=== PATIENT | female | born 1960 | race Caucasian/White ===

== ENCOUNTER 2017-08-10 15:50 | Emergency (ER) | payer BC, SELFPAY ==
[2017-08-10 15:51] VITALS: BP 147/44; PULSE 79; RESP 22; TEMP 35.9; O2SAT 97; BMI 32.2
--- NOTE | 2017-08-10 16:02 | EKG12_ITS ---
Test Reason : SOB Blood Pressure : / mmHG Vent. Rate : 072 BPM Atrial Rate : 072 BPM P-R Int : 194 ms QRS Dur : 090 ms QT Int : 426 ms P-R-T Axes : 046 013 024 degrees QTc Int : 466 ms Normal sinus rhythm Normal ECG Confirmed by DONAAVN TEMPLE MD ([id number]), photo editor SHEFALI VAZQUEZ ([id number]) on 08/14/2017 4:19:48 PM Referred By: SHIRIN Confirmed By:DONAVAN TEMPLE MD
--- NOTE | 2017-08-10 16:04 | ED.DCSUM_ITS ---
- ER Visit Summary Date of Service: 08/10/17 Chief Complaint: Cough, shortness of breath History of Present Illness: The patient is a 57 F ends to the emergency department cough and shortness of breath. The patient states she has been sick for almost a week. She recently traveled back from a cruise. She states that she was just on a short flight. She said was seen in the clinic on Sunday and diagnosed with a likely bronchitis. She was placed on azithromycin and feels like it is not improving. She is continued to have cough with productive sputum and dyspnea. She denies orthopnea. She denies any fevers or chills. She has no history of underlying lung disease. She does not smoke. She has had no chest pain or increase in leg swelling. She has no history of pulmonary embolus. She states she just feels like she cannot catch her breath when she starts coughing. Physical Examination: Vital signs reviewed General: Well-nourished, well-developed Head: Normocephalic, atraumatic Eyes: Pupils equal and reactive, extraocular muscles intact Neck, supple, no lymphadenopathy Heart: Regular rate and rhythm Respiratory: No distress, diminished in the bases with a mild end expiratory wheeze Abdomen: Soft, nontender, nondistended, no peritoneal signs Back: Nontender Extremities: Nontender, no edema, no cords Skin: Normal color no rash Neuro: Alert and oriented, no focal or lateralizing deficits Test Results: [] Emergency Department Course and Treatment: The patient presents with cough and shortness of breath. She has had no chest pain. Her EKG is sinus rhythm without evidence of acute ischemic change. Patient underwent 2 views of the chest. There is no pleural effusion, pneumonia, or other significant process. Cardiac enzymes and d-dimer negative. Screening labs do show hyperglycemia but are otherwise unremarkable. At this time, I do feel likely has a mild bronchitis. I do feel steroids would be of benefit, but the patient is a poorly controlled diabetic. I am going to treat her with Tessalon Perles and an inhaler. I do for the patient safe for discharge and she has no hypoxia and no tachypnea. The patient will be discharged home. Treatment Plan: [] Disposition: Discharge Impression:. Viral bronchitis with bronchospasm This note was generated with [employer] software. It may contain incorrect words, spelling, and punctuation that were not noted in review of the chart prior to signing ED Disposition - Plan for ED Patient: Chief Complaint: Shortness of Breath Instructions: ED Upper Resp Infec No Abx Tx Prescriptions: Albuterol Inhaler [Ventolin Hfa] 1 - 2 puff INHALATION Q4H PRN PRN #1 inhaler PRN Reason: Wheezing Benzonatate [Tessalon Perle] 200 mg PO TID PRN PRN #20 cap PRN Reason: Cough Referrals: Sherry Cho, GLAZIER ARTIST-C [Primary Care Provider] -
--- NOTE | 2017-08-10 16:28 | RAD_ITS ---
STUDY: X-RAY CHEST REASON FOR EXAM: Female, 57 years old. Cough with fever TECHNIQUE: PA and lateral views of the chest. COMPARISON: None. FINDINGS: monitor technician leads are present. The lungs are clear and expanded. There is no demonstrated pleural abnormality. Normal size heart. Normal mediastinum and sohail. Normal visualized pulmonary arteries. Normal visualized aortic arch and descending thoracic aorta. There are diffuse degenerative changes of the visualized thoracic spine. Normal visualized ribs, clavicles, and shoulders. There is no demonstrated abnormality of the visualized soft tissue structures of the upper abdomen. RAD/Chest PA and Lateral IMPRESSION: Degenerative changes, as described above. No demonstrated acute cardiopulmonary process. Electronically Signed: Kyle Martin MD at 16:52 EST , Service support ,
[2017-08-10 16:40] LABS: Absolute Lymphocyte Count 3.51 X10^3/ul (0.83-4.51); Basophil# 0.04 X10^3/uL; Basophil% 0.6 % (0-1); Eosinophil# 0.12 X10^3/uL; Eosinophils% 1.7 % (0-5); Hematocrit 43.8 % (37-47); Hemoglobin 14.6 g/dl (12.0-15.0); Lymphocyte # 3.51 X10^3/ul (4.0); Mean Corp Hgb Conc 33.3 g/gl (32-36); Mean Corpuscular Hgb 29.3 pg (27.0-32.0); Mean Platelet Vol. 10.7 fl (6.2-12.0); Monocyte# 0.51 X10^3/uL; Monocyte% 7.1 % (0-10); Neutrophil # 2.96 X10^3/uL (2.7-7.7); Neutrophil % 41.3 % (47-70); Platelet Count 191 K/mm3 (150-450); RBC Distribution Width SD 41.6 fl (35.1-43.9); Red Blood Count 4.98 M/mm3 (4.2-5.4); White Blood Count 7.2 K/mm3 (4.4-11.0)
[2017-08-10 16:41] LABS: POSITIVE COUNT NO; POSITIVE DIFFERENTIAL NO; POSITIVE MORPHOLOGY NO
[2017-08-10] MEDS: Ipratropium/Albuterol Sulfate 3 ML AMPUL.NEB INHALATION (16:41)
[2017-08-10] MEDS: Albuterol 2.5 MG/3 ML VIAL.NEB. INHALATION ×3 (16:41→17:04)
[2017-08-10 16:42] VITALS: PULSE 68; RESP 14
[2017-08-10 16:56] LABS: Anion Gap 8 (5-15); BUN 14 mg/dL (7-18); BUN/Creat Ratio 17.2 RATIO (10-20); Calcium,Total 8.9 mg/dL (8.5-10.1); Chloride 103 mmol/L (98-107); Creatinine, Serum 0.82 mg/dL (0.55-1.02); EST Glomerular Filtration Rate 77 mL/min (>60); Est Glom Filt Rate - Afr Amer 93 mL/min (>60); Estimated Creatinine Clearance 72.72 ml/min; Glucose 368 mg/dL (74-106); Potassium 4.2 mmol/L (3.5-5.1); Sodium Level 138 mmol/L (136-145)
[2017-08-10 16:57] LABS: D-Dimer Quantitative (DVT/PE) < 0.27 FEU/ug/m (0.27-0.49)
[2017-08-10 18:02] VITALS: BP 145/76; PULSE 94; RESP 20; O2SAT 100
[2017-08-10 18:49] LABS: BNP,B-Type NATRIURETIC PEPTIDE 39.8 pg/mL (0-100)
== END 2017-08-10 18:03 | disposition home or self-care (01) ==
PROVIDERS: Emergency Provider Emergency Medicine; Family Provider Nurse Practitioner Family; PCP Nurse Practitioner Family
DX: J20.8 Acute bronchitis due to other specified organisms (principal); E11.65 Type 2 diabetes mellitus with hyperglycemia; Z79.4 Long term (current) use of insulin; I10 Essential (primary) hypertension; E78.00 Pure hypercholesterolemia, unspecified; Z79.899 Other long term (current) drug therapy
CPT/HCPCS: 71046; 80048; 83880; 84484; 85025; 85379; 87804; 93005; 94640; 99284; A4216

== ENCOUNTER → 2018-01-18 12:15 | Outpatient (CLI) | payer BC, SELFPAY ==
--- NOTE | 2018-01-18 12:19 | US_ITS ---
STUDY: THYROID ULTRASOUND REASON FOR EXAM: Female, 57 years old. Nodules TECHNIQUE: Ultrasound evaluation of the thyroid was performed with real-time and static tubbs-scale imaging. COMPARISON: March 19, 2014. FINDINGS: RIGHT LOBE: Status post right thyroidectomy LEFT LOBE: The left lobe of the thyroid gland measures 4.1 x 1.5 x 1.3 cm. There is a heterogeneous echotexture. There is a stable 4 mm lower pole cyst. There is a posterior 9 mm isoechoic nodule. ISTHMUS: The isthmus measures 3 mm . The regional lymph nodes are normal. US/Thyroid IMPRESSION: Status post right thyroidectomy. Stable cysts lower pole cyst of the left thyroid lobe. Questionable posterior thyroid nodule versus prominent parathyroid gland. Electronically Signed: Maurice Up DO at 14:13 EDT Tel [phone], Service support ,
== END ==
DX: E04.9 Nontoxic goiter, unspecified (principal); Z12.31 Encounter for screening mammogram for malignant neoplasm of breast
CPT/HCPCS: 76536; 77063; 77067

== ENCOUNTER → 2018-06-13 07:34 | Outpatient (CLI) | payer BC, SELFPAY | PROVIDERS: Referring Provider Nurse Practitioner Family; Visit Provider Nurse Practitioner Family | DX: R06.83 Snoring (principal) | CPT/HCPCS: 95806 ==

== ENCOUNTER → 2018-08-19 14:17 | Outpatient (CLI) | payer BC, SELFPAY ==
[2018-02-04 07:53] VITALS: BMI 32.2
--- NOTE | 2018-08-19 14:22 | RAD_ITS ---
STUDY: X-RAY - RIGHT SHOULDER REASON FOR EXAM: Female, 58 years old. Pain for 2 weeks TECHNIQUE: 3 view(s) of the shoulder. COMPARISON: None. FINDINGS: Normal glenohumeral articulation. Normal acromioclavicular joint. Normal acromion. Normal humeral head and visualized proximal humerus. The soft tissue structures are unremarkable. Normal visualized pulmonary apex. RAD/Shoulder min 2 Views IMPRESSION: Normal x-ray examination of the shoulder. Electronically Signed: Jeffery Linda MD at 14:18 EDT Tel , Service support ,
== END ==
DX: M25.511 Pain in right shoulder (principal)
CPT/HCPCS: 73030

== ENCOUNTER → 2019-02-11 11:51 | Outpatient (CLI) | payer BC, SELFPAY ==
[2018-02-04 07:53] VITALS: BMI 32.2
--- NOTE | 2019-02-11 11:55 | US_ITS ---
HISTORY: History of right thyroidectomy, left thyroid lobe nodule follow-up COMPARISON: 01/18/2018 TECHNIQUE: Real-time transabdominal imaging of the thyrod gland was performed. # of images incl. paperwork: 58 FINDINGS: Right lobe: Status post lobectomy. Left lobe: The left lobe of the thyroid gland measures 3.5 x 1.4 x 1.5 cm. Normal parenchymal echogenicity. Within the upper pole there is a well-circumscribed oval hypoechoic nodule measuring 4 x 5 x 3 mm without abnormal microcalcifications or abnormal vascularity. In the midpole is redemonstration of what may represent a isoechoic well-circumscribed 7 x 8 x 7 mm nodule without microcalcifications or abnormal vascularity. Within the lower pole there is a anechoic/cystlike oval nodule measuring 3 x 2 mm, stable. Isthmus: The isthmus measures 0.3 cm. Other: No adenopathy is seen in either jugular chain. US/Thyroid IMPRESSION: 1. Status post right thyroidectomy. 2. Stable appearance of several subcentimeter left thyroid nodules with overall benign morphologic features. at 0305 Reported and signed by: Amaury Saucedo MD Electronically Signed: Amaury Saucedo MD at 3:04 EDT Tel , Service support ,
== END ==
DX: E04.9 Nontoxic goiter, unspecified (principal)
CPT/HCPCS: 76536

== ENCOUNTER 2019-02-17 08:06 | Day surgery (SDC) | payer BC, SELFPAY ==
[2018-02-04 07:53] VITALS: BMI 32.2
[2019-02-17] VITALS (9 sets, daily range): BP systolic 83–139; BP diastolic 62–86; PULSE 58–77; RESP 16–22; TEMP 36.1–37.2; O2SAT 93–98; BMI 34.9
[2019-02-17] MEDS: Lactated Ringers 1,000 ML 100 ML IV (08:45)
[2019-02-17 08:51] LABS: Bedside Glucose 172 mg/dL (70-110)
--- NOTE | 2019-02-17 09:15 | IMM_PTH ---
PATIENT: ANNA GAITAN LOC: EN U#:[id number] AGE/SX: 59/F ROOM: RE02/17/[address]: Dr. Joaquin Caban MD : 1960 BED: DIS: 02/17/2019 SPEC #: [id number] RECD: 02/17/19 14:04 STATUS: CHRISTA RERoman #: [id number] CORY: 02/17/19 09:[address]: Joaquin Caban DEPT: IMMUNOHISTOCHEMISTRY RECD BY: Juana Shah ENTERED: 02/17/19 14:04 SP TYPE: IMMUNO OTHR DR: Sherry Cho, PACKING AND STAMPING MACHINE OPERATOR-C [facility] Tissues: Stomach, NOS Procedures: H Pylori (initial) PHYSICIAN & [place] [id number] SPECIMEN INFORMATION: Tissue Source: Antrum biopsy Clinical Info: Dysphagia and colon screening Specimen Number: [id number] CPT code: 10884 METHODOLOGY: Deparaffinized sections of prefer/formalin-fixed tissue or PAP/DQ stained slides are incubated with monoclonal/polyclonal antibodies/oligonucleotide probes. Localization is made via biotin free immunoperoxidase method. Appropriate controls are performed and reacted as expected. Results on target cell population are indicated in the following table: RESULTS: ANTIBODY / CLONE RESULT H Pylori (polyclonal) positive These tests were developed and their performance characteristics determined by [facility]. They may not have been cleared or approved by the U.S. Food and Drug Administration. The FDA has determined that such clearance or approval is not necessary. INTERPRETATION: Antrum biopsy: Positive for numerous Helicobacter pylori organisms. SJ:neris 02/18/19
--- NOTE | 2019-02-17 09:15 | COLBX_PTH ---
PATIENT: ANNA GAITAN LOC: EN U#:[id number] AGE/SX: 59/F ROOM: RE02/17/[address]: Dr. Joaquin Caban MD : 1960 BED: DIS: 02/17/2019 SPEC #: [id number] RECD: 02/17/19 12:01 STATUS: CHRISTA JOVANNA #: [id number] CORY: 02/17/19 09:[address]: Joaquin Caban DEPT: SURGICAL PATHOLOGY RECD BY: Sachin Acosta ENTERED: 02/17/19 13:15 SP TYPE: COLON BX OTHR DR: Sherry Cho, BUSINESS ADMINISTRATION PROFESSOR-C [facility] Tissues: Gastric mucous membrane Procedures: Surgery Specimen Level IV HEADER OPERATION: Colonoscopy, EGD - open access (MAC) PRE-OP DIAGNOSIS: Dysphagia and colon screening TISSUE SUBMITTED: Antrum biopsy for H. pylori and path MICROSCOPIC DIAGNOSIS Antrum biopsy: Moderate chronic active gastritis. A few minute lymphoid aggregates, favor benign. NEYMAR:neris 02/18/19 COMMENT The results of immunohistochemistry for Helicobacter pylori will be reported separately ([id number]). MICROSCOPIC DESCRIPTION Slides are reviewed. GROSS DESCRIPTION Received in fixative is one container labeled with the patient's name and designated antrum biopsy. The specimen consists of one irregular fragment of light perez soft tissue that measures 0.8 x 0.2 x 0.1 cm. The specimen is totally submitted in one cassette. / NEYMAR:neris 02/17/19 TC:2 CPT: 77236
--- NOTE | 2019-02-17 09:26 | PCM.HP.BLA ---
History and Physical Date of Admission: 02/17/19 [facility] [address] [place], [place] [id number] OFFICE VISIT Date of Service: 02/04/18 MR#: [id number] Acct: [id number] Name: ANNA GAITAN Rep #: [id number] : 1960 Provider: Joaquin Caban MD Age/Sex: 58/F Location: [facility] Status: Signed Intake Vital Signs 02/04/18 Height 5 ft 7 in 02/04/18 Weight: 206 lb 02/04/18 Body Mass Index (BMI) 32.2 02/04/18 Blood Pressure 127/86 02/04/18 Blood Pressure Location Rt brachial 02/04/18 Blood Pressure Position Sitting 02/04/18 Respiratory Rate 14 02/04/18 Pulse Rate 69 02/04/18 Pulse Source Monitor 02/04/18 Temperature 98.0 F 02/04/18 Temperature Source Oral 02/04/18 Pulse Ox 96 02/04/18 Oxygen Delivery Method room air Intake Visit Reasons: Thyyroid Consult [facility] 01/18 Chief Complaint: thyroidectomy Manager Web Required: No Is patient in pain?: Yes (Left side of neck) Pain scale (1-10): 4 Allergies aspirin Adverse Reaction (Verified 08/10/17 16:13) Other Penicillins Adverse Reaction (Verified 08/10/17 16:13) Other Medications Insulin Aspart [Novolog Flexpen] 15 units SC TIDCM 04/21/14 [History Confirmed 02/04/18] Insulin Glargine [Lantus SoloStar Pen] 60 units SC QHS 04/21/14 [History Confirmed 02/04/18] Lisinopril [Zestril] 20 mg PO QHS 04/21/14 [History Confirmed 02/04/18] cholecalciferol (vitamin D3) 1,000 unit tablet 1,000 unit PO ONCE 05/17/17 [History Confirmed 02/04/18] insulin aspart U-100 100 unit/mL subcutaneous pen 10 unit SC TID #15 ml 05/17/17 [Rx Confirmed 02/04/18] insulin glargine (U-100) 100 unit/mL subcutaneous solution 60 unit SC QHS #20 ml 05/17/17 [Rx Confirmed 02/04/18] Albuterol Inhaler [Ventolin Hfa] 1 - 2 puff INHALATION Q4H PRN PRN #1 inhaler 08/10/17 [Rx] Benzonatate [Tessalon Perle] 200 mg PO TID PRN PRN #20 cap 08/10/17 [Rx] Levothyroxine [Synthroid] 75 mcg PO DAILY 08/10/17 [History Confirmed 02/04/18] naproxen 375 mg tablet 375 mg PO BID 02/04/18 [History Confirmed 02/04/18] pravastatin 20 mg tablet 40 mg PO QHS tab 02/04/18 [History Confirmed 02/04/18] sitagliptin 50 mg-metformin 500 mg tablet 1 tab PO BID 02/04/18 [History Confirmed 02/04/18] [facility] Medical History Back problem (Acute) Diabetes type 2, controlled (Acute) Endometriosis (Acute) H/O nephrolithotomy with removal of calculi (Acute) Headache (Acute) Hematoma (Acute) Hepatitis (Acute) High triglycerides (Acute) Hyperlipidemia (Acute) Hypothyroid (Acute) Kidney stones (Acute) Neuropathy (Acute) Open fracture of left tibia (Acute) Recurrent UTI (Acute) Rheumatoid arthritis (Acute) Seasonal allergies (Acute) Thyroid cancer (Acute) Vitamin D deficiency (Acute) HTN (hypertension) (Chronic) Surgical History H/O abdominal surgery (Acute) H/O section (Acute) H/O splenectomy (Acute) History of tonsillectomy (Acute) Hx of appendectomy (Acute) Hx of partial thyroidectomy (Acute) Previous back surgery (Acute) Family History Mother Diabetes Heart disease Hypertension Thyroid disorder Social History Smoking Status: Never smoker second hand exposure: No alcohol intake: current substance use type: does not use caffeine: Yes what type of physical activity do you participate in: walking HPI HPI HPI: ANNA GAITAN, is a 58 F who presents to the office today for evaluation of a thyroid ultrasound which was completed was [facility] on 01/18/2018. 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 The left lobe measured 4.1 x 1.5 x 1.3 cm there is a stable 4 mm lower lobe cyst in the 9 mm isoechoic nodule in the posterior aspect said the isthmus was a 3 mm the regional lymph nodes were noted to be normal. Patient states that she has been having some discomfort in her submandibular glands but has not noticed any pain or discomfort in her thyroid. She has been swallowing without problems and has she has been on her thyroid hormone replacement and it is been regularly being checked [facility]. ROS General General: Yes weight change and fatigue; no appetite, colon cancer, breast cancer or weakness HEENT HEENT: Yes difficulty swallowing and swollen glands; no eye injury, eye surgery or hoarseness Endo Endocrine: Yes thyroid disease and diabetes mellitus; no thyroid cancer, Hair loss, heat intolerance or cold intolerance Skin Skin: No rash or changing moles Musc Musculoskeletal: Yes back problems and arthritis; no rheumatoid arthritis, gout or joint pain Cardio Cardiovascular: Yes high blood pressure; no murmur, pacemaker, heart disease, atrial fibrillation, heart attack, heart stent, palpitations, shortness of breat with exertion or chest pain Psych Psychiatric: No depression, anxiety or hearing voices Resp Respiratory: No shortness of breath, No sleep apnea, No cough, No COPD, No asthma, No emphysema, No wheezing Gastro Gastrointestinal: Yes diarrhea, Yes constipation, No abdominal pain, No nausea or vomiting, No blood in stool, No acid reflux, No hemorrhoids, No ulcers, No gallbladder problem, No black,tarry stools Naldo Hematologic: No blood thinners, No blood disorders, No bleeding, No anemia, No blood clots Neuro Neurologic: No weakness Exam [facility] Head: normocephalic, atraumatic Ears: external ears normal Mouth: moist mucous membranes Other: Thyroid Exam: Within normal limits. No hard palpable nodules are identified. There is a well-healed cervical incision. Thyroid gland is not tender to palpate. The left submandibular gland I cannot palpate either. Cardio Heart Sounds: no murmurs Assessment & Plan Problems 1. Uninodular goiter E04.1 Plan At this point I am not going to recommend that the patient undergo a fine-needle aspiration. She will need to have another ultrasound done to her thyroid gland on a yearly basis. If the nodules grow by more than 20% or new nodules develop that are larger than a centimeter then we will perform fine-needle aspirations on her. But until they become a 10 mm in size no fine-needle aspiration is needed at this time. Medications Discontinued: hydrocodone-acetaminophen 5-325 mg Discontinued Reason: Pt no longer taking 1 - 2 tabs PO Q6H PRN PRN Mild-Moderate (pain scale 1-5) Coding Level of Care Code Off vis,new,level 2 Diagnoses Uninodular goiter E04.1 02/04/18 0802 <Electronically signed by Joaquin Caban MD> Date Joaquin Caban MD [facility] Signature: Date (if applicable) CC: EMILY LOPEZ [facility] ~ I have examined the patient the following changes are noted: Assessment screening colonoscopy Plan: We will be colonoscopy. Risk benefits have been reviewed with the patient to include bleeding infection possible injury to the colon which could require further surgeries and bowel resection. Patient is willing to and understands all potential risks. She is willing to proceed.
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
--- NOTE | 2019-02-17 10:34 | OP.ENDO_ITS ---
02/17/2019 Miroslava Marshall [facility] Re : Colonoscopy procedure for Anita Acosta [facility] This procedure was performed on Sunday, February 17, 2019. My impressions and recommendations are as follows: Impressions : - The examination was otherwise normal on direct and retroflexion views. - No specimens collected. Recommendations : - Discharge patient to home. - Resume previous diet. - Perform an air contrast barium enema today. - Repeat colonoscopy in 10 years for screening purposes. - Continue present medications. My findings are described in the full procedure note, which is enclosed. If I can be of further assistance, please feel free to contact me at Doctor phone number(s): , Fax: [phone], Work: . Sincerely, MD Joaquin Lopez MD 02/17/2019 10:33:47 AM This report has been signed electronically.
--- NOTE | 2019-02-17 14:05 | RAD_ITS ---
STUDY: BARIUM ENEMA. REASON FOR EXAM: Female, 59 years old. Incomplete colonoscopy. History of polyps. FLUOROSCOPY TIME (if supplied): (0:43) minutes/seconds. 16 images were obtained. TECHNIQUE: A supervisor speech film was performed. Following this, barium was introduced retrograde through the colon. The entire colon was opacified. COMPARISON: None. FINDINGS: On the supervisor speech film, gas is seen throughout the colon and several nondilated small bowel loops. The entire colon was opacified. There is evidence of redundancy of the sigmoid colon. There is no evidence of obstruction antegrade or retrograde to the flow of contrast. The appendix is opacified. RAD/Barium Enema No Air Cont IMPRESSION: Redundancy of the sigmoid colon. Electronically Signed: Sonny Bernard, at 15:22 EDT , Service support ,
== END 2019-02-17 13:46 | disposition home or self-care (01) ==
LOC: EN 08:07 → AC 08:09
PROVIDERS: Visit Provider Surgery
PROC: 0DJD8ZZ Inspection of Lower Intestinal Tract, Via Natural or Artificial Opening Endoscopic (ICD-10-PCS; CPT 45378; principal; 2019-02-17 09:10)
DX: K29.50 Unspecified chronic gastritis without bleeding (principal); B96.81 Helicobacter pylori [H. pylori] as the cause of diseases classified elsewhere; R13.14 Dysphagia, pharyngoesophageal phase; Z12.11 Encounter for screening for malignant neoplasm of colon; E78.00 Pure hypercholesterolemia, unspecified; I10 Essential (primary) hypertension; G47.30 Sleep apnea, unspecified; E04.1 Nontoxic single thyroid nodule; E11.65 Type 2 diabetes mellitus with hyperglycemia; Z79.4 Long term (current) use of insulin; Z79.899 Other long term (current) drug therapy; Z85.850 Personal history of malignant neoplasm of thyroid
CPT/HCPCS: 43239; 45378; 74270; 82962; 88305; 88342; J7120; J2405

== ENCOUNTER → 2021-02-15 18:20 | Outpatient (CLI) | payer BC, SELFPAY ==
--- NOTE | 2021-02-15 18:31 | US_ITS ---
STUDY: THYROID ULTRASOUND REASON FOR EXAM: Female, 61 years old. HYPO THYROID- s/p RT THYROIDECTOMY F/U LT NODULES TECHNIQUE: Ultrasound evaluation of the thyroid was performed with real-time and static tubbs-scale imaging. COMPARISON: None. FINDINGS: LEFT LOBE: The left lobe of the thyroid gland measures 4.3 x 1.4 x 1.4 cm. There is a homogeneous echotexture. 5 x 6 x 3 mm inferior lobe cystic nodule. 8 x 7 x 5 mm solid nodule on the posterior aspect of the gland with irregular margins and perivalvular vascularization. 4 x 4 x 2 mm superior thyroid cystic nodule. ISTHMUS: The isthmus measures 3 mm. US/Thyroid IMPRESSION: 8 mm solid nodule along the posterior aspect of the mid gland may represent a parathyroid. Cystic left thyroid structures measure up to 6 mm. Electronically Signed: Sonido Bal MD at 22:18 EDT Tel , Service support ,
== END ==
PROVIDERS: Visit Provider Nurse Practitioner Adult Health
DX: E03.9 Hypothyroidism, unspecified (principal)
CPT/HCPCS: 76536

== ENCOUNTER → 2022-01-23 | Outpatient (CLI) | payer BC, SELFPAY ==
[2022-01-28 14:29] LABS: HPV APTIMA, High Risk Negative (Negative)
== END | disposition home or self-care (01) ==
LOC: LABSPEC 13:11
PROVIDERS: Visit Provider Student in an Organized Health Care Education/Training Program
DX: Z12.4 Encounter for screening for malignant neoplasm of cervix (principal)
CPT/HCPCS: 87624; 88175; G0145

== ENCOUNTER 2022-02-09 05:51 | Day surgery (SDC) | payer BC, SELFPAY ==
[2022-02-02 11:01] LABS: Hematocrit 46.1 % (37-47); Hemoglobin 15.5 g/dL (12.0-15.0); Mean Corp Hgb Conc 33.6 g/dL (32-36); Mean Corpuscular Hgb 30.2 pg (27.0-32.0); Mean Corpuscular Volume 89.9 fL (81-99); Mean Platelet Vol. 10.9 fl (6.2-12.0); Platelet Count 246 K/mm3 (150-450); RBC Distribution Width CV 13.1 % (11.6-14.6); RBC Distribution Width SD 43.2 fl (35.1-43.9); Red Blood Count 5.13 M/mm3 (4.2-5.4); White Blood Count 7.9 K/mm3 (4.4-11.0)
[2022-02-09] VITALS (9 sets, daily range): BP systolic 153–165; BP diastolic 70–88; PULSE 78–86; RESP 16; TEMP 36.1–36.8; O2SAT 93–98; BMI 36.3
--- NOTE | 2022-02-09 | EMB_PTH ---
PATIENT: ANNA GAITAN LOC: [facility] [place] U#:[id number] AGE/SX: 62/F ROOM: RE02/09/[address]: Dr. Shabnam Melgar DO : 1960 BED: DIS: 02/09/2022 SPEC #: [id number] RECD: 02/09/22 11:14 STATUS: CHRISTA JOVANNA #: [id number] CORY: 02/09/22 00:[address]: Shabnam Melgar DEPT: SURGICAL PATHOLOGY RECD BY: Mario Lawrence ENTERED: 02/09/22 11:14 SP TYPE: MAXI BX/C SIOMARA DR: Leslie Paulino, RN ANGIOGRAPHY-C [facility] Tissues: Endometrium, NOS Procedures: Surgery Specimen Level IV HEADER OPERATION: Hysteroscopy, dilation and curettage PRE-OP DIAGNOSIS: Postmenopausal bleeding TISSUE SUBMITTED: Endometrial curettings MICROSCOPIC DIAGNOSIS Endometrial curettings: Complex endometrial hyperplasia with atypia and with focal areas highly suspicious for well differentiated endometrial adenocarcinoma. See comment. NEYMAR:neris 02/10/2022 COMMENT This case has been reviewed in consultation with Dr. De Leon who concurs with the above diagnosis. MICROSCOPIC DESCRIPTION Slides are reviewed. GROSS DESCRIPTION Received in fixative is one container labeled with the patient's name and designated endometrial curettings. The specimen consists of multiple irregular fragments of pink soft tissue mixed with mucoid tissue that in aggregate measure 3 x 2.5 x 0.3 cm. The specimen is totally submitted in one cassette. / NEYMAR:neris 02/09/2022 TC:0 CPT: 86235
--- NOTE | 2022-02-09 06:39 | PCM.HP.BLA ---
History and Physical Date of Admission: 02/09/22 HPI: 62 yo female with post menopausal bleeding. Planned for hysteroscopy, dilation and curettage. Meds Prior to Visit: Clobetasol Propionate E 0.05 % apply thin layer to affected area twice daily for two weeks Fluconazole 150 mg 1 tab by mouth once Lantus 100 Unit/ML 72 units pm Levothyroxine Sodium 50 mcg 1 tabs by mouth every day don't know Novolog 100 Unit/ML 50 units per meal Vitamin D (Ergocalciferol) 1.25 MG (42463 Ut) qd Allergies: Penicillin G - bruises, Environmental PMH: Essential hypertension : (2).Parity: Full term (2). Medical Problems: Type 2 Diabetes, Hypertension, Hypothyroidism Surgical Hx: Appendectomy, Tonsillectomy, Exploratory Laparotomy, Section, Dilation & Curettage Anesthesia Complications: None. Reviewed and updated. FH: Hypertension, Diabetes Mellitus Type 2, Hypoglycemia, Hypothyroidism, Edema. Father: Heart Disease, Emphysema. Mother: Diabetes Mellitus Type 2, Heart Disease. Paternal Grandmother: Unknown. Paternal Grandfather: Unknown. Maternal Grandmother: Tuberculosis (TB). Reviewed, no changes. SH: Personal Habits:Tobacco Use: Patient has never smoked.Alcohol: Occasionally consumes alcohol.Drug Use: Denies Drug Use. ROS: Const: Denies fatigue, fever, hot flashes, insomnia, weight gain and weight loss. CV: Denies irregular heartbeat, pain and shortness of breath. Resp: Denies difficulty breathing, cough and shortness of breath. : Denies abnormal bleeding, bloating, decreased interest in sex and pruritus. Lochia: Patient denies any discharge or clotting. Denies dysuria, frequency, hematuria, nocturia, urgency and urinary leakage. Neuro: Denies dizziness, fainting and seizures. Naldo/Lymph: Denies easy bleeding and excessive bleeding. Allergy/Immuno: Denies new allergies. BP: 140/86 Ht: 66 5'6 Wt: 233lb Wt Prior: 231lb as of 01/27/22 Wt Dif: +2lb BMI: 37.6 Exam: Resp: Respiration rate is normal. Inspection of chest reveals AP is unremarkable and no chest wall deformity. CV: Rate is regular. Rhythm is regular. Respiratory: CTAB Abdomen: soft, NT, ND Ext: No edema Neurologic: CN 2-12 grossly intact, no focal deficits MSK: strength 5/5 throughout all extremities Assessment/Plan 62 yo female with post menopausal bleeding. Planned for hysteroscopy, dilation and curettage. All risks/benefits/alternatives discussed. Risks include, but are not limited to: risk of bleeding to the point of transfusion, infection, injury to surrounding tissue (bowel/bladder/major abdominal vessels/uterine perforation), VTE, ICU admission. Pt aware and consented. All questions answered.
[2022-02-09] MEDS: Lactated Ringers 1,000 ML 15 ML IV (06:47)
[2022-02-09 07:30] LABS: Bedside Glucose 155 mg/dL (74-106)
--- NOTE | 2022-02-09 07:37 | OP.PCM_ITS ---
Report of Operation Date of Procedure: 02/09/22 Pre-Operative Diagnosis: Postmenopausal bleeding Post-Operative Diagnosis: Postmenopausal bleeding Surgery/Procedure Performed:: Hysteroscopy, dilation and curettage Description of Surgical Findings:: Thin slightly erythematous labia majora are all skin. Normal-appearing cervix. Thickened endometrial lining. No fibroids or polyps. Type of Anesthesia: MAC Specimen's removed: Endometrial curettings Estimated Blood Loss (mL): 10cc Fluids Replaced: 500cc Description of Procedure: Indication/risk/benefits: This is a 62-year-old female with postmenopausal bleeding plan for hysteroscopy, dilation and curettage. All risk, benefits, alternatives were discussed with patient. Risks include but are not limited to: Risk of bleeding to the point transfusion, infection, injury to surrounding tissue including bowel/bladder/uterine perforation, VTE, ICU admission. Patient aware and consented. Procedure: Patient taken to the operating room and MAC anesthesia induced. Patient prepped and draped in the usual sterile fashion. Weighted speculum p laced in posterior vagina and Last retractor used to visualize the cervix. Anterior lip of the cervix grasped with single-tooth tenaculum. Cervix sequentially dilated. Hysteroscope placed through cervical canal and inspection of entire endometrial cavity completed with findings stated above. Hysteroscope removed. Curettage completed a 360 degree manner. Single-tooth tenaculum removed. Cervix hemostatic. Weighted speculum removed. At the end of the procedure all needle, lap, sponge counts were correct. UOP: 150cc Complications None
--- NOTE | 2022-02-09 07:37 | PCM.DC ---
Discharge Instructions Diet Discharge Diet: No restrictions Activity Discharge Activity: Return to Normal Activity and May Shower May resume sexual activity in: 2 weeks Weight Bearing Status: Weight bearing as tolerated Lifting Restrictions: None Dressing / Incision Call your doctor if you observe: Fever of 101 or Higher, Change in Color, Inability to urinate, Using more than 1 pad per hour, Shortness of breath, Dizziness, Swelling in the ankles, Chest pain and Calf discomfort Follow Up Care Please Follow Up With: Shabnam Melgar DO When: 1-2 week postoperative visit Test Results: Test results from this visit will be discussed in further detail at your follow-up appointment, if applicable. Discharge Plan Admission Primary Reason for Your Visit: Dilation and curettage Attending Provider: Shabnam Melgar [facility] Providers: Leslie Paulino Discharge Orders/Prescriptions Prescriptions: No Action cholecalciferol (vitamin D3) 1,000 unit tablet 1,000 unit PO DAILY losartan 50 mg tablet 50 mg PO DAILY Qty: 1 0RF naproxen 375 mg tablet 375 mg PO PRN PRN (Reason: Pain) gabapentin 300 mg capsule 300 mg PO TID Qty: 1 0RF pravastatin 80 mg tablet 80 mg PO QHS levothyroxine 88 mcg tablet 88 mcg PO DAILY Label Comments: take 1 tablet by mouth once daily furosemide 20 mg Tablet 20 mg PO PRN PRN (Reason: Edema) potassium chloride 10 mEq Tablet,Er Particles/Crystals 10 meq PO PRN PRN (Reason: EDEMA WITH WATER PILL) Fat Burner Tablet 1 tab PO DAILY alpha lipoic acid 100 mg Capsule 100 mg PO BID Trulicity 1.5 mg/0.5 mL Pen Injector 1.5 mg SUBCUT TU insulin aspart U-100 [Novolog Flexpen U-100 Insulin] 100 unit/mL (3 mL) insulin pen 50 unit SC TID insulin glargine 100 unit/mL (3 mL) insulin pen 72 unit SC QHS (DME) FreeStyle Shanda 14 Day Sensor Kit See Rx Instructions .Route Qty: 2 5RF Rx Instructions: As directed [facility] - Disposition Disposition (needs filled in before D/C Order can be placed): Home, Self Care
[2022-02-09] MEDS: Lubricating Jelly 60 GM Tube 30 GM (07:46)
[2022-02-09] MEDS: HYDROcodone Bitartrate/Apap 5/325 Tablet PO (09:02)
== END 2022-02-09 09:13 | disposition home or self-care (01) ==
LOC: SDC 05:54 → AC 05:54
PROVIDERS: Referring Provider Student in an Organized Health Care Education/Training Program; Visit Provider Student in an Organized Health Care Education/Training Program
PROC: 0UDB8ZZ Extraction of Endometrium, Via Natural or Artificial Opening Endoscopic (ICD-10-PCS; CPT 58558; principal; 2022-02-09 07:20)
DX: N85.01 Benign endometrial hyperplasia (principal); E11.9 Type 2 diabetes mellitus without complications; Z79.4 Long term (current) use of insulin; N95.0 Postmenopausal bleeding; I10 Essential (primary) hypertension; E03.9 Hypothyroidism, unspecified; G47.33 Obstructive sleep apnea (adult) (pediatric); E55.9 Vitamin D deficiency, unspecified; E78.2 Mixed hyperlipidemia; Z79.899 Other long term (current) drug therapy
CPT/HCPCS: 58558; 00952; 36415; 82962; 85027; 86850; 86900; 86901; 88305; J7120; J2405

== ENCOUNTER → 2022-03-02 | Outpatient (CLI) | payer BC, SELFPAY ==
--- NOTE | 2022-03-02 12:22 | US_ITS ---
INDICATION: NONTOXIC SINGLE THYROID NODULE EXAMINATION: Ultrasound US Thyroid (eg thyroid, parathyroid, parotid) TECHNIQUE: Ann scale and color doppler imaging was performed of the thyroid gland. COMPARISON: 02/15/2021 FINDINGS: RIGHT THYROID LOBE: The right lobe of the thyroid gland is surgically absent. LEFT THYROID LOBE: The left lobe of the thyroid gland demonstrates heterogeneous echogenicity with 3 nodules are visualized largest of which is seen in the mid pole measuring 0.7 x 0.7 x 0.5 cm, this demonstrates hyperechoic internal echogenicity, unremarkable margins is wider than smaller and demonstrates no hyperechoic foci, TR 3 nodule. Two smaller anechoic cysts are visualized measuring 0.3 x 0.3 x 0.2 cm and 0.4 x 0.3 x 0.2 cm. ISTHMUS: The isthmus measures 0.2 cm in AP diameter.. No thyroid nodules are present. US/Thyroid IMPRESSION: The right lobe of the thyroid gland is surgically absent. A 0.7 cm TR 3 nodule is visualized in the midpole of the left lobe. Electronically Signed: Srikanth Gustafson MD at 14:48 EDT ,
== END | disposition home or self-care (01) ==
PROVIDERS: Referring Provider Family Medicine; Visit Provider Family Medicine
DX: E04.1 Nontoxic single thyroid nodule (principal)
CPT/HCPCS: 76536

== ENCOUNTER → 2022-03-24 | Outpatient (CLI) | payer BC, SELFPAY ==
[2022-03-24 09:35] LABS: ALB/GLOB Ratio 0.8 RATIO (0.9-2.4); AST(SGOT) 24 U/L (15-37); Alanine Aminotransfer ALT/SGPT 41 U/L (13-56); Albumin, Serum 3.5 g/dL (3.2-5.0); Alkaline Phosphatase 76 U/L (45-117); Anion Gap 5 (5-15); BUN 20 mg/dL (7-18); BUN/Creat Ratio 24.8 RATIO (10-20); Calcium,Total 9.5 mg/dL (8.5-10.1); Chloride 106 mmol/L (98-107); Creatinine, Serum 0.81 mg/dL (0.55-1.02); EST Glomerular Filtration Rate 76 mL/min (>60); Est Glom Filt Rate - Afr Amer 92 mL/min (>60); Globulin 4.2 g/dL (2.2-4.2); Glucose 152 mg/dL (74-106); Potassium 4.5 mmol/L (3.5-5.1); Protein, Total 7.7 g/dL (6.4-8.2); Sodium Level 140 mmol/L (136-145)
[2022-03-24 09:36] LABS: Hemoglobin A1c 8.9 % (3.8-5.6)
== END | disposition home or self-care (01) ==
LOC: LAB 08:07
PROVIDERS: Referring Provider Family Medicine; Visit Provider Family Medicine
DX: E11.42 Type 2 diabetes mellitus with diabetic polyneuropathy (principal)
CPT/HCPCS: 36415; 80053; 83036

== ENCOUNTER → 2022-05-31 | Outpatient (CLI) | payer BC, SELFPAY ==
[2022-05-31 12:43] LABS: Absolute Lymphocyte Count 3.16 X10^3/uL (0.83-4.51); Absolute Neutrophil Count 4.2 X10^3/uL (2.0-7.7); Basophil# 0.08 X10^3/uL; Eosinophil# 0.23 X10^3/uL; Eosinophils% 2.8 % (0-5); Hematocrit 44.4 % (37-47); Hemoglobin 14.4 g/dL (12.0-15.0); Lymphocyte # 3.16 X10^3/ul (0.83-4.51); Mean Corp Hgb Conc 32.4 g/dL (32-36); Mean Corpuscular Hgb 28.9 pg (27.0-32.0); Mean Corpuscular Volume 89.2 fL (81-99); Mean Platelet Vol. 10.7 fl (6.2-12.0); Monocyte% 7.2 % (0-10); NRBC Flagged by Analyzer 0 % (0-5); Neutrophil # 4.21 X10^3/uL (2.7-7.7); Neutrophil % 50.6 % (47-70); Platelet Count 276 K/mm3 (150-450); RBC Distribution Width CV 12.5 % (11.6-14.6); RBC Distribution Width SD 40.9 fl (35.1-43.9); Red Blood Count 4.98 M/mm3 (4.2-5.4); White Blood Count 8.3 K/mm3 (4.4-11.0)
[2022-05-31 13:12] LABS: ALB/GLOB Ratio 0.9 RATIO (0.9-2.4); AST(SGOT) 8 U/L (15-37); Alanine Aminotransfer ALT/SGPT 28 U/L (13-56); Albumin, Serum 3.4 g/dL (3.2-5.0); Alkaline Phosphatase 81 U/L (45-117); Anion Gap 9 (5-15); BUN 25 mg/dL (7-18); BUN/Creat Ratio 25.4 RATIO (10-20); Calcium,Total 9.9 mg/dL (8.5-10.1); Chloride 99 mmol/L (98-107); Creatinine, Serum 0.98 mg/dL (0.55-1.02); EST Glomerular Filtration Rate 61 mL/min (>60); Est Glom Filt Rate - Afr Amer 73 mL/min (>60); Globulin 3.9 g/dL (2.2-4.2); Glucose 430 mg/dL (74-106); Potassium 4.4 mmol/L (3.5-5.1); Protein, Total 7.3 g/dL (6.4-8.2); Sodium Level 132 mmol/L (136-145)
== END | disposition home or self-care (01) ==
LOC: LABSPEC 10:42
PROVIDERS: Visit Provider Student in an Organized Health Care Education/Training Program
DX: Z48.816 Encounter for surgical aftercare following surgery on the genitourinary system (principal); R30.0 Dysuria
CPT/HCPCS: 36415; 80053; 85025; 87086; 87088

== ENCOUNTER 2023-01-09 07:56 | Outpatient (RCR) | payer OTHER, SELFPAY ==
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
== END 2023-01-09 19:00 | disposition home or self-care (01) ==
LOC: OT 07:56
PROVIDERS: PCP Nurse Practitioner Family; Referring Provider Nurse Practitioner Family; Visit Provider Nurse Practitioner Family
DX: M25.561 Pain in right knee (principal); M25.562 Pain in left knee; G89.29 Other chronic pain; E11.40 Type 2 diabetes mellitus with diabetic neuropathy, unspecified
CPT/HCPCS: 97750

== ENCOUNTER → 2023-08-18 | Outpatient (CLI) | payer OTHER, SELFPAY ==
--- OUTSIDE RECORDS SUMMARY | 2023-08-18 07:48 | XMS RPT_ITS | CCD ---
Author Name Unknown Address [address] [place] [address] Organization [facility] Care Team Providers Care Gear Hobber Name Role Phone BRANDIE GUNDERSON-SLUNK SKINNERJUAN Primary Care Physician PAULINO ELECTRIC TRAIN DRIVER-SLUNK SKINNER, LESLIE Primary Care Physician Paulino SLUNK SKINNER, Leslie K Primary Care Provider Oscar WIN, Carlos A Ramírez Unavailable Paulino SLUNK SKINNER, Leslie K Primary Care Provider Oscar WIN, Carlos A Ramírez Unavailable [phone] Ba BAEZ, Griselda Unavailable PAULINO, LESLIE K Primary Care Unavailable MURIEL HOU Attending Unavailable PAULINO, LESLIE K Primary Care Unavailable JOAQUIN SMITH Attending Unavailable ABDI MOORE Referring Unavailable PAULINO, LESLIE K Primary Care Unavailable BA ELECTRIC TRAIN DRIVER-SLUNK SKINNER, GRISELDA Attending Unava ilable PAULINO ELECTRIC TRAIN DRIVER-SLUNK SKINNER, LESLIE Primary Care Unavailab le BA ELECTRIC TRAIN DRIVER-SLUNK SKINNER, GRISELDA Attending Unava ilable PAULINO ELECTRIC TRAIN DRIVER-SLUNK SKINNER, LESLIE Primary Care Unavailab le BA ELECTRIC TRAIN DRIVER-SLUNK SKINNER, GRISELDA Attending Unava ilable PAULINO ELECTRIC TRAIN DRIVER-SLUNK SKINNER, LESLIE Primary Care Unavailab JESUS MANUEL Butler MD Attending Unavail able PAULINO ELECTRIC TRAIN DRIVER-SLUNK SKINNER, LESLIE Primary Care Unavailab neelam STACK MD, JESUS MANUEL Buck Attending Unavail able PAULINO ELECTRIC TRAIN DRIVER-SLUNK SKINNER, LESLIE Primary Care Unavailab le LYREN-SONDLES MD, JESUS MANUEL Buck Attending Unavail denis FREITAS, LESLIE Primary Care Unavailab richter Allergies Allergy Classification Reported Allergen(s) Allergy Type Date of Onset Reaction(s) Facility (20 sources) Aspirin; Translations: [aspirin] Drug Allergy 4 Other: See Comments [facility] (16 sources) Penicillin; Translations: [penicillins] Drug Allergy Bruising [facility] (12 sources) seasonal enviromental Allergy to substance Congestion (morphologic abnormality), Sneezing (finding) [facility] (4 sources) Penicillin G; Translations: [PENICILLIN G] Drug Allergy 4 Other: See Comments [facility] Medications Current Medications Medication Drug Class(es) Dates Sig (Normalized) Sig (Original) 0.5 ML tirzepatide 20 MG/ML Auto-Injector [Mounjaro] (1 source) Start: 08-07-2023 inject 1 dose by subcutaneous injection every week Mounjaro 10 mg/0.5 mL subcutaneous solution Dose : 10 mg =, Subcutaneous, qWeek, rotate injection sites, # 2 mL, 1 Refill(s), Pharmacy: [id number], 167.6, cm, 08/07/23 12:00:00 EST, Height, kg, 08/07/23 12:00:00 EST, Dosing Weight Start Date: 08/07/23 Status: Ordered acetaminophen 325 mg / HYDROcodone bitartrate 5 mg oral tablet (3 sources) Opioid Agonist Start: 08-07-2023 End: 08-10-2023 take 1 tablet by mouth every six hours as needed for pain Hinkle 325- 5 mg oral tablet Dose = 1 tab(s), Oral, q6h, PRN for pain, X 3 day(s), # 12 tab(s), 0 Refill(s), Sunburn, 102.3 Start Date: 08/07/23 Stop Date: 08/10/23 Status: Ordered Completed/Discontinued Medications Medication Drug Class(es) Dates Sig (Normalized) Sig (Original) cholecalciferol 0.01 mg oral tablet (3 sources) Vitamin D Start: 02-16-2022 cholecalciferol (VITAMIN D3) 400 unit tab Take by mouth. 0 02/16/2022 Active Problems Active Problems Problem Classification Problem Date Documented Da te Episodic/Chronic Allergic reactions (12 sources) Eczema 02-21-2022 Episodic Calculus of urinary tract (16 sources) Kidney stone 02-01-2015 Episodic Cataract (12 sources) Cataract 02-21-2022 Chronic Past or Other Problems Problem Classification Problem Date Documented Da te Episodic/Chronic Bacterial infection; unspecified site (2 sources) Helicobacter pylori [H. pylori] as the cause of diseases classified elsewhere; Translations: [Helicobacter pylori [H. pylori] as the cause of diseases classified elsewhere] Onset: 10-10-2022 Episodic Results Test Name Value Interpretation Reference Range Facil ity Vital Signs Date Time Vital Sign Value Performing Clinician Facility 08-07-2023 12:00-0500 Body height 167.6 cm JESUS MANUEL STACK MD [facility] 08-07-2023 12:00-0500 Body temperature 97.88 [degF] JESUS MANUEL STACK MD [facility] 08-07-2023 12:00-0500 Body weight 102.3 kg JESUS MANUEL STACK MD [facility] 08-07-2023 12:00-0500 Diastolic Blood Pressure Non-Invasive 96 mm[Hg] JESUS MANUEL STACK MD [facility] 08-07-2023 12:00-0500 Heart rate 91 /min JESUS MANUEL STACK MD [facility] 08-07-2023 12:00-0500 Respiratory rate 18 /min JESUS MANUEL STACK MD [facility] 08-07-2023 12:00-0500 Systolic Blood Pressure Non-Invasive 161 mm[Hg] JESUS MANUEL STACK MD [facility] 02-21-2023 14:49-0400 Body height 167.6 cm JESUS MANUEL STACK MD [facility] 02-21-2023 14:49-0400 Body temperature 98.42 [degF] JESUS MANUEL STACK MD [facility] 02-21-2023 14:49-0400 Body weight 104.5 kg JESUS MANUEL STACK MD [facility] 02-21-2023 14:49-0400 Diastolic Blood Pressure Non-Invasive 81 1 JESUS MANUEL STACK MD [facility] 02-21-2023 14:49-0400 Heart rate 85 /min JESUS MANUEL STACK MD [facility] 02-21-2023 14:49-0400 Respiratory rate 18 /min JESUS MANUEL STACK MD [facility] 02-21-2023 14:49-0400 Systolic Blood Pressure Non-Invasive 152 1 JESUS MANUEL STACK MD [facility] 10-04-2022 20:00-0400 Diastolic Blood Pressure Non-Invasive 78 1 JESUS MANUEL STACK MD [facility] 10-04-2022 20:00-0400 Heart rate 85 /min JESUS MANUEL STACK MD [facility] 10-04-2022 20:00-0400 Systolic Blood Pressure Non-Invasive 144 1 JESUS MANUEL STACK MD [facility] 10-04-2022 17:36-0400 Diastolic Blood Pressure Non-Invasive 83 1 JESUS MANUEL STACK MD [facility] 10-04-2022 17:36-0400 Heart rate 94 /min JESUS MANUEL STCAK MD [facility] 10-04-2022 17:36-0400 Respiratory rate 16 /min JESUS MANUEL STACK MD [facility] 10-04-2022 17:36-0400 Systolic Blood Pressure Non-Invasive 153 1 JESUS MANUEL STACK MD [facility] 10-04-2022 15:32-0400 Body temperature 97.16 [degF] JESUS MANUEL STACK MD [facility] 10-04-2022 15:32-0400 Body weight 106.3 kg JESUS MANUEL STACK MD [facility] 10-04-2022 15:32-0400 Diastolic Blood Pressure Non-Invasive 96 1 JESUS MANUEL STACK MD [facility] 10-04-2022 15:32-0400 Heart rate 101 /min JESUS MANUEL STACK MD [facility] 10-04-2022 15:32-0400 Respiratory rate 18 /min JESUS MANUEL STACK MD [facility] 10-04-2022 15:32-0400 Systolic Blood Pressure Non-Invasive 183 1 JESUS MANUEL STACK MD [facility] 09-05-2022 11:23-0400 Body height 167.6 cm Muriel Hou MD Work Phone: [facility] 09-05-2022 11:23-0400 Body weight 106.23 kg Muriel Hou MD Work Phone: [facility] 09-05-2022 11:23-0400 Diastolic blood pressure 99 mm[Hg] Muriel Hou MD Work Phone: [facility] 09-05-2022 11:23-0400 Heart rate 78 /min Muriel Hou MD Work Phone: [facility] 09-05-2022 11:23-0400 SaO2% (BldA) [Mass fraction] 98 % Muriel Hou MD Work Phone: [facility] 09-05-2022 11:23-0400 Systolic blood pressure 168 mm[Hg] Muriel Hou MD Work Phone: [facility] 05-17-2022 13:40-0500 Diastolic Blood Pressure Non-Invasive 63 1 MANJIT HUANG MD [facility] 05-17-2022 13:40-0500 Heart rate 74 /min MANJIT HUANG MD [facility] 05-17-2022 13:40-0500 Respiratory rate 18 /min MANJIT HUANG MD [facility] 05-17-2022 13:40-0500 Systolic Blood Pressure Non-Invasive 126 1 MANJIT HUANG MD [facility] 05-17-2022 12:11-0500 Body height 167.6 cm MANJIT HUANG MD [facility] 05-17-2022 12:11-0500 Respiratory rate 18 /min MANJIT HUANG MD [facility] 05-17-2022 12:04-0500 Body temperature 98.24 [degF] MANJIT HUANG MD [facility] 05-17-2022 12:04-0500 Diastolic Blood Pressure Non-Invasive 78 1 MANJIT HUANG MD [facility] 05-17-2022 12:04-0500 Heart rate 77 /min MANJIT HUANG MD [facility] 05-17-2022 12:04-0500 Systolic Blood Pressure Non-Invasive 125 1 MANJIT HUANG MD [facility] 05-14-2022 06:45-0500 Body temperature 98.42 [degF] MANJIT HUANG MD [facility] 05-14-2022 06:45-0500 Diastolic Blood Pressure Non-Invasive 87 1 MANJIT HUANG MD [facility] 05-14-2022 06:45-0500 Heart rate 79 /min MANJIT HUANG MD [facility] 05-14-2022 06:45-0500 Respiratory rate 18 /min MANJIT HUANG MD [facility] 05-14-2022 06:45-0500 Systolic Blood Pressure Non-Invasive 158 1 MANJIT HUANG MD [facility] 05-14-2022 05:41-0500 Diastolic Blood Pressure Non-Invasive 80 1 MANJIT HUANG MD [facility] 05-14-2022 05:41-0500 Systolic Blood Pressure Non-Invasive 147 1 MANJIT HUANG MD [facility] 05-14-2022 04:34-0500 Blood Pressure Method MANJIT HUANG MD [facility] 05-14-2022 04:34-0500 Diastolic Blood Pressure Non-Invasive 80 1 MANJIT HUANG MD [facility] 05-14-2022 04:34-0500 Systolic Blood Pressure Non-Invasive 150 1 MANJIT HUANG MD [facility] 05-14-2022 01:07-0500 Heart rate 83 /min MANJIT HUANG MD [facility] 05-13-2022 21:46-0500 Body temperature 97.52 [degF] MANJIT HUANG MD [address] [place] [address] 05-13-2022 21:46-0500 Heart rate 81 /min MANJIT HUANG MD [address] 05-13-2022 21:46-0500 Respiratory rate 18 /min MANJIT HUANG MD [address] [place] [address] 05-13-2022 17:13-0500 Body temperature 98.06 [degF] MANJIT HUANG MD [address] [place] [address] 05-13-2022 17:13-0500 Respiratory rate 18 /min MANJIT HUANG MD [address] [place] [address] 05-12-2022 07:55-0500 Blood Pressure Cuff Size MANJIT HUANG MD [address] [place] [address] 05-12-2022 07:55-0500 Blood Pressure Location MANJIT HUANG MD [address] [place] [address] 05-12-2022 07:55-0500 Blood Pressure Method MANJIT HUANG MD [address] [place] [address] 05-10-2022 04:08-0500 Body temperature 98.96 [degF] MANJIT HUANG MD [facility] 05-10-2022 00:10-0500 Body temperature 98.24 [degF] MANJIT HUANG MD [facility] 05-09-2022 22:09-0500 Body height 167.1 cm MANJIT HUANG MD [facility] 05-09-2022 22:09-0500 Body weight 103.2 kg MANJIT HUANG MD [facility] 05-09-2022 22:09-0500 Body weight 36.96 kg/m2 MANJIT HUANG MD [facility] 05-09-2022 20:00-0500 Body temperature 97.7 [degF] MANJIT HUANG MD [facility] 05-09-2022 19:30-0500 Reason For Taking VItal Signs MANJIT HUANG MD [facility] 05-09-2022 17:43-0500 Reason For Taking VItal Signs MANJIT HUANG MD [facility] 05-09-2022 14:42-0500 Heart rate 76 /min MANJIT HUANG MD [facility] 05-09-2022 12:26-0500 Heart rate 78 /min MANJIT HUANG MD [facility] 05-09-2022 10:16-0500 Heart rate 77 /min MANJIT HUANG MD [facility] 05-09-2022 10:16-0500 Reason For Taking VItal Signs MANJIT HUANG MD [facility] 05-09-2022 10:02-0500 Mean blood pressure 104 mm[Hg] MANJIT HUANG MD [facility] 05-09-2022 09:45-0500 Mean blood pressure 89 mm[Hg] MANJIT HUANG MD [facility] 05-09-2022 09:30-0500 Mean blood pressure 93 mm[Hg] MANJIT HUANG MD [facility] 05-09-2022 08:35-0500 Respiratory Rate - Anes 15 br/min MANJIT HUANG MD [facility] 05-09-2022 08:30-0500 Respiratory Rate - Anes 21 br/min MANJIT HUANG MD [facility] 05-09-2022 08:25-0500 Respiratory Rate - Anes 12 br/min MANJIT HUANG MD [facility] 05-09-2022 08:20-0500 Body temperature 96.03 [degF] MANJIT HUANG MD [facility] 05-09-2022 08:15-0500 Body temperature 96.06 [degF] MANJIT HUANG MD [facility] 05-09-2022 08:10-0500 Body temperature 96.15 [degF] MANJIT HUANG MD [facility] 05-09-2022 05:55-0500 Body height 167.1 cm MANJIT HUANG MD [facility] 05-09-2022 05:55-0500 Body weight 103.2 kg MANJIT HUANG MD [facility] 05-09-2022 05:55-0500 Heart rate 84 /min MANJIT HUANG MD [facility] 03-20-2022 13:29-0400 Body height 167.6 cm Joaquin Smith MD Work Phone: [facility] 03-20-2022 13:29-0400 Body temperature 97.39 [degF] Joaquin Smith MD Work Phone: [facility] 03-20-2022 13:29-0400 Body weight 105.78 kg Joaquin Smith MD Work Phone: [facility] 03-20-2022 13:29-0400 Diastolic blood pressure 85 mm[Hg] Joaquin Smith MD Work Phone: [facility] 03-20-2022 13:29-0400 Heart rate 102 /min Joaquin Smith MD Work Phone: [facility] 03-20-2022 13:29-0400 SaO2% (BldA) [Mass fraction] 96 % Joaquin Smith MD Work Phone: [facility] 03-20-2022 13:29-0400 Systolic blood pressure 128 mm[Hg] Joaquin Smith MD Work Phone: [facility] 02-21-2022 07:14-0400 Body height 168 cm MANJIT HUANG MD [facility] 02-21-2022 07:14-0400 Body temperature 98.06 [degF] MANJIT HUANG MD [facility] 02-21-2022 07:14-0400 Body weight 105.1 kg MANJIT HUANG MD [facility] 02-21-2022 07:14-0400 Body weight 37.24 kg/m2 MANJIT HUANG MD [facility] 02-21-2022 07:14-0400 diastolic 78 mm[Hg] MANJIT HUANG MD [facility] 02-21-2022 07:14-0400 Heart rate 80 /min MANJIT HUANG MD [facility] 02-21-2022 07:14-0400 systolic 139 mm[Hg] MANJIT HUANG MD [facility] Encounters Encounter Date Encounter Type Care Provider Facility Start: 08-07-2023 End: 08-07-2023 Emergency department patient visit JESUS MANUEL STACK MD Facility:[facility] Start: 08-07-2023 End: 08-07-2023 Emergency department patient visit JESUS MANUEL STACK MD [facility] Start: 06-28-2023 End: 06-29-2023 ambulatory GRISELDA COSME APRN-SLUNK SKINNER Facility:[facility] Start: 06-28-2023 End: 06-28-2023 Patient encounter procedure GRISELDA COSME APRN-SLUNK SKINNER [facility] Start: 03-26-2023 End: 03-27-2023 ambulatory GRISELDA COSME APRN-SLUNK SKINNER Facility:[facility] Start: 03-26-2023 End: 03-26-2023 Patient encounter procedure GRISELDA COSME APRN-SLUNK SKINNER [facility] Start: 02-21-2023 End: 02-21-2023 Emergency department patient visit JESUS MANUEL STACK MD Facility:[facility] Start: 02-21-2023 End: 02-21-2023 Emergency department patient visit JESUS MANUEL STACK MD [facility] Start: 10-10-2022 End: 10-15-2022 ambulatory GRISELDA COSME ELECTRIC TRAIN DRIVER-SLUNK SKINNER Facility:[facility] Start: 10-10-2022 End: 10-14-2022 Outreach Lab GRISELDA COSME APRN-SLUNK SKINNER [facility] Start: 10-04-2022 End: 10-04-2022 Emergency department patient visit JESUS MANUEL STACK MD Facility:[facility] Start: 10-04-2022 End: 10-04-2022 Emergency department patient visit JESUS MANUEL STACK MD [facility] Start: 09-05-2022 End: 09-05-2022 ambulatory MURIEL HOU Facility:[facility] Start: 09-05-2022 End: 09-05-2022 Nursing evaluation of patient and report Michael Mclaughlin RN Work Phone: Diabetic Education [facility] Procedures Date Procedure Procedure Detail Performing Clinician Start: 09-05-2022 Hemoglobin A1c/Hemoglobin.total in Blood Muriel Hou MD Work Phone: Start: 05-09-2022 Laparoscopic hysterectomy MANJIT HUANG MD Start: 02-09-2022 Hysteroscopy MANJIT MEJIA MD Plan of Treatment Date Care Activity Detail Author Start: 12-06-2022 Hemoglobin A1c/Hemoglobin.total in Blood HBA1C [facility] Start: 06-11-2022 DEPRESSION ASSESSMENT DEPRESSION ASS ESSMENT [facility] Start: 02-09-2022 Influenza vaccination INFLUENZA (#1) [facility] Start: 06-11-2021 DEPRESSION ASSESSMENT DEPRESSION ASS ESSMENT [facility] Start: 02-18-2020 Colonoscopy COLONOSCOPY [facility] Start: 02-18-2020 COLORECTAL CANCER SCREENING COLORECTAL CANCER SCREENING [facility] Start: 09-18-2015 Mammography MAMMOGRAM [facility] Start: 11-26-2014 Hemoglobin A1c/Hemoglobin.total in Blood HBA1C [facility] Start: 2009 SHINGRIX VACCINE (1 of 2) SHINGRIX V ACCINE (1 of 2) [facility] Start: 02-01-2004 COLOGUARD (FIT-DNA) COLOGUARD (FIT-D NA) [facility] Start: 02-01-[address] COLONOGRAPHY [facility] Start: 02-01-2004 FECAL OCCULT BLOOD FECAL OCCULT BLOO D [facility] Start: 02-01-2004 SIGMOIDOSCOPY SIGMOIDOSCOPY [facility] Start: 1989 HPV TESTING HPV TESTING [facility] Start: 02-01-1980 PAP TESTING PAP TESTING [facility] Start: 1978 Urine microalbumin profile DTAP,TDAP ,TD (1 - Tdap) [facility] Start: 1977 ANNUAL PCP TEAM AUDIT PRACTICE INTERN MARTIR DISEASE VISIT ANNUAL PCP TEAM CHRONIC DISEASE VISIT [facility] Start: 1977 Hepatitis B surface antibody level LDL CHOLESTEROL [facility] Start: 1977 HEPATITIS C SCREENING HEPATITIS C SC REENING [facility] Start: 1977 HIV SCREENING HIV SCREENING [facility] Start: 1969 3 comp foot exam completed DIABETIC FOOT EXAM [facility] Start: 1969 Hepatitis B screening URINE AL BUMIN:CREATININE RATIO [facility] Start: 1969 Hepatitis C antibody , confirmatory test DILATED RETINAL EXAM [facility] Start: 1965 PNEUMOCOCCAL (1 - PCV) PNEUMOCOCCAL (1 - PCV) [facility] Immunizations Immunization Date Immunization Notes Care Provider Jimmie watt 04-08-2021 SARS-CoV-2 mRNA (tozinameran) vaccine AMNJIT HUANG MD [facility] Payers Date Payer Category Payer Unknown [id number] 2022 Private Health Insurance [employer] PPO xxxDING 2022-Present [phone] [address] [place] [address] PPO [id number] 2022 Private Health Insurance PEN DING 2022 Unknown [id number] 2014 Unknown LANA ZUÑIGA PPO [id number] 2014-Present [phone] [address] [place] [address] PPO [id number] 2014 Unknown [id number] 1959 Unknown [id number] 1959 Unknown [id number] 1959 Unknown [id number] 1959 Unknown [id number] 1959 Unknown [id number] 1959 Unknown [id number] Social History Date Type Detail Facility Start: 02-16-2022 End: 03-20-2022 Never smoked tobacco (finding) [facility] Sex Assigned At [facility] Start: 03-20-2022 Tobacco use and exposure Smokeless tobacco non-user [facility] Start: 03-20-2022 End: 09-05-2022 Alcohol intake Current drinker of alcohol (finding) [facility] Start: 03-20-2018 Alcohol Comment Occasional - wine Cl [facility] Start: 1960 Sex Assigned At Not on file C [facility] Start: 03-10-2022 End: 03-20-2022 Exposure to SARS-CoV-2 (event) Not sure [facility] Functional Status Date Assessment Result Facility 08-07-2023 Functional Status ID band on, Call device within reach, Bed in low position, Wheels locked, personal items within reach, Visitor at bedside [facility] 10-04-2022 Functional Status Assistive Device None A [facility] 10-04-2022 Functional Status Standard Safet y ID band on, Call device within reach, Bed in low position, Wheels locked [facility] 05-17-2022 Functional Status Awake, Remains up in chair, Repositions self, Resting [facility] 05-17-2022 Functional Status [facility] 05-14-2022 Functional Status Yes [facility] 05-14-2022 Functional Status Patient refused [facility] 05-14-2022 Functional Status Room check performed [facility] 05-13-2022 Functional Status [facility] 05-13-2022 Functional Status [facility] 05-13-2022 Functional Status [facility] 05-12-2022 Functional Status Maintained [facility] 05-12-2022 Functional Status [facility] 05-12-2022 Functional Status [facility] 05-12-2022 Functional Status [facility] 05-12-2022 Functional Status [facility] 05-11-2022 Functional Status [facility] 05-10-2022 Functional Status Assistive Device None A [facility] 05-10-2022 Functional Status [facility] 05-10-2022 Functional Status Independent, Setup [facility] 05-10-2022 Functional Status Living Situati on Lives with spouse [facility] 05-09-2022 Functional Status Sensory Deficits None A [facility] 05-09-2022 Functional Status [facility] 05-09-2022 Functional Status [facility] 05-09-2022 Functional Status [facility] Mental Status Date Assessment Result Facility 08-07-2023 Mental Status Oriented x 4 [facility] 10-04-2022 Mental Status Orientation Oriented x 4 [facility] 10-04-2022 Mental Status [facility] 05-17-2022 Mental Status Orientation Foll ows simple commands [facility] 05-14-2022 Mental Status Orientation Oriented x 4 [facility] 05-13-2022 Mental Status [facility] 05-12-2022 Mental Status [facility] 05-11-2022 Mental Status [facility] Clinical Notes 02-21-2022 to 08-07-2023 Michael Mclaughlin RN - 09/05/2022 12:01 PM EDTPatient InstructionsMuriel Hou MD - 09/05/2022 11:21 AM EDTRadiUma Gottlieb RN - 03/20/2022 2:21 PM EDTRadiologyRadiologyLaboratoryRadiology Note Date & Type Note Facility 08-07-2023 Hospital Discharge instructions Patient Education 08/07/2023 12:02:55 Burn, Thermal, 1st- and 2nd-Degree w/ Dressing First- and Second-Degree Seymour A burn occurs when skin is exposed to too much heat, sun, or harsh chemicals. A first-degree burn (superficial burn) causes only redness, like a sunburn. It heals in a few days. A second-degree burn (partial-thickness burn) is deeper and causes a blister to form. This may take up to 2 weeks to heal. Home care Follow these guidelines when caring for yourself at home: On the first day, you may put a cool compress on the burn to relieve severe pain. You can use a small towel soaked in cool water as a cool compress. If a bandage was put on, change it once a day, unless you were told otherwise. If the bandage sticks, soak it off under warm running water. Before changing a bandage, wash your hands. Then wash the area with soap and water to remove any cream, ointment, ooze, or scab. You may do this in a sink, under a tub faucet, or in the shower. Rinse off the soap and pat the area dry with a clean towel. Look for signs of infection listed below. Put on any prescribed cream or ointment to prevent infection. This also keeps the bandage from sticking. Cover the burn with a nonstick gauze. Then wrap it with the bandage material. Change the bandage as soon as you can if it gets wet or dirty. Unless a pain medicine was prescribed, use [id number] medicine to control pain. If you have chronic liver or kidney disease, talk with your health care provider before using acetaminophen or ibuprofen. Also talk with your provider if you ve had a stomach ulcer or GI bleeding. Eat more calories and protein until the wound is healed. Drink plenty of water. Wear a hat, sunscreen, and long sleeves while in the sun to protect your skin. Don t pick or scratch at the affected areas. Wear loose-fitting clothing. Follow-up care Follow up with your healthcare provider, or as advised. Most seymour heal without becoming infected. Sometimes an infection may occur even with proper treatment. Be sure to check the burn daily for the signs of infection listed below. When to seek medical advice Call your healthcare provider right away if any of these signs of infection occur: Pain in the wound gets worse Redness or swelling gets worse Pus comes from the wound Red streaks in your skin come from the burn Fever of 100.4 F (38 C) or higher, or as directed by your healthcare provider Wounds don t appear to be healing Nausea or vomiting [id number] The [employer].. [address] [place] [address]. All rights reserved. This information is not intended as a substitute for professional medical care. Always follow your healthcare professional's instructions. Follow Up Care 08/07/2023 11:51:01 With:LESLIE PAULINO APRN-SLUNK SKINNER Address: [address] [place] [phone] When:2-4 days [facility] 08-07-2023 Note Discharge Instructions Thank you for allowing [facility] to assist you with your healthcare needs. The following is important discharge information regarding your hospital visit. Diagnosis from Today's Visit Leg - burn Sunburn What to Do Next Instructions from Your Care Team No qualifying data available. Post Acute Orders No qualifying data available. You Need to Schedule the Following Appointments Follow Up with LESLIE PAULINO When Within 2-4 days Where: [address] [place] [address]- [phone] Allergies aspirin (Bruising) penicillin (Bruising) seasonal enviromental (Congestion, Sneezing) Medications Please ask your primary doctor or pharmacist before taking any other medication not listed, including over the counter drugs, herbal medications, vitamins and or supplements as they may interact with your home medications. What How Much When Why Instructions Last Dose New acetaminophen-hydrocodone (Hinkle 325- 5 mg oral tablet) 1 tab(s) by mouth Every 6 hours as needed for for pain Sunburn Duration: 3 Days Printed Prescription Unchanged alpha-lipoic acid (Alpha Lipoic 100 mg oral tablet) 1 tab(s) by mouth Two (2) times a day Unchanged ascorbic acid (Vitamin C) Once a day Unchanged cholecalciferol (Vitamin D3 25 mcg (1000 intl units) oral tablet) 1 tab(s) by mouth Every day Unchanged DME (DME MISCellaneous) See instructions freestyle brandon 2 sensor 1 sensor for 14days, #2 sensors for 28 days and 3 refills E11.65. Unchanged docusate (Colace 100 mg oral capsule) 1 cap by mouth Two (2) times a day Duration: 30 Days Unchanged furosemide (furosemide 20 mg oral tablet) 1 tab(s) by mouth Once a day as needed for edema Unchanged gabapentin (gabapentin 300 mg oral capsule) 1 cap by mouth Three (3) times a day Unchanged hydrochlorothiazide-losartan (hydrochlorothiazide-losartan 12.5-50 mg oral tablet) 1 tab(s) by mouth Once a day (in the morning) take 1 tablet by mouth once daily Unchanged insulin regular (HumuLIN R KwikPEN (CONCENTRATED) insulin 500 units/ mL 3 mL) 80-65-65 Subcutaneous (INT) Three (3) times a day before meals Unchanged levothyroxine (levothyroxine 88 mcg (0.088 mg) oral tablet) 1 tab(s) by mouth Once a day (in the morning) take 1 tablet by mouth once daily Unchanged oxyCODONE (oxyCODONE 5 mg oral tablet ( IMMEDIATE release )) take 1 tablet by mouth every 6 hours for 7 days if needed for pain Unchanged potassium chloride (potassium chloride 10 mEq oral capsule, extended release) 1 cap by mouth Once a day as needed for only when taking Lasix Unchanged pyridoxine (Vitamin B6) by mouth Once a day Unchanged rosuvastatin (rosuvastatin 40 mg oral tablet) 1 tab(s) by mouth Once a day Unchanged tirzepatide (Mounjaro 7.5 mg/ 0.5 mL subcutaneous solution) 7.5 Milligram Every week inject 7.5 milligram subcutaneously every weekly Unchanged triamcinolone topical (triamcinolone 0.1% topical paste) 1 application by mouth Two (2) times a day Bilateral hands Please take this list to your next doctor s visit. Bring all medications you take, including over the counter medications, herbals and other supplements with you to your doctor s visit. Patients and families are reminded to discard old lists and to update any records with all medication providers or retail pharmacies. Education Materials First- and Second-Degree Seymour A burn occurs when skin is exposed to too much heat, sun, or harsh chemicals. A first-degree burn (superficial burn) causes only redness, like a sunburn. It heals in a few days. A second-degree burn (partial-thickness burn) is deeper and causes a blister to form. This may take up to 2 weeks to heal. Home care Follow these guidelines when caring for yourself at home: On the first day, you may put a cool compress on the burn to relieve severe pain. You can use a small towel soaked in cool water as a cool compress. If a bandage was put on, change it once a day, unless you were told otherwise. If the bandage sticks, soak it off under warm running water. Before changing a bandage, wash your hands. Then wash the area with soap and water to remove any cream, ointment, ooze, or scab. You may do this in a sink, under a tub faucet, or in the shower. Rinse off the soap and pat the area dry with a clean towel. Look for signs of infection listed below. Put on any prescribed cream or ointment to prevent infection. This also keeps the bandage from sticking. Cover the burn with a nonstick gauze. Then wrap it with the bandage material. Change the bandage as soon as you can if it gets wet or dirty. Unless a pain medicine was prescribed, use cyxr-wwk-ewwvewi medicine to control pain. If you have chronic liver or kidney disease, talk with your health care provider before using acetaminophen or ibuprofen. Also talk with your provider if you ve had a stomach ulcer or GI bleeding. Eat more calories and protein until the wound is healed. Drink plenty of water. Wear a hat, sunscreen, and long sleeves while in the sun to protect your skin. Don t pick or scratch at the affected areas. Wear loose-fitting clothing. Follow-up care Follow up with your healthcare provider, or as advised. Most seymour heal without becoming infected. Sometimes an infection may occur even with proper treatment. Be sure to check the burn daily for the signs of infection listed below. When to seek medical advice Call your healthcare provider right away if any of these signs of infection occur: Pain in the wound gets worse Redness or swelling gets worse Pus comes from the wound Red streaks in your skin come from the burn Fever of 100.4 F (38 C) or higher, or as directed by your healthcare provider Wounds don t appear to be healing Nausea or vomiting [id number] [employer].. [address] [place] [address]. All rights reserved. This information is not intended as a substitute for professional medical care. Always follow your healthcare professional's instructions. Additional Information VACCINATE! IT SAVES LIVES! Members of the community who have not yet received the COVID-19 vaccine and would like to receive it can visit one of [facility] vaccine clinics. There are many vaccine clinic locations within the [facility]. For locations and available times, please visit [email or web address] It is important to note that some COVID mobile vaccine clinics are held outdoors and may be canceled in rainy or stormy conditions. To learn more about pediatric vaccinations (ages 5-11), we invite you to visit the [facility] webpage. [email or web address]/pag [email or web address]-Nfqts-Clazlsobuuw-Frequent wy-Swykg-[email or web address].html To learn more about the COVID-19 vaccine, we invite you to visit the CDC website for a list of frequently asked questions. https://www.cdc.gov/coronavirus/-ncov/vaccines/faq.html [facility] Patient Portal Access Instructions: Stay connected with your healthcare team and access your personal medical information anytime with the [facility] Patient Portal. If you would like a full copy of your medical records please contact the [facility] Medical Records Department Sunday through Sunday between 8a.m. and 4:30p.m. Please follow the directions below to access the portal: 1.Access the email account you provided upon registration to the [facility].2.Look for an invitation email from [facility].3.Open the email and access the invitation link: [facility].Fill in the required agustin to create your account. Sign into www.[employer] [place] with your username and password that you created in the above steps to stay up to date. You can then view a summary of results, a summary of your visits, and the ability to download your summaries to your computer or send the information securely to a physician. Remember that your healthcare information is confidential, so carefully consider who you will allow to register on the [facility] Patient Portal for access to your information. You can also access the [facility] Patient Portal on the [employer] real. Simply click on Health Records under Health Data and then click on the [employer] logo. HOW TO SAFELY DISPOSE OF PRESCRIPTION MEDICATIONS Please use one of the following methods to safely dispose of your unused medications. 1.Use a drug disposal kit: the drug disposal pouch allows you to safely discard your old and unused drugs. Ask your nurse to give you one when you are discharged.2.Visit a local take-back location: Many local pharmacies and police departments have programs that collect old and unwanted prescription drugs. Call your local pharmacy or go to http://bit.ProductBio/6J9Wc9g to find one close to you.3.Make use of household items: Use cat litter or old coffee grounds to dispose medications if other options are not available. Mix your drugs with these household products, seal them in an airtight container and throw it into the garbage. Call [facility]: [phone] to be sure your drugs can be disposed of in this way. Some medicines may require a different approach.4.Never flush your medications down the toilet. IF YOU HAVE BEEN PRESCRIBED AN OPIOIDS FOR PAIN If you have been prescribed an opioid (such as hydrocodone, oxycodone or morphine), it is critical to understand the possible side effects and risks of opioid pain medications. Even when taken as directed, opioids can have several side effects including: Tolerance, meaning you might need to take more of a medication for the same pain relief. Nausea, vomiting and/or constipation. Sleepiness, dizziness, dry mouth, confusion, depression or itching. Physical dependence, meaning you have withdrawal symptoms when a medication is stopped ? this can develop within a few days. KNOW YOUR RESPONSIBILITIES It is important to know exactly how much and how often to take the opioid pain medications you are prescribed. Never take opioids in higher amounts or more often than prescribed. Do not combine opioids with alcohol or other drugs that cause drowsiness, such as benzodiazepines, also known as benzos, including diazepam and alprazolam, muscle relaxants or sleep aids. Never sell or share prescription opioids. This is illegal. Store opioids in a secure place and out of reach of others (including children, family, friends and visitors). The last page(s) of this document has been signed and retained as a CHART COPY Signatures Patient Education Materials Burn, Thermal, 1st- and 2nd-Degree w/ Dressing Medication Leaflets My discharge plan and instructions have been reviewed and explained to me and I,ARNIE, ANNA M understand my current condition and have read and understand these discharge instructions. I have received a written copy of the plan/instructions. If I have questions, I am aware that I should contact my doctor. 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 When a bone breaks, cells in the blood dudley to the fractured area. These cells help grow new bone. Bones heal through a gradual process called remodeling. The length of this process depends on general health, age, the type of fracture and how well the injury is cared for. The new bone grows stronger, even after a cast is removed. The fracture callus shrinks and remodels as the bone is used. The fibers are replaced by new bone. At first, the new bone is weak and spongy. This is called a fracture callus. Cells form a network of strong fibers inside the blood clot. These fibers hold bone fragments together. Tissues bleed around the fracture. This forms a blood clot in the space between bone fragments. [id number] [employer].. [address] [place] [address]. All rights reserved. This information is not intended as a substitute for professional medical care. Always follow your healthcare professional's instructions. 02/21/2023 15:33:24 Fracture, Shoulder Shoulder Fracture You have a break (fracture) of the shoulder. This may be a small crack in the bone. Or it may be a major break with the broken parts pushed out of position. If you have only a crack in the bone and no bone fragments are out of place, you will probably be treated with a shoulder immobilizer. This is a special type of sling. Casts are usually not used for this type of fracture. Your bone should heal in 4 to 8 weeks. More serious injuries may need surgery to put the bones back into the correct position for healing. Home care Follow these tips to care for yourself at home: Leave the shoulder immobilizer in place. This will support the injured arm at your side. This is the best position for the bone to heal. The shoulder immobilizer is adjustable. If it becomes loose, adjust it so that your forearm is level with the ground (horizontal). Your hand should be level with your elbow. Apply an ice pack to the injured area for 20 minutes every 1 to 2 hours the first day. You can make an ice pack by putting ice cubes in a plastic bag. A bag of frozen peas or something similar works well too. Wrap the bag in a towel before putting it on your shoulder. Continue with ice packs 3 to 4 times a day for the next 2 to 3 days. Then use the ice as needed to relieve pain and swelling. You may take acetaminophen or ibuprofen to relieve pain, unless another pain medicine was prescribed. If you have chronic liver or kidney disease or ever had a stomach ulcer or gastrointestinal bleeding, talk with your doctor before using these medicines. Don t take the sling off before your next exam unless you were told to do so. Ask if you should move your elbow, wrist, and hand. Follow-up care Follow up with your healthcare provider, or as advised. A shoulder joint will become stiff if left in a sling for too long. Ask your doctor when it is safe to begin gwmdi-fi-clfmdh exercises. When to seek medical advice Call your healthcare provider right away if any of these occur: Your fingers become swollen, cold, blue, numb, or tingly Your shoulder or upper arm swells a lot or looks very bruised The pain in your shoulder gets worse The splint or immobilizer breaks You have a fever or chills [id number] [employer].. [address] [place] [address]. All rights reserved. This information is not intended as a substitute for professional medical care. Always follow your healthcare professional's instructions. Follow Up Care 02/21/2023 14:31:34 With:CARLOS BLACKWELL Address: [address], [address] [place] [address]- [phone] Business (1) When:2-4 days With:LESLIE PAULINO Address: [address] [place] [address]- [phone] Business (1) When:2-4 days With:TWAN TRENT Address: [address] [place] [address] [place] [address]- When:2-4 days [facility] 02-21-2023 Note Discharge Instructions Thank you for allowing [facility] to assist you with your healthcare needs. The following is important discharge information regarding your hospital visit. Diagnosis from Today's Visit Proximal humerus fracture Shoulder pain-swelling What to Do Next Instructions from Your Care Team Discharge Home Equipment - Ordered -- Sling and Swathe Left, 99 month(s), 02/21/23 15:40:00 EDT Post Acute Orders No qualifying data available. You Need to Schedule the Following Appointments Follow Up with CARLOS BLACKWELL When Within 2-4 days Where: [address] [facility] [address] [place] [address]- [phone] Business (1) Follow Up with LESLIE PAULINO When Within 2-4 days Where: [address] [place] [address]- [phone] Business (1) Follow Up with TWAN TRENT When Within 2-4 days Where: [address] [place] [address]- Allergies aspirin (Bruising) penicillin (Bruising) seasonal enviromental (Congestion, Sneezing) Medications Please ask your primary doctor or pharmacist before taking any other medication not listed, including over the counter drugs, herbal medications, vitamins and or supplements as they may interact with your home medications. What How Much When Why Instructions Last Dose New acetaminophen-oxyCODONE (acetaminophen-oxyCODONE 325 mg-5 mg oral tablet) 1 tab(s) by mouth Every 6 hours as needed for for pain Proximal humerus fracture Duration: 3 Days Printed Prescription Unchanged alpha-lipoic acid (Alpha Lipoic 100 mg oral tablet) 1 tab(s) by mouth Two (2) times a day Unchanged cholecalciferol (Vitamin D3 25 mcg (1000 intl units) oral tablet) 1 tab(s) by mouth Every day Unchanged docusate (Colace 100 mg oral capsule) 1 cap by mouth Two (2) times a day Duration: 30 Days Unchanged dulaglutide (Trulicity Pen 1.5 mg/ 0.5 mL subcutaneous solution) 0.5 Milliliter Subcutaneous Every week Unchanged furosemide (furosemide 20 mg oral tablet) 1 tab(s) by mouth Once a day as needed for edema Unchanged gabapentin (gabapentin 300 mg oral capsule) 1 cap by mouth Three (3) times a day Unchanged hydrochlorothiazide-losartan (hydrochlorothiazide-losartan 12.5-50 mg oral tablet) 1 tab(s) by mouth Once a day (in the morning) take 1 tablet by mouth once daily Unchanged insulin aspart (Novolog) (NovoLOG) 50 unit(s) Subcutaneous Three (3) times a day before meals Unchanged insulin glargine (Lantus 100 units/ mL10 ml vial solution) 72 unit(s) Subcutaneous Daily at bedtime Unchanged levothyroxine (levothyroxine 88 mcg (0.088 mg) oral tablet) 1 tab(s) by mouth Once a day (in the morning) take 1 tablet by mouth once daily Unchanged oxyCODONE (oxyCODONE 5 mg oral tablet ( IMMEDIATE release )) take 1 tablet by mouth every 6 hours for 7 days if needed for pain Unchanged potassium chloride (potassium chloride 10 mEq oral capsule, extended release) 1 cap by mouth Once a day as needed for only when taking Lasix Unchanged pravastatin (pravastatin 80 mg oral tablet) 1 tab(s) by mouth Once a day (in the morning) Unchanged sulfamethoxazole-trimethoprim (sulfamethoxazole-trimethoprim 800 mg-160 mg oral tablet) take 1 tablet by mouth twice a day for 7 days Unchanged triamcinolone topical (triamcinolone 0.1% topical paste) 1 application by mouth Two (2) times a day Bilateral hands Please take this list to your next doctor s visit. Bring all medications you take, including over the counter medications, herbals and other supplements with you to your doctor s visit. Patients and families are reminded to discard old lists and to update any records with all medication providers or retail pharmacies. Medication Leaflets acetaminophen and oxycodone (a SEET a MIN oh fen and OX i KOE done) Endocet 10/325, Endocet 2.5/325, Endocet 5/325, Endocet 7.5/325, Nalocet, Percocet, Prolate What is the most important information I should know about acetaminophen and oxycodone? MISUSE OF OPIOID MEDICINE CAN CAUSE ADDICTION, OVERDOSE, OR . Keep the medication in a place where others cannot get to it. Taking opioid medicine during may cause life-threatening withdrawal symptoms in the . Fatal side effects can occur if you use opioid medicine with alcohol, or with other drugs that cause drowsiness or slow your breathing. Stop taking this medicine and call your doctor right away if you have skin redness or a rash that spreads and causes blistering and peeling. What is acetaminophen and oxycodone? Acetaminophen and oxycodone is a combination medicine used to relieve moderate to severe pain. Acetaminophen and oxycodone contains an opioide medicine and may be habit-forming. Acetaminophen and oxycodone may also be used for purposes not listed in this medication guide. What should I discuss with my healthcare provider before taking acetaminophen and oxycodone? You should not use this medicine if you are allergic to acetaminophen or oxycodone, or if you have: severe asthma or breathing problems; or a blockage in your stomach or intestines. Tell your doctor if you have ever had: breathing problems, sleep apnea; liver disease; a drug or alcohol addiction; kidney disease; a head injury or seizures; urination problems; or problems with your thyroid, pancreas, or gallbladder. If you use opioid medicine while you are , your baby could become dependent on the drug. This can cause life-threatening withdrawal symptoms in the baby after it is born. Babies born dependent on opioids may need medical treatment for several weeks. Ask a doctor before using opioid medicine if you are . Tell your doctor if you notice severe drowsiness or slow breathing in the nursing baby. How should I take acetaminophen and oxycodone? Follow all directions on your prescription label. Never take this medicine in larger amounts, or for longer than prescribed. An overdose can damage your liver or cause . Tell your doctor if you feel an increased urge to use more of this medicine. Never share opioid medicine with another person, especially someone with a history of drug abuse or addiction. MISUSE CAN CAUSE ADDICTION, OVERDOSE, OR . Keep the medicine in a place where others cannot get to it. Selling or giving away opioid medicine is against the law. Measure liquid medicine carefully. Use the dosing syringe provided, or use a medicine dose-measuring device (not a kitchen spoon). If you need surgery or medical tests, tell the doctor ahead of time that you are using this medicine. You should not stop using this medicine suddenly. Follow your doctor's instructions about tapering your dose. Store at room temperature away from moisture and heat. Keep track of your medicine. You should be aware if anyone is using it improperly or without a prescription. Do not keep leftover opioid medication. Just one dose can cause in someone using this medicine accidentally or improperly. Ask your pharmacist where to locate a drug take-back disposal program. If there is no take-back program, flush the unused medicine down the toilet. What happens if I miss a dose? Since this medicine is used for pain, you are not likely to miss a dose. Skip any missed dose if it is almost time for your next dose. Do not use two doses at one time. What happens if I overdose? Seek emergency medical attention or call the Poison Help line at . An overdose of this medicine can be fatal, especially in a child or other person using the medicine without a prescription. Overdose symptoms may include nausea, vomiting, sweating, severe drowsiness, pinpoint pupils, slow breathing, or no breathing. Your doctor may recommend you get naloxone (a medicine to reverse an opioid overdose) and keep it with you at all times. A person caring for you can give the naloxone if you stop breathing or don't wake up. Your caregiver must still get emergency medical help and may need to perform CPR (cardiopulmonary resuscitation) on you while waiting for help to arrive. Anyone can buy naloxone from a pharmacy or local health department. Make sure any person caring for you knows where you keep naloxone and how to use it. What should I avoid while taking acetaminophen and oxycodone? Avoid driving or operating machinery until you know how this medicine will affect you. Dizziness or drowsiness can cause falls, accidents, or severe injuries. Do not drink alcohol. Dangerous side effects or could occur. Ask a doctor or pharmacist before using any other medicine that may contain acetaminophen (sometimes abbreviated as APAP). Taking certain medications together can lead to a fatal overdose. What are the possible side effects of acetaminophen and oxycodone? Get emergency medical help if you have signs of an allergic reaction: hives; difficulty breathing; swelling of your face, lips, tongue, or throat. Opioid medicine can slow or stop your breathing, and may occur. A person caring for you should give naloxone and/or seek emergency medical attention if you have slow breathing with long pauses, blue colored lips, or if you are hard to wake up. In rare cases, acetaminophen may cause a severe skin reaction that can be fatal. This could occur even if you have taken acetaminophen in the past and had no reaction. Stop taking this medicine and call your doctor right away if you have skin redness or a rash that spreads and causes blistering and peeling. Call your doctor at once if you have: noisy breathing, sighing, shallow breathing, breathing that stops; a light-headed feeling, like you might pass out; weakness, tiredness, fever, unusual bruising or bleeding; confusion, unusual thoughts or behavior; problems with urination; liver problems--nausea, upper stomach pain, tiredness, loss of appetite, dark urine, cal-colored stools, jaundice (yellowing of the skin or eyes); low cortisol levels-- nausea, vomiting, loss of appetite, dizziness, worsening tiredness or weakness; or high levels of serotonin in the body--agitation, hallucinations, fever, sweating, shivering, fast heart rate, muscle stiffness, twitching, loss of coordination, nausea, vomiting, diarrhea. Serious breathing problems may be more likely in older adults and in those who are debilitated or have wasting syndrome or chronic breathing disorders. Common side effects include: dizziness, drowsiness, feeling tired; feelings of extreme happiness or sadness; nausea, vomiting, stomach pain; constipation; or headache. This is not a complete list of side effects and others may occur. Call your doctor for medical advice about side effects. You may report side effects to FDA at 5-703-FDY-4680. What other drugs will affect acetaminophen and oxycodone? You may have breathing problems or withdrawal symptoms if you start or stop taking certain other medicines. Tell your doctor if you also use an antibiotic, antifungal medication, heart or blood pressure medication, seizure medication, or medicine to treat HIV or hepatitis C. Opioid medication can interact with many other drugs and cause dangerous side effects or . Be sure your doctor knows if you also use: cold or allergy medicines, bronchodilator asthma/COPD medication, or a diuretic ('water pill'); medicines for motion sickness, irritable bowel syndrome, or overactive bladder; other opioids--opioid pain medicine or prescription cough medicine; a sedative like Valium--diazepam, alprazolam, lorazepam, Xanax, Klonopin, Versed, and others; drugs that make you sleepy or slow your breathing--a sleeping pill, muscle relaxer, medicine to treat mood disorders or mental illness; drugs that affect serotonin levels in your body--a stimulant, or medicine for depression, Parkinson's disease, migraine headaches, serious infections, or nausea and vomiting. This list is not complete. Other drugs may affect acetaminophen and oxycodone, including prescription and fhcv-lga-jyggqdi medicines, vitamins, and herbal products. Not all possible interactions are listed here. Where can I get more information? Your doctor or pharmacist can provide more information about acetaminophen and oxycodone. Remember, keep this and all other medicines out of the reach of children, never share your medicines with others, and use this medication only for the indication prescribed. Every effort has been made to ensure that the information provided by [employer]. ('[employer]') is accurate, up-to-date, and complete, but no guarantee is made to that effect. Drug information contained herein may be time sensitive. [employer] information has been compiled for use by healthcare practitioners and consumers in the [place] and therefore [employer] does not warrant that uses outside of the [place] are appropriate, unless specifically indicated otherwise. [employer]'s drug information does not endorse drugs, diagnose patients or recommend therapy. [employer] drug information is an informational resource designed to assist licensed healthcare practitioners in caring for their patients and/or to serve consumers viewing this service as a supplement to, and not a substitute for, the expertise, skill, knowledge and judgment of healthcare practitioners. The absence of a warning for a given drug or drug combination in no way should be construed to indicate that the drug or drug combination is safe, effective or appropriate for any given patient. [employer] does not assume any responsibility for any aspect of healthcare administered with the aid of information [employer] provides. The information contained herein is not intended to cover all possible uses, directions, precautions, warnings, drug interactions, allergic reactions, or adverse effects. If you have questions about the drugs you are taking, check with your doctor, nurse or pharmacist. Copyright 0984-1538 [employer]. Version: 22.. Revision Date: 01/11/2023. Education Materials How Bones Heal Bone is living tissue made up of cells. When a bone breaks, cells in the blood dudley to the fractured area. These cells help grow new bone. Bones heal through a gradual process called remodeling. The length of this process depends on general health, age, the type of fracture and how well the injury is cared for. The new bone grows stronger, even after a cast is removed. The fracture callus shrinks and remodels as the bone is used. The fibers are replaced by new bone. At first, the new bone is weak and spongy. This is called a fracture callus. Cells form a network of strong fibers inside the blood clot. These fibers hold bone fragments together. Tissues bleed around the fracture. This forms a blood clot in the space between bone fragments. 9952-0506 [employer].. [address] [place] [address], [place] [address]. All rights reserved. This information is not intended as a substitute for professional medical care. Always follow your healthcare professional's instructions. Shoulder Fracture You have a break (fracture) of the shoulder. This may be a small crack in the bone. Or it may be a major break with the broken parts pushed out of position. If you have only a crack in the bone and no bone fragments are out of place, you will probably be treated with a shoulder immobilizer. This is a special type of sling. Casts are usually not used for this type of fracture. Your bone should heal in 4 to 8 weeks. More serious injuries may need surgery to put the bones back into the correct position for healing. Home care Follow these tips to care for yourself at home: Leave the shoulder immobilizer in place. This will support the injured arm at your side. This is the best position for the bone to heal. The shoulder immobilizer is adjustable. If it becomes loose, adjust it so that your forearm is level with the ground (horizontal). Your hand should be level with your elbow. Apply an ice pack to the injured area for 20 minutes every 1 to 2 hours the first day. You can make an ice pack by putting ice cubes in a plastic bag. A bag of frozen peas or something similar works well too. Wrap the bag in a towel before putting it on your shoulder. Continue with ice packs 3 to 4 times a day for the next 2 to 3 days. Then use the ice as needed to relieve pain and swelling. You may take acetaminophen or ibuprofen to relieve pain, unless another pain medicine was prescribed. If you have chronic liver or kidney disease or ever had a stomach ulcer or gastrointestinal bleeding, talk with your doctor before using these medicines. Don t take the sling off before your next exam unless you were told to do so. Ask if you should move your elbow, wrist, and hand. Follow-up care Follow up with your healthcare provider, or as advised. A shoulder joint will become stiff if left in a sling for too long. Ask your doctor when it is safe to begin sojqu-vl-fzuknt exercises. When to seek medical advice Call your healthcare provider right away if any of these occur: Your fingers become swollen, cold, blue, numb, or tingly Your shoulder or upper arm swells a lot or looks very bruised The pain in your shoulder gets worse The splint or immobilizer breaks You have a fever or chills 4012-4315 [employer].. [address] [place] [address]. All rights reserved. This information is not intended as a substitute for professional medical care. Always follow your healthcare professional's instructions. Additional Information VACCINATE! IT SAVES LIVES! Members of the community who have not yet received the COVID-19 vaccine and would like to receive it can visit one of [facility] vaccine clinics. There are many vaccine clinic locations within the [facility]. For locations and available times, please visit [email or web address] [email or web address] It is important to note that some COVID mobile vaccine clinics are held outdoors and may be canceled in rainy or stormy conditions. To learn more about pediatric vaccinations (ages 5-11), we invite you to visit the [facility] webpage. https://[email or web address]/pag [email or web address]-Wlkfk-Ptflxlmjamo-Frequent [email or web address]-Gmrfi-Ioicltunz.html To learn more about the COVID-19 vaccine, we invite you to visit the CDC website for a list of frequently asked questions. https://www.cdc.gov/coronavirus/20 19-ncov/vaccines/faq.html [facility] Patient Portal Access Instructions: Stay connected with your healthcare team and access your personal medical information anytime with the [facility] Patient Portal. If you would like a full copy of your medical records please contact the [facility] Medical Records Department Sunday through Sunday between 8a.m. and 4:30p.m. Please follow the directions below to access the portal: 1.Access the email account you provided upon registration to the [facility].2.Look for an invitation email from [facility].3.Open the email and access the invitation link: Accept Invitation to [facility]4.Fill in the required agustin to create your account. Sign into www.[employer] with your username and password that you created in the above steps to stay up to date. You can then view a summary of results, a summary of your visits, and the ability to download your summaries to your computer or send the information securely to a physician. Remember that your healthcare information is confidential, so carefully consider who you will allow to register on the [facility] Patient Portal for access to your information. You can also access the [facility] Patient Portal on the [employer]. Simply click on Health Records under Health Data and then click on the [employer] logo. HOW TO SAFELY DISPOSE OF PRESCRIPTION MEDICATIONS Please use one of the following methods to safely dispose of your unused medications. 1.Use a drug disposal kit: the drug disposal pouch allows you to safely discard your old and unused drugs. Ask your nurse to give you one when you are discharged.2.Visit a local take-back location: Many local pharmacies and police departments have programs that collect old and unwanted prescription drugs. Call your local pharmacy or go to http://Gradalis.ProductBio/1Q3Uf7q to find one close to you.3.Make use of household items: Use cat litter or old coffee grounds to dispose medications if other options are not available. Mix your drugs with these household products, seal them in an airtight container and throw it into the garbage. Call [facility]: [phone] to be sure your drugs can be disposed of in this way. Some medicines may require a different approach.4.Never flush your medications down the toilet. IF YOU HAVE BEEN PRESCRIBED AN OPIOIDS FOR PAIN If you have been prescribed an opioid (such as hydrocodone, oxycodone or morphine), it is critical to understand the possible side effects and risks of opioid pain medications. Even when taken as directed, opioids can have several side effects including: Tolerance, meaning you might need to take more of a medication for the same pain relief. Nausea, vomiting and/or constipation. Sleepiness, dizziness, dry mouth, confusion, depression or itching. Physical dependence, meaning you have withdrawal symptoms when a medication is stopped ? this can develop within a few days. KNOW YOUR RESPONSIBILITIES It is important to know exactly how much and how often to take the opioid pain medications you are prescribed. Never take opioids in higher amounts or more often than prescribed. Do not combine opioids with alcohol or other drugs that cause drowsiness, such as benzodiazepines, also known as benzos, including diazepam and alprazolam, muscle relaxants or sleep aids. Never sell or share prescription opioids. This is illegal. Store opioids in a secure place and out of reach of others (including children, family, friends and visitors). The last page(s) of this document has been signed and retained as a CHART COPY Signatures Patient Education Materials How Bones Heal Fracture, Shoulder Medication Leaflets acetaminophen and oxycodone My discharge plan and instructions have been reviewed and explained to me and I,ARNIE, ANNA M understand my current condition and have read and understand these discharge instructions. I have received a written copy of the plan/instructions. If I have questions, I am aware that I should contact my doctor. 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 HISTORY: ORDERING SYSTEM PROVIDED HISTORY: Reason for Exam: pain after fall Fall, pain FINDINGS: There is a comminuted fracture of the humeral surgical neck and fracture lines may extend to the articular surface. No evidence of dislocation. No other acute fracture identified. The acromioclavicular joint is not abnormally widened. No unexpected radiopaque foreign body. Included intrathoracic structures are grossly unremarkable. IMPRESSION: Acute comminuted fracture of the proximal humerus. Interpreted by: Magalie Freitas Preliminary Report By: Magalie Freitas Electronically signed By Magalie Freitas Dictated Date: 02/21/2023 3:08:46 PM Prelim Date: 02/21/2023 3:11:48 PM Sign Date: 02/21/2023 3:11:48 PM Ordering Provider: KENYETTA ROSALES [facility] 09-13-2023 Note ORIGINAL EXAMINATION: THREE XRAY VIEWS OF THE LEFT ELBOW 02/21/2023 3:05 pm COMPARISON: None. HISTORY: ORDERING SYSTEM PROVIDED HISTORY: Reason for Exam: pain after fall Fall and pain, best double images possible FINDINGS: Patient positioning is suboptimal. No acute fracture or dislocation is identified given limitations. Evaluation for joint effusion is limited due to suboptimal lateral positioning. IMPRESSION: No acute fracture or dislocation identified given suboptimal positioning. Interpreted by: Magalie Freitas Preliminary Report By: Magalie Freitas Electronically signed By Magalie Freitas Dictated Date: 02/21/2023 3:11:59 PM Prelim Date: 02/21/2023 3:14:04 PM Sign Date: 02/21/2023 3:14:04 PM Ordering Provider: KENYETTA ROSALES [facility] 10-04-2022 Hospital Discharge instructions Patient Education 10/04/2022 18:21:58 Hyperglycemia (High Blood Sugar) Hyperglycemia (High Blood Sugar) Too much glucose (sugar) in your blood is called hyperglycemia or high blood sugar. High blood sugar can lead to a dangerous condition called ketoacidosis. In severe cases, it can lead to coma. Possible Causes of Hyperglycemia Inadequate treatment plan for diabetes Being sick Being under stress Taking certain medications, such as steroids Eating too much food, especially carbohydrates Being less active than usual Not taking enough diabetes medication Symptoms of Hyperglycemia Hyperglycemia may not cause symptoms. If you do have symptoms, they may include: Thirst Frequent need to urinate Feeling tired Nausea Itchy, dry skin Blurry vision Fast breathing Weakness Dizziness Wounds or skin infections that don t heal Unexplained weight loss if hyperglycemia lasts for more than a few days What You Should Do Check your blood sugar. Drink plenty of sugar-free, caffeine-free liquids such as water. Don t drink fruit juice. Check your blood sugar again every 4 hours. If you take insulin or diabetes medications, follow your sick-day plan for taking medication. Call your healthcare provider if you are not able to eat. Check your blood or urine for ketones as directed. Call your health care provider if your blood sugar and ketones do not return to your target range. Preventing High Blood Sugar To help keep your blood sugar from getting too high: Control stress. When you're ill, follow your sick-day plan. Follow your meal plan. Eat only the amount of food on your meal plan Follow your exercise plan. Take your insulin or diabetes medications as directed by you health care team. Also test your blood sugar as directed. If the plan is not working for you, discuss it with your doctor. Other Things to Do Carry a medical ID card or wear a medical alert bracelet. It should say that you have diabetes. It should also say what to do in case you pass out or go into a coma. Make sure family, friends, and coworkers know the signs of high blood sugar. Tell them what to do if your blood sugar gets very high and you can t help yourself. Talk to your health care team about other things you can do to prevent high blood sugar. Special note: Drink plenty of sugar-free and caffeine-free liquids when you feel symptoms of hyperglycemia. Call your doctor if you keep having episodes of hyperglycemia. 3838-0636 [employer].. [address] [place] [address]. All rights reserved. This information is not intended as a substitute for professional medical care. Always follow your healthcare professional's instructions. Follow Up Care 10/04/2022 15:31:53 With:LESLIE PAULINO Address: [address] [place] [phone] When:2-4 days [facility] 10-04-2022 Note Discharge Instructions Thank you for allowing [facility] to assist you with your healthcare needs. The following is important discharge information regarding your hospital visit. Diagnosis from Today's Visit Hyperglycemia Hyperglycemia What to Do Next Instructions from Your Care Team Take your insulin as prescribed. If you are running high please contact your aix administrator. No qualifying data available. Post Acute Orders No qualifying data available. You Need to Schedule the Following Appointments Follow Up with LESLIE PAULINO When Within 2-4 days Where: [facility] [place] [address]- [phone] Allergies aspirin (Bruising) penicillin (Bruising) seasonal enviromental (Congestion, Sneezing) Medications Please ask your primary doctor or pharmacist before taking any other medication not listed, including over the counter drugs, herbal medications, vitamins and or supplements as they may interact with your home medications. What How Much When Instructions Last Dose Unchanged alpha-lipoic acid (Alpha Lipoic 100 mg oral tablet) 1 tab(s) by mouth Two (2) times a day Unchanged cholecalciferol (Vitamin D3 25 mcg (1000 intl units) oral tablet) 1 tab(s) by mouth Every day Unchanged docusate (Colace 100 mg oral capsule) 1 cap by mouth Two (2) times a day Duration: 30 Days Unchanged dulaglutide (Trulicity Pen 1.5 mg/ 0.5 mL subcutaneous solution) 0.5 Milliliter Subcutaneous Every week Unchanged furosemide (furosemide 20 mg oral tablet) 1 tab(s) by mouth Once a day as needed for edema Unchanged gabapentin (gabapentin 300 mg oral capsule) 1 cap by mouth Three (3) times a day Unchanged hydrochlorothiazide-losartan (hydrochlorothiazide-losartan 12.5-50 mg oral tablet) 1 tab(s) by mouth Once a day (in the morning) take 1 tablet by mouth once daily Unchanged insulin aspart (Novolog) (NovoLOG) 50 unit(s) Subcutaneous Three (3) times a day before meals Unchanged insulin glargine (Lantus 100 units/ mL10 ml vial solution) 72 unit(s) Subcutaneous Daily at bedtime Unchanged levothyroxine (levothyroxine 88 mcg (0.088 mg) oral tablet) 1 tab(s) by mouth Once a day (in the morning) take 1 tablet by mouth once daily Unchanged oxyCODONE (oxyCODONE 5 mg oral tablet ( IMMEDIATE release )) take 1 tablet by mouth every 6 hours for 7 days if needed for pain Unchanged potassium chloride (potassium chloride 10 mEq oral capsule, extended release) 1 cap by mouth Once a day as needed for only when taking Lasix Unchanged pravastatin (pravastatin 80 mg oral tablet) 1 tab(s) by mouth Once a day (in the morning) Unchanged sulfamethoxazole-trimethoprim (sulfamethoxazole-trimethoprim 800 mg-160 mg oral tablet) take 1 tablet by mouth twice a day for 7 days Unchanged triamcinolone topical (triamcinolone 0.1% topical paste) 1 application by mouth Two (2) times a day Bilateral hands Please take this list to your next doctor s visit. Bring all medications you take, including over the counter medications, herbals and other supplements with you to your doctor s visit. Patients and families are reminded to discard old lists and to update any records with all medication providers or retail pharmacies. Education Materials Hyperglycemia (High Blood Sugar) Too much glucose (sugar) in your blood is called hyperglycemia or high blood sugar. High blood sugar can lead to a dangerous condition called ketoacidosis. In severe cases, it can lead to coma. Possible Causes of Hyperglycemia Inadequate treatment plan for diabetes Being sick Being under stress Taking certain medications, such as steroids Eating too much food, especially carbohydrates Being less active than usual Not taking enough diabetes medication Symptoms of Hyperglycemia Hyperglycemia may not cause symptoms. If you do have symptoms, they may include: Thirst Frequent need to urinate Feeling tired Nausea Itchy, dry skin Blurry vision Fast breathing Weakness Dizziness Wounds or skin infections that don t heal Unexplained weight loss if hyperglycemia lasts for more than a few days What You Should Do Check your blood sugar. Drink plenty of sugar-free, caffeine-free liquids such as water. Don t drink fruit juice. Check your blood sugar again every 4 hours. If you take insulin or diabetes medications, follow your sick-day plan for taking medication. Call your healthcare provider if you are not able to eat. Check your blood or urine for ketones as directed. Call your health care provider if your blood sugar and ketones do not return to your target range. Preventing High Blood Sugar To help keep your blood sugar from getting too high: Control stress. When you're ill, follow your sick-day plan. Follow your meal plan. Eat only the amount of food on your meal plan Follow your exercise plan. Take your insulin or diabetes medications as directed by you health care team. Also test your blood sugar as directed. If the plan is not working for you, discuss it with your doctor. Other Things to Do Carry a medical ID card or wear a medical alert bracelet. It should say that you have diabetes. It should also say what to do in case you pass out or go into a coma. Make sure family, friends, and coworkers know the signs of high blood sugar. Tell them what to do if your blood sugar gets very high and you can t help yourself. Talk to your health care team about other things you can do to prevent high blood sugar. Special note: Drink plenty of sugar-free and caffeine-free liquids when you feel symptoms of hyperglycemia. Call your doctor if you keep having episodes of hyperglycemia. [id number] [employer].. [address] [place] [address], [place] [address]. All rights reserved. This information is not intended as a substitute for professional medical care. Always follow your healthcare professional's instructions. Additional Information VACCINATE! IT SAVES LIVES! Members of the community who have not yet received the COVID-19 vaccine and would like to receive it can visit one of [facility] vaccine clinics. There are many vaccine clinic locations within the [facility]. For locations and available times, please visit [email or web address] It is important to note that some COVID mobile vaccine clinics are held outdoors and may be canceled in rainy or stormy conditions. To learn more about pediatric vaccinations (ages 5-11), we invite you to visit the [employer]Con webpage. [email or web address] To learn more about the COVID-19 vaccine, we invite you to visit the CDC website for a list of frequently asked questions. https://www.cdc.gov/coronavirus/ 19-ncov/vaccines/faq.html [facility] Patient Portal Access Instructions: Stay connected with your healthcare team and access your personal medical information anytime with the [employer] Patient Portal. If you would like a full copy of your medical records please contact the [facility] Medical Records Department Sunday through Sunday between 8a.m. and 4:30p.m. Please follow the directions below to access the portal: 1.Access the email account you provided upon registration to the hospital.2.Look for an invitation email from [facility].3.Open the email and access the invitation link: Accept Invitation to [facility]4.Fill in the required agustin to create your account. Sign into [email or web address] with your username and password that you created in the above steps to stay up to date. You can then view a summary of results, a summary of your visits, and the ability to download your summaries to your computer or send the information securely to a physician. Remember that your healthcare information is confidential, so carefully consider who you will allow to register on the [facility] [employer] Patient Portal for access to your information. You can also access the [facility] [employer] Patient Portal on the [employer] real. Simply click on Health Records under [employer] and then click on the [employer] logo. HOW TO SAFELY DISPOSE OF PRESCRIPTION MEDICATIONS Please use one of the following methods to safely dispose of your unused medications. 1.Use a drug disposal kit: the drug disposal pouch allows you to safely discard your old and unused drugs. Ask your nurse to give you one when you are discharged.2.Visit a local take-back location: Many local pharmacies and police departments have programs that collect old and unwanted prescription drugs. Call your local pharmacy or go to http://Gradalis.ProductBio/0J9Ll9o to find one close to you.3.Make use of household items: Use cat litter or old coffee grounds to dispose medications if other options are not available. Mix your drugs with these household products, seal them in an airtight container and throw it into the garbage. Call [facility]: [phone] to be sure your drugs can be disposed of in this way. Some medicines may require a different approach.4.Never flush your medications down the toilet. IF YOU HAVE BEEN PRESCRIBED AN OPIOIDS FOR PAIN If you have been prescribed an opioid (such as hydrocodone, oxycodone or morphine), it is critical to understand the possible side effects and risks of opioid pain medications. Even when taken as directed, opioids can have several side effects including: Tolerance, meaning you might need to take more of a medication for the same pain relief. Nausea, vomiting and/or constipation. Sleepiness, dizziness, dry mouth, confusion, depression or itching. Physical dependence, meaning you have withdrawal symptoms when a medication is stopped ? this can develop within a few days. KNOW YOUR RESPONSIBILITIES It is important to know exactly how much and how often to take the opioid pain medications you are prescribed. Never take opioids in higher amounts or more often than prescribed. Do not combine opioids with alcohol or other drugs that cause drowsiness, such as benzodiazepines, also known as benzos, including diazepam and alprazolam, muscle relaxants or sleep aids. Never sell or share prescription opioids. This is illegal. Store opioids in a secure place and out of reach of others (including children, family, friends and visitors). The last page(s) of this document has been signed and retained as a CHART COPY Signatures Patient Education Materials Hyperglycemia (High Blood Sugar) Medication Leaflets My discharge plan and instructions have been reviewed and explained to me and I,ARNIE, ANNA M understand my current condition and have read and understand these discharge instructions. I have received a written copy of the plan/instructions. If I have questions, I am aware that I should contact my doctor. 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 No focal consolidation, vascular congestion, pleural effusion, or pneumothorax. Degenerative changes within the shoulders and spine. IMPRESSION: No acute radiographic findings. I have personally reviewed the images of this examination and agree with the resident's findings and interpretation. Interpreted by: Devorah Valladares MD Preliminary Report By: Jazmine Junior Electronically signed By Devorah Valladares MD Dictated Date: 10/04/2022 4:39:47 PM Prelim Date: 10/04/2022 4:40:42 PM Sign Date: 10/04/2022 4:48:26 PM Ordering Provider: JESUS MANUEL STACK [facility] 10-04-2022 Note ORIGINAL EXAMINATION: ONE XRAY VIEW OF THE CHEST 10/04/2022 4:21 pm COMPARISON: Chest x-ray 02/21/2022 HISTORY: ORDERING SYSTEM PROVIDED HISTORY: Reason for Exam: Diabetes FINDINGS: Normal cardiomediastinal contours. No focal consolidation, vascular congestion, pleural effusion, or pneumothorax. Degenerative changes within the shoulders and spine. IMPRESSION: No acute radiographic findings. I have personally reviewed the images of this examination and agree with the resident's findings and interpretation. Interpreted by: Devorah Valladares MD Preliminary Report By: Jazmine Junior Electronically signed By Devorah Valladares MD Dictated Date: 10/04/2022 4:39:47 PM Prelim Date: 10/04/2022 4:40:42 PM Sign Date: 10/04/2022 4:48:26 PM Ordering Provider: [facility] 09-05-2022 Note HNO ID: [id number] Author: Michael Mclaughlin RN Service: ? Author Type: Registered Nurse Type: Progress Notes Filed: 09/05/2022 12:55 PM Note Text: DIABETES SELF-MANAGEMENT EDUCATION AND SUPPORT Location: [place] Type of visit: In person individual Types of DSMES: Initial/Comprehensive (add to or update ADA spreadsheet) PATIENT'S MAIN CONCERN TODAY: I have a sugar addiction Support person present for education today: significant other Cognitive ability: Alert and oriented Motivation to learn: Interested Learning barriers identified by educator: none Method of instruction: written, verbal, and demonstration INTERVENTIONS/TOPICS COVERED: -Diabetes Pathophysiology: role of insulin in the body, role of glucose in the body, difference between Type 1 and Type 2, insulin resistance, relationship of glucose and insulin in the body, hepatic glucose release, Type 2 diabetes risk factors, and progression of Type 2 -Monitoring: rationale for HGM, A1c meaning and target <7%, using a home glucose monitor, CGM type: Libre2, and CGM basics AND daily use -Healthy Eating: impact of carbs on BG, Plate Method, foods with carbs, reading food labels, and carb counting tools (books, Internet, smartphone apps) -Medications: medication safety/timing, medication side effects, insulin storage, site selection/rotation, pen injection instruction, basal insulin, and injectable insulin discussed: Regular U500 insulin -Physical Activity: benefits of exercise and impact of exercise on BG -Acute Complications: hypoglycemia s/sx/tx, hyperglycemia s/sx/tx, sick day rules, and pattern management -Chronic Complications: LT complications -Healthy Coping and Support: impact of stress on BG DIABETES ASSESSMENT: Referring Physician: Previous Diabetes Education? Asked/not answered What are you hoping to gain from this visit? asked/not answered In your words, what is diabetes? asked/not answered What concerns you about having diabetes? asked/not answered Diabetes History: Type of Diabetes: Type 2 What year were you diagnosed? 2006 Does anyone in your family have diabetes? asked/not answered How do you learn best? asked/not answered Demographics: Highest level of education: not addressed Race/Ethnic Origin: White/ Does your culture or adventism require any of the following: No cultural/sikhism practices affecting DM Do you have problems with: No difficulty seeing/hearing/reading/writing/spe aking Do you use tobacco? No Do you use alcohol? Yes, How much? Occasional social In the past 12 months have you had any: Hospital Admissions: Yes, Number of Times? 1 ER Visits: Asked/not answered Primary Care Visits: Asked/not answered What are your general feelings about you overall health? Fair Medical Issues/Complications: PAST MEDICAL HISTORY Diagnosis Date Diabetes (HCC) Hypertension Hypothyroid Multinodular goiter 04/28/14 dominant right thyroid nodule Neuropathy Most recent A1C Lab Results Component Value Date HBA1C 10.8 09/05/2022 HBA1C 11.5 08/26/2014 Physical Activity: Do you do a regular exercise? No Sick Days: How do you manage your diabetes when you are sick? Asked/not answered Sleep: Do you get at least 7 hrs of sleep most nights? asked/not answered Current Outpatient Medications Medication Sig insulin regular human, CONCENTRATED 500 UNIT/ML, (HUMULIN R) 500 unit/mL (3 mL) inpn Take 88 units with breakfast, 66 units with lunch, 66 units with dinner TRULICITY 1.5 mg/0.5 mL pen injector Inject 1.5 mg subcutaneously one time a week. flash glucose scanning reader (FREESTYLE BRANDON 2 READER) Use to check blood sugar at least four (4) times daily. E11.65. patient on multiple insulin injections flash glucose sensor (FREESTYLE BRANDON 2 SENSOR) kit Apply new sensor every fourteen (14) days to upper arm. E11.65. patient on multiple insulin injections gabapentin (NEURONTIN) 300 mg capsule Take 300 mg by mouth three times daily. levothyroxine (SYNTHROID) 88 mcg tablet Take 88 mcg by mouth once daily. losartan-hydroCHLOROthiazide (HYZAAR) 50-12.5 mg per tablet Take 1 tablet by mouth once daily. cholecalciferol (VITAMIN D3) 400 unit tab Take by mouth. furosemide (LASIX) 20 mg tablet take 1 tablet by mouth once daily if needed for edema potassium chloride SR (MICRO-K) 10 mEq CR capsule take 1 capsule by mouth once daily if needed WHEN TAKING LASIX gentamicin (GENTAK) 0.3 % ophthalmic solution pravastatin (PRAVACHOL) 20 mg tablet Take 20 mg by mouth once daily. pregabalin (LYRICA) 50 mg capsule Take 50 mg by mouth twice daily. (Patient not taking: No sig reported) No current facility-administered medications for this visit. Injections Technique: Do you take insulin or a medication you inject for your diabetes? Yes;then if so answer the following questions: How do you inject your medicine Pen Where are your injections done? Stomach/abdomen W (more content not included)... [facility] 09-05-2022 Note HNO ID: [id number] Author: Muriel Hou MD Service: ? Author Type: Physician Type: Progress Notes Filed: 09/05/2022 12:59 PM Note Text: ENDOCRINOLOGY CLINIC NOTE Ms. Gaitan is a pleasant 62 year old female with T2DM, HTN, thyroid nodule and hypothyroidism self-referred for management of diabetes HPI She was diagnosed with diabetes in 2005. She was started on insulin shortly after diagnosis A1c: 10.8% today 11% in 12/2021 8.9% in 03/2022 Current regimen: Lantus 72 units daily at bedtime Novolog 50 units with meals Trulicity 1.5 mg once a week (started 6 months ago) Home glucose monitoring: She has imedoe The patient's continuous glucose monitoring device was downloaded, interpreted by myself and recommendations were discussed with the patient. The following data was obtained: Average glucose: 273 mg/dl glucose variability 26.8% Estimated HbA1c:-% Serious hypoglycemia (<55 mg/dl): 0% Hypoglycemia (<70 mg/dl): 0% Values in target (70-180 mg/dl): 10% Hyperglycemia (>180 mg/dl): 27% Serious hyperglycemia (>250 mg/dl): 63% CGM active 37% of the time Time evaluated: 14 days Hypoglycemia: Rarely as low as 60s, less than once a month Diet: She eats 3 meals consistently Complications: Retinopathy: lat exam was about a year ago. Has cataract but no reported retinopathy Nephropathy: GFR 61 in 05/2022 Neuropathy: tingling in the feet bilaterally CVS: lipid profile 06/2022: LDL 213, TG 268 on on pravastatin 20 mg daily (has been on it since 2005) BP: 168/99 Hypothyroidism: Labs in 08/2022 showed TSH 3.3 and FT4 1.2. She takes levothyroxine 88 mcg daily. Thyroid nodules: She reported having left hemithyroidectomy for thyroid nodules with no history of cancer. She had a thyroid ultrasound in 02/2022. The right thyroid lobe was surgically absent. There were 3 subcentimeter nodules on the left PAST MEDICAL HISTORY Diagnosis Date Diabetes (HCC) Hypertension Hypothyroid Multinodular goiter 04/28/14 dominant right thyroid nodule Neuropathy PAST SURGICAL HISTORY Procedure Laterality Date APPENDECTOMY 1973 CHG DELIVERY x 2 COLONOSCOPY 02/17/2019 DANDC, DIAG AND/OR THERAPEUTIC 02/09/2022 EGD W/O BRSH SPEC VARICIES INJ 02/17/2019 PAST SURGICAL HISTORY OF 1990 ORIF left tibia, percutaneous pinning left small finger PAST SURGICAL HISTORY OF laparoscopy for endometriosis TONSILLECTOMY HX 1966 TOTAL THYROID LOBECTOMY UNI W/WO ISTHMUSECTOMY Right 04/28/2014 TUBAL LIGATION HX 1983 FAMILY HISTORY Problem Relation Age of Onset Cancer Sister ovarian Cancer Brother liver Diabetes Mother Heart Mother Diabetes Brother Heart Father Social History Tobacco Use Smoking status: Never Smokeless tobacco: Never Vaping Use Vaping Use: Never used Substance Use Topics Alcohol use: Yes Comment: Occasional - wine Drug use: No (Not in a hospital admission) Allergies As of Date: 09/05/2022 Allergen Noted Reaction ASPIRIN 04/06/2014 Other: See Comments PENICILLIN G 04/06/2014 Other: See Comments Fully Assessed 03/20/2022 Current Outpatient Medications Medication Sig Dispense Refill gabapentin (NEURONTIN) 300 mg capsule Take 300 mg by mouth three times daily. levothyroxine (SYNTHROID) 88 mcg tablet Take 88 mcg by mouth once daily. losartan-hydroCHLOROthiazide (HYZAAR) 50-12.5 mg per tablet Take 1 tablet by mouth once daily. cholecalciferol (VITAMIN D3) 400 unit tab Take by mouth. TRULICITY 1.5 mg/0.5 mL pen injector inject 0.5 milliliters ( 1 AND 1/2 milligrams ) subcutaneously ev... (REFER TO PRESCRIPTION NOTES). furosemide (LASIX) 20 mg tablet take 1 tablet by mouth once daily if needed for edema potassium chloride SR (MICRO-K) 10 mEq CR capsule take 1 capsule by mouth once daily if needed WHEN TAKING LASIX gentamicin (GENTAK) 0.3 % ophthalmic solution 0 pravastatin (PRAVACHOL) 20 mg tablet Take 20 mg by mouth once daily. insulin glargine (LANTUS) 100 unit/mL (3 mL) inpn Inject 72 Units subcutaneously daily at bedtime. insulin aspart U-100 (NOVOLOG) 100 unit/mL (3 mL) Inject 50 Units subcutaneously three times daily with meals. 15 units after each meal and snack pregabalin (LYRICA) 50 mg capsule Take 50 mg by mouth twice daily. (Patient not taking: No sig reported) No current facility-administered medications for this visit. COMPLETE REVIEW OF SYSTEMS: 10 point review of systems was negative other than what is mentioned in the HANDP PHYSICAL EXAM: 09/05/22 1123 BP: 168/99 Pulse: 78 SpO2: 98% Weight: 106.2 kg (234 lb 3.2 oz) Height: 167.6 cm (5' 6 ) General: NAD, alert and cooperative HEENT: EOMI, no proptosis/stare. Neck: supple with full ROM. No thyromegaly or palpable nodules. No loud carotid bruit Cardiovascular: RRR, +S1 and S2, no MRG appreciated Lungs: Clear to auscultation bilaterally Neuro: Alert and oriented Psych: Normal affect Labs: A (more content not included)... [facility] 09-05-2022 History of Present illness Narrative DIABETES SELF-MANAGEMENT EDUCATION AND SUPPORT Location: [place] Type of visit: In person individual Types of DSMES: Initial/Comprehensive (add to or update ADA spreadsheet) PATIENT'S MAIN CONCERN TODAY: I have a sugar addiction Support person present for education today: significant other Cognitive ability: Alert and oriented Motivation to learn: Interested Learning barriers identified by educator: none Method of instruction: written, verbal, and demonstration INTERVENTIONS/TOPICS COVERED: -Diabetes Pathophysiology: role of insulin in the body, role of glucose in the body, difference between Type 1 and Type 2, insulin resistance, relationship of glucose and insulin in the body, hepatic glucose release, Type 2 diabetes risk factors, and progression of Type 2 -Monitoring: rationale for HGM, A1c meaning and target <7%, using a home glucose monitor, CGM type: Libre2, and CGM basics & daily use -Healthy Eating: impact of carbs on BG, Plate Method, foods with carbs, reading food labels, and carb counting tools (books, Internet, smartphone apps) -Medications: medication safety/timing, medication side effects, insulin storage, site selection/rotation, pen injection instruction, basal insulin, and injectable insulin discussed: Regular U500 insulin -Physical Activity: benefits of exercise and impact of exercise on BG -Acute Complications: hypoglycemia s/sx/tx, hyperglycemia s/sx/tx, sick day rules, and pattern management -Chronic Complications: LT complications -Healthy Coping and Support: impact of stress on BG DIABETES ASSESSMENT: Referring Physician: Previous Diabetes Education? Asked/not answered What are you hoping to gain from this visit? asked/not answered In your words, what is diabetes? asked/not answered What concerns you about having diabetes? asked/not answered Diabetes History: Type of Diabetes: Type 2 What year were you diagnosed? 2006 Does anyone in your family have diabetes? asked/not answered How do you learn best? asked/not answered Demographics: Highest level of education: not addressed Race/Ethnic Origin: White/ Does your culture or adventism require any of the following: No cultural/sikhism practices affecting DM Do you have problems with: No difficulty seeing/hearing/reading/writing/spe aking Do you use tobacco? No Do you use alcohol? Yes, How much? Occasional social In the past 12 months have you had any: Hospital Admissions: Yes, Number of Times? 1 ER Visits: Asked/not answered Primary Care Visits: Asked/not answered What are your general feelings about you overall health? Fair Medical Issues/Complications: PAST MEDICAL HISTORY Diagnosis Date Diabetes (HCC) Hypertension Hypothyroid Multinodular goiter 04/28/14 dominant right thyroid nodule Neuropathy Most recent A1C Lab Results Component Value Date HBA1C 10.8 09/05/2022 HBA1C 11.5 08/26/2014 Physical Activity: Do you do a regular exercise? No Sick Days: How do you manage your diabetes when you are sick? Asked/not answered Sleep: Do you get at least 7 hrs of sleep most nights? asked/not answered Current Outpatient Medications Medication Sig insulin regular human, CONCENTRATED 500 UNIT/ML, (HUMULIN R) 500 unit/mL (3 mL) inpn Take 88 units with breakfast, 66 units with lunch, 66 units with dinner TRULICITY 1.5 mg/0.5 mL pen injector Inject 1.5 mg subcutaneously one time a week. flash glucose scanning reader (FREESTYLE BRANDON 2 READER) Use to check blood sugar at least four (4) times daily. E11.65. patient on multiple insulin injections flash glucose sensor (FREESTYLE RBANDON 2 SENSOR) kit Apply new sensor every fourteen (14) days to upper arm. E11.65. patient on multiple insulin injections gabapentin (NEURONTIN) 300 mg capsule Take 300 mg by mouth three times daily. levothyroxine (SYNTHROID) 88 mcg tablet Take 88 mcg by mouth once daily. losartan-hydroCHLOROthiazide (HYZAAR) 50-12.5 mg per tablet Take 1 tablet by mouth once daily. cholecalciferol (VITAMIN D3) 400 unit tab Take by mouth. furosemide (LASIX) 20 mg tablet take 1 tablet by mouth once daily if needed for edema potassium chloride SR (MICRO-K) 10 mEq CR capsule take 1 capsule by mouth once daily if needed WHEN TAKING LASIX gentamicin (GENTAK) 0.3 % ophthalmic solution pravastatin (PRAVACHOL) 20 mg tablet Take 20 mg by mouth once daily. pregabalin (LYRICA) 50 mg capsule Take 50 mg by mouth twice daily. (Patient not taking: No sig reported) No current facility-administered medications for this visit. Injections Technique: Do you take insulin or a medication you inject for your diabetes? Yes;then if so answer the following questions: How do you inject your medicine Pen Where are your injections done? Stomach/abdomen Who prepares your syringes, pen, or pump infusion set? Self Who gives you injections or changes your pump sites? Me Where do you throw away your needles? Sharps container Blood Sugar Monitoring: Do you have a blood sugar monitor? Yes; What kind of meter is it? Brandon Management of Low Blood Sugar: What has been your lowest blood sugar in the last month? 66 mg/dL What are your symptoms of lows?Shaky, Sweaty, Dizzy/lightheaded, and disoriented How do you treat lows? Soda or other sugar followed with protein Do you drive? yes Management of High Blood Sugar: What has been you highest blood sugar in the last month? 300s What are your symptoms of highs? None How do you treat your highs? insulin Meal Planning: Are you currently following any meal plan? Other Paleo Who does the cooking in your house? Spouse Who does the grocery shopping? Self and Spouse How often do you eat out? 0-1x/week How many meals do you eat per day? Three Which meals do you tend to skip? None Beverages: water, diet drinks, coffee, and homemade veggie mix shake Reproductive Status (Females): Have you reached menopause? Yes EDUCATION HANDOUTS: Healthy You: Survival Skills and Healthy You: Planning Healthy Meals LEARNING RESPONSE: Diabetes pathophysiology: Demonstrated understanding/competency today or at previous visit Healthy eating: Demonstrated understanding/competency today or at previous visit Being active: Demonstrated understanding/competency today or at previous visit Taking medications: Demonstrated understanding/competency today or at previous visit Monitoring glucose: Demonstrated understanding/competency today or at previous visit Acute complications: Demonstrated understanding/competency today or at previous visit Chronic complications: Demonstrated understanding/competency today or at previous visit Healthy coping: Demonstrated understanding/competency today or at previous visit Diabetes distress and support: Demonstrated understanding/competency today or at previous visit PATIENT SELECTED THE FOLLOWING GOALS: -Healthy eating goal: making better food choices 2: I might be ready to make a plan POSSIBLE FUTURE TOPICS: 1. The following topics were not assessed due to time limitations, but should be assessed at the next visit: support system and health history. 2. The following topics should be taught or reinforced at the next visit: . DIABETES EDUCATION PLAN: Individual follow-up Time Spent (Minutes): 45 This visit note will be communicated to the healthcare provider via access to shared medical record. SIGNATURE: Michael Mclaughlin RN PATIENT NAME: Anna Gaitan DATE: September 05, 2022 TIME: 12:01 PM PAGER: documented in this encounter [facility] 09-05-2022 Instructions Muriel Hou MD - 09/05/2022 11:56 AM EDT - Continue Trulicity 1.5 mg once a week - We will switch the lantus and novolog to a concentrated insulin called U500. Take U500 insulin: 88 units with breakfast, 66 units with lunch, 66 units with dinner. (When you start the U500 insulin, STOP lantus and novlog) - I prescribed Freestyle brandon 2 - If you signed up for Benjaandrést, we can do a video visit in a month. If that does not work for you, we will have see my colleague nurse in 2-3 months, and see me in 5-6 months documented in this encounter [facility] 09-05-2022 History of Present illness Narrative Images from the original note were not included. ENDOCRINOLOGY CLINIC NOTE Ms. Gaitan is a pleasant 62 year old female with T2DM, HTN, thyroid nodule and hypothyroidism self-referred for management of diabetes HPI She was diagnosed with diabetes in 2005. She was started on insulin shortly after diagnosis A1c: 10.8% today 11% in 12/2021 8.9% in 03/2022 Current regimen: Lantus 72 units daily at bedtime Novolog 50 units with meals Trulicity 1.5 mg once a week (started 6 months ago) Home glucose monitoring: She has freestyle brandon The patient's continuous glucose monitoring device was downloaded, interpreted by myself and recommendations were discussed with the patient. The following data was obtained: Average glucose: 273 mg/dl glucose variability 26.8% Estimated HbA1c:-% Serious hypoglycemia (<55 mg/dl): 0% Hypoglycemia (<70 mg/dl): 0% Values in target (70-180 mg/dl): 10% Hyperglycemia (>180 mg/dl): 27% Serious hyperglycemia (>250 mg/dl): 63% CGM active 37% of the time Time evaluated: 14 days Hypoglycemia: Rarely as low as 60s, less than once a month Diet: She eats 3 meals consistently Complications: Retinopathy: lat exam was about a year ago. Has cataract but no reported retinopathy Nephropathy: GFR 61 in 05/2022 Neuropathy: tingling in the feet bilaterally CVS: lipid profile 06/2022: LDL 213, TG 268 on on pravastatin 20 mg daily (has been on it since 2005) BP: 168/99 Hypothyroidism: Labs in 08/2022 showed TSH 3.3 and FT4 1.2. She takes levothyroxine 88 mcg daily. Thyroid nodules: She reported having left hemithyroidectomy for thyroid nodules with no history of cancer. She had a thyroid ultrasound in 02/2022. The right thyroid lobe was surgically absent. There were 3 subcentimeter nodules on the left PAST MEDICAL HISTORY Diagnosis Date Diabetes (HCC) Hypertension Hypothyroid Multinodular goiter 04/28/14 dominant right thyroid nodule Neuropathy PAST SURGICAL HISTORY Procedure Laterality Date APPENDECTOMY 1973 CHG DELIVERY x 2 COLONOSCOPY 02/17/2019 D&C, DIAG AND/OR THERAPEUTIC 02/09/2022 EGD W/O BRSH SPEC VARICIES INJ 02/17/2019 PAST SURGICAL HISTORY OF 1990 ORIF left tibia, percutaneous pinning left small finger PAST SURGICAL HISTORY OF laparoscopy for endometriosis TONSILLECTOMY HX 1966 TOTAL THYROID LOBECTOMY UNI W/WO ISTHMUSECTOMY Right 04/28/2014 TUBAL LIGATION HX 1983 FAMILY HISTORY Problem Relation Age of Onset Cancer Sister ovarian Cancer Brother liver Diabetes Mother Heart Mother Diabetes Brother Heart Father Social History Tobacco Use Smoking status: Never Smokeless tobacco: Never Vaping Use Vaping Use: Never used Substance Use Topics Alcohol use: Yes Comment: Occasional - wine Drug use: No (Not in a hospital admission) Allergies As of Date: 09/05/2022 Allergen Noted Reaction ASPIRIN 04/06/2014 Other: See Comments PENICILLIN G 04/06/2014 Other: See Comments Fully Assessed 03/20/2022 Current Outpatient Medications Medication Sig Dispense Refill gabapentin (NEURONTIN) 300 mg capsule Take 300 mg by mouth three times daily. levothyroxine (SYNTHROID) 88 mcg tablet Take 88 mcg by mouth once daily. losartan-hydroCHLOROthiazide (HYZAAR) 50-12.5 mg per tablet Take 1 tablet by mouth once daily. cholecalciferol (VITAMIN D3) 400 unit tab Take by mouth. TRULICITY 1.5 mg/0.5 mL pen injector inject 0.5 milliliters ( 1 AND 1/2 milligrams ) subcutaneously ev... (REFER TO PRESCRIPTION NOTES). furosemide (LASIX) 20 mg tablet take 1 tablet by mouth once daily if needed for edema potassium chloride SR (MICRO-K) 10 mEq CR capsule take 1 capsule by mouth once daily if needed WHEN TAKING LASIX gentamicin (GENTAK) 0.3 % ophthalmic solution 0 pravastatin (PRAVACHOL) 20 mg tablet Take 20 mg by mouth once daily. insulin glargine (LANTUS) 100 unit/mL (3 mL) inpn Inject 72 Units subcutaneously daily at bedtime. insulin aspart U-100 (NOVOLOG) 100 unit/mL (3 mL) Inject 50 Units subcutaneously three times daily with meals. 15 units after each meal and snack pregabalin (LYRICA) 50 mg capsule Take 50 mg by mouth twice daily. (Patient not taking: No sig reported) No current facility-administered medications for this visit. COMPLETE REVIEW OF SYSTEMS: 10 point review of systems was negative other than what is mentioned in the H&P PHYSICAL EXAM: 09/05/22 1123 BP: 168/99 Pulse: 78 SpO2: 98% Weight: 106.2 kg (234 lb 3.2 oz) Height: 167.6 cm (5' 6 ) General: NAD, alert and cooperative HEENT: EOMI, no proptosis/stare. Neck: supple with full ROM. No thyromegaly or palpable nodules. No loud carotid bruit Cardiovascular: RRR, +S1 and S2, no MRG appreciated Lungs: Clear to auscultation bilaterally Neuro: Alert and oriented Psych: Normal affect Labs: As mentioned above Images: Thyroid ultrasound 02/2022 RIGHT THYROID LOBE: The right lobe of the thyroid gland is surgically absent. LEFT THYROID LOBE: The left lobe of the thyroid gland demonstrates heterogeneous echogenicity with 3 nodules are visualized largest of which is seen in the mid pole measuring 0.7 x 0.7 x 0.5 cm, this demonstrates hyperechoic internal echogenicity, unremarkable margins is wider than smaller and demonstrates no hyperechoic foci, TR 3 nodule. Two smaller anechoic cysts are visualized measuring 0.3 x 0.3 x 0.2 cm and 0.4 x 0.3 x 0.2 cm. ISTHMUS: The isthmus measures 0.2 cm in AP diameter.. No thyroid nodules are present. US/Thyroid IMPRESSION: The right lobe of the thyroid gland is surgically absent. A 0.7 cm TR 3 nodule is visualized in the midpole of the left lobe. Assessment and Recommendations: Ms. Gaitan is a pleasant 62-year-old woman presented to establish care for T2DM. She also has hypothyroidism T2DM: Her diabetes is poorly controlled as evidenced by the A1c level and the reviewed glucose data. Our goal is to achieve an A1c around 7% to reduce the risks of diabetes related complications She is taking more than 200 units of insulin per day with significant hyperglycemia. Therefore, we discussed switching the Lantus and NovoLog to concentrated insulin U-500. We will start U-500 insulin 88 units with breakfast, 66 units with lunch and dinner. When she starts the new insulin, she will stop Lantus and NovoLog We will continue with Trulicity at the current dose, but we will likely increase the dose or switch to another agent such as Ozempic or Mounjaro to assist with better glycemic control and weight loss. Of note, she could not tolerate metformin before due to significant diarrhea I asked her to scan the TwoChopyle brandon at least every 8 hours to avoid interruption in the data. They will try to sign up for my chart so that we can do a virtual visit in about a month. Regardless, they will follow-up with my colleague nurse in 2-3 months and with me in about 5 months. They will meet with my colleague SHEN today Hypothyroidism: She is clinically and biochemically euthyroid on levothyroxine 88 mcg daily. We will continue the same dose Thyroid nodules: She has 3 subcentimeter nodules on the left. She underwent right hemithyroidectomy for thyroid nodules before with no history of thyroid cancer I spent a total of 45 minutes on the date of the service which included preparing to see the patient, [id number] patient care, completing clinical documentation, performing a medically appropriate examination, counseling and educating the patient/family/caregiver, and ordering medications, tests, or procedures. This note was created using Strands dictation software. You may find errors that were missed during proofreading. They are purely unintentional and if there are any concerns regarding this dictation, please do not hesitate to contact the dictating provider for clarification. Muriel Hou MD documented in this encounter [facility] 05-22-2022 Evaluation + Plan note Future Scheduled TestsXR Cystography 05/22/22 [facility] 05-17-2022 Summary of episode note ANNA GAITAN :1960 Visit Date:05/17/2022 Your Visit Summary Your Diagnosis Postoperative pain Tests Performed .Auto Differential .Estimated Glomerular Filtration Rate .Neutro Absolute CMP Complete Blood Count Magnesium Level Phosphorus Level UA Urinalysis Microscopic Urine Culture -- Results Pending -- You will be contacted within 72 hours with your results. Your Care Team Attending Physician - MANJIT HUANG MD Primary Care Physician - LESLIE PAULINO Vitals Temperature (Oral) 36.8 C Heart Rate 77 Respiratory Rate 18 Blood Pressure 125/78 Height 167.6 cm What to do next Instructions From Your Doctor HAD IV FLUIDS, LASIX, DECADRON AND MORPHINE Scheduled Follow-Up Appointments Appointment Type When With Where Contact InformationXR Cystography 05/23/2022 10:30 AM EST Radiology SO OV 05/23/2022 11:30 AM EST CONCHA RAZA [facility] [address] [place] [phone] SO OV Post Op 05/25/2022 11:00 AM MANJIT MCDONALD MD [facility] [address] [place] [phone] Medications What How Much When Why Instructions Unchanged alpha-lipoic acid (Alpha Lipoic 100 mg oral tablet) 1 tab(s) by mouth Two (2) times a day Unchanged cholecalciferol (Vitamin D3 25 mcg (1000 intl units) oral tablet) 1 tab(s) by mouth Every day Unchanged ciprofloxacin (ciprofloxacin 500 mg oral tablet) 1 tab(s) by mouth Every 12 hours Duration: 5 Days Unchanged docusate (Colace 100 mg oral capsule) 1 cap by mouth Two (2) times a day Duration: 30 Days Unchanged dulaglutide (Trulicity Pen 1.5 mg/ 0.5 mL subcutaneous solution) 0.5 Milliliter Subcutaneous Every week Unchanged furosemide (furosemide 20 mg oral tablet) 1 tab(s) by mouth Once a day as needed for edema Unchanged gabapentin (gabapentin 300 mg oral capsule) 1 cap by mouth Three (3) times a day Unchanged hydrochlorothiazide-losartan (hydrochlorothiazide-losartan 12.5-50 mg oral tablet) 1 tab(s) by mouth Once a day (in the morning) take 1 tablet by mouth once daily Unchanged ibuprofen (ibuprofen 600 mg oral tablet) 1 tab(s) by mouth Every 6 hours as needed for as needed for pain Duration: 7 Days Take with food or milk. Unchanged insulin aspart (Novolog) (NovoLOG) 50 unit(s) Subcutaneous Three (3) times a day before meals Unchanged insulin glargine (Lantus 100 units/ mL10 ml vial solution) 72 unit(s) Subcutaneous Daily at bedtime Unchanged levothyroxine (levothyroxine 88 mcg (0.088 mg) oral tablet) 1 tab(s) by mouth Once a day (in the morning) take 1 tablet by mouth once daily Unchanged ondansetron (Zofran 4 mg oral tablet) 1 tab(s) by mouth Every 6 hours as needed for Nausea/Vomiting Unchanged oxyCODONE (oxyCODONE 5 mg oral tablet ( IMMEDIATE release )) 1 tab(s) by mouth Every 4 hours as needed for Pain, scale 4-6 Post-op pain Duration: 5 Days Unchanged potassium chloride (potassium chloride 10 mEq oral capsule, extended release) 1 cap by mouth Once a day as needed for only when taking Lasix Unchanged pravastatin (pravastatin 80 mg oral tablet) 1 tab(s) by mouth Once a day (in the morning) Unchanged triamcinolone topical (triamcinolone 0.1% topical paste) 1 application by mouth Two (2) times a day Bilateral hands Test Results .Auto Differential (05/17/2022) Neutrophil % - 77.2 % Lymphocyte % - 14.2 % Monocyte % - 7.1 % Eosinophil % - 0.8 % Basophil % - 0.5 % Lymphocyte, Absolute - 2.2 10^3/mcL Monocyte, Absolute - 1.1 10^3/mcL Eosinophil, Absolute - 0.1 10^3/mcL Basophil, Absolute - 0.0 10^3/mcL .Estimated Glomerular Filtration Rate (05/17/2022) GFR Non- - >60 ml/min/1.73sqm GFR - >60 ml/min/1.73sqm .Neutro Absolute (05/17/2022) Neutrophil, Absolute - 12.1 10^3/mcL CMP (05/17/2022) Glucose Level - 249 mg/dL Sodium Level - 137 mEq/L Potassium Level - 4.9 mEq/L Chloride - 101 mEq/L CO2 - 29 mEq/L Electrolyte Balance - 7.0 mEq/L BUN - 15.0 mg/dL Creatinine Lvl (s) - 0.64 mg/dL BUN/Creatinine Ratio - 23.4 ratio Calcium Lvl - 8.7 mg/dL Total Protein - 5.4 G/dL Albumin Level - 2.5 G/dL Globulin - 2.9 G/dL A/G Ratio - 0.9 ratio Bili Total - 0.40 mg/dL Alk Phos - 64 U/L AST/SGOT - 9 U/L ALT/SGPT - 11 U/L Complete Blood Count (05/17/2022) WBC - 15.7 10^3/mcL RBC - 4.47 10^6/mcL Hgb - 13.6 G/dL Hct - 39.6 % MCV - 88.5 fL MCH - 30.6 pg MCHC - 34.5 G/dL RDW - 14.5 % Platelet - 215 10^3/mcL MPV - 7.7 fL Magnesium Level (05/17/2022) Magnesium Lvl - 1.8 mg/dL Phosphorus Level (05/17/2022) Phosphorus - 3.6 mg/dL UA (05/17/2022) UA Specimen Type - Catheter UA Color - Yellow UA Appear - Cloudy UA Spec Grav - 1.020 UA Glucose - 500 UA Bili - Negative. UA Ketones - Negative.1 UA Blood - Large UA pH - 6.5 UA Protein - 300 UA Urobilinogen - 0.2 UA Nitrite - Negative. UA Leuk Est - Large Urinalysis Microscopic (05/17/2022) UA RBC - 5-10 UA WBC - LOADED UA Squam Epithelial - Rare UA Bacteria - 2+ Allergies aspirin (Bruising) penicillin (Bruising) seasonal enviromental (Congestion, Sneezing) Additional Information VACCINATE! IT SAVES LIVES! Members of the community who have not yet received the COVID-19 vaccine and would like to receive it can visit one of [facility] vaccine clinics. There are many vaccine clinic locations within the [facility]. For locations and available times, please visit [email or web address]. It is important to note that some COVID mobile vaccine clinics are held outdoors and may be canceled in rainy or stormy conditions. To learn more about pediatric vaccinations (ages 5-11), we invite you to visit the [facility] webpage. [email or web address] To learn more about the COVID-19 vaccine, we invite you to visit the [facility] website for a list of frequently asked questions. [email or web address] [facility] Patient Portal Access Instructions: Stay connected with your healthcare team and access your personal medical information anytime with the [facility] Patient Portal.If you would like a full copy of your medical records, please contact the [facility] Medical Records Department, Sunday through Sunday between 8a.m. and 4:30p.m. Please follow the directions below to access the portal: 1.Access the email account you provided upon registration to the [facility].2.Look for an invitation email from [facility].3.Open the email and access the invitation link: Accept Invitation to [facility]4.Fill in the required agustin to create your account. Sign into www.[employer] with your username and password that you created in the above steps to stay up to date. You can then view a summary of results, a summary of your visits, and the ability to download your summaries to your computer or send the information securely to a physician. Remember that your healthcare information is confidential, so carefully consider who you will allow to register on the [facility] Patient Portal for access to your information. You can also access the [facility] Patient Portal on the [employer] real. Simply click on Health Records under Health Data and then click on the [employer] logo. HOW TO SAFELY DISPOSE OF PRESCRIPTION MEDICATIONS Please use one of the following methods to safely dispose of your unused medications. 1.Use a drug disposal kit: the drug disposal pouch allows you to safely discard your old and unused drugs. Ask your nurse to give you one when you are discharged.2.Visit a local take-back location: Many local pharmacies and police departments have programs that collect old and unwanted prescription drugs. Call your local pharmacy or go to http://bit.ly/9Q0Of1m to find one close to you.3.Make use of household items: Use cat litter or old coffee grounds to dispose medications if other options are not available. Mix your drugs with these household products, seal them in an airtight container and throw it into the garbage. Call [facility]: [phone] to be sure your drugs can be disposed of in this way. Some medicines may require a different approach.4.Never flush your medications down the toilet. IF YOU HAVE BEEN PRESCRIBED AN OPIOID FOR PAIN If you have been prescribed an opioid (such as hydrocodone, oxycodone or morphine), it is critical to understand the possible side effects and risks of opioid pain medications. Even when taken as directed, opioids can have several side effects including: Tolerance, meaning you might need to take more of a medication for the same pain relief. Nausea, vomiting and/or constipation. Sleepiness, dizziness, dry mouth, confusion, depression or itching. Physical dependence, meaning you have withdrawal symptoms when a medication is stopped, can develop within a few days. KNOW YOUR RESPONSIBILITIES It is important to know exactly how much and how often to take the opioid pain medications you are prescribed. Never take opioids in higher amounts or more often than prescribed. Do not combine opioids with alcohol or other drugs that cause drowsiness, such as benzodiazepines, also known as benzos, including diazepam and alprazolam, muscle relaxants or sleep aids. Never sell or share prescription opioids. This is illegal. Store opioids in a secure place and out of reach of others (including children, family, friends and visitors). The last page of this document has been signed and retained as a CHART COPY. Signatures Patient Education Materials Medication Leaflets My discharge plan and instructions have been reviewed and explained to me and I,ARNIE, ANNA M understand my current condition and have read and understand these discharge instructions. I have received a written copy of the plan/instructions. If I have questions, I am aware that I should contact my doctor. 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 The following is important discharge information regarding your hospital visit. Your Care Team LESLIE PAULINO APRN-NEHAL Your Diagnosis Atypical endometrial hyperplasia Diabetes mellitus type 2 Hypothyroidism Hypertension RABIA (obstructive sleep apnea) Post-op pain What to do next Instructions From Your Doctor No heavy lifting > 10 pounds for 6 weeks. No swimming or tub baths. Showers are okay. Pelvic Rest until seen for your post-op appointment. No driving for 2 weeks or if taking narcotic pain medications. Call the office if you have a fever > 100.4 F, nausea/vomiting, heavy vaginal bleeding, redness/bruising/drainage from incisions, or uncontrolled pain. Please make sure to take stool softeners as needed to prevent constipation. Follow the wound care instructions provided to you from my office. Scheduled Follow-Up Appointments Appointment Type When With Where Contact InformationSO OV Post Op 05/25/2022 11:00 AM EST MANJIT HUANG MD [facility] [address] [place] [phone] Follow Up Appointments Follow Up with MANJIT HUANG MD When Why: Follow up with Dr. Huang in the office on 05/25/2022 at 11:00 am for your postoperative visit. Where: [address] [place] [address] [place] [address]- [phone] The Following Activity and Diet Have Been Ordered for You Discharge Activity - Ordered -- May Shower, No sexual intercourse x 6 wks, No tub baths x 2 wks. No heavy lifting greater than 15lbs x 6 wks. Don't operate a vehicle until no longer taking pain meds, 05/14/22 10:50:00 EST Discharge Diet - Ordered -- No changes were made to your diet during your hospital stay. Please resume your pre hospitalization diet on discharge., 05/14/22 10:50:00 EST The Following Equipment Has Been Ordered for You Discharge Home Equipment Discharge Wound Care - Ordered -- Call the office if exp a temp >100.4, increase in pain, increase in bleeding/discharge, or increase in odors, 05/14/22 10:50:00 EST The Following Treatments Have Been Ordered for You Discharge Labs No qualifying data available. Discharge Radiology No qualifying data available. Other Therapies No qualifying data available. Post Acute Orders No qualifying data available. Someone Will Contact You Regarding These Home Health Referrals No home referrals have been ordered for you. No one will call you. Allergies aspirin (Bruising) penicillin (Bruising) seasonal enviromental (Congestion, Sneezing) Medications Please ask your primary doctor or pharmacist before taking any other medication not listed, including over the counter drugs, herbal medications, vitamins and or supplements as they may interact with your home medications. What How Much When Why Instructions Last Dose New ciprofloxacin (ciprofloxacin 500 mg oral tablet) 1 tab(s) by mouth Every 12 hours Duration: 5 Days Pickup at [facility] #[id number] New ondansetron (Zofran 4 mg oral tablet) 1 tab(s) by mouth Every 6 hours as needed for Nausea/Vomiting Pickup at [facility] #[id number] New oxyCODONE (oxyCODONE 5 mg oral tablet ( IMMEDIATE release )) 1 tab(s) by mouth Every 4 hours as needed for Pain, scale 4-6 Post-op pain Duration: 5 Days Pickup at [facility] #[id number] Changed docusate (Colace 100 mg oral capsule) 1 cap by mouth Two (2) times a day as needed for Constipation Pickup at [facility] #[id number] Changed docusate (Colace 100 mg oral capsule) 1 cap by mouth Two (2) times a day Duration: 30 Days Pickup at [facility] #[id number] Changed ibuprofen (ibuprofen 600 mg oral tablet) 1 tab(s) by mouth Every 6 hours as needed for as needed for pain Duration: 7 Days Take with food or milk. Pickup at [facility] #[id number] Unchanged alpha-lipoic acid (Alpha Lipoic 100 mg oral tablet) 1 tab(s) by mouth Two (2) times a day Unchanged cholecalciferol (Vitamin D3 25 mcg (1000 intl units) oral tablet) 1 tab(s) by mouth Every day Unchanged dulaglutide (Trulicity Pen 1.5 mg/ 0.5 mL subcutaneous solution) 0.5 Milliliter Subcutaneous Every week Unchanged furosemide (furosemide 20 mg oral tablet) 1 tab(s) by mouth Once a day as needed for edema Unchanged gabapentin (gabapentin 300 mg oral capsule) 1 cap by mouth Three (3) times a day Unchanged hydrochlorothiazide-losartan (hydrochlorothiazide-losartan 12.5-50 mg oral tablet) 1 tab(s) by mouth Once a day (in the morning) take 1 tablet by mouth once daily Unchanged insulin aspart (Novolog) (NovoLOG) 50 unit(s) Subcutaneous Three (3) times a day before meals Unchanged insulin glargine (Lantus 100 units/ mL10 ml vial solution) 72 unit(s) Subcutaneous Daily at bedtime Unchanged levothyroxine (levothyroxine 88 mcg (0.088 mg) oral tablet) 1 tab(s) by mouth Once a day (in the morning) take 1 tablet by mouth once daily Unchanged potassium chloride (potassium chloride 10 mEq oral capsule, extended release) 1 cap by mouth Once a day as needed for only when taking Lasix Unchanged pravastatin (pravastatin 80 mg oral tablet) 1 tab(s) by mouth Once a day (in the morning) Unchanged triamcinolone topical (triamcinolone 0.1% topical paste) 1 application by mouth Two (2) times a day Bilateral hands Pharmacy Information [facility] #[id number]: [address], [place] [id number] [phone] What How Much When Comments Stop Taking mupirocin topical (mupirocin 2% topical ointment) 1 application Topical Two (2) times a day Bilateral intranasal application twice daily for 5 days prior to surgery &/ or as many days leading up to surgery as possible due to surgical urgency/ scheduling. Send to patient's preferred pharmacy. Stop Taking mupirocin topical (mupirocin 2% topical ointment) 1 application Topical Two (2) times a day Bilateral intranasal application twice daily x 5 days pre-surgery &/ or as many days pre-surgery as possible. Stop Taking naproxen (Aleve 220 mg oral tablet) 1 cap by mouth Every 8 hours as needed for as needed for pain Please take this list to your next doctor s visit. Bring all medications you take, including over the counter medications, herbals and other supplements with you to your doctor s visit. Patients and families are reminded to discard old lists and to update any records with all medication providers or retail pharmacies. Education Materials Total Laparoscopic Hysterectomy, Care After Follow all instructions as per Dr. Huang This sheet gives you information about how to care for yourself after your procedure. Your health care provider may also give you more specific instructions. If you have problems or questions, contact your health care provider. What can I expect after the procedure? After the procedure, it is common to have: Pain and bruising around your incisions. A sore throat, if a breathing tube was used during surgery. Fatigue. Poor appetite. Less interest in sex. If your ovaries were also removed, it is also common to have symptoms of menopause such as hot flashes, night sweats, and lack of sleep (insomnia). Follow these instructions at home: Bathing Do not take baths, swim, or use a hot tub until your health care provider approves. You may need to only take showers for 2 3 weeks. Keep your bandage (dressing) dry until your health care provider says it can be removed. Incision care Follow instructions from your health care provider about how to take care of your incisions. Make sure you: ? Wash your hands with soap and water before you change your dressing. If soap and water are not available, use hand criminal investigator. ? Change your dressing as told by your health care provider. ? Leave stitches (sutures), skin glue, or adhesive strips in place. These skin closures may need to stay in place for 2 weeks or longer. If adhesive strip edges start to loosen and curl up, you may trim the loose edges. Do not remove adhesive strips completely unless your health care provider tells you to do that. Check your incision area every day for signs of infection. Check for: ? Redness, swelling, or pain. ? Fluid or blood. ? Warmth. ? Pus or a bad smell. Activity Get plenty of rest and sleep. Do not lift anything that is heavier than 10 lbs (4.5 kg) for one month after surgery, or as long as told by your health care provider. Do not drive or use heavy machinery while taking prescription pain medicine. Do not drive for 24 hours if you were given a medicine to help you relax (sedative). Return to your normal activities as told by your health care provider. Ask your health care provider what activities are safe for you. Lifestyle Do not use any products that contain nicotine or tobacco, such as cigarettes and e-cigarettes. These can delay healing. If you need help quitting, ask your health care provider. Do not drink alcohol until your health care provider approves. General instructions Do not douche, use tampons, or have sex for at least 6 weeks, or as told by your health care provider. Take zpfj-zkb-ffrrsot and prescription medicines only as told by your health care provider. To monitor yourself for a fever, take your temperature at least once a day during recovery. If you struggle with physical or emotional changes after your procedure, speak with your health care provider or a therapist. To prevent or treat constipation while you are taking prescription pain medicine, your health care provider may recommend that you: ? Drink enough fluid to keep your urine clear or pale yellow. ? Take cwgf-eyi-ktjunin or prescription medicines. ? Eat foods that are high in fiber, such as fresh fruits and vegetables, whole grains, and beans. ? Limit foods that are high in fat and processed sugars, such as fried and sweet foods. Keep all follow-up visits as told by your health care provider. This is important. Contact a health care provider if: You have chills or a fever. You have redness, swelling, or pain around an incision. You have fluid or blood coming from an incision. Your incision feels warm to the touch. You have pus or a bad smell coming from an incision. An incision breaks open. You feel dizzy or light-headed. You have pain or bleeding when you urinate. You have diarrhea, nausea, or vomiting that does not go away. You have abnormal vaginal discharge. You have a rash. You have pain that does not get better with medicine. Get help right away if: You have a fever and your symptoms suddenly get worse. You have severe abdominal pain. You have chest pain. You have shortness of breath. You faint. You have pain, swelling, or redness on your leg. You have heavy vaginal bleeding with blood clots. Summary After the procedure it is common to have abdominal pain. Your provider will give you medication for this. Do not take baths, swim, or use a hot tub until your health care provider approves. Do not lift anything that is heavier than 10 lbs (4.5 kg) for one month after surgery, or as long as told by your health care provider. Notify your provider if you have any signs or symptoms of infection after the procedure. This information is not intended to replace advice given to you by your health care provider. Make sure you discuss any questions you have with your health care provider. Document Released: 03/18/2014 Document Revised: 05/10/2018 Document Reviewed: 08/08/2017 Elsevier Patient Education 2020 [employer] Additional Information VACCINATE! IT SAVES LIVES! Members of the community who have not yet received the COVID-19 vaccine and would like to receive it can visit one of [facility] vaccine clinics. There are many vaccine clinic locations within the [facility]. For locations and available times, please visit [email or web address].[email or web address] It is important to note that some COVID mobile vaccine clinics are held outdoors and may be canceled in rainy or stormy conditions. To learn more about pediatric vaccinations (ages 5-11), we invite you to visit the [facility] webpage. [email or web address] To learn more about the COVID-19 vaccine, we invite you to visit the [facility] website for a list of frequently asked questions. [email or web address] [facility] Patient Portal Access Instructions: Stay connected with your healthcare team and access your personal medical information anytime with the [facility] Patient Portal.If you would like a full copy of your medical records, please contact the [facility] Medical Records Department, Sunday through Sunday between 8a.m. and 4:30p.m. Please follow the directions below to access the portal: 1.Access the email account you provided upon registration to the [facility].2.Look for an invitation email from [facility].3.Open the email and access the invitation link: Accept Invitation to [facility]4.Fill in the required agustin to create your account. Sign into www.[employer] with your username and password that you created in the above steps to stay up to date. You can then view a summary of results, a summary of your visits, and the ability to download your summaries to your computer or send the information securely to a physician. Remember that your healthcare information is confidential, so carefully consider who you will allow to register on the [facility] Patient Portal for access to your information. You can also access the [facility] Patient Portal on the [employer] real. Simply click on Health Records under Health Data and then click on the [employer] logo. HOW TO SAFELY DISPOSE OF PRESCRIPTION MEDICATIONS Please use one of the following methods to safely dispose of your unused medications. 1.Use a drug disposal kit: the drug disposal pouch allows you to safely discard your old and unused drugs. Ask your nurse to give you one when you are discharged.2.Visit a local take-back location: Many local pharmacies and police departments have programs that collect old and unwanted prescription drugs. Call your local pharmacy or go to http://Gradalis.ProductBio/3O0Qm0w to find one close to you.3.Make use of household items: Use cat litter or old coffee grounds to dispose medications if other options are not available. Mix your drugs with these household products, seal them in an airtight container and throw it into the garbage. Call [facility]: [phone] to be sure your drugs can be disposed of in this way. Some medicines may require a different approach.4.Never flush your medications down the toilet. IF YOU HAVE BEEN PRESCRIBED AN OPIOID FOR PAIN If you have been prescribed an opioid (such as hydrocodone, oxycodone or morphine), it is critical to understand the possible side effects and risks of opioid pain medications. Even when taken as directed, opioids can have several side effects including: Tolerance, meaning you might need to take more of a medication for the same pain relief. Nausea, vomiting and/or constipation. Sleepiness, dizziness, dry mouth, confusion, depression or itching. Physical dependence, meaning you have withdrawal symptoms when a medication is stopped, can develop within a few days. KNOW YOUR RESPONSIBILITIES It is important to know exactly how much and how often to take the opioid pain medications you are prescribed. Never take opioids in higher amounts or more often than prescribed. Do not combine opioids with alcohol or other drugs that cause drowsiness, such as benzodiazepines, also known as benzos, including diazepam and alprazolam, muscle relaxants or sleep aids. Never sell or share prescription opioids. This is illegal. Store opioids in a secure place and out of reach of others (including children, family, friends and visitors). The last page of this document has been signed and retained as a CHART COPY. Signatures Patient Education Materials Total Laparoscopic Hysterectomy, Care After Medication Leaflets My discharge plan and instructions have been reviewed and explained to me and I,ARNIE, ANNA M understand my current condition and have read and understand these discharge instructions. I have received a written copy of the plan/instructions. If I have questions, I am aware that I should contact my doctor. 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 Diabetes mellitus type 2 (E11.9 - ICD-10-CM) 3. Hypothyroidism (E03.9 - ICD-10-CM) 4. Hypertension (I10 - ICD-10-CM) 5. 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.02 - ICD-10-CM) Type 1 diabetes mellitus without complications (E10.9 - ICD-10-CM) Post-op pain (G89.18 - ICD-10-CM) Ordered: oxyCODONE 5 mg oral tablet ( IMMEDIATE release ); Dose : 5 mg = 1 tab(s), Oral, q4h, PRN Pain, scale 4-6, X 5 day(s), # 20 tab(s), 0 Refill(s), 05/19/22 10:41:00 EST, Pharmacy: [facility] #[id number], Post-op pain, 167.1, cm, 05/09/22 22:09:00 EST, Height, 103.2 Additional Orders: Ordered: Colace 100 mg oral capsule,Dose : 100 mg = 1 cap(s), Oral, BID, PRN Constipation, # 30 cap(s), 1 Refill(s), Pharmacy: [facility] #[id number], 167.1, cm, 05/09/22 22:09:00 EST, Height Other status: Communication Order (scheduled),05/13/22 10:56:00 EST, now, 05/13/22 10:56:00 EST, ok to d/c NG(Complete) Other status: Communication Order (scheduled),05/13/22 12:17:00 EST, Once, 05/13/22 12:17:00 EST, Okay to give top of sliding scale insulin, re-check in 1 hour.(Complete) Discontinued: Dilaudid,Start: 05/12/22 20:19:00 EST, Dose = 0.5 mg, = 0.5 mL, IV Push, q4h, PRN, Pain, scale 4-6, 05/12/22 20:19:00 EST Discontinued: Dilaudid,Start: 05/12/22 20:19:00 EST, Dose = 1 mg, = 1 mL, IV Push, q4h, PRN, Pain, scale 7-10, 0, 05/12/22 20:19:00 EST Ordered: Discharge,05/14/22 10:50:00 EST, Discharged to: Home, When arleth po, voiding, pain under control Ordered: Discharge Activity,May Shower, No sexual intercourse x 6 wks, No tub baths x 2 wks. No heavy lifting greater than 15lbs x 6 wks. Don't operate a vehicle until no longer taking pain meds, 05/14/22 10:50:00 EST Ordered: Discharge Diet,No changes were made to your diet during your hospital stay. Please resume your pre hospitalization diet on discharge., 05/14/22 10:50:00 EST Ordered: Discharge Wound Care,Call the office if exp a temp >100.4, increase in pain, increase in bleeding/discharge, or increase in odors, 05/14/22 10:50:00 EST Ordered: Zofran 4 mg oral tablet,Dose : 4 mg = 1 tab(s), Oral, q6h, PRN Nausea/Vomiting, # 20 tab(s), 0 Refill(s), Pharmacy: [facility] #[id number], 167.1, cm, 05/09/22 22:09:00 EST, Height Ordered: ciprofloxacin 500 mg oral tablet,Dose : 500 mg = 1 tab(s), Oral, q12h, # 10 tab(s), 0 Refill(s), Pharmacy: [facility] #[id number], 167.1, cm, 05/09/22 22:09:00 EST, Height, 103.2 Other status: gabapentin,Start: 05/09/22 18:06:00 EST, Dose = 300 mg, = 1 cap(s), Oral, TID, 0, 05/09/22 18:06:00 EST(Resume) Other status: hydroCHLOROthiazide,Start: 05/09/22 18:06:00 EST, Dose = 12.5 mg, = 1 tab(s), Oral, qDay, 05/09/22 18:06:00 EST(Resume) Discontinued: ibuprofen 600 mg oral tablet,Dose : 600 mg = 1 tab(s), Oral, q6h, Take with food or milk., X 7 day(s), # 28 tab(s), 0 Refill(s), 05/16/22 8:53:00 EST, Pharmacy: [facility] #[id number], 167.1, cm, 05/09/22 6:00:00 EST, Height Ordered: ibuprofen 600 mg oral tablet,Dose : 600 mg = 1 tab(s), Oral, q6h, PRN as needed for pain, Take with food or milk., X 7 day(s), # 28 tab(s), 0 Refill(s), 05/21/22 10:42:00 EST, Pharmacy: [facility] #[id number], 167.1, cm, 05/09/22 22:09:00 EST, Height, kg, 05/09/22 22:09:00 EST, Dosing W... Other status: levothyroxine,Start: 05/10/22 6:00:00 EST, Dose = 88 mcg, = 1 tab(s), Oral, qAM, 05/09/22 18:07:00 EST(Resume) Other status: losartan,Start: 05/09/22 18:06:00 EST, Dose = 50 mg, = 1 tab(s), Oral, qDay, 0, 05/09/22 18:06:00 EST(Resume) Other status: oxyCODONE 5 mg oral tablet ( IMMEDIATE release ),Start: 05/09/22 18:05:00 EST, Dose = 5 mg, = 1 tab(s), Oral, q4h, PRN, Pain, scale 4-6, 0, 05/09/22 18:05:00 EST(Resume) Other status: oxyCODONE 5 mg oral tablet ( IMMEDIATE release ),Start: 05/09/22 18:05:00 EST, Dose = 10 mg, = 2 tab(s), Oral, q4h, PRN, Pain, scale 7-10, 0, 05/09/22 18:05:00 EST(Resume) End of Orders Hospital Course 62 Year-old woman admitted for Endometrial hyperplasia with atypia. She underwent EXAMINATION UNDER ANSETHESIA, OPERATIVE LAPAROSCOPY, EXTENSIVE LYSIS OF ADHESIONS, TOTAL HYSTERECTOMY, BILATERAL SALPINGO-OOPHORECTOMY, AND CYSTOURETHROSCOPY. She was unable to void on POD#0 and was admitted overnight. 05/10: Her roth was removed in AM and patient was monitored for post-op milestones. She was unable to void. She started to have increased abdominal pain and distension concerning for ileus. Pt was made NPO and roth was replaced due to inability to void. 05/11: Pt clinical status was improving. Abd X ray negative for obstruction. Mild-to moderate stool burden. CT Abd/Pelvis obtained showing mild ileus.UOP good and clear in bag. 05/12: Pt status continued to improve as diet was advanced to softs. Her roth was removed and she did void 300 cc of clear urine. She did well until the afternoon, when she had sudden increase in abdominal pain, distension, and difficulty voiding once more. Roth was replaced and diet stepped down to NPO. NG tube placed. Pt received Decadron and scheduled reglan. 05/13: Pt status slowly improving. U/a and cx sent. Plan to slowly advance her diet. \ 05/14: Pt tolerating soft diet and clinically improved. Bacteria +1 on U/a, urine cloudy and dark. Pt discharged home with roth in place and Ciprofloxacin 500 mg BID for 5 days. Plan for voiding X ray Cystogram in 1 week followed by visit in office for Catheter removal. Allergies aspirin (Bruising) penicillin (Bruising) seasonal enviromental (Congestion, Sneezing) Procedures 05/09: EXAMINATION UNDER ANSETHESIA, OPERATIVE LAPAROSCOPY, EXTENSIVE LYSIS OF ADHESIONS, TOTAL HYSTERECTOMY, BILATERAL SALPINGO-OOPHORECTOMY, AND CYSTOURETHROSCOPY Consults Consult to Anesthesia - Ordered -- 05/09/22 4:41:00 EST, surgery pending Imaging Results and Diagnostics XR Enteric Tube Placement Result Date: May 12, 2022 Verified By: JOAQUIN DAVIS MD CLINICAL STATEMENT: IMPRESSION: Radiographically appropriate enteric tube positioning. I have personally reviewed the images of this examination and agree with theresident's findings and interpretation. RECOMMENDATIONS:Unavailable CT Abdomen/Pelvis w/Contrast Result Date: May 11, 2022 Verified By: VIOLETTE WIN, RAPHAEL Thao CLINICAL STATEMENT: IMPRESSION: Small amount of free fluid and gas bubbles in the pelvis are consistent withrecent hysterectomy. There is also small amount of anterior abdominal wallsoft tissue gas from recent surgery. No abscess or hematoma is present. Mild adynamic ileus of the small intestine without obstruction. No inflammatory findings. Cholelithiasis without signs of cholecystitis. Small bilateral pleural effusions and mild dependent atelectasis at both lungbases. XR Abdomen 2 Views w/ Decub/Erect Result Date: May 11, 2022 Verified By: MIKE PRITCHETT DO CLINICAL STATEMENT: IMPRESSION: 1. Nonobstructive bowel gas pattern. Stool burden, as above.2. Small bilateral pleural effusions. Objective Vitals and Measurements T: 36.9 C (Oral) TMIN: 36.4 C (Oral) TMAX: 36.9 C (Oral) HR: 79 RR: 18 BP: 158/87 SpO2: 92% Weight Dosing Weight: 103.2 kg (05/09/22) Dosing Weight: 103.2 kg (05/09/22) Code Status Code Status - Ordered -- 05/10/22 6:01:00 EST, Full Code, Constant Order Admission Date 05/09/22 Discharge Date 05/14/22 Patient Instructions No heavy lifting > 10 pounds for 6 weeks. No swimming or tub baths. Showers are okay. Pelvic Rest until seen for your post-op appointment. No driving for 2 weeks or if taking narcotic pain medications. Call the office if you have a fever > 100.4 F, nausea/vomiting, heavy vaginal bleeding, redness/bruising/drainage from incisions, or uncontrolled pain. Please make sure to take stool softeners as needed to prevent constipation. Follow the wound care instructions provided to you from my office. Medications New Prescription ciprofloxacin (ciprofloxacin 500 mg oral tablet)1 tab(s) by mouth every 12 hours for 5 Days. Refills: 0. ondansetron (Zofran 4 mg oral tablet)1 tab(s) by mouth every 6 hours as needed Nausea/Vomiting. Refills: 0. oxyCODONE (oxyCODONE 5 mg oral tablet ( IMMEDIATE release ))1 tab(s) by mouth every 4 hours as needed Pain, scale 4-6 for 5 Days. Refills: 0. Changed docusate (Colace 100 mg oral capsule)1 cap by mouth two (2) times a day as needed Constipation. Refills: 1. docusate (Colace 100 mg oral capsule)1 cap by mouth two (2) times a day for 30 Days. Refills: 1. ibuprofen (ibuprofen 600 mg oral tablet)1 tab(s) by mouth every 6 hours as needed as needed for pain for 7 Days. Take with food or milk.. Refills: 0. Unchanged alpha-lipoic acid (Alpha Lipoic 100 mg oral tablet)1 tab(s) by mouth two (2) times a day. cholecalciferol (Vitamin D3 25 mcg (1000 intl units) oral tablet)1 tab(s) by mouth every day. dulaglutide (Trulicity Pen 1.5 mg/0.5 mL subcutaneous solution)0.5 Milliliter Subcutaneous every week. furosemide (furosemide 20 mg oral tablet)1 tab(s) by mouth once a day as needed edema. gabapentin (gabapentin 300 mg oral capsule)1 cap by mouth three (3) times a day. hydrochlorothiazide-losartan (hydrochlorothiazide-losartan 12.5-50 mg oral tablet)1 tab(s) by mouth once a day (in the morning). take 1 tablet by mouth once daily. insulin aspart (Novolog) (NovoLOG)50 unit(s) Subcutaneous three (3) times a day before meals. insulin glargine (Lantus 100 units/mL10 ml vial solution)72 unit(s) Subcutaneous daily at bedtime. levothyroxine (levothyroxine 88 mcg (0.088 mg) oral tablet)1 tab(s) by mouth once a day (in the morning). take 1 tablet by mouth once daily. potassium chloride (potassium chloride 10 mEq oral capsule, extended release)1 cap by mouth once a day as needed only when taking Lasix. pravastatin (pravastatin 80 mg oral tablet)1 tab(s) by mouth once a day (in the morning). triamcinolone topical (triamcinolone 0.1% topical paste)1 application by mouth two (2) times a day. Bilateral hands. Discontinued mupirocin topical (mupirocin 2% topical ointment)1 application Topical two (2) times a day. Bilateral intranasal application twice daily for 5 days prior to surgery &/or as many days leading up to surgery as possible due to surgical urgency/scheduling. Send to patient's preferred pharmacy.. Refills: 0. mupirocin topical (mupirocin 2% topical ointment)1 application Topical two (2) times a day. Bilateral intranasal application twice daily x 5 days pre-surgery &/or as many days pre-surgery as possible.. Refills: 0. naproxen (Aleve 220 mg oral tablet)1 cap by mouth every 8 hours as needed as needed for pain. Follow Up Follow Up with MANJIT HUANG MD When Why: Follow up with Dr. Huang in the office on 05/25/2022 at 11:00 am for your postoperative visit. Where: [address] [place] [address] [place] [address]- [phone] Follow Up Labs/Studies Follow up in 1 week for X Ray Cystogram. Discharge Diet Discharge Diet - Ordered -- No changes were made to your diet during your hospital stay. Please resume your pre hospitalization diet on discharge., 05/14/22 10:50:00 EST Discharge Activity Discharge Activity - Ordered -- May Shower, No sexual intercourse x 6 wks, No tub baths x 2 wks. No heavy lifting greater than 15lbs x 6 wks. Don't operate a vehicle until no longer taking pain meds, 05/14/22 10:50:00 EST Condition on Discharge Stable Discharge Disposition Home with Catheter Information Provided To Patient and Digitally Signed by SHERRI DODD MD on 05/14/2022 11:00 AM [facility] 05-13-2022 Note Date of Service 05/13/22 Chief Complaint POD#4 s/p EXAMINATION UNDER ANSETHESIA, OPERATIVE LAPAROSCOPY, EXTENSIVE LYSIS OF ADHESIONS, TOTAL HYSTERECTOMY, BILATERAL SALPINGO-OOPHORECTOMY, AND CYSTOURETHROSCOPY Subjective Pt seen and examined. Her pain has improved. Stopped voiding last night so roth replaced. NG tube in place. Overall she feels a bit better this AM. Not passing flatus. No episodes of emesis overnight. Nausea present, but controlled with medications. Objective Vitals and Measurements T: 36.9 C (Oral) TMIN: 36.9 C (Oral) TMAX: 37.4 C (Oral) HR: 84 RR: 18 BP: 126/70 SpO2: 91% Intake and Output 7AM Yesterday to 7AM Today Intake and Output (Last 24 hours) Intake Oral Intake 0.00 Output Urine Voided 1200.00 Urinary Catheter Output: 2200.00 Gastric Tube Output: 175.00 Stool Count 0.00 Total Summary Total Intake 0.00 Total Output 3575.00 Fluid Balance -3575.00 UOP: clear urine noted at bedside. Physical Exam Gen: AOx3, well appearing, NAD Cardiovascular: Regular Rate and Rhythm Respiratory: CTAB, no wheezes/rales/rhonchi Abdomen: +BS, soft, abdomen appropriately tender, mild distension that is improved, no rebound or guarding,. incisions clean/dry/intact, small area of ecchymosis over the supraumbilical incision. : deferred Extremities: 1+ edema, No calf tenderness MSK: No tenderness to palpation of her back, neck, or hips No CVA tenderness. Skin: No swelling, erythema or ecchymosis. Weight Dosing Weight: 103.2 kg (05/09/22) Dosing Weight: 103.2 kg (05/09/22) Medications Medications (15) Active Scheduled: (7) acetaminophen PMX 1,000 mg 100 mL, IV Piggyback, q6hr dexamethasone 4 mg/1 mL solution 4 mg 1 mL, IV Push, q6hr heparin 5,000 units/mL (1 mL) vial 5,000 unit(s) 1 mL, Subcutaneous, q8h insulin lispro 100 units/mL Soln (3 mL) Give 0-15 units/dose, Subcutaneous, TIDAC magnesium hydroxide 8% Suspension 30 mL UD 30 mL, Oral, qHS metoclopramide 5 mg/mL (2mL) vial 10 mg 2 mL, IV Push, q6h pantoprazole 40 mg VIAL 40 mg, IV Push, qDayAC Continuous: (1) NS (0.9% nacl) 1,000 mL 1,000 mL, Intravenous, 125 mL/hr PRN: (7) acetaminophen 325 mg Tablet 650 mg 2 tab(s), Oral, q4h docusate sodium 100 mg Capsule 200 mg 2 cap(s), Oral, BID HYDROmorphone 0.5 mg/0.5 mL PF syringe 0.5 mg 0.5 mL, IV Push, q4h hydromorphone 1 mg/mL (1mL) INJ 1 mg 1 mL, IV Push, q4h ibuprofen 600 mg tablet 600 mg 1 tab(s), Oral, q6h ondansetron 2 mg/ 1 mL 2 mL INJ 4 mg 2 mL, IV Push, q4h simethicone 80 mg Chewable 80 mg 1 tab(s), Chewed, QID Lab Results 05/12 05:34 WBC: 6.9 Hgb: 11.5 L Hct: 34.5 Platelet: 145 L Neutrophil %: 60.8 Glucose Level: 180 H Sodium Level: 139 Potassium Level: 4.5 BUN: 10.0 Creatinine Lvl (s): 0.58 Imaging Results and Diagnostics XR Enteric Tube Placement Result Date: May 12, 2022 Verified By: JOAQUIN DAVIS MD CLINICAL STATEMENT: IMPRESSION: Radiographically appropriate enteric tube positioning. I have personally reviewed the images of this examination and agree with theresident's findings and interpretation. RECOMMENDATIONS:Unavailable CT Abdomen/Pelvis w/Contrast Result Date: May 11, 2022 Verified By: VIOLETTE WIN, RAPHAEL Thao CLINICAL STATEMENT: IMPRESSION: Small amount of free fluid and gas bubbles in the pelvis are consistent withrecent hysterectomy. There is also small amount of anterior abdominal wallsoft tissue gas from recent surgery. No abscess or hematoma is present. Mild adynamic ileus of the small intestine without obstruction. No inflammatory findings. Cholelithiasis without signs of cholecystitis. Small bilateral pleural effusions and mild dependent atelectasis at both lungbases. XR Abdomen 2 Views w/ Decub/Erect Result Date: May 11, 2022 Verified By: MIKE PRITCHETT DO CLINICAL STATEMENT: IMPRESSION: 1. Nonobstructive bowel gas pattern. Stool burden, as above.2. Small bilateral pleural effusions. Assessment/Plan 1. Atypical endometrial hyperplasia -POD#4 EXAMINATION UNDER ANSETHESIA, OPERATIVE LAPAROSCOPY, EXTENSIVE LYSIS OF ADHESIONS, TOTAL HYSTERECTOMY, BILATERAL SALPINGO-OOPHORECTOMY, AND CYSTOURETHROSCOPY -Pt status worsened yesterday requiring NG tube placement for concern of persistent ileus. -UOP adequate yesterday: will remove roth for voiding trial -Roth in place with 200cc clear urine -AM labs pending 2. Diabetes mellitus type 2 -B-261 at bedtime -continue SSI 3. High blood pressure BP: 120-150/70-80s -losartan held 4. Hypothyroidism -continue levothyroxine 5. RABIA -Bipap at night. -SpO2 91-95% RA. Patient is a 62-year-old female with complex atypical endometrial hyperplasia present on low-grade endometrial cancer who POD#4 s/p exam under anesthesia, operative laparoscopy, extensive lysis of adhesions, total hysterectomy, bilateral salpingo-oophorectomy and cystourethroscopy. VSS Activity: Up ad andrew Diet: NPO IVF: 125cc/hr UOP: 1800 /8hrs Pain control: Tylenol, ibuprofen, oxycodone, Dilaudid VTE prophylaxis: SCDs dispo: Continue conservative management. Possibly remove NG tube today. Digitally Signed by SHERRI DODD MD on 05/13/2022 08:19 AM [facility] 05-13-2022 Note Date of Service 05/13/22 Chief Complaint POD#4 s/p EXAMINATION UNDER ANSETHESIA, OPERATIVE LAPAROSCOPY, EXTENSIVE LYSIS OF ADHESIONS, TOTAL HYSTERECTOMY, BILATERAL SALPINGO-OOPHORECTOMY, AND CYSTOURETHROSCOPY Subjective Pt seen and examined. Her pain has improved. Stopped voiding last night so roth replaced. NG tube in place. Overall she feels a bit better this AM. Not passing flatus. No episodes of emesis overnight. Nausea present, but controlled with medications. Objective Vitals and Measurements T: 36.9 C (Oral) TMIN: 36.9 C (Oral) TMAX: 37.4 C (Oral) HR: 84 RR: 18 BP: 126/70 SpO2: 91% Intake and Output 7AM Yesterday to 7AM Today Intake and Output (Last 24 hours) Intake Oral Intake 0.00 Output Urine Voided 1200.00 Urinary Catheter Output: 2200.00 Gastric Tube Output: 175.00 Stool Count 0.00 Total Summary Total Intake 0.00 Total Output 3575.00 Fluid Balance -3575.00 UOP: clear urine noted at bedside. Physical Exam Gen: AOx3, well appearing, NAD Cardiovascular: Regular Rate and Rhythm Respiratory: CTAB, no wheezes/rales/rhonchi Abdomen: +BS, soft, abdomen appropriately tender, mild distension that is improved, no rebound or guarding,. incisions clean/dry/intact, small area of ecchymosis over the supraumbilical incision. : deferred Extremities: 1+ edema, No calf tenderness MSK: No tenderness to palpation of her back, neck, or hips No CVA tenderness. Skin: No swelling, erythema or ecchymosis. Weight Dosing Weight: 103.2 kg (05/09/22) Dosing Weight: 103.2 kg (05/09/22) Medications Medications (15) Active Scheduled: (7) acetaminophen PMX 1,000 mg 100 mL, IV Piggyback, q6hr dexamethasone 4 mg/1 mL solution 4 mg 1 mL, IV Push, q6hr heparin 5,000 units/mL (1 mL) vial 5,000 unit(s) 1 mL, Subcutaneous, q8h insulin lispro 100 units/mL Soln (3 mL) Give 0-15 units/dose, Subcutaneous, TIDAC magnesium hydroxide 8% Suspension 30 mL UD 30 mL, Oral, qHS metoclopramide 5 mg/mL (2mL) vial 10 mg 2 mL, IV Push, q6h pantoprazole 40 mg VIAL 40 mg, IV Push, qDayAC Continuous: (1) NS (0.9% nacl) 1,000 mL 1,000 mL, Intravenous, 125 mL/hr PRN: (7) acetaminophen 325 mg Tablet 650 mg 2 tab(s), Oral, q4h docusate sodium 100 mg Capsule 200 mg 2 cap(s), Oral, BID HYDROmorphone 0.5 mg/0.5 mL PF syringe 0.5 mg 0.5 mL, IV Push, q4h hydromorphone 1 mg/mL (1mL) INJ 1 mg 1 mL, IV Push, q4h ibuprofen 600 mg tablet 600 mg 1 tab(s), Oral, q6h ondansetron 2 mg/ 1 mL 2 mL INJ 4 mg 2 mL, IV Push, q4h simethicone 80 mg Chewable 80 mg 1 tab(s), Chewed, QID Lab Results 05/12 05:34 WBC: 6.9 Hgb: 11.5 L Hct: 34.5 Platelet: 145 L Neutrophil %: 60.8 Glucose Level: 180 H Sodium Level: 139 Potassium Level: 4.5 BUN: 10.0 Creatinine Lvl (s): 0.58 Imaging Results and Diagnostics XR Enteric Tube Placement Result Date: May 12, 2022 Verified By: JOAQUIN DAVIS MD CLINICAL STATEMENT: IMPRESSION: Radiographically appropriate enteric tube positioning. I have personally reviewed the images of this examination and agree with theresident's findings and interpretation. RECOMMENDATIONS:Unavailable CT Abdomen/Pelvis w/Contrast Result Date: May 11, 2022 Verified By: VIOLETTE WIN, RAPHAEL Thao CLINICAL STATEMENT: IMPRESSION: Small amount of free fluid and gas bubbles in the pelvis are consistent withrecent hysterectomy. There is also small amount of anterior abdominal wallsoft tissue gas from recent surgery. No abscess or hematoma is present. Mild adynamic ileus of the small intestine without obstruction. No inflammatory findings. Cholelithiasis without signs of cholecystitis. Small bilateral pleural effusions and mild dependent atelectasis at both lungbases. XR Abdomen 2 Views w/ Decub/Erect Result Date: May 11, 2022 Verified By: MIKE PRITCHETT DO CLINICAL STATEMENT: IMPRESSION: 1. Nonobstructive bowel gas pattern. Stool burden, as above.2. Small bilateral pleural effusions. Assessment/Plan 1. Atypical endometrial hyperplasia -POD#4 EXAMINATION UNDER ANSETHESIA, OPERATIVE LAPAROSCOPY, EXTENSIVE LYSIS OF ADHESIONS, TOTAL HYSTERECTOMY, BILATERAL SALPINGO-OOPHORECTOMY, AND CYSTOURETHROSCOPY -Pt status worsened yesterday requiring NG tube placement for concern of persistent ileus. -UOP adequate yesterday: will remove roth for voiding trial -Roth in place with 200cc clear urine -AM labs pending 2. Diabetes mellitus type 2 -B-261 at bedtime -continue SSI 3. High blood pressure BP: 120-150/70-80s -losartan held 4. Hypothyroidism -continue levothyroxine 5. RABIA -Bipap at night. -SpO2 91-95% RA. Patient is a 62-year-old female with complex atypical endometrial hyperplasia present on low-grade endometrial cancer who POD#4 s/p exam under anesthesia, operative laparoscopy, extensive lysis of adhesions, total hysterectomy, bilateral salpingo-oophorectomy and cystourethroscopy. VSS Activity: Up ad andrew Diet: NPO IVF: 125cc/hr UOP: 1800 /8hrs Pain control: Tylenol, ibuprofen, oxycodone, Dilaudid VTE prophylaxis: SCDs dispo: Continue conservative management. Possibly remove NG tube today. Digitally Signed by SHERRI DODD MD on 05/13/2022 08:19 AM [facility] 05-13-2022 Note Date of Service 05/13/22 Chief Complaint POD#4 s/p EXAMINATION UNDER ANSETHESIA, OPERATIVE LAPAROSCOPY, EXTENSIVE LYSIS OF ADHESIONS, TOTAL HYSTERECTOMY, BILATERAL SALPINGO-OOPHORECTOMY, AND CYSTOURETHROSCOPY Subjective Pt seen and examined. Her pain has improved. Stopped voiding last night so roth replaced. NG tube in place. Overall she feels a bit better this AM. Not passing flatus. No episodes of emesis overnight. Nausea present, but controlled with medications. Objective Vitals and Measurements T: 36.9 C (Oral) TMIN: 36.9 C (Oral) TMAX: 37.4 C (Oral) HR: 84 RR: 18 BP: 126/70 SpO2: 91% Intake and Output 7AM Yesterday to 7AM Today Intake and Output (Last 24 hours) Intake Oral Intake 0.00 Output Urine Voided 1200.00 Urinary Catheter Output: 2200.00 Gastric Tube Output: 175.00 Stool Count 0.00 Total Summary Total Intake 0.00 Total Output 3575.00 Fluid Balance -3575.00 UOP: clear urine noted at bedside. Physical Exam Gen: AOx3, well appearing, NAD Cardiovascular: Regular Rate and Rhythm Respiratory: CTAB, no wheezes/rales/rhonchi Abdomen: +BS, soft, abdomen appropriately tender, mild distension that is improved, no rebound or guarding,. incisions clean/dry/intact, small area of ecchymosis over the supraumbilical incision. : deferred Extremities: 1+ edema, No calf tenderness MSK: No tenderness to palpation of her back, neck, or hips No CVA tenderness. Skin: No swelling, erythema or ecchymosis. Weight Dosing Weight: 103.2 kg (05/09/22) Dosing Weight: 103.2 kg (05/09/22) Medications Medications (15) Active Scheduled: (7) acetaminophen PMX 1,000 mg 100 mL, IV Piggyback, q6hr dexamethasone 4 mg/1 mL solution 4 mg 1 mL, IV Push, q6hr heparin 5,000 units/mL (1 mL) vial 5,000 unit(s) 1 mL, Subcutaneous, q8h insulin lispro 100 units/mL Soln (3 mL) Give 0-15 units/dose, Subcutaneous, TIDAC magnesium hydroxide 8% Suspension 30 mL UD 30 mL, Oral, qHS metoclopramide 5 mg/mL (2mL) vial 10 mg 2 mL, IV Push, q6h pantoprazole 40 mg VIAL 40 mg, IV Push, qDayAC Continuous: (1) NS (0.9% nacl) 1,000 mL 1,000 mL, Intravenous, 125 mL/hr PRN: (7) acetaminophen 325 mg Tablet 650 mg 2 tab(s), Oral, q4h docusate sodium 100 mg Capsule 200 mg 2 cap(s), Oral, BID HYDROmorphone 0.5 mg/0.5 mL PF syringe 0.5 mg 0.5 mL, IV Push, q4h hydromorphone 1 mg/mL (1mL) INJ 1 mg 1 mL, IV Push, q4h ibuprofen 600 mg tablet 600 mg 1 tab(s), Oral, q6h ondansetron 2 mg/ 1 mL 2 mL INJ 4 mg 2 mL, IV Push, q4h simethicone 80 mg Chewable 80 mg 1 tab(s), Chewed, QID Lab Results 05/12 05:34 WBC: 6.9 Hgb: 11.5 L Hct: 34.5 Platelet: 145 L Neutrophil %: 60.8 Glucose Level: 180 H Sodium Level: 139 Potassium Level: 4.5 BUN: 10.0 Creatinine Lvl (s): 0.58 Imaging Results and Diagnostics XR Enteric Tube Placement Result Date: May 12, 2022 Verified By: JOAQUIN DAVIS MD CLINICAL STATEMENT: IMPRESSION: Radiographically appropriate enteric tube positioning. I have personally reviewed the images of this examination and agree with theresident's findings and interpretation. RECOMMENDATIONS:Unavailable CT Abdomen/Pelvis w/Contrast Result Date: May 11, 2022 Verified By: VIOLETTE WIN, RAPHAEL Thao CLINICAL STATEMENT: IMPRESSION: Small amount of free fluid and gas bubbles in the pelvis are consistent withrecent hysterectomy. There is also small amount of anterior abdominal wallsoft tissue gas from recent surgery. No abscess or hematoma is present. Mild adynamic ileus of the small intestine without obstruction. No inflammatory findings. Cholelithiasis without signs of cholecystitis. Small bilateral pleural effusions and mild dependent atelectasis at both lungbases. XR Abdomen 2 Views w/ Decub/Erect Result Date: May 11, 2022 Verified By: MIKE PRITCHETT DO CLINICAL STATEMENT: IMPRESSION: 1. Nonobstructive bowel gas pattern. Stool burden, as above.2. Small bilateral pleural effusions. Assessment/Plan 1. Atypical endometrial hyperplasia -POD#4 EXAMINATION UNDER ANSETHESIA, OPERATIVE LAPAROSCOPY, EXTENSIVE LYSIS OF ADHESIONS, TOTAL HYSTERECTOMY, BILATERAL SALPINGO-OOPHORECTOMY, AND CYSTOURETHROSCOPY -Pt status worsened yesterday requiring NG tube placement for concern of persistent ileus. -UOP adequate yesterday: will remove roth for voiding trial -Roth in place with 200cc clear urine -AM labs pending 2. Diabetes mellitus type 2 -B-261 at bedtime -continue SSI 3. High blood pressure BP: 120-150/70-80s -losartan held 4. Hypothyroidism -continue levothyroxine 5. RABIA -Bipap at night. -SpO2 91-95% RA. Patient is a 62-year-old female with complex atypical endometrial hyperplasia present on low-grade endometrial cancer who POD#4 s/p exam under anesthesia, operative laparoscopy, extensive lysis of adhesions, total hysterectomy, bilateral salpingo-oophorectomy and cystourethroscopy. VSS Activity: Up ad andrew Diet: NPO IVF: 125cc/hr UOP: 1800 /8hrs Pain control: Tylenol, ibuprofen, oxycodone, Dilaudid VTE prophylaxis: SCDs dispo: Continue conservative management. Possibly remove NG tube today. Digitally Signed by SHERRI DODD MD on 05/13/2022 08:19 AM [facility] 05-12-2022 Note ORIGINAL EXAMINATION: ONE SUPINE XRAY VIEW(S) OF THE [id number]/2022 8:52 pm COMPARISON: 05/11/2022 HISTORY: ORDERING SYSTEM PROVIDED HISTORY: Reason for Exam: NG placement FINDINGS: Enteric tube side port is approximately 9 cm beyond the expected location of the gastroesophageal junction, most likely within the gastric body. There are small bilateral pleural effusions. There are degenerative changes of the spine. IMPRESSION: Radiographically appropriate enteric tube positioning. I have personally reviewed the images of this examination and agree with the resident's findings and interpretation. RECOMMENDATIONS: Unavailable Interpreted by: Joaquin Davis Preliminary Report By: Carmelo Yousif Electronically signed By Joaquin Davis Dictated Date: 05/12/2022 10:05:42 PM Prelim Date: 05/12/2022 10:07:54 PM Sign Date: 05/12/2022 10:09:23 PM Ordering Provider: [facility] 05-12-2022 Note ORIGINAL EXAMINATION: ONE SUPINE XRAY VIEW(S) OF THE [id number]/2022 8:52 pm COMPARISON: 05/11/2022 HISTORY: ORDERING SYSTEM PROVIDED HISTORY: Reason for Exam: NG placement FINDINGS: Enteric tube side port is approximately 9 cm beyond the expected location of the gastroesophageal junction, most likely within the gastric body. There are small bilateral pleural effusions. There are degenerative changes of the spine. IMPRESSION: Radiographically appropriate enteric tube positioning. I have personally reviewed the images of this examination and agree with the resident's findings and interpretation. RECOMMENDATIONS: Unavailable Interpreted by: Joaquin Davis Preliminary Report By: Carmelo Yousif Electronically signed By Joaquin Davis Dictated Date: 05/12/2022 10:05:42 PM Prelim Date: 05/12/2022 10:07:54 PM Sign Date: 05/12/2022 10:09:23 PM Ordering Provider: [facility] 05-12-2022 Note Date of Service 05/12/2022 Chief Complaint POD#3 s/p EXAMINATION UNDER ANSETHESIA, OPERATIVE LAPAROSCOPY, EXTENSIVE LYSIS OF ADHESIONS, TOTAL HYSTERECTOMY, BILATERAL SALPINGO-OOPHORECTOMY, AND CYSTOURETHROSCOPY Subjective Pt seen and evaluated at bedside. No acute events overnight. Pt states she is doing well and has begun to pass gas. She states she is tolerating her diet without N/V and would like something more today. Pt denies Fevers, chills, night sweats, SOB, CP, severe abdominal da silva. Objective Vitals and Measurements T: 36.6 C (Oral) TMIN: 36.6 C (Oral) TMAX: 36.9 C (Oral) HR: 75 RR: 18 BP: 110/62 SpO2: 100% Intake and Output 7AM Yesterday to 7AM Today Intake and Output (Last 24 hours) Intake Administration Information 1000.00 Output Urinary Catheter Output: 3425.00 Total Summary Total Intake 1000.00 Total Output 3425.00 Fluid Balance -2425.00 Physical Exam Gen: AOx3, well appearing, NAD Cardiovascular: Regular Rate and Rhythm Respiratory: CTAB, no wheezes/rales/rhonchi Abdomen: +BS, soft, abdomen appropriately tender, not distended, no rebound or guarding, tympanic. incisions clean/dry/intact, no bleeding : deferred Extremities: 1+ edema, No calf tenderness MSK: No tenderness to palpation of her back, neck, or hips No CVA tenderness. Skin: No swelling, erythema or ecchymosis. Weight Dosing Weight: 103.2 kg (05/09/22) Dosing Weight: 103.2 kg (05/09/22) Medications Medications (18) Active Scheduled: (8) gabapentin 300 mg Capsule 300 mg 1 cap(s), Oral, TID heparin 5,000 units/mL (1 mL) vial 5,000 unit(s) 1 mL, Subcutaneous, q8h hydrochlorothiazide 12.5 mg tablet 12.5 mg 1 tab(s), Oral, qDay insulin lispro 100 units/mL Soln (3 mL) Give 0-15 units/dose, Subcutaneous, TIDAC levothyroxine 88 mcg tablet 88 mcg 1 tab(s), Oral, qAM losartan 50 mg tablet 50 mg 1 tab(s), Oral, qDay magnesium hydroxide 8% Suspension 30 mL UD 30 mL, Oral, qHS pantoprazole 40 mg EC tablet 40 mg 1 tab(s), Oral, qDayAC Continuous: (1) NS (0.9% nacl) 1,000 mL 1,000 mL, Intravenous, 125 mL/hr PRN: (9) acetaminophen 325 mg Tablet 650 mg 2 tab(s), Oral, q4h docusate sodium 100 mg Capsule 200 mg 2 cap(s), Oral, BID HYDROmorphone 0.5 mg/0.5 mL PF syringe 0.5 mg 0.5 mL, IV Push, q2h ibuprofen 600 mg tablet 600 mg 1 tab(s), Oral, q6h metoclopramide 5 mg/mL (2mL) vial 10 mg 2 mL, IV Push, q6h ondansetron 2 mg/ 1 mL 2 mL INJ 4 mg 2 mL, IV Push, q4h oxycodone 5 mg tablet (immediate release) 5 mg 1 tab(s), Oral, q4h oxycodone 5 mg tablet (immediate release) 10 mg 2 tab(s), Oral, q4h simethicone 80 mg Chewable 80 mg 1 tab(s), Chewed, QID Lab Results 05/11 07:01 WBC: 10.5 Hgb: 12.5 Hct: 37.9 Platelet: 152 Neutrophil %: 70.9 Glucose Level: 232 H Sodium Level: 138 Potassium Level: 4.6 BUN: 15.0 Creatinine Lvl (s): 0.82 Imaging Results and Diagnostics CT Abdomen/Pelvis w/Contrast Result Date: May 11, 2022 Verified By: RAPHAEL OAKES MD CLINICAL STATEMENT: IMPRESSION: Small amount of free fluid and gas bubbles in the pelvis are consistent withrecent hysterectomy. There is also small amount of anterior abdominal wallsoft tissue gas from recent surgery. No abscess or hematoma is present. Mild adynamic ileus of the small intestine without obstruction. No inflammatory findings. Cholelithiasis without signs of cholecystitis. Small bilateral pleural effusions and mild dependent atelectasis at both lungbases. XR Abdomen 2 Views w/ Decub/Erect Result Date: May 11, 2022 Verified By: MIKE PRITCHETT DO CLINICAL STATEMENT: IMPRESSION: 1. Nonobstructive bowel gas pattern. Stool burden, as above.2. Small bilateral pleural effusions. Assessment/Plan 1. Atypical endometrial hyperplasia -POD#3 EXAMINATION UNDER ANSETHESIA, OPERATIVE LAPAROSCOPY, EXTENSIVE LYSIS OF ADHESIONS, TOTAL HYSTERECTOMY, BILATERAL SALPINGO-OOPHORECTOMY, AND CYSTOURETHROSCOPY -Pt was admitted for observation due to inability to void postoperatively. Pt had received 3L of IVF with and extra 500cc bolus in same day, she also had been having po hydration. Pt was still unable to void. Pt also had a large amount of emesis while at same day. -UOP adequate yesterday: will remove roth for voiding trial -Roth in place with 200cc clear urine -Endorses passing gas. tolerated clears and fulls yesterday. Would like to eat will advance to soft diet -AM labs pending 2. Diabetes mellitus type 2 -B at bedtime -continue SSI 3. High blood pressure BP: 90-110/50-60 -continue losartan 4. Hypothyroidism -continue levothyroxine Patient is a 62-year-old female with complex atypical endometrial hyperplasia present on low-grade endometrial cancer who POD#3 s/p exam under anesthesia, operative laparoscopy, extensive lysis of adhesions, total hysterectomy, bilateral salpingo-oophorectomy and cystourethroscopy. VSS Activity: Up ad andrew Diet: soft IVF: 125cc/hr UOP: 2950cc/24hr will remove roth today for voiding trial Pain control: Tylenol, ibuprofen, oxycodone, Dilaudid VTE prophylaxis: SCDs dispo: continue routine post-op care. D/c roth catheter for voiding trial. Will advance diet today. Digitally Signed by FAUSTO GORMAN DO on 05/12/2022 06:34 AM Digitally Signed by SHERRI DODD MD on 05/12/2022 09:18 AM [facility] 05-12-2022 Note Date of Service 05/12/2022 Chief Complaint POD#3 s/p EXAMINATION UNDER ANSETHESIA, OPERATIVE LAPAROSCOPY, EXTENSIVE LYSIS OF ADHESIONS, TOTAL HYSTERECTOMY, BILATERAL SALPINGO-OOPHORECTOMY, AND CYSTOURETHROSCOPY Subjective Pt seen and evaluated at bedside. No acute events overnight. Pt states she is doing well and has begun to pass gas. She states she is tolerating her diet without N/V and would like something more today. Pt denies Fevers, chills, night sweats, SOB, CP, severe abdominal da silva. Objective Vitals and Measurements T: 36.6 C (Oral) TMIN: 36.6 C (Oral) TMAX: 36.9 C (Oral) HR: 75 RR: 18 BP: 110/62 SpO2: 100% Intake and Output 7AM Yesterday to 7AM Today Intake and Output (Last 24 hours) Intake Administration Information 1000.00 Output Urinary Catheter Output: 3425.00 Total Summary Total Intake 1000.00 Total Output 3425.00 Fluid Balance -2425.00 Physical Exam Gen: AOx3, well appearing, NAD Cardiovascular: Regular Rate and Rhythm Respiratory: CTAB, no wheezes/rales/rhonchi Abdomen: +BS, soft, abdomen appropriately tender, not distended, no rebound or guarding, tympanic. incisions clean/dry/intact, no bleeding : deferred Extremities: 1+ edema, No calf tenderness MSK: No tenderness to palpation of her back, neck, or hips No CVA tenderness. Skin: No swelling, erythema or ecchymosis. Weight Dosing Weight: 103.2 kg (05/09/22) Dosing Weight: 103.2 kg (05/09/22) Medications Medications (18) Active Scheduled: (8) gabapentin 300 mg Capsule 300 mg 1 cap(s), Oral, TID heparin 5,000 units/mL (1 mL) vial 5,000 unit(s) 1 mL, Subcutaneous, q8h hydrochlorothiazide 12.5 mg tablet 12.5 mg 1 tab(s), Oral, qDay insulin lispro 100 units/mL Soln (3 mL) Give 0-15 units/dose, Subcutaneous, TIDAC levothyroxine 88 mcg tablet 88 mcg 1 tab(s), Oral, qAM losartan 50 mg tablet 50 mg 1 tab(s), Oral, qDay magnesium hydroxide 8% Suspension 30 mL UD 30 mL, Oral, qHS pantoprazole 40 mg EC tablet 40 mg 1 tab(s), Oral, qDayAC Continuous: (1) NS (0.9% nacl) 1,000 mL 1,000 mL, Intravenous, 125 mL/hr PRN: (9) acetaminophen 325 mg Tablet 650 mg 2 tab(s), Oral, q4h docusate sodium 100 mg Capsule 200 mg 2 cap(s), Oral, BID HYDROmorphone 0.5 mg/0.5 mL PF syringe 0.5 mg 0.5 mL, IV Push, q2h ibuprofen 600 mg tablet 600 mg 1 tab(s), Oral, q6h metoclopramide 5 mg/mL (2mL) vial 10 mg 2 mL, IV Push, q6h ondansetron 2 mg/ 1 mL 2 mL INJ 4 mg 2 mL, IV Push, q4h oxycodone 5 mg tablet (immediate release) 5 mg 1 tab(s), Oral, q4h oxycodone 5 mg tablet (immediate release) 10 mg 2 tab(s), Oral, q4h simethicone 80 mg Chewable 80 mg 1 tab(s), Chewed, QID Lab Results 05/11 07:01 WBC: 10.5 Hgb: 12.5 Hct: 37.9 Platelet: 152 Neutrophil %: 70.9 Glucose Level: 232 H Sodium Level: 138 Potassium Level: 4.6 BUN: 15.0 Creatinine Lvl (s): 0.82 Imaging Results and Diagnostics CT Abdomen/Pelvis w/Contrast Result Date: May 11, 2022 Verified By: VIOLETTE WIN, RAPHAEL Thao CLINICAL STATEMENT: IMPRESSION: Small amount of free fluid and gas bubbles in the pelvis are consistent withrecent hysterectomy. There is also small amount of anterior abdominal wallsoft tissue gas from recent surgery. No abscess or hematoma is present. Mild adynamic ileus of the small intestine without obstruction. No inflammatory findings. Cholelithiasis without signs of cholecystitis. Small bilateral pleural effusions and mild dependent atelectasis at both lungbases. XR Abdomen 2 Views w/ Decub/Erect Result Date: May 11, 2022 Verified By: MIKE PRITCHETT DO CLINICAL STATEMENT: IMPRESSION: 1. Nonobstructive bowel gas pattern. Stool burden, as above.2. Small bilateral pleural effusions. Assessment/Plan 1. Atypical endometrial hyperplasia -POD#3 EXAMINATION UNDER ANSETHESIA, OPERATIVE LAPAROSCOPY, EXTENSIVE LYSIS OF ADHESIONS, TOTAL HYSTERECTOMY, BILATERAL SALPINGO-OOPHORECTOMY, AND CYSTOURETHROSCOPY -Pt was admitted for observation due to inability to void postoperatively. Pt had received 3L of IVF with and extra 500cc bolus in same day, she also had been having po hydration. Pt was still unable to void. Pt also had a large amount of emesis while at same day. -UOP adequate yesterday: will remove roth for voiding trial -Roth in place with 200cc clear urine -Endorses passing gas. tolerated clears and fulls yesterday. Would like to eat will advance to soft diet -AM labs pending 2. Diabetes mellitus type 2 -B at bedtime -continue SSI 3. High blood pressure BP: 90-110/50-60 -continue losartan 4. Hypothyroidism -continue levothyroxine Patient is a 62-year-old female with complex atypical endometrial hyperplasia present on low-grade endometrial cancer who POD#3 s/p exam under anesthesia, operative laparoscopy, extensive lysis of adhesions, total hysterectomy, bilateral salpingo-oophorectomy and cystourethroscopy. VSS Activity: Up ad andrew Diet: soft IVF: 125cc/hr UOP: 2950cc/24hr will remove roth today for voiding trial Pain control: Tylenol, ibuprofen, oxycodone, Dilaudid VTE prophylaxis: SCDs dispo: continue routine post-op care. D/c roth catheter for voiding trial. Will advance diet today. Digitally Signed by FAUSTO GORMAN DO on 05/12/2022 06:34 AM Digitally Signed by SHERRI DODD MD on 05/12/2022 09:18 AM [facility] 05-12-2022 Note AUTERUS, CERVIX, BILATERAL FALLOPIAN TUBES AND OVARIES [facility] 05-12-2022 Note AUTERUS, CERVIX, BILATERAL FALLOPIAN TUBES AND OVARIES [facility] 05-12-2022 Note Date of Service 05/12/2022 Chief Complaint POD#3 s/p EXAMINATION UNDER ANSETHESIA, OPERATIVE LAPAROSCOPY, EXTENSIVE LYSIS OF ADHESIONS, TOTAL HYSTERECTOMY, BILATERAL SALPINGO-OOPHORECTOMY, AND CYSTOURETHROSCOPY Subjective Pt seen and evaluated at bedside. No acute events overnight. Pt states she is doing well and has begun to pass gas. She states she is tolerating her diet without N/V and would like something more today. Pt denies Fevers, chills, night sweats, SOB, CP, severe abdominal da silva. Objective Vitals and Measurements T: 36.6 C (Oral) TMIN: 36.6 C (Oral) TMAX: 36.9 C (Oral) HR: 75 RR: 18 BP: 110/62 SpO2: 100% Intake and Output 7AM Yesterday to 7AM Today Intake and Output (Last 24 hours) Intake Administration Information 1000.00 Output Urinary Catheter Output: 3425.00 Total Summary Total Intake 1000.00 Total Output 3425.00 Fluid Balance -2425.00 Physical Exam Gen: AOx3, well appearing, NAD Cardiovascular: Regular Rate and Rhythm Respiratory: CTAB, no wheezes/rales/rhonchi Abdomen: +BS, soft, abdomen appropriately tender, not distended, no rebound or guarding, tympanic. incisions clean/dry/intact, no bleeding : deferred Extremities: 1+ edema, No calf tenderness MSK: No tenderness to palpation of her back, neck, or hips No CVA tenderness. Skin: No swelling, erythema or ecchymosis. Weight Dosing Weight: 103.2 kg (05/09/22) Dosing Weight: 103.2 kg (05/09/22) Medications Medications (18) Active Scheduled: (8) gabapentin 300 mg Capsule 300 mg 1 cap(s), Oral, TID heparin 5,000 units/mL (1 mL) vial 5,000 unit(s) 1 mL, Subcutaneous, q8h hydrochlorothiazide 12.5 mg tablet 12.5 mg 1 tab(s), Oral, qDay insulin lispro 100 units/mL Soln (3 mL) Give 0-15 units/dose, Subcutaneous, TIDAC levothyroxine 88 mcg tablet 88 mcg 1 tab(s), Oral, qAM losartan 50 mg tablet 50 mg 1 tab(s), Oral, qDay magnesium hydroxide 8% Suspension 30 mL UD 30 mL, Oral, qHS pantoprazole 40 mg EC tablet 40 mg 1 tab(s), Oral, qDayAC Continuous: (1) NS (0.9% nacl) 1,000 mL 1,000 mL, Intravenous, 125 mL/hr PRN: (9) acetaminophen 325 mg Tablet 650 mg 2 tab(s), Oral, q4h docusate sodium 100 mg Capsule 200 mg 2 cap(s), Oral, BID HYDROmorphone 0.5 mg/0.5 mL PF syringe 0.5 mg 0.5 mL, IV Push, q2h ibuprofen 600 mg tablet 600 mg 1 tab(s), Oral, q6h metoclopramide 5 mg/mL (2mL) vial 10 mg 2 mL, IV Push, q6h ondansetron 2 mg/ 1 mL 2 mL INJ 4 mg 2 mL, IV Push, q4h oxycodone 5 mg tablet (immediate release) 5 mg 1 tab(s), Oral, q4h oxycodone 5 mg tablet (immediate release) 10 mg 2 tab(s), Oral, q4h simethicone 80 mg Chewable 80 mg 1 tab(s), Chewed, QID Lab Results 05/11 07:01 WBC: 10.5 Hgb: 12.5 Hct: 37.9 Platelet: 152 Neutrophil %: 70.9 Glucose Level: 232 H Sodium Level: 138 Potassium Level: 4.6 BUN: 15.0 Creatinine Lvl (s): 0.82 Imaging Results and [address] CT Abdomen/Pelvis w/Contrast Result Date: May 11, 2022 Verified By: VIOLETTE WIN, RAPHAEL Thao CLINICAL STATEMENT: IMPRESSION: Small amount of free fluid and gas bubbles in the pelvis are consistent withrecent hysterectomy. There is also small amount of anterior abdominal wallsoft tissue gas from recent surgery. No abscess or hematoma is present. Mild adynamic ileus of the small intestine without obstruction. No inflammatory findings. Cholelithiasis without signs of cholecystitis. Small bilateral pleural effusions and mild dependent atelectasis at both lungbases. XR Abdomen 2 Views w/ Decub/Erect Result Date: May 11, 2022 Verified By: MIKE PRITCHETT DO CLINICAL STATEMENT: IMPRESSION: 1. Nonobstructive bowel gas pattern. Stool burden, as above.2. Small bilateral pleural effusions. Assessment/Plan 1. Atypical endometrial hyperplasia -POD#3 EXAMINATION UNDER ANSETHESIA, OPERATIVE LAPAROSCOPY, EXTENSIVE LYSIS OF ADHESIONS, TOTAL HYSTERECTOMY, BILATERAL SALPINGO-OOPHORECTOMY, AND CYSTOURETHROSCOPY -Pt was admitted for observation due to inability to void postoperatively. Pt had received 3L of IVF with and extra 500cc bolus in same day, she also had been having po hydration. Pt was still unable to void. Pt also had a large amount of emesis while at same day. -UOP adequate yesterday: will remove roth for voiding trial -Roth in place with 200cc clear urine -Endorses passing gas. tolerated clears and fulls yesterday. Would like to eat will advance to soft diet -AM labs pending 2. Diabetes mellitus type 2 -B at bedtime -continue SSI 3. High blood pressure BP: 90-110/50-60 -continue losartan 4. Hypothyroidism -continue levothyroxine Patient is a 62-year-old female with complex atypical endometrial hyperplasia present on low-grade endometrial cancer who POD#3 s/p exam under anesthesia, operative laparoscopy, extensive lysis of adhesions, total hysterectomy, bilateral salpingo-oophorectomy and cystourethroscopy. VSS Activity: Up ad andrew Diet: soft IVF: 125cc/hr UOP: 2950cc/24hr will remove rtoh today for voiding trial Pain control: Tylenol, ibuprofen, oxycodone, Dilaudid VTE prophylaxis: SCDs dispo: continue routine post-op care. D/c roth catheter for voiding trial. Will advance diet today. Digitally Signed by FAUSTO GORMAN DO on 05/12/2022 06:34 AM Digitally Signed by SHERRI DODD MD on 05/12/2022 09:18 AM [facility] 05-12-2022 Note ORIGINAL EXAMINATION: CT OF THE ABDOMEN AND PELVIS WITH CONTRAST 05/11/2022 7:37 pm TECHNIQUE: CT of the abdomen and pelvis was performed with the administration of intravenous contrast. Multiplanar reformatted images are provided for review. Automated exposure control, iterative reconstruction, and/or weight based adjustment of the mA/kV was utilized to reduce the radiation dose to as low as reasonably achievable. COMPARISON: Abdomen x-ray on 05/11/2022 HISTORY: ORDERING SYSTEM PROVIDED HISTORY: Reason for Exam: LEFT LOWER ABD PAIN X FEW DAYS, RECENT HYSTER, CONSTIPATED, HX THYROID CA Abdominal distention FINDINGS: Lower Chest: Small bilateral pleural effusions are present. There is mild dependent atelectasis in both lower lobes. Organs: The liver is normal in size with no hepatic lesion or biliary ductal dilatation. Gallbladder is normal in size and contains multiple small calcified gallstones. The gallbladder wall is not thickened. The pancreas, spleen, adrenal glands, kidneys, and ureters show no sign of acute abnormality GI/Bowel: The stomach and duodenum are unremarkable. The jejunum and ileum are remarkable for scattered air-fluid levels in nondilated loops of intestine. There is no intestinal wall thickening. The appendix has been removed. There is no free intraperitoneal air. No abnormal fluid collection is present in the abdomen. Pelvis: Urinary bladder is nearly empty with a Roth catheter in place. There is a small amount of free fluid in the pelvis. There also a few air bubbles in the pelvis adjacent to the rectosigmoid junction. The rectosigmoid colon wall is not thickened or show signs of inflammation. Uterus has been removed. There is no loculated fluid collection. Peritoneum/Retroperitoneum: Abdominal aorta and inferior vena cava are normal in size. There is no retroperitoneal lymph node enlargement or hematoma. Bones/Soft Tissues: There is a small amount of soft tissue gas in the anterior abdominal wall that is presumably postoperative. No there is no abdominal wall hematoma. A small periumbilical hernia is present without signs of complication. There is no acute or aggressive osseous lesion. IMPRESSION: Small amount of free fluid and gas bubbles in the pelvis are consistent with recent hysterectomy. There is also small amount of anterior abdominal wall soft tissue gas from recent surgery. No abscess or hematoma is present. Mild adynamic ileus of the small intestine without obstruction. No inflammatory findings. Cholelithiasis without signs of cholecystitis. Small bilateral pleural effusions and mild dependent atelectasis at both lung bases. Interpreted by: Raphael Oakes MD Preliminary Report By: Raphael Oakes MD Electronically signed By Raphael Oakes MD Dictated Date: 05/12/2022 12:35:39 AM Prelim Date: 05/12/2022 12:43:01 AM Sign Date: 05/12/2022 12:43:01 AM Ordering Provider: [facility] 05-11-2022 Note ORIGINAL EXAMINATION: CT OF THE ABDOMEN AND PELVIS WITH CONTRAST 05/11/2022 7:37 pm TECHNIQUE: CT of the abdomen and pelvis was performed with the administration of intravenous contrast. Multiplanar reformatted images are provided for review. Automated exposure control, iterative reconstruction, and/or weight based adjustment of the mA/kV was utilized to reduce the radiation dose to as low as reasonably achievable. COMPARISON: Abdomen x-ray on 05/11/2022 HISTORY: ORDERING SYSTEM PROVIDED HISTORY: Reason for Exam: LEFT LOWER ABD PAIN X FEW DAYS, RECENT HYSTER, CONSTIPATED, HX THYROID CA Abdominal distention FINDINGS: Lower Chest: Small bilateral pleural effusions are present. There is mild dependent atelectasis in both lower lobes. Organs: The liver is normal in size with no hepatic lesion or biliary ductal dilatation. Gallbladder is normal in size and contains multiple small calcified gallstones. The gallbladder wall is not thickened. The pancreas, spleen, adrenal glands, kidneys, and ureters show no sign of acute abnormality GI/Bowel: The stomach and duodenum are unremarkable. The jejunum and ileum are remarkable for scattered air-fluid levels in nondilated loops of intestine. There is no intestinal wall thickening. The appendix has been removed. There is no free intraperitoneal air. No abnormal fluid collection is present in the abdomen. Pelvis: Urinary bladder is nearly empty with a Roth catheter in place. There is a small amount of free fluid in the pelvis. There also a few air bubbles in the pelvis adjacent to the rectosigmoid junction. The rectosigmoid colon wall is not thickened or show signs of inflammation. Uterus has been removed. There is no loculated fluid collection. Peritoneum/Retroperitoneum: Abdominal aorta and inferior vena cava are normal in size. There is no retroperitoneal lymph node enlargement or hematoma. Bones/Soft Tissues: There is a small amount of soft tissue gas in the anterior abdominal wall that is presumably postoperative. No there is no abdominal wall hematoma. A small periumbilical hernia is present without signs of complication. There is no acute or aggressive osseous lesion. IMPRESSION: Small amount of free fluid and gas bubbles in the pelvis are consistent with recent hysterectomy. There is also small amount of anterior abdominal wall soft tissue gas from recent surgery. No abscess or hematoma is present. Mild adynamic ileus of the small intestine without obstruction. No inflammatory findings. Cholelithiasis without signs of cholecystitis. Small bilateral pleural effusions and mild dependent atelectasis at both lung bases. Interpreted by: Raphael Oakes MD Preliminary Report By: Raphael Oakes MD Electronically signed By Raphael Oakes MD Dictated Date: 05/12/2022 12:35:39 AM Prelim Date: 05/12/2022 12:43:01 AM Sign Date: 05/12/2022 12:43:01 AM Ordering Provider: [facility] 05-11-2022 Note Date of Service 05/11/2022 Chief Complaint POD#2 s/p EXAMINATION UNDER ANSETHESIA, OPERATIVE LAPAROSCOPY, EXTENSIVE LYSIS OF ADHESIONS, TOTAL HYSTERECTOMY, BILATERAL SALPINGO-OOPHORECTOMY, AND CYSTOURETHROSCOPY Subjective PT seen and evaluated at bedside. NO acute events overnight. Pt is fairly controlled while laying down. But pain is severe when she gets up. Pt states she is not eating a lot because she does not have an appetite but denies N/V. Pt endorses passing flatus but has not a BM. Pt denies fevers chills night sweats, chest pain, SOB, dizzy. Objective Vitals and Measurements T: 36.9 C (Oral) TMIN: 36.7 C (Oral) TMAX: 36.9 C (Oral) HR: 94 RR: 18 BP: 140/65 SpO2: 98% Intake and Output 7AM Yesterday to 7AM Today Intake and Output (Last 24 hours) Intake Oral Intake 540.00 Output Urine Output Initial 300.00 Urine Voided 0.00 Urinary Catheter Output: 4225.00 Stool Count 0.00 Urine Count 0.00 Total Summary Total Intake 540.00 Total Output 4525.00 Fluid Balance -3985.00 Physical Exam Gen: AOx3, well appearing, NAD Cardiovascular: Regular Rate and Rhythm Respiratory: CTAB, no wheezes/rales/rhonchi Abdomen: +BS, soft, abdomen appropriately tender, mildly distended, no rebound or guarding, tympanic. incisions clean/dry/intact, no bleeding : deferred Extremities: 1+ edema, No calf tenderness MSK: No tenderness to palpation of her back, neck, or hips No CVA tenderness. Skin: No swelling, erythema or ecchymosis. Weight Dosing Weight: 103.2 kg (05/09/22) Dosing Weight: 103.2 kg (05/09/22) Medications Medications (16) Active Scheduled: (6) gabapentin 300 mg Capsule 300 mg 1 cap(s), Oral, TID hydrochlorothiazide 12.5 mg tablet 12.5 mg 1 tab(s), Oral, qDay insulin lispro 100 units/mL Soln (3 mL) Give 0-15 units/dose, Subcutaneous, TIDAC levothyroxine 88 mcg tablet 88 mcg 1 tab(s), Oral, qAM losartan 50 mg tablet 50 mg 1 tab(s), Oral, qDay pantoprazole 40 mg EC tablet 40 mg 1 tab(s), Oral, qDayAC Continuous: (1) NS (0.9% nacl) 1,000 mL 1,000 mL, Intravenous, 50 mL/hr PRN: (9) acetaminophen 325 mg Tablet 650 mg 2 tab(s), Oral, q4h docusate sodium 100 mg Capsule 200 mg 2 cap(s), Oral, BID HYDROmorphone 0.5 mg/0.5 mL PF syringe 0.5 mg 0.5 mL, IV Push, q2h ibuprofen 600 mg tablet 600 mg 1 tab(s), Oral, q6h metoclopramide 5 mg/mL (2mL) vial 10 mg 2 mL, IV Push, q6h ondansetron 2 mg/ 1 mL 2 mL INJ 4 mg 2 mL, IV Push, q4h oxycodone 5 mg tablet (immediate release) 5 mg 1 tab(s), Oral, q4h oxycodone 5 mg tablet (immediate release) 10 mg 2 tab(s), Oral, q4h simethicone 80 mg Chewable 80 mg 1 tab(s), Chewed, QID Lab Results 30 06:46 WBC: 14.3 H Hgb: 13.2 Hct: 39.6 Platelet: 168 Neutrophil %: 74.5 Glucose Level: 228 H Sodium Level: 136 Potassium Level: 4.5 BUN: 20.0 Creatinine Lvl (s): 0.79 EKG No qualifying data available. Assessment/Plan 1. Atypical endometrial hyperplasia -POD#2 EXAMINATION UNDER ANSETHESIA, OPERATIVE LAPAROSCOPY, EXTENSIVE LYSIS OF ADHESIONS, TOTAL HYSTERECTOMY, BILATERAL SALPINGO-OOPHORECTOMY, AND CYSTOURETHROSCOPY -Pt was admitted for observation due to inability to void postoperatively. Pt had received 3L of IVF with and extra 500cc bolus in same day, she also had been having po hydration. Pt was still unable to void. Pt also had a large amount of emesis while at same day. -UOP adequate -Roth in place with 300cc clear urine -Mild distension and tenderness on exam. Will consider CT/AP vs Xray to evaluate -AM labs pending 2. Diabetes mellitus type 2 -B -continue SSI 3. High blood pressure BP: 140/65 -continue losartan 4. Hypothyroidism -continue levothyroxine Patient is a 62-year-old female with complex atypical endometrial hyperplasia present on low-grade endometrial cancer who POD#2 s/p exam under anesthesia, operative laparoscopy, extensive lysis of adhesions, total hysterectomy, bilateral salpingo-oophorectomy and cystourethroscopy. VSS Activity: Up ad andrew Diet: NPO IVF: NS 125cc/hr UOP: 4225cc/24hr Pain control: Tylenol, ibuprofen, oxycodone, Dilaudid VTE prophylaxis: SCDs dispo: continue routine post-op care. Will consider CT A/P vs abdominal xray for abdominal distention Will discuss with Dr. Rivera. Digitally Signed by FAUSTO GORMAN DO on 05/11/2022 06:28 AM [facility] 05-11-2022 Note ORIGINAL EXAMINATION: THREE XRAY VIEWS OF THE ABDOMEN 05/11/2022 1:54 pm COMPARISON: None. HISTORY: ORDERING SYSTEM PROVIDED HISTORY: Reason for Exam: abdominal distention. Nausea, vomiting, constipation. Abdominal pain. FINDINGS: A nonobstructive bowel gas pattern is present. No dilated loops of bowel are seen. There is [id number] stool burden of the right colon and proximal transverse colon. Moderate volume stool burden is noted of the sigmoid colon and rectal vault. No visible air-fluid levels. No pneumoperitoneum is seen. Renal contours are mostly obscured due to overlying bowel. No visible pathologic calcifications. Mild degenerative changes are present of the spine, sacroiliac joints, and hips. Small bilateral pleural effusions are noted. IMPRESSION: 1. Nonobstructive bowel gas pattern. Stool burden, as above. 2. Small bilateral pleural effusions. Interpreted by: Mike Pritchett DO Preliminary Report By: Mike Pritchett DO Electronically signed By Mike Pritchett DO Dictated Date: 05/11/2022 2:12:10 PM Prelim Date: 05/11/2022 2:13:39 PM Sign Date: 05/11/2022 2:13:39 PM Ordering Provider: SHERRI DODD [facility] 05-11-2022 Note ORIGINAL EXAMINATION: THREE XRAY VIEWS OF THE ABDOMEN 05/11/2022 1:54 pm COMPARISON: None. HISTORY: ORDERING SYSTEM PROVIDED HISTORY: Reason for Exam: abdominal distention. Nausea, vomiting, constipation. Abdominal pain. FINDINGS: A nonobstructive bowel gas pattern is present. No dilated loops of bowel are seen. There is cwmk-[id number] stool burden of the right colon and proximal transverse colon. Moderate volume stool burden is noted of the sigmoid colon and rectal vault. No visible air-fluid levels. No pneumoperitoneum is seen. Renal contours are mostly obscured due to overlying bowel. No visible pathologic calcifications. Mild degenerative changes are present of the spine, sacroiliac joints, and hips. Small bilateral pleural effusions are noted. IMPRESSION: 1. Nonobstructive bowel gas pattern. Stool burden, as above. 2. Small bilateral pleural effusions. Interpreted by: Mike Pritchett DO Preliminary Report By: Mike Pritchett DO Electronically signed By Mike Pritchett DO Dictated Date: 05/11/2022 2:12:10 PM Prelim Date: 05/11/2022 2:13:39 PM Sign Date: 05/11/2022 2:13:39 PM Ordering Provider: [facility] 05-11-2022 Note Date of Service 05/11/2022 Chief Complaint POD#2 s/p EXAMINATION UNDER ANSETHESIA, OPERATIVE LAPAROSCOPY, EXTENSIVE LYSIS OF ADHESIONS, TOTAL HYSTERECTOMY, BILATERAL SALPINGO-OOPHORECTOMY, AND CYSTOURETHROSCOPY Subjective PT seen and evaluated at bedside. NO acute events overnight. Pt is fairly controlled while laying down. But pain is severe when she gets up. Pt states she is not eating a lot because she does not have an appetite but denies N/V. Pt endorses passing flatus but has not a BM. Pt denies fevers chills night sweats, chest pain, SOB, dizzy. Objective Vitals and Measurements T: 36.9 C (Oral) TMIN: 36.7 C (Oral) TMAX: 36.9 C (Oral) HR: 94 RR: 18 BP: 140/65 SpO2: 98% Intake and Output 7AM Yesterday to 7AM Today Intake and Output (Last 24 hours) Intake Oral Intake 540.00 Output Urine Output Initial 300.00 Urine Voided 0.00 Urinary Catheter Output: 4225.00 Stool Count 0.00 Urine Count 0.00 Total Summary Total Intake 540.00 Total Output 4525.00 Fluid Balance -3985.00 Physical Exam Gen: AOx3, well appearing, NAD Cardiovascular: Regular Rate and Rhythm Respiratory: CTAB, no wheezes/rales/rhonchi Abdomen: +BS, soft, abdomen appropriately tender, mildly distended, no rebound or guarding, tympanic. incisions clean/dry/intact, no bleeding : deferred Extremities: 1+ edema, No calf tenderness MSK: No tenderness to palpation of her back, neck, or hips No CVA tenderness. Skin: No swelling, erythema or ecchymosis. Weight Dosing Weight: 103.2 kg (05/09/22) Dosing Weight: 103.2 kg (05/09/22) Medications Medications (16) Active Scheduled: (6) gabapentin 300 mg Capsule 300 mg 1 cap(s), Oral, TID hydrochlorothiazide 12.5 mg tablet 12.5 mg 1 tab(s), Oral, qDay insulin lispro 100 units/mL Soln (3 mL) Give 0-15 units/dose, Subcutaneous, TIDAC levothyroxine 88 mcg tablet 88 mcg 1 tab(s), Oral, qAM losartan 50 mg tablet 50 mg 1 tab(s), Oral, qDay pantoprazole 40 mg EC tablet 40 mg 1 tab(s), Oral, qDayAC Continuous: (1) NS (0.9% nacl) 1,000 mL 1,000 mL, Intravenous, 50 mL/hr PRN: (9) acetaminophen 325 mg Tablet 650 mg 2 tab(s), Oral, q4h docusate sodium 100 mg Capsule 200 mg 2 cap(s), Oral, BID HYDROmorphone 0.5 mg/0.5 mL PF syringe 0.5 mg 0.5 mL, IV Push, q2h ibuprofen 600 mg tablet 600 mg 1 tab(s), Oral, q6h metoclopramide 5 mg/mL (2mL) vial 10 mg 2 mL, IV Push, q6h ondansetron 2 mg/ 1 mL 2 mL INJ 4 mg 2 mL, IV Push, q4h oxycodone 5 mg tablet (immediate release) 5 mg 1 tab(s), Oral, q4h oxycodone 5 mg tablet (immediate release) 10 mg 2 tab(s), Oral, q4h simethicone 80 mg Chewable 80 mg 1 tab(s), Chewed, QID Lab Results 05/10 06:46 WBC: 14.3 H Hgb: 13.2 Hct: 39.6 Platelet: 168 Neutrophil %: 74.5 Glucose Level: 228 H Sodium Level: 136 Potassium Level: 4.5 BUN: 20.0 Creatinine Lvl (s): 0.79 EKG No qualifying data available. Assessment/Plan 1. Atypical endometrial hyperplasia -POD#2 EXAMINATION UNDER ANSETHESIA, OPERATIVE LAPAROSCOPY, EXTENSIVE LYSIS OF ADHESIONS, TOTAL HYSTERECTOMY, BILATERAL SALPINGO-OOPHORECTOMY, AND CYSTOURETHROSCOPY -Pt was admitted for observation due to inability to void postoperatively. Pt had received 3L of IVF with and extra 500cc bolus in same day, she also had been having po hydration. Pt was still unable to void. Pt also had a large amount of emesis while at same day. -UOP adequate -Roth in place with 300cc clear urine -Mild distension and tenderness on exam. Will consider CT/AP vs Xray to evaluate -AM labs pending 2. Diabetes mellitus type 2 -B -continue SSI 3. High blood pressure BP: 140/65 -continue losartan 4. Hypothyroidism -continue levothyroxine Patient is a 62-year-old female with complex atypical endometrial hyperplasia present on low-grade endometrial cancer who POD#2 s/p exam under anesthesia, operative laparoscopy, extensive lysis of adhesions, total hysterectomy, bilateral salpingo-oophorectomy and cystourethroscopy. VSS Activity: Up ad andrew Diet: NPO IVF: NS 125cc/hr UOP: 4225cc/24hr Pain control: Tylenol, ibuprofen, oxycodone, Dilaudid VTE prophylaxis: SCDs dispo: continue routine post-op care. Will consider CT A/P vs abdominal xray for abdominal distention Will discuss with Dr. Rivera. Digitally Signed by FAUSTO GORMAN DO on 05/11/2022 06:28 AM [facility] 05-10-2022 Note Date of Service 05/10/2022 Chief Complaint POD#1 s/p EXAMINATION UNDER ANSETHESIA, OPERATIVE LAPAROSCOPY, EXTENSIVE LYSIS OF ADHESIONS, TOTAL HYSTERECTOMY, BILATERAL SALPINGO-OOPHORECTOMY, AND CYSTOURETHROSCOPY Subjective Pt seen and evaluated at bedside. Pt states she feels well and pain is controlled with medications. Her pain is the worst when she is up moving around and trying to use the restroom. Pt states she had a few episodes of vomiting yesterday but since has been okay without nausea. Pt denies CP, SOB, severe abdominal pain, calf pain, lightheaded or dizziness. Pt denies BM or passing flatus Objective Vitals and Measurements T: 36.5 C (Temporal Artery) TMIN: 35.51 C TMAX: 37.5 C (Temporal Artery) HR: 101 RR: 16 BP: 98/63 SpO2: 93% HT: 167.1 cm WT: 103.2 kg BMI: 36.96 Intake and Output 7AM Yesterday to 7AM Today Intake and Output (Last 24 hours) Intake Intra-Op Crystalloid 1700.00 Administration Information 1300.00 Oral Intake 1948.00 Output Urine Output Initial 200.00 Emesis 600.00 Intra-Op EBL 100.00 Intra-Op Urine Catheter 600.00 Total Summary Total Intake 4948.00 Total Output 1500.00 Fluid Balance 3448.00 Physical Exam Gen: AOx3, well appearing, NAD Cardiovascular: Regular Rate and Rhythm Respiratory: CTAB, no wheezes/rales/rhonchi Abdomen: +BS, soft, abdomen moderately tender, mildly distended, no rebound or guarding. incisions clean/dry/intact, no bleeding : deferred Extremities: No calf tenderness or edema MSK: No tenderness to palpation of her back, neck, or hips No CVA tenderness. Skin: No swelling, erythema or ecchymosis. Weight Dosing Weight: 103.2 kg (05/09/22) Dosing Weight: 103.2 kg (05/09/22) Medications Medications (16) Active Scheduled: (6) gabapentin 300 mg Capsule 300 mg 1 cap(s), Oral, TID hydrochlorothiazide 12.5 mg tablet 12.5 mg 1 tab(s), Oral, qDay insulin lispro 100 units/mL Soln (3 mL) Give 0-15 units/dose, Subcutaneous, TIDAC levothyroxine 88 mcg tablet 88 mcg 1 tab(s), Oral, qAM losartan 50 mg tablet 50 mg 1 tab(s), Oral, qDay pantoprazole 40 mg EC tablet 40 mg 1 tab(s), Oral, qDayAC Continuous: (1) NS (0.9% nacl) 1,000 mL 1,000 mL, Intravenous, 50 mL/hr PRN: (9) acetaminophen 325 mg Tablet 650 mg 2 tab(s), Oral, q4h docusate sodium 100 mg Capsule 200 mg 2 cap(s), Oral, BID HYDROmorphone 0.5 mg/0.5 mL PF syringe 0.5 mg 0.5 mL, IV Push, q2h ibuprofen 600 mg tablet 600 mg 1 tab(s), Oral, q6h metoclopramide 5 mg/mL (2mL) vial 10 mg 2 mL, IV Push, q6h ondansetron 2 mg/ 1 mL 2 mL INJ 4 mg 2 mL, IV Push, q4h oxycodone 5 mg tablet (immediate release) 5 mg 1 tab(s), Oral, q4h oxycodone 5 mg tablet (immediate release) 10 mg 2 tab(s), Oral, q4h simethicone 80 mg Chewable 80 mg 1 tab(s), Chewed, QID Lab Results No 36 Hour Lab Data EKG No qualifying data available. Assessment/Plan 1. Atypical endometrial hyperplasia -POD#1 EXAMINATION UNDER ANSETHESIA, OPERATIVE LAPAROSCOPY, EXTENSIVE LYSIS OF ADHESIONS, TOTAL HYSTERECTOMY, BILATERAL SALPINGO-OOPHORECTOMY, AND CYSTOURETHROSCOPY -Pt was admitted for observation overnight due to inability to void postoperatively. Pt had received 3L of IVF with and extra 500cc bolus in same day, she also had been having po hydration. Pt was still unable to void. Pt also had a large amount of emesis while at same day. -UOP adequate. 2 L in IVF. -Pt did not recieve pain meds overnight. No pages to physician from RN. Discussed with nursing. Pt has received her pain meds. -Mild distension and tenderness on exam, likely secondary to inadequate pain control. This has been addressed. -AM labs pending 2. DM1 -B -continue SSI 3. Hypothyroidism -continue levothyroxine Patient is a 62-year-old female with complex atypical endometrial hyperplasia present on low-grade endometrial cancer who POD#1 s/p exam under anesthesia, operative laparoscopy, extensive lysis of adhesions, total hysterectomy, bilateral salpingo-oophorectomy and cystourethroscopy. VSS Activity: Up ad andrew Diet: Regular diet IVF: NS 50cc/hr Inadequate UOP: 300cc/8hr Pain control: Tylenol, ibuprofen, oxycodone, Dilaudid VTE prophylaxis: SCDs dispo: D/c Roth today. Okay discharge home if able to void and pain is well controlled. Digitally Signed by FAUSTO GORMAN DO on 05/10/2022 07:37 AM Digitally Signed by SHERRI DODD MD on 05/10/2022 10:43 AM [facility] 05-10-2022 Note AUTERUS, CERVIX, BILATERAL FALLOPIAN TUBES AND OVARIES [facility] 05-10-2022 Note Date of Service 05/10/2022 Chief Complaint POD#1 s/p EXAMINATION UNDER ANSETHESIA, OPERATIVE LAPAROSCOPY, EXTENSIVE LYSIS OF ADHESIONS, TOTAL HYSTERECTOMY, BILATERAL SALPINGO-OOPHORECTOMY, AND CYSTOURETHROSCOPY Subjective Pt seen and evaluated at bedside. Pt states she feels well and pain is controlled with medications. Her pain is the worst when she is up moving around and trying to use the restroom. Pt states she had a few episodes of vomiting yesterday but since has been okay without nausea. Pt denies CP, SOB, severe abdominal pain, calf pain, lightheaded or dizziness. Pt denies BM or passing flatus Objective Vitals and Measurements T: 36.5 C (Temporal Artery) TMIN: 35.51 C TMAX: 37.5 C (Temporal Artery) HR: 101 RR: 16 BP: 98/63 SpO2: 93% HT: 167.1 cm WT: 103.2 kg BMI: 36.96 Intake and Output 7AM Yesterday to 7AM Today Intake and Output (Last 24 hours) Intake Intra-Op Crystalloid 1700.00 Administration Information 1300.00 Oral Intake 1948.00 Output Urine Output Initial 200.00 Emesis 600.00 Intra-Op EBL 100.00 Intra-Op Urine Catheter 600.00 Total Summary Total Intake 4948.00 Total Output 1500.00 Fluid Balance 3448.00 Physical Exam Gen: AOx3, well appearing, NAD Cardiovascular: Regular Rate and Rhythm Respiratory: CTAB, no wheezes/rales/rhonchi Abdomen: +BS, soft, abdomen moderately tender, mildly distended, no rebound or guarding. incisions clean/dry/intact, no bleeding : deferred Extremities: No calf tenderness or edema MSK: No tenderness to palpation of her back, neck, or hips No CVA tenderness. Skin: No swelling, erythema or ecchymosis. Weight Dosing Weight: 103.2 kg (05/09/22) Dosing Weight: 103.2 kg (05/09/22) Medications Medications (16) Active Scheduled: (6) gabapentin 300 mg Capsule 300 mg 1 cap(s), Oral, TID hydrochlorothiazide 12.5 mg tablet 12.5 mg 1 tab(s), Oral, qDay insulin lispro 100 units/mL Soln (3 mL) Give 0-15 units/dose, Subcutaneous, TIDAC levothyroxine 88 mcg tablet 88 mcg 1 tab(s), Oral, qAM losartan 50 mg tablet 50 mg 1 tab(s), Oral, qDay pantoprazole 40 mg EC tablet 40 mg 1 tab(s), Oral, qDayAC Continuous: (1) NS (0.9% nacl) 1,000 mL 1,000 mL, Intravenous, 50 mL/hr PRN: (9) acetaminophen 325 mg Tablet 650 mg 2 tab(s), Oral, q4h docusate sodium 100 mg Capsule 200 mg 2 cap(s), Oral, BID HYDROmorphone 0.5 mg/0.5 mL PF syringe 0.5 mg 0.5 mL, IV Push, q2h ibuprofen 600 mg tablet 600 mg 1 tab(s), Oral, q6h metoclopramide 5 mg/mL (2mL) vial 10 mg 2 mL, IV Push, q6h ondansetron 2 mg/ 1 mL 2 mL INJ 4 mg 2 mL, IV Push, q4h oxycodone 5 mg tablet (immediate release) 5 mg 1 tab(s), Oral, q4h oxycodone 5 mg tablet (immediate release) 10 mg 2 tab(s), Oral, q4h simethicone 80 mg Chewable 80 mg 1 tab(s), Chewed, QID Lab Results No 36 Hour Lab Data EKG No qualifying data available. Assessment/Plan 1. Atypical endometrial hyperplasia -POD#1 EXAMINATION UNDER ANSETHESIA, OPERATIVE LAPAROSCOPY, EXTENSIVE LYSIS OF ADHESIONS, TOTAL HYSTERECTOMY, BILATERAL SALPINGO-OOPHORECTOMY, AND CYSTOURETHROSCOPY -Pt was admitted for observation overnight due to inability to void postoperatively. Pt had received 3L of IVF with and extra 500cc bolus in same day, she also had been having po hydration. Pt was still unable to void. Pt also had a large amount of emesis while at same day. -UOP adequate. 2 L in IVF. -Pt did not recieve pain meds overnight. No pages to physician from RN. Discussed with nursing. Pt has received her pain meds. -Mild distension and tenderness on exam, likely secondary to inadequate pain control. This has been addressed. -AM labs pending 2. DM1 -B -continue SSI 3. Hypothyroidism -continue levothyroxine Patient is a 62-year-old female with complex atypical endometrial hyperplasia present on low-grade endometrial cancer who POD#1 s/p exam under anesthesia, operative laparoscopy, extensive lysis of adhesions, total hysterectomy, bilateral salpingo-oophorectomy and cystourethroscopy. VSS Activity: Up ad andrew Diet: Regular diet IVF: NS 50cc/hr Inadequate UOP: 300cc/8hr Pain control: Tylenol, ibuprofen, oxycodone, Dilaudid VTE prophylaxis: SCDs dispo: D/c Roth today. Okay discharge home if able to void and pain is well controlled. Digitally Signed by FAUSTO GORMAN DO on 05/10/2022 07:37 AM Digitally Signed by SHERRI DODD MD on 05/10/2022 10:43 AM [facility] 05-10-2022 Note AUTERUS, CERVIX, BILATERAL FALLOPIAN TUBES AND OVARIES [facility] 05-10-2022 Note AUTERUS, CERVIX, BILATERAL FALLOPIAN TUBES AND OVARIES [facility] 05-10-2022 Note AUTERUS, CERVIX, BILATERAL FALLOPIAN TUBES AND OVARIES [facility] 05-10-2022 Note Date of Service 05/10/2022 Chief Complaint POD#1 s/p EXAMINATION UNDER ANSETHESIA, OPERATIVE LAPAROSCOPY, EXTENSIVE LYSIS OF ADHESIONS, TOTAL HYSTERECTOMY, BILATERAL SALPINGO-OOPHORECTOMY, AND CYSTOURETHROSCOPY Subjective Pt seen and evaluated at bedside. Pt states she feels well and pain is controlled with medications. Her pain is the worst when she is up moving around and trying to use the restroom. Pt states she had a few episodes of vomiting yesterday but since has been okay without nausea. Pt denies CP, SOB, severe abdominal pain, calf pain, lightheaded or dizziness. Pt denies BM or passing flatus Objective Vitals and Measurements T: 36.5 C (Temporal Artery) TMIN: 35.51 C TMAX: 37.5 C (Temporal Artery) HR: 101 RR: 16 BP: 98/63 SpO2: 93% HT: 167.1 cm WT: 103.2 kg BMI: 36.96 Intake and Output 7AM Yesterday to 7AM Today Intake and Output (Last 24 hours) Intake Intra-Op Crystalloid 1700.00 Administration Information 1300.00 Oral Intake 1948.00 Output Urine Output Initial 200.00 Emesis 600.00 Intra-Op EBL 100.00 Intra-Op Urine Catheter 600.00 Total Summary Total Intake 4948.00 Total Output 1500.00 Fluid Balance 3448.00 Physical Exam Gen: AOx3, well appearing, NAD Cardiovascular: Regular Rate and Rhythm Respiratory: CTAB, no wheezes/rales/rhonchi Abdomen: +BS, soft, abdomen moderately tender, mildly distended, no rebound or guarding. incisions clean/dry/intact, no bleeding : deferred Extremities: No calf tenderness or edema MSK: No tenderness to palpation of her back, neck, or hips No CVA tenderness. Skin: No swelling, erythema or ecchymosis. Weight Dosing Weight: 103.2 kg (05/09/22) Dosing Weight: 103.2 kg (05/09/22) Medications Medications (16) Active Scheduled: (6) gabapentin 300 mg Capsule 300 mg 1 cap(s), Oral, TID hydrochlorothiazide 12.5 mg tablet 12.5 mg 1 tab(s), Oral, qDay insulin lispro 100 units/mL Soln (3 mL) Give 0-15 units/dose, Subcutaneous, TIDAC levothyroxine 88 mcg tablet 88 mcg 1 tab(s), Oral, qAM losartan 50 mg tablet 50 mg 1 tab(s), Oral, qDay pantoprazole 40 mg EC tablet 40 mg 1 tab(s), Oral, qDayAC Continuous: (1) NS (0.9% nacl) 1,000 mL 1,000 mL, Intravenous, 50 mL/hr PRN: (9) acetaminophen 325 mg Tablet 650 mg 2 tab(s), Oral, q4h docusate sodium 100 mg Capsule 200 mg 2 cap(s), Oral, BID HYDROmorphone 0.5 mg/0.5 mL PF syringe 0.5 mg 0.5 mL, IV Push, q2h ibuprofen 600 mg tablet 600 mg 1 tab(s), Oral, q6h metoclopramide 5 mg/mL (2mL) vial 10 mg 2 mL, IV Push, q6h ondansetron 2 mg/ 1 mL 2 mL INJ 4 mg 2 mL, IV Push, q4h oxycodone 5 mg tablet (immediate release) 5 mg 1 tab(s), Oral, q4h oxycodone 5 mg tablet (immediate release) 10 mg 2 tab(s), Oral, q4h simethicone 80 mg Chewable 80 mg 1 tab(s), Chewed, QID Lab Results No 36 Hour Lab Data EKG No qualifying data available. Assessment/Plan 1. Atypical endometrial hyperplasia -POD#1 EXAMINATION UNDER ANSETHESIA, OPERATIVE LAPAROSCOPY, EXTENSIVE LYSIS OF ADHESIONS, TOTAL HYSTERECTOMY, BILATERAL SALPINGO-OOPHORECTOMY, AND CYSTOURETHROSCOPY -Pt was admitted for observation overnight due to inability to void postoperatively. Pt had received 3L of IVF with and extra 500cc bolus in same day, she also had been having po hydration. Pt was still unable to void. Pt also had a large amount of emesis while at same day. -UOP adequate. 2 L in IVF. -Pt did not recieve pain meds overnight. No pages to physician from RN. Discussed with nursing. Pt has received her pain meds. -Mild distension and tenderness on exam, likely secondary to inadequate pain control. This has been addressed. -AM labs pending 2. DM1 -B -continue SSI 3. Hypothyroidism -continue levothyroxine Patient is a 62-year-old female with complex atypical endometrial hyperplasia present on low-grade endometrial cancer who POD#1 s/p exam under anesthesia, operative laparoscopy, extensive lysis of adhesions, total hysterectomy, bilateral salpingo-oophorectomy and cystourethroscopy. VSS Activity: Up ad andrew Diet: Regular diet IVF: NS 50cc/hr Inadequate UOP: 300cc/8hr Pain control: Tylenol, ibuprofen, oxycodone, Dilaudid VTE prophylaxis: SCDs dispo: D/c Roth today. Okay discharge home if able to void and pain is well controlled. Digitally Signed by FAUSTO GORMAN DO on 05/10/2022 07:37 AM Digitally Signed by SHERRI DODD MD on 05/10/2022 10:43 AM [facility] 05-09-2022 Nurse Progress note Report called to RN on 6S, Pt transferred via bed with transport. Vitals reported [id number]% RA-37.5. Digitally Signed by Katalina Hurst RN on 05/09/2022 07:53 PM [facility] 05-09-2022 Hospital Discharge instructions Patient Education 05/09/2022 10:29:56 Total Laparoscopic Hysterectomy, Care After Total Laparoscopic Hysterectomy, Care After Follow all instructions as per Dr. Huang This sheet gives you information about how to care for yourself after your procedure. Your health care provider may also give you more specific instructions. If you have problems or questions, contact your health care provider. What can I expect after the procedure? After the procedure, it is common to have: Pain and bruising around your incisions. A sore throat, if a breathing tube was used during surgery. Fatigue. Poor appetite. Less interest in sex. If your ovaries were also removed, it is also common to have symptoms of menopause such as hot flashes, night sweats, and lack of sleep (insomnia). Follow these instructions at home: Bathing Do not take baths, swim, or use a hot tub until your health care provider approves. You may need to only take showers for 2 3 weeks. Keep your bandage (dressing) dry until your health care provider says it can be removed. Incision care Follow instructions from your health care provider about how to take care of your incisions. Make sure you: ?Wash your hands with soap and water before you change your dressing. If soap and water are not available, use hand criminal investigator. ?Change your dressing as told by your health care provider. ?Leave stitches (sutures), skin glue, or adhesive strips in place. These skin closures may need to stay in place for 2 weeks or longer. If adhesive strip edges start to loosen and curl up, you may trim the loose edges. Do not remove adhesive strips completely unless your health care provider tells you to do that. Check your incision area every day for signs of infection. Check for: ?Redness, swelling, or pain. ?Fluid or blood. ?Warmth. ?Pus or a bad smell. Activity Get plenty of rest and sleep. Do not lift anything that is heavier than 10 lbs (4.5 kg) for one month after surgery, or as long as told by your health care provider. Do not drive or use heavy machinery while taking prescription pain medicine. Do not drive for 24 hours if you were given a medicine to help you relax (sedative). Return to your normal activities as told by your health care provider. Ask your health care provider what activities are safe for you. Lifestyle Do not use any products that contain nicotine or tobacco, such as cigarettes and e-cigarettes. These can delay healing. If you need help quitting, ask your health care provider. Do not drink alcohol until your health care provider approves. General instructions Do not douche, use tampons, or have sex for at least 6 weeks, or as told by your health care provider. Take [id number]-navgtkr and prescription medicines only as told by your health care provider. To monitor yourself for a fever, take your temperature at least once a day during recovery. If you struggle with physical or emotional changes after your procedure, speak with your health care provider or a therapist. To prevent or treat constipation while you are taking prescription pain medicine, your health care provider may recommend that you: ?Drink enough fluid to keep your urine clear or pale yellow. ?Take vtlx-sug-unswoaa or prescription medicines. ?Eat foods that are high in fiber, such as fresh fruits and vegetables, whole grains, and beans. ?Limit foods that are high in fat and processed sugars, such as fried and sweet foods. Keep all follow-up visits as told by your health care provider. This is important. Contact a health care provider if: You have chills or a fever. You have redness, swelling, or pain around an incision. You have fluid or blood coming from an incision. Your incision feels warm to the touch. You have pus or a bad smell coming from an incision. An incision breaks open. You feel dizzy or light-headed. You have pain or bleeding when you urinate. You have diarrhea, nausea, or vomiting that does not go away. You have abnormal vaginal discharge. You have a rash. You have pain that does not get better with medicine. Get help right away if: You have a fever and your symptoms suddenly get worse. You have severe abdominal pain. You have chest pain. You have shortness of breath. You faint. You have pain, swelling, or redness on your leg. You have heavy vaginal bleeding with blood clots. Summary After the procedure it is common to have abdominal pain. Your provider will give you medication for this. Do not take baths, swim, or use a hot tub until your health care provider approves. Do not lift anything that is heavier than 10 lbs (4.5 kg) for one month after surgery, or as long as told by your health care provider. Notify your provider if you have any signs or symptoms of infection after the procedure. This information is not intended to replace advice given to you by your health care provider. Make sure you discuss any questions you have with your health care provider. Document Released: 03/18/2014 Document Revised: 05/10/2018 Document Reviewed: 08/08/2017 [employer] Patient Education 2020 [employer]. Follow Up Care 02/17/2022 09:11:12 With:MANJIT HUANG MD Address: [address] [place] [address] [place] [address]- [phone] When: Unknown Comments:Follow up with Dr. Huang in the office on 05/25/2022 at 11:00 am for your postoperative visit. [facility] 05-09-2022 Summary of episode note Discharge Instructions Thank you for allowing [facility] to assist you with your healthcare needs. The following is important discharge information regarding your hospital visit. Your Diagnosis Atypical endometrial hyperplasia Post-op pain What to do next Instructions From Your Doctor No heavy lifting > 10 pounds for 6 weeks. No swimming or tub baths. Showers are okay. Pelvic Rest until seen for your post-op appointment. No driving for 2 weeks or if taking narcotic pain medications. Call the office if you have a fever > 100.4 F, nausea/vomiting, heavy vaginal bleeding, redness/bruising/drainage from incisions, or uncontrolled pain. Please make sure to take stool softeners as needed to prevent constipation. Follow the wound care instructions provided to you from my office. Scheduled Follow-Up Appointments Appointment Type When With Where Contact InformationSO OV Post Op 05/25/2022 11:00 AM EST MANJIT HUANG MD [facility] [address] [place] [id number] Follow Up Appointments Follow Up with MANJIT HUANG MD When Why: Follow up with Dr. Huang in the office on 05/25/2022 at 11:00 am for your postoperative visit. Where: [address] [facility] [place] [address]- [phone] The Following Activity and Diet Have Been Ordered for You Discharge Activity - Ordered -- Nothing per vagina x6 wks; no intercourse, douching, tub baths. Call or return to ER if fever, chills, foul odor, discharge, bleeding, or severe pain. No driving while in severe pain or under the influence of narcotics., 05/09/22 8:51:00 EST Discharge Diet - Ordered -- No changes were made to your diet during your hospital stay. Please resume your pre hospitalization diet on discharge., 05/09/22 8:51:00 EST Allergies aspirin (Bruising) penicillin (Bruising) seasonal enviromental (Congestion, Sneezing) Medications Please ask your primary doctor or pharmacist before taking any other medication not listed, including over the counter drugs, herbal medications, vitamins and or supplements as they may interact with your home medications. What How Much When Why Instructions Last Dose New docusate (Colace 100 mg oral capsule) 1 cap by mouth Two (2) times a day Duration: 30 Days Refills: 1 Pickup at [facility] #[id number] New ibuprofen (ibuprofen 600 mg oral tablet) 1 tab(s) by mouth Every 6 hours Duration: 7 Days Take with food or milk. Pickup at [facility] #[id number] New oxyCODONE (oxyCODONE 5 mg oral tablet ( IMMEDIATE release )) 1 tab(s) by mouth Every 4 hours Post-op pain Duration: 5 Days Pickup at [facility] #[id number] Unchanged alpha-lipoic acid (Alpha Lipoic 100 mg oral tablet) 1 tab(s) by mouth Two (2) times a day Unchanged cholecalciferol (Vitamin D3 25 mcg (1000 intl units) oral tablet) 1 tab(s) by mouth Every day Unchanged dulaglutide (Trulicity Pen 1.5 mg/ 0.5 mL subcutaneous solution) 0.5 Milliliter Subcutaneous Every week Unchanged furosemide (furosemide 20 mg oral tablet) 1 tab(s) by mouth Once a day as needed for edema Unchanged gabapentin (gabapentin 300 mg oral capsule) 1 cap by mouth Three (3) times a day Unchanged hydrochlorothiazide-losartan (hydrochlorothiazide-losartan 12.5-50 mg oral tablet) 1 tab(s) by mouth Once a day (in the morning) take 1 tablet by mouth once daily Unchanged insulin aspart (Novolog) (NovoLOG) 50 unit(s) Subcutaneous Three (3) times a day before meals Unchanged insulin glargine (Lantus 100 units/ mL10 ml vial solution) 72 unit(s) Subcutaneous Daily at bedtime Unchanged levothyroxine (levothyroxine 88 mcg (0.088 mg) oral tablet) 1 tab(s) by mouth Once a day (in the morning) take 1 tablet by mouth once daily Unchanged potassium chloride (potassium chloride 10 mEq oral capsule, extended release) 1 cap by mouth Once a day as needed for only when taking Lasix Unchanged pravastatin (pravastatin 80 mg oral tablet) 1 tab(s) by mouth Once a day (in the morning) Unchanged triamcinolone topical (triamcinolone 0.1% topical paste) 1 application by mouth Two (2) times a day Bilateral hands Pharmacy Information [facility] #[id number]: [address], [place] [id number] [phone] What How Much When Comments Stop Taking mupirocin topical (mupirocin 2% topical ointment) 1 application Topical Two (2) times a day Bilateral intranasal application twice daily for 5 days prior to surgery &/ or as many days leading up to surgery as possible due to surgical urgency/ scheduling. Send to patient's preferred pharmacy. Stop Taking mupirocin topical (mupirocin 2% topical ointment) 1 application Topical Two (2) times a day Bilateral intranasal application twice daily x 5 days pre-surgery &/ or as many days pre-surgery as possible. Stop Taking naproxen (Aleve 220 mg oral tablet) 1 cap by mouth Every 8 hours as needed for as needed for pain Please take this list to your next doctor s visit. Bring all medications you take, including over the counter medications, herbals and other supplements with you to your doctor s visit. Patients and families are reminded to discard old lists and to update any records with all medication providers or retail pharmacies. Education Materials Total Laparoscopic Hysterectomy, Care After Follow all instructions as per Dr. Huang This sheet gives you information about how to care for yourself after your procedure. Your health care provider may also give you more specific instructions. If you have problems or questions, contact your health care provider. What can I expect after the procedure? After the procedure, it is common to have: Pain and bruising around your incisions. A sore throat, if a breathing tube was used during surgery. Fatigue. Poor appetite. Less interest in sex. If your ovaries were also removed, it is also common to have symptoms of menopause such as hot flashes, night sweats, and lack of sleep (insomnia). Follow these instructions at home: Bathing Do not take baths, swim, or use a hot tub until your health care provider approves. You may need to only take showers for 2 3 weeks. Keep your bandage (dressing) dry until your health care provider says it can be removed. Incision care Follow instructions from your health care provider about how to take care of your incisions. Make sure you: ? Wash your hands with soap and water before you change your dressing. If soap and water are not available, use hand criminal investigator. ? Change your dressing as told by your health care provider. ? Leave stitches (sutures), skin glue, or adhesive strips in place. These skin closures may need to stay in place for 2 weeks or longer. If adhesive strip edges start to loosen and curl up, you may trim the loose edges. Do not remove adhesive strips completely unless your health care provider tells you to do that. Check your incision area every day for signs of infection. Check for: ? Redness, swelling, or pain. ? Fluid or blood. ? Warmth. ? Pus or a bad smell. Activity Get plenty of rest and sleep. Do not lift anything that is heavier than 10 lbs (4.5 kg) for one month after surgery, or as long as told by your health care provider. Do not drive or use heavy machinery while taking prescription pain medicine. Do not drive for 24 hours if you were given a medicine to help you relax (sedative). Return to your normal activities as told by your health care provider. Ask your health care provider what activities are safe for you. Lifestyle Do not use any products that contain nicotine or tobacco, such as cigarettes and e-cigarettes. These can delay healing. If you need help quitting, ask your health care provider. Do not drink alcohol until your health care provider approves. General instructions Do not douche, use tampons, or have sex for at least 6 weeks, or as told by your health care provider. Take dhih-qbv-osabqpr and prescription medicines only as told by your health care provider. To monitor yourself for a fever, take your temperature at least once a day during recovery. If you struggle with physical or emotional changes after your procedure, speak with your health care provider or a therapist. To prevent or treat constipation while you are taking prescription pain medicine, your health care provider may recommend that you: ? Drink enough fluid to keep your urine clear or pale yellow. ? Take isgy-kdj-lxrebjy or prescription medicines. ? Eat foods that are high in fiber, such as fresh fruits and vegetables, whole grains, and beans. ? Limit foods that are high in fat and processed sugars, such as fried and sweet foods. Keep all follow-up visits as told by your health care provider. This is important. Contact a health care provider if: You have chills or a fever. You have redness, swelling, or pain around an incision. You have fluid or blood coming from an incision. Your incision feels warm to the touch. You have pus or a bad smell coming from an incision. An incision breaks open. You feel dizzy or light-headed. You have pain or bleeding when you urinate. You have diarrhea, nausea, or vomiting that does not go away. You have abnormal vaginal discharge. You have a rash. You have pain that does not get better with medicine. Get help right away if: You have a fever and your symptoms suddenly get worse. You have severe abdominal pain. You have chest pain. You have shortness of breath. You faint. You have pain, swelling, or redness on your leg. You have heavy vaginal bleeding with blood clots. Summary After the procedure it is common to have abdominal pain. Your provider will give you medication for this. Do not take baths, swim, or use a hot tub until your health care provider approves. Do not lift anything that is heavier than 10 lbs (4.5 kg) for one month after surgery, or as long as told by your health care provider. Notify your provider if you have any signs or symptoms of infection after the procedure. This information is not intended to replace advice given to you by your health care provider. Make sure you discuss any questions you have with your health care provider. Document Released: 03/18/2014 Document Revised: 05/10/2018 Document Reviewed: 08/08/2017 Elsevier Patient Education 2020 [employer] Additional Information VACCINATE! IT SAVES LIVES! Members of the community who have not yet received the COVID-19 vaccine and would like to receive it can visit one of [facility] vaccine clinics. There are many vaccine clinic locations within the [facility]. For locations and available times, please visit [email or web address].iai o.gov/. It is important to note that some COVID mobile vaccine clinics are held outdoors and may be canceled in rainy or stormy conditions. To learn more about pediatric vaccinations (ages 5-11), we invite you to visit the [facility] webpage. [email or web address] [email or web address].html To learn more about the COVID-19 vaccine, we invite you to visit the [facility] website for a list of frequently asked questions. [email or web address] ently_[email or web address] [facility] Patient Portal Access Instructions: Stay connected with your healthcare team and access your personal medical information anytime with the [facility] Patient Portal.If you would like a full copy of your medical records, please contact the [facility] Medical Records Department, Sunday through Sunday between 8a.m. and 4:30p.m. Please follow the directions below to access the portal: 1.Access the email account you provided upon registration to the [facility].2.Look for an invitation email from [facility].3.Open the email and access the invitation link: Accept Invitation to [facility]4.Fill in the required agustin to create your account. Sign into www.[email or web address] Empire with your username and password that you created in the above steps to stay up to date. You can then view a summary of results, a summary of your visits, and the ability to download your summaries to your computer or send the information securely to a physician. Remember that your healthcare information is confidential, so carefully consider who you will allow to register on the [facility] Patient Portal for access to your information. You can also access the [facility] Patient Portal on the [employer] real. Simply click on Health Records under Health Data and then click on the [employer] logo. HOW TO SAFELY DISPOSE OF PRESCRIPTION MEDICATIONS Please use one of the following methods to safely dispose of your unused medications. 1.Use a drug disposal kit: the drug disposal pouch allows you to safely discard your old and unused drugs. Ask your nurse to give you one when you are discharged.2.Visit a local take-back location: Many local pharmacies and police departments have programs that collect old and unwanted prescription drugs. Call your local pharmacy or go to http://Gradalis.ProductBio/0S2Hy5v to find one close to you.3.Make use of household items: Use cat litter or old coffee grounds to dispose medications if other options are not available. Mix your drugs with these household products, seal them in an airtight container and throw it into the garbage. Call [facility]: [phone] to be sure your drugs can be disposed of in this way. Some medicines may require a different approach.4.Never flush your medications down the toilet. IF YOU HAVE BEEN PRESCRIBED AN OPIOID FOR PAIN If you have been prescribed an opioid (such as hydrocodone, oxycodone or morphine), it is critical to understand the possible side effects and risks of opioid pain medications. Even when taken as directed, opioids can have several side effects including: Tolerance, meaning you might need to take more of a medication for the same pain relief. Nausea, vomiting and/or constipation. Sleepiness, dizziness, dry mouth, confusion, depression or itching. Physical dependence, meaning you have withdrawal symptoms when a medication is stopped, can develop within a few days. KNOW YOUR RESPONSIBILITIES It is important to know exactly how much and how often to take the opioid pain medications you are prescribed. Never take opioids in higher amounts or more often than prescribed. Do not combine opioids with alcohol or other drugs that cause drowsiness, such as benzodiazepines, also known as benzos, including diazepam and alprazolam, muscle relaxants or sleep aids. Never sell or share prescription opioids. This is illegal. Store opioids in a secure place and out of reach of others (including children, family, friends and visitors). The last page of this document has been signed and retained as a CHART COPY. Signatures Patient Education Materials Total Laparoscopic Hysterectomy, Care After Medication Leaflets My discharge plan and instructions have been reviewed and explained to me and I,ANNA GAITAN understand my current condition and have read and understand these discharge instructions. I have received a written copy of the plan/instructions. If I have questions, I am aware that I should contact my doctor. 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: Date/Time: Relationship to Patient: ___ Witness Name/Signature: Date/Time: [facility] 05-09-2022 Anesthesiology Consult note Patient: ANNA GAITAN Age: 62 years Sex: Female : 1960 Associated Diagnoses: None Author: PAT ABDUL MD Assessment Postanesthesia assessment Vitals: Vital signs from flowsheet : Vital Signs 05/09/2022 10:02 EST Heart Rate Monitored 75 bpm Respiratory Rate 16 br/min Systolic Blood Pressure Non-Invasive 154 mmHg HI Diastolic Blood Pressure Non-Invasive 87 mmHg Mean Arterial Pressure (NBP) 104 mmHg 05/09/2022 9:57 EST Heart Rate Monitored 76 bpm 05/09/2022 9:45 EST Temperature Temporal Artery 36.1 DegC Heart Rate Monitored 77 bpm Respiratory Rate 16 br/min Systolic Blood Pressure Non-Invasive 136 mmHg Diastolic Blood Pressure Non-Invasive 75 mmHg Mean Arterial Pressure (NBP) 89 mmHg 05/09/2022 9:30 EST Heart Rate Monitored 79 bpm Respiratory Rate 16 br/min Systolic Blood Pressure Non-Invasive 156 mmHg HI Diastolic Blood Pressure Non-Invasive 76 mmHg Mean Arterial Pressure (NBP) 93 mmHg 05/09/2022 9:15 EST Heart Rate Monitored 76 bpm Respiratory Rate 16 br/min Systolic Blood Pressure Non-Invasive 172 mmHg >HHI Diastolic Blood Pressure Non-Invasive 74 mmHg Mean Arterial Pressure (NBP) 99 mmHg 05/09/2022 9:00 EST Heart Rate Monitored 77 bpm Respiratory Rate 16 br/min Systolic Blood Pressure Non-Invasive 173 mmHg >HHI Diastolic Blood Pressure Non-Invasive 73 mmHg Mean Arterial Pressure (NBP) 100 mmHg 05/09/2022 8:44 EST Temperature Temporal Artery 36.0 DegC Heart Rate Monitored 79 bpm Respiratory Rate 16 br/min Systolic Blood Pressure Non-Invasive 159 mmHg HI Diastolic Blood Pressure Non-Invasive 93 mmHg HI Mean Arterial Pressure (NBP) 104 mmHg 05/09/2022 8:36 EST Systolic Blood Pressure Non-Invasive 167 mmHg mmHg Diastolic Blood Pressure Non-Invasive 69 mmHg mmHg 05/09/2022 8:35 EST Heart Rate Monitored 91 bpm bpm Respiratory Rate - Anes 15 br/min br/min 05/09/2022 8:33 EST Systolic Blood Pressure Non-Invasive 150 mmHg mmHg Diastolic Blood Pressure Non-Invasive 111 mmHg mmHg 05/09/2022 8:30 EST Heart Rate Monitored 79 bpm bpm Respiratory Rate - Anes 21 br/min br/min Systolic Blood Pressure Non-Invasive 172 mmHg mmHg Diastolic Blood Pressure Non-Invasive 84 mmHg mmHg 05/09/2022 8:27 EST Systolic Blood Pressure Non-Invasive 165 mmHg mmHg Diastolic Blood Pressure Non-Invasive 84 mmHg mmHg 05/09/2022 8:25 EST Heart Rate Monitored 82 bpm bpm Respiratory Rate - Anes 12 br/min br/min 05/09/2022 8:24 EST Systolic Blood Pressure Non-Invasive 166 mmHg mmHg Diastolic Blood Pressure Non-Invasive 90 mmHg mmHg 05/09/2022 8:21 EST Systolic Blood Pressure Non-Invasive 147 mmHg mmHg Diastolic Blood Pressure Non-Invasive 90 mmHg mmHg 05/09/2022 8:20 EST Temperature (Route Not Specified) 35.57 DegC DegC Heart Rate Monitored 84 bpm bpm Respiratory Rate - Anes 16 br/min br/min 05/09/2022 8:18 EST Systolic Blood Pressure Non-Invasive 132 mmHg mmHg Diastolic Blood Pressure Non-Invasive 82 mmHg mmHg 05/09/2022 8:15 EST Temperature (Route Not Specified) 35.59 DegC DegC Heart Rate Monitored 86 bpm bpm Respiratory Rate - Anes 15 br/min br/min Systolic Blood Pressure Non-Invasive 134 mmHg mmHg Diastolic Blood Pressure Non-Invasive 73 mmHg mmHg 05/09/2022 8:12 EST Systolic Blood Pressure Non-Invasive 141 mmHg mmHg Diastolic Blood Pressure Non-Invasive 77 mmHg mmHg 05/09/2022 8:10 EST Temperature (Route Not Specified) 35.64 DegC DegC Heart Rate Monitored 85 bpm bpm Respiratory Rate - Anes 16 br/min br/min 05/09/2022 8:09 EST Systolic Blood Pressure Non-Invasive 147 mmHg mmHg Diastolic Blood Pressure Non-Invasive 78 mmHg mmHg 05/09/2022 8:06 EST Systolic Blood Pressure Non-Invasive 151 mmHg mmHg Diastolic Blood Pressure Non-Invasive 83 mmHg mmHg 05/09/2022 8:05 EST Temperature (Route Not Specified) 35.68 DegC DegC Heart Rate Monitored 82 bpm bpm Respiratory Rate - Anes 16 br/min br/min 05/09/2022 8:03 EST Systolic Blood Pressure Non-Invasive 151 mmHg mmHg Diastolic Blood Pressure Non-Invasive 92 mmHg mmHg 05/09/2022 8:00 EST Temperature (Route Not Specified) 35.77 DegC DegC Heart Rate Monitored 81 bpm bpm Respiratory Rate - Anes 14 br/min br/min Systolic Blood Pressure Non-Invasive 151 mmHg mmHg Diastolic Blood Pressure Non-Invasive 79 mmHg mmHg 05/09/2022 7:57 EST Systolic Blood Pressure Non-Invasive 152 mmHg mmHg Diastolic Blood Pressure Non-Invasive 94 mmHg mmHg 05/09/2022 7:55 EST Temperature (Route Not Specified) 35.65 DegC DegC Heart Rate Monitored 82 bpm bpm Respiratory Rate - Anes 14 br/min br/min 05/09/2022 7:54 EST Systolic Blood Pressure Non-Invasive 136 mmHg mmHg Diastolic Blood Pressure Non-Invasive 85 mmHg mmHg 05/09/2022 7:51 EST Systolic Blood Pressure Non-Invasive 165 mmHg mmHg Diastolic Blood Pressure Non-Invasive 97 mmHg mmHg 05/09/2022 7:50 EST Temperature (Route Not Specified) 35.57 DegC DegC Heart Rate Monitored 83 bpm bpm Respiratory Rate - Anes 12 br/min br/min 05/09/2022 7:48 EST Systolic Blood Pressure Non-Invasive 151 mmHg mmHg Diastolic Blood Pressure Non-Invasive 97 mmHg mmHg 05/09/2022 7:45 EST Temperature (Route Not Specified) 35.51 DegC DegC Heart Rate Monitored 84 bpm bpm Respiratory Rate - Anes 12 br/min br/min Systolic Blood Pressure Non-Invasive 173 mmHg mmHg Diastolic Blood Pressure Non-Invasive 108 mmHg mmHg 05/09/2022 7:42 EST Systolic Blood Pressure Non-Invasive 136 mmHg mmHg Diastolic Blood Pressure Non-Invasive 77 mmHg mmHg 05/09/2022 7:40 EST Temperature (Route Not Specified) 35.55 DegC DegC Heart Rate Monitored 88 bpm bpm Respiratory Rate - Anes 12 br/min br/min 05/09/2022 7:38 EST Systolic Blood Pressure Non-Invasive 117 mmHg mmHg Diastolic Blood Pressure Non-Invasive 75 mmHg mmHg 05/09/2022 7:36 EST Systolic Blood Pressure Non-Invasive 104 mmHg mmHg Diastolic Blood Pressure Non-Invasive 64 mmHg mmHg 05/09/2022 7:35 EST Temperature (Route Not Specified) 35.72 DegC DegC Heart Rate Monitored 83 bpm bpm Respiratory Rate - Anes 12 br/min br/min 05/09/2022 7:33 EST Systolic Blood Pressure Non-Invasive 128 mmHg mmHg Diastolic Blood Pressure Non-Invasive 68 mmHg mmHg 05/09/2022 7:30 EST Heart Rate Monitored 88 bpm bpm Respiratory Rate - Anes 10 br/min br/min Systolic Blood Pressure Non-Invasive 159 mmHg mmHg Diastolic Blood Pressure Non-Invasive 84 mmHg mmHg 05/09/2022 7:27 EST Systolic Blood Pressure Non-Invasive 147 mmHg mmHg Diastolic Blood Pressure Non-Invasive 79 mmHg mmHg 05/09/2022 7:25 EST Heart Rate Monitored 88 bpm bpm Respiratory Rate - Anes 12 br/min br/min 05/09/2022 7:23 EST Systolic Blood Pressure Non-Invasive 109 mmHg mmHg Diastolic Blood Pressure Non-Invasive 66 mmHg mmHg 05/09/2022 7:21 EST Systolic Blood Pressure Non-Invasive 92 mmHg mmHg Diastolic Blood Pressure Non-Invasive 74 mmHg mmHg 05/09/2022 7:20 EST Heart Rate Monitored 79 bpm bpm Respiratory Rate - Anes 6 br/min br/min 05/09/2022 7:18 EST Systolic Blood Pressure Non-Invasive 140 mmHg mmHg Diastolic Blood Pressure Non-Invasive 73 mmHg mmHg 05/09/2022 7:15 EST Respiratory Rate - Anes 12 br/min br/min (Modified) Systolic Blood Pressure Non-Invasive 157 mmHg mmHg Diastolic Blood Pressure Non-Invasive 74 mmHg mmHg 05/09/2022 5:55 EST Temperature Oral 36.6 DegC Apical Heart Rate 84 bpm Respiratory Rate 18 br/min Systolic Blood Pressure Non-Invasive 158 mmHg HI Diastolic Blood Pressure Non-Invasive 83 mmHg . Mental status: at preoperative baseline. Respiratory function: respirations are non-labored. Respiratory support: none. CV function: Normal rate, Regular rhythm. Cardiovascular support: none. Pain: Post op control see nursing medication documentation. Nausea status: denies nausea. Postoperative hydration status: euvolemic. Digitally Signed by PAT ABDUL MD on 05/09/2022 10:05 AM [facility] 05-09-2022 Anesthesiology Consult note Patient: ANNA GAITAN Age: 62 years Sex: Female : 1960 Associated Diagnoses: None Author: ELLEN HURTADO MD Preoperative Information Time of last food or liquid consumption: 05/08/2022 18:00:00 Anesthesia history Patient's history: nausea and vomiting with anesthesia, severe N/V with D and C in 01/30 in [place]. Health Status Allergies: Allergic Reactions (All) Severity Not Documented Aspirin- Bruising. Penicillin- Bruising. Seasonal enviromental- Congestion and sneezing., Allergies (3) ActiveReaction aspirinBruising penicillinBruising seasonal enviromentalSneezing Current medications: (Selected) Inpatient Medications Ordered Flagyl IVPB: 500 mg, 100 mL, 100 mL/hr, IV Piggyback, PREOP pharm LR 1,000 mL: 20 mL/hr, Intravenous, Stop: 05/09/22 22:40:00 EST Mefoxin: 2 gram(s), 50 mL, 100 mL/hr, IV Piggyback, PREOP pharm Prescriptions Prescribed mupirocin 2% topical ointment: 1 real, Topical, BID, Bilateral intranasal application twice daily for 5 days prior to surgery &/or as many days leading up to surgery as possible due to surgical urgency/scheduling. Send to patient's preferred pharmacy., 22 gram(s), 0 Refill(s) mupirocin 2% topical ointment: 1 real, Topical, BID, Bilateral intranasal application twice daily x 5 days pre-surgery &/or as many days pre-surgery as possible., 22 gram(s), 0 Refill(s) Documented Medications Documented Aleve 220 mg oral tablet: 1 cap(s), Oral, q8h, PRN: as needed for pain, 40 cap(s), 0 Refill(s) Alpha Lipoic 100 mg oral tablet: 100 mg, 1 tab(s), Oral, BID, 60 tab(s), 0 Refill(s) Lantus 100 units/mL10 ml vial solution: 72 unit(s), Subcutaneous, qHS NovoLO unit(s), Subcutaneous, TIDAC, 0 Refill(s) Trulicity Pen 1.5 mg/0.5 mL subcutaneous solution: 1.5 mg, 0.5 mL, Subcutaneous, qWeek, 0 Refill(s) Vitamin D3 25 mcg (1000 intl units) oral tablet: 25 mcg, 1 tab(s), Oral, Daily, 0 Refill(s) furosemide 20 mg oral tablet: 20 mg, 1 tab(s), Oral, qDay, PRN: edema, 30 tab(s), 0 Refill(s) gabapentin 300 mg oral capsule: 300 mg, 1 cap(s), Oral, TID, 90 cap(s), 0 Refill(s) hydrochlorothiazide-losartan 12.5-50 mg oral tablet: 1 tab(s), Oral, qAM, take 1 tablet by mouth once daily levothyroxine 88 mcg (0.088 mg) oral tablet: 88 mcg, 1 tab(s), Oral, qAM, take 1 tablet by mouth once daily potassium chloride 10 mEq oral capsule, extended release: 10 mEq, 1 cap(s), Oral, qDay, PRN: only when taking Lasix, 30 cap(s), 0 Refill(s) pravastatin 80 mg oral tablet: 80 mg, 1 tab(s), Oral, qAM, 30 tab(s), 0 Refill(s) triamcinolone 0.1% topical paste: 1 real, Oral, BID, Bilateral hands, 5 gram(s), 0 Refill(s), Medications (3) Active Scheduled: (2) ceFOXitin 2 gram(s) 50 mL, IV Piggyback, PREOP pharm metronidazole PMX 500 mg 100 mL, IV Piggyback, PREOP pharm Continuous: (1) Lactated Ringers 1,000 mL 1,000 mL, Intravenous, 20 mL/hr PRN: (0) Problem list: Medical High blood pressure / SNOMED CT 65422891 / Confirmed Hypercholesterolemia / SNOMED CT 29135799 / Confirmed Kidney stones / SNOMED CT 112RM369-[id number] 30 / Confirmed CPAP (continuous positive airway pressure) dependence / SNOMED CT 5068772906 / Confirmed Constipation / SNOMED CT 37001290 / Confirmed Presence of dental prosthetic device / SNOMED CT 1991249143 / Confirmed Tinnitus / SNOMED CT 253296168 / Confirmed Cataract / SNOMED CT 148163072 / Confirmed Diabetes mellitus type 2 / SNOMED CT 427145056 / Confirmed Hypothyroidism / SNOMED CT 13815983 / Confirmed Seasonal allergy / SNOMED CT 6380791178 / Confirmed RABIA (obstructive sleep apnea) / SNOMED CT 754753439 / Confirmed Headache / SNOMED CT 81892075 / Confirmed Back pain / SNOMED CT 4080559819 / Confirmed Glasses / SNOMED CT 7849823062 / Confirmed Contact lenses / SNOMED CT 28826833 / Confirmed Eczema / SNOMED CT 28224505 / Confirmed Vitamin D deficiency / SNOMED CT 70359899 / Confirmed Atypical endometrial hyperplasia / SNOMED CT 791944795 / Confirmed PONV - Postoperative nausea and vomiting / SNOMED CT 8158281713 / Confirmed, Active Problems (23) Abdominal pain in female Atypical endometrial hyperplasia Back pain BMI 38.0-38.9,adult Cataract Complex atypical endometrial hyperplasia Constipation Contact lenses CPAP (continuous positive airway pressure) dependence Diabetes mellitus type 2 Eczema Glasses Headache High blood pressure Hypercholesterolemia Hypothyroidism Kidney stones RABIA (obstructive sleep apnea) PONV - Postoperative nausea and vomiting Presence of dental prosthetic device Seasonal allergy Tinnitus Vitamin D deficiency Histories Past Medical History: Active High blood pressure (93809062) Hypercholesterolemia (62653058) Kidney stones ([id number] D30) Resolved COVID-19 (2197272834): Onset in the month of 12/2021 at 61 years Resolved. Neuropathy ([id number] 253): Resolved. Fracture lumbar vertebra-closed ([id number] BBE): Resolved. Comments: 02/01/2015 EDT 15:48 EDT - PARRIS Guillen L4 Endometriosis ([id number] 3C4): Resolved. Thyroid cancer (938438715): Resolved. Family History: Heart disease Mother Father Diabetes Mother Procedure history: Hysteroscopy ([id number]) on 02/09/2022 at 62 Years. Comments: 02/16/2022 10:40 Lidia Heath LPN D&C Colonoscopy ([id number]) in 2019 at 60 Years. Partial thyroidectomy (55576233) in 2013 at 54 Years. ORIF - Open reduction and internal fixation of fracture (450718582) in 1990 at 31 Years. Comments: 02/01/2015 15:41 PARRIS HEDRICK ORIF - Open reduction and internal fixation of fracture (098635343) in 1990 at 31 Years. Comments: 02/01/2015 15:42 PARRIS HEDRICK left 5th digit Laparoscopy (843167329) in 1981 at 22 Years. Comments: 02/01/2015 15:41 PARRIS HEDRICK for endometriosis Appendectomy (150894193) in 1973 at 14 Years. Tonsillectomy (711061061) in 1968 at 9 Years. section (20393448). Comments: 02/21/2022 7:23 Jasmin Justice RN 1982 and 198302/01/2015 15:40 PARRIS HEDRICK x 2 Social History Social & Psychosocial Habits Alcohol 03/20/2017Risk Assessment: Denies Alcohol Use 02/16/2022 Use: Never Substance Abuse 03/20/2017Risk Assessment: Denies Substance Abuse 02/16/2022 Use: Never Tobacco 02/16/2022 Tobacco Use: Never (less than 100 in l Home/Environment 02/21/2022 Domestic Concerns None Living situation: Home/Independent Comment: Emergency Contact-Michael Gaitan () P: [phone] - 02/16/2022 10:41 - Lidia Medina LPN Nutrition/Health 05/01/2022 Type of diet: Diabetic Appetite Good Eating Difficulties None . Physical Examination Vital Signs 05/09/2022 5:55 EST Temperature Oral 36.6 DegC Apical Heart Rate 84 bpm Respiratory Rate 18 br/min Systolic Blood Pressure Non-Invasive 158 mmHg HI Diastolic Blood Pressure Non-Invasive 83 mmHg Vital Signs(last 24 hrs) Last Charted Temp Oral36.6 DegC (MAY 09 05:55) Resp Rate 18 br/min (MAY 09 05:55) SBPH 158mmHg (MAY 09 05:55) DBP83 mmHg (MAY 09 05:55) Measurements from flowsheet : Measurements 05/09/2022 5:55 EST Height 167.1 cm Height in inches 65.8 inch(es) Admission Weight 103.2 kg Weight Lbs 227 lb Weight Method Actual [place] Body Weight 58.81 kg Type of Scale Used Bed scale Admission Body Mass Index 36.96 m2 Pain assessment: Pain Assessment 05/09/2022 5:55 EST Primary Pain Intensity 0 Pain Scale Type 0-10 Pain scale . General: Alert and oriented, No acute distress. Airway: Normal temporomandibular joint mobility, Nares patent, Trachea midline. Mallampati classification: II (soft palate, fauces, uvula visible). Head: Normocephalic, Atraumatic. Dentition Evaluation: No teeth. Respiratory: Lungs are clear to auscultation. Cardiovascular: Normal rate, Regular rhythm. Neurologic: Alert, Oriented. Review / Management Results review: No qualifying data available , Lab results 05/09/2022 6:16 EST SN - Preop - CTm Pt Ready for OR/Proced 05/09/2022 6:14 05/09/2022 6:15 EST Lactated Ringers Injection Begin Bag 1,000 mL mL 05/09/2022 6:14 EST heparin 5,000 unit(s) unit(s) lidocaine 2.5 mg mg 05/09/2022 6:12 EST SN - Preop - CTm Pt in SDS Room 05/09/2022 5:40 05/09/2022 6:00 EST Sensory Deficits None Infectious Disease Symptoms Patient states no symptoms Infectious Disease Recent Exposure No Alcohol and Drug Use No Employee of Institutional Living No Health Care Employee No History of Exposure to TB No History of Positive Chest X-Ray for TB No History of Positive TB Skin Test No Homeless No Known Immunosuppression No Recent Immigrant No Resident of Institutional Living No Bloody Sputum No Fatigue No Fever No Loss of Appetite No Night Sweats No Persistent Cough > 3 Weeks No Weight Loss No Safety Brochure Information Reviewed Yes Carlito Escobar Video Viewed Previously viewed Teaching Method Printed materials Teaching Evaluation No further teaching needed Discharge To, Anticipated Home with family care Current Quarantine/Isolated any Illness No Any Contact with Sick Animals/Birds No Traveled Anywhere in Last 30 Days No Personal Devices, Patient Valuables Dentures, lower, Dentures, upper, Glasses Admission Note-Nursing Same Day Patient History (Modified) 05/09/2022 5:55 EST Blood Glucose, Capillary 189 mg/dL HI Height 167.1 cm Height in inches 65.8 inch(es) Admission Weight 103.2 kg Weight Lbs 227 lb Weight Method Actual [place] Body Weight 58.81 kg Type of Scale Used Bed scale Admission Body Mass Index 36.96 m2 Temperature Oral 36.6 DegC Apical Heart Rate 84 bpm Respiratory Rate 18 br/min Systolic Blood Pressure Non-Invasive 158 mmHg HI Diastolic Blood Pressure Non-Invasive 83 mmHg Primary Pain Intensity 0 Pain Scale Type 0-10 Pain scale Heart Rhythm Regular Oxygen Therapy Room air Oxygen Saturation 97 % Abdomen Description Soft Urinary Elimination Voiding, no difficulties Skin Temperature Warm Skin Description [place], Normal for ethnicity, Dry Skin Integrity Intact IV Present Present Wrist Left 05/09/2022 20 gauge Peripheral IV Activity: Insert new site Peripheral IV Dressing Condition: Clean, Dry, Intact Peripheral IV Dressing Activity: Applied Peripheral IV Line Status/Patency: Continuous infusion Peripheral IV Site Condition: No complications Peripheral IV Equipment: Manual Peripheral IV Number of Attempts: 1 Neurological Symptoms Patient denies Extremity Movement Equal Characteristics of Speech Clear Level of Consciousness Alert LAUREN Yes Strength All Extremities Strong Tone All Extremities Normal Violence Risk Confused No Violence Risk Irritable No Violence Risk Boisterous No Violence Risk Verbal Threats No Violence Risk Physical Threats No Violence Risk Attacking Objects No Violence Risk Predictor Score 0 Violence Risk Intervention None Violence Risk Current Interventions None Affect/Behavior Appropriate, Cooperative, Anxious Orientation Oriented x 4 Allergies Yes Consent Form Signed Yes Patient Dressed In Hospital gown Pre-op Preparation Dentures, full removed, Glasses removed, Jewelry removed, Nail telugu removed CHG Preoperative Wash/Wipe Night before procedure, Day of procedure, Site specific wipe Non-CHG Preoperative Shampoo Shampoo Preop Nasal Swab Povidone-Iodine CHG Skin Prep Completed for Eligible Surgery History & Physical Update On Chart Yes History & Physical On Chart Yes Bowel Prep Completed Yes Obstructive Sleep Apnea Assess Completed Yes MRSA/MSSA Protocol Yes Orientation Assessment Oriented x 4 NPO Status Maintained Standard Safety ID band on, Allergy Band on, Call device within reach, Bed in low position, Wheels locked, Upper/Half-Length side-rails up, Visitor at bedside, Safety level maintained, Hazards removed from floor, Non-Slip footwear Allergy Band on and Verified Yes Patient ID Band on and Verified Yes Blood Consent Signed Yes Last Fluid Intake 05/08/2022 22:00 Last Food Intake 05/08/2022 12:00 Last Void 05/09/2022 6:00 05/09/2022 0:00 EST History and Physical SANITOR ONC H&P (Modified) 05/08/2022 18:51 EST Patient Instructions Documentation Patient Instructions Documentation 05/08/2022 13:49 EST Surgery Scheduled On Date/Time 05/09/2022 7:15 Patient Aware Date/Time Of Surgery Yes Arrival Time the Day of Surgery 05/09/2022 5:00 Patient Aware of Arrival Time Yes Pre-Op Patient Education NPO after midnight, No smoking after midnight, No makeup, No jewelry, Responsible Democrat, Aware of surgery location, Pre-op education done, 2 bottles CHG wash with instructions given, Patient instructed to take ordered medications, VTE prevention handout given, SSI prevention handout given, MRSA protocol education provided (Modified) Admission Note-Nursing Date\Time Correction . Assessment and Plan [place] [employer] (ASA) physical status classification: Class III. Anesthetic Preoperative Plan Anesthetic technique: General. Induction: intravenously. Maintenance airway: Oral endotracheal tube. Postoperative pain management: Per surgeon. Risks discussed: nausea, vomiting, headache, sore throat, dental injury, hypotension, allergic reaction, serious complications. Informed consent: signed by patient. Notes: HTN, RABIA with CPAP, type 2 DM (OT 189), hypothyroid, BMI 36.96. Digitally Signed by ELLEN HURTADO MD on 05/09/2022 07:04 AM [facility] 05-09-2022 History and physical note GYNECOLOGY ONCOLOGY HISTORY AND PHYSICAL Documented by Dr. Nicole Billingsley PGY [address] Manjit Huang DATE: 05/09/22 REFERRING PHYSICIAN: Dr. Shabnam Melgar PRIMARY CARE PHYSICIAN: NEHAL Paulino HISTORY OF PRESENT ILLNESS: Patient is a 62 yo female who was referred to Dr. Huang for abnormal pathology on specimen after a D&C for thickened endometrial stripe & postmenopausal bleeding for several months. She noted worsening postmenopausal bleeding over the past few months and subsequently was referred to Dr. Melgar by her PCP. Dr. Melgar performed a Pelvic US which showed thickened heterogenous endometrial stripe (10mm) and a subsequent D&C showed: Complex endometrial hyperplasia with atypia and w/ focal areas highly suspicious for well differentiated endometrial adenocarcinoma on pathology of the endometrial curettings. Postoperatively she is doing well with some mild cramping and no current vaginal bleeding. She has an extensive history of multiple abdominal surgeries and was told she had diffuse endometriosis on laparoscopy. The patient denies fever, chills, chest pain, shortness of breath. No coughing or wheezing. No headaches or dizziness. No change in vision or hearing. No skin new skin rashes. No hot flashes. No easy bruising. Denies nausea/vomiting. No diarrhea or constipation. No rectal bleeding. No hematuria or dysuria. Appetite is intact. Energy level is good. Performance status good. Patient was cleared by her PCP for surgery. She underwent PAT on 05/01/22. PAST MEDICAL HISTORY: Abdominal pain in female Atypical endometrial hyperplasia Back pain Cataract Complex atypical endometrial hyperplasia Constipation Contact lenses Diabetes mellitus type 2 Eczema Glasses Headache High blood pressure Hypercholesterolemia Hypothyroidism Kidney stones RABIA (obstructive sleep apnea) on CPAP PONV - Postoperative nausea and vomiting Presence of dental prosthetic device Tinnitus Vitamin D deficiency PAST SURGICAL HISTORY: Hysteroscopy: 02/09/22 Colonoscopy: 2019 ORIF - Open reduction and internal fixation of fracture: 1990 ORIF - Open reduction and internal fixation of fracture: 1990 Laparoscopy: 1981 Appendectomy: 1973 Tonsillectomy: 1968 section EXECUTIVE RECEPTIONIST HISTORY: - 2 c/sections- low midline vertical Age of menarche: 10 yo. Menopause: 30s - with some intermittent spotting in her 40s. OCP use 1 year. No hx of HRT use. Last Pap Smear: 01/2022; Hx of Abnormal Pap smears - Yes - no colposcopy Last Mammogram: unk No family hx of breast, uterine, prostate, ovarian, colon, or pancreatic ca. No family hx of other cancers FAMILY HISTORY: No family hx of breast, uterine, prostate, ovarian, colon, or pancreatic ca. No family hx of other cancers SOCIAL HISTORY: Alcohol Risk Assessment: Denies Alcohol Use; Details: Use: Never. Home/Environment Details: Domestic Concerns: None. Living situation: Home/Independent.; Comment(s): Emergency Contact-Michael Gaitan () P: [phone] Nutrition/Health Details: Type of diet: Diabetic. Appetite Good. Eating Difficulties None. Substance Abuse Risk Assessment: Denies Substance Abuse; Details: Use: Never. Tobacco Details: Nicotine Use: Never (less than 100 in lifetime). MEDICATIONS: Home Medications (15) Active Aleve 220 mg oral tablet 1 cap(s), PRN, Oral, q8h Alpha Lipoic 100 mg oral tablet 100 mg = 1 tab(s), Oral, BID furosemide 20 mg oral tablet 20 mg = 1 tab(s), PRN, Oral, qDay gabapentin 300 mg oral capsule 300 mg = 1 cap(s), Oral, TID hydrochlorothiazide-losartan 12.5-50 mg oral tablet 1 tab(s), Oral, qAM Lantus 100 units/mL10 ml vial solution 72 unit(s), Subcutaneous, qHS levothyroxine 88 mcg (0.088 mg) oral tablet 88 mcg = 1 tab(s), Oral, qAM mupirocin 2% topical ointment 1 real, Topical, BID mupirocin 2% topical ointment 1 real, Topical, BID NovoLOG 50 unit(s), Subcutaneous, TIDAC potassium chloride 10 mEq oral capsule, extended release 10 mEq = 1 cap(s), PRN, Oral, qDay pravastatin 80 mg oral tablet 80 mg = 1 tab(s), Oral, qAM triamcinolone 0.1% topical paste 1 real, Oral, BID Trulicity Pen 1.5 mg/0.5 mL subcutaneous solution 1.5 mg = 0.5 mL, Subcutaneous, qWeek Vitamin D3 25 mcg (1000 intl units) oral tablet 25 mcg = 1 tab(s), Oral, Daily ALLERGIES: Allergies (3) Active Reaction aspirin Bruising penicillin Bruising seasonal enviromental Sneezing REVIEW OF SYSTEMS: See HPI for pertinent positives. A full review of systems was conducted and found to otherwise be negative. PHYSICAL EXAMINATION: General: A&O x3 HEENT: normocephalic, atraumatic Cardio: RRR Lungs: Breathing w/out difficulty, no use of accessory muscles GI: Soft, non-tender, non-distended Extremities: non-edematous, neg Homans sign Neuro: Normal sensation, normal DTR Psychiatric: Normal affect, normal demeanor. Well groomed. Non-pressured speech. Skin: warm, no rashes. : Normal appearing external genitalia, on Speculum exam the cervix appears mildly erythematous with some petechiae likely from recent D&C. Mildly atrophic vaginal mucosa. Retroverted uterus difficult to palpate due to body habitus. No masses palpated in the b/l adnexa. A small 1cm left vulvar skin tag was noted -patient states no changes on this lesion. RESULTS: 02/09/22: Pathology Report: D&C - Endometrial Curettings: Complex endometrial hyperplasia with atypia and w/ focal areas highly suspicious for well differentiated endometrial adenocarcinoma. 01/23/22: TVUS: - Uterus: 7.5cm x 4.48x 4.32. Endometrial thickness: 10.06mm. Heterogenous endo echotexture w/ calcifications and some fluid near the cervx. No focal mass visualized on exam. - Left ovary: [id number]. - Right Ovary: not visualized. Date: 05/01/22 WBC 6.4 Hgb/Hct 14.0/41.6 Plt 168 Na 144 K 4.8 Cr 0.73 AST/ALT 28/35 IMPRESSION: 62 yo woman with complex atypical endometrial hyperplasia. PLAN: Patient to undergo an Exam Under Anesthesia, Total Laparoscopic Hysterectomy, Bilateral Salpingo-Oophorectomy with Dr. Manjit Huang. Dr. Huang discussed the potential risks of the procedure, including but not limited to: Infection, bleeding, damage to surrounding structures, need for blood transfusion, pneumonia, blood clots, need for reoperation, ICU admission, and . The patient understands these risks and is willing to proceed with the surgery. A surgical consent form was signed in the office. Digitally Signed by NICOLE BILLINGSLEY DO on 05/06/2022 03:04 AM [facility] 05-06-2022 History and physical note GYNECOLOGY ONCOLOGY HISTORY AND PHYSICAL Documented by Dr. Nicole Billingsley PGY [address] Manjit Huang DATE: 05/09/22 REFERRING PHYSICIAN: Dr. Shabnam Melgar PRIMARY CARE PHYSICIAN: NEHAL Paulino HISTORY OF PRESENT ILLNESS: Patient is a 62 yo female who was referred to Dr. Huang for abnormal pathology on specimen after a D&C for thickened endometrial stripe & postmenopausal bleeding for several months. She noted worsening postmenopausal bleeding over the past few months and subsequently was referred to Dr. Melgar by her PCP. Dr. Melgar performed a Pelvic US which showed thickened heterogenous endometrial stripe (10mm) and a subsequent D&C showed: Complex endometrial hyperplasia with atypia and w/ focal areas highly suspicious for well differentiated endometrial adenocarcinoma on pathology of the endometrial curettings. Postoperatively she is doing well with some mild cramping and no current vaginal bleeding. She has an extensive history of multiple abdominal surgeries and was told she had diffuse endometriosis on laparoscopy. The patient denies fever, chills, chest pain, shortness of breath. No coughing or wheezing. No headaches or dizziness. No change in vision or hearing. No skin new skin rashes. No hot flashes. No easy bruising. Denies nausea/vomiting. No diarrhea or constipation. No rectal bleeding. No hematuria or dysuria. Appetite is intact. Energy level is good. Performance status good. Patient was cleared by her PCP for surgery. She underwent PAT on 05/01/22. PAST MEDICAL HISTORY: Abdominal pain in female Atypical endometrial hyperplasia Back pain Cataract Complex atypical endometrial hyperplasia Constipation Contact lenses Diabetes mellitus type 2 Eczema Glasses Headache High blood pressure Hypercholesterolemia Hypothyroidism Kidney stones RABIA (obstructive sleep apnea) on CPAP PONV - Postoperative nausea and vomiting Presence of dental prosthetic device Tinnitus Vitamin D deficiency PAST SURGICAL HISTORY: Hysteroscopy: 02/09/22 Colonoscopy: 2019 ORIF - Open reduction and internal fixation of fracture: 1990 ORIF - Open reduction and internal fixation of fracture: 1990 Laparoscopy: 1981 Appendectomy: 1973 Tonsillectomy: 1968 section EXECUTIVE RECEPTIONIST HISTORY: - 2 c/sections- low midline vertical Age of menarche: 10 yo. Menopause: 30s - with some intermittent spotting in her 40s. OCP use 1 year. No hx of HRT use. Last Pap Smear: 01/2022; Hx of Abnormal Pap smears - Yes - no colposcopy Last Mammogram: unk No family hx of breast, uterine, prostate, ovarian, colon, or pancreatic ca. No family hx of other cancers FAMILY HISTORY: No family hx of breast, uterine, prostate, ovarian, colon, or pancreatic ca. No family hx of other cancers SOCIAL HISTORY: Alcohol Risk Assessment: Denies Alcohol Use; Details: Use: Never. Home/Environment Details: Domestic Concerns: None. Living situation: Home/Independent.; Comment(s): Emergency Contact-Michael Gaitan () P: [phone] Nutrition/Health Details: Type of diet: Diabetic. Appetite Good. Eating Difficulties None. Substance Abuse Risk Assessment: Denies Substance Abuse; Details: Use: Never. Tobacco Details: Nicotine Use: Never (less than 100 in lifetime). MEDICATIONS: Home Medications (15) Active Aleve 220 mg oral tablet 1 cap(s), PRN, Oral, q8h Alpha Lipoic 100 mg oral tablet 100 mg = 1 tab(s), Oral, BID furosemide 20 mg oral tablet 20 mg = 1 tab(s), PRN, Oral, qDay gabapentin 300 mg oral capsule 300 mg = 1 cap(s), Oral, TID hydrochlorothiazide-losartan 12.5-50 mg oral tablet 1 tab(s), Oral, qAM Lantus 100 units/mL10 ml vial solution 72 unit(s), Subcutaneous, qHS levothyroxine 88 mcg (0.088 mg) oral tablet 88 mcg = 1 tab(s), Oral, qAM mupirocin 2% topical ointment 1 real, Topical, BID mupirocin 2% topical ointment 1 real, Topical, BID NovoLOG 50 unit(s), Subcutaneous, TIDAC potassium chloride 10 mEq oral capsule, extended release 10 mEq = 1 cap(s), PRN, Oral, qDay pravastatin 80 mg oral tablet 80 mg = 1 tab(s), Oral, qAM triamcinolone 0.1% topical paste 1 real, Oral, BID Trulicity Pen 1.5 mg/0.5 mL subcutaneous solution 1.5 mg = 0.5 mL, Subcutaneous, qWeek Vitamin D3 25 mcg (1000 intl units) oral tablet 25 mcg = 1 tab(s), Oral, Daily ALLERGIES: Allergies (3) Active Reaction aspirin Bruising penicillin Bruising seasonal enviromental Sneezing REVIEW OF SYSTEMS: See HPI for pertinent positives. A full review of systems was conducted and found to otherwise be negative. PHYSICAL EXAMINATION: General: A&O x3 HEENT: normocephalic, atraumatic Cardio: RRR Lungs: Breathing w/out difficulty, no use of accessory muscles GI: Soft, non-tender, non-distended Extremities: non-edematous, neg Homans sign Neuro: Normal sensation, normal DTR Psychiatric: Normal affect, normal demeanor. Well groomed. Non-pressured speech. Skin: warm, no rashes. : Normal appearing external genitalia, on Speculum exam the cervix appears mildly erythematous with some petechiae likely from recent D&C. Mildly atrophic vaginal mucosa. Retroverted uterus difficult to palpate due to body habitus. No masses palpated in the b/l adnexa. A small 1cm left vulvar skin tag was noted -patient states no changes on this lesion. RESULTS: 02/09/22: Pathology Report: D&C - Endometrial Curettings: Complex endometrial hyperplasia with atypia and w/ focal areas highly suspicious for well differentiated endometrial adenocarcinoma. 01/23/22: TVUS: - Uterus: 7.5cm x 4.48x 4.32. Endometrial thickness: 10.06mm. Heterogenous endo echotexture w/ calcifications and some fluid near the cervx. No focal mass visualized on exam. - Left ovary: [id number]. - Right Ovary: not visualized. Date: 05/01/22 WBC 6.4 Hgb/Hct 14.0/41.6 Plt 168 Na 144 K 4.8 Cr 0.73 AST/ALT IMPRESSION: 62 yo woman with complex atypical endometrial hyperplasia. PLAN: Patient to undergo an Exam Under Anesthesia, Total Laparoscopic Hysterectomy, Bilateral Salpingo-Oophorectomy with Dr. Manjit Huang. Dr. Huang discussed the potential risks of the procedure, including but not limited to: Infection, bleeding, damage to surrounding structures, need for blood transfusion, pneumonia, blood clots, need for reoperation, ICU admission, and . The patient understands these risks and is willing to proceed with the surgery. A surgical consent form was signed in the office. Digitally Signed by NICOLE BILLINGSLEY DO on 05/06/2022 03:04 AM [facility] 03-20-2022 Note HNO ID: [id number] Author: Joaquin Smith MD Service: ? Author Type: Physician Type: Progress Notes Filed: 03/20/2022 1:48 PM Note Text: HISTORY AND PHYSICAL Anna Gaitan 1960 REFERRING PHYSICIAN: Dr. Oscar Colorado*pre-clinic CHIEF COMPLAINT: Consult (Abnormal thyroid ultrasound) HPI: The patient is a 62 year old female with a complaint of a left thyroid nodule. This thyroid nodule was found on Ultrasound by [facility]. The patient denies pain, denies difficulty swallowing, deniesrapid enlargement of the neck, deniesdysphagia, denies a change in the voice, denies hot or cold intolerence. The patient has not a prior history of neck radiation treatment. Back in 2013 the patient underwent a right-sided thyroid lobectomy by myself. 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 She did not undergo any further treatment at that time. The patient had a ultrasound done at [facility] on 03/02/2022. This showed approximately 3 nodules in the left thyroid gland and an absent right thyroid area. The largest on the left side was 7 mm in diameter. It was given a TR 3 nodule. The patient is being seen by me today at the request of Dr. Moore for my opinion and advice regarding Nontoxic multinodular goiter (primary encounter diagnosis). PAST MEDICAL HISTORY Diagnosis Date Diabetes (HCC) Hypertension Hypothyroid Multinodular goiter 04/28/14 dominant right thyroid nodule Neuropathy PAST SURGICAL HISTORY Procedure Laterality Date APPENDECTOMY 1973 CHG DELIVERY x 2 COLONOSCOPY DANDC, DIAG AND/OR THERAPEUTIC 02/09/2022 EGD W/O [facility] SPEC VARICIES INJ PAST SURGICAL HISTORY OF 1990 ORIF left tibia, percutaneous pinning left small finger PAST SURGICAL HISTORY OF laparoscopy for endometriosis TONSILLECTOMY HX 1966 TOTAL THYROID LOBECTOMY UNI W/WO ISTHMUSECTOMY Right 04/28/2014 TUBAL LIGATION HX 1983 Current Outpatient Medications Medication Sig Dispense Refill gabapentin (NEURONTIN) 300 mg capsule Take 300 mg by mouth three times daily. levothyroxine (SYNTHROID) 88 mcg tablet Take 88 mcg by mouth once daily. losartan-hydroCHLOROthiazide (HYZAAR) 50-12.5 mg per tablet Take 1 tablet by mouth once daily. cholecalciferol (VITAMIN D3) 400 unit tab Take by mouth. furosemide (LASIX) 20 mg tablet take 1 tablet by mouth once daily if needed for edema potassium chloride SR (MICRO-K) 10 mEq CR capsule take 1 capsule by mouth once daily if needed WHEN TAKING LASIX pravastatin (PRAVACHOL) 20 mg tablet Take 20 mg by mouth once daily. insulin glargine (LANTUS) 100 unit/mL (3 mL) inpn Inject 72 Units subcutaneously daily at bedtime. 46 units at bedtime insulin aspart U-100 (NOVOLOG) 100 unit/mL (3 mL) Inject 50 Units subcutaneously three times daily with meals. 15 units after each meal and snack TRULICITY 1.5 mg/0.5 mL pen injector inject 0.5 milliliters ( 1 AND 1/2 milligrams ) subcutaneously ev... (REFER TO PRESCRIPTION NOTES). gentamicin (GENTAK) 0.3 % ophthalmic solution APPLY 1 TO 2 DROPS TO AFFECTED EYE THREE TIMES A DAY FOR 7 DAYS (Patient not taking: Reported on 03/20/2022) 0 levothyroxine (SYNTHROID) 75 mcg tablet Take 1 tablet by mouth once daily. (Patient not taking: Reported on 03/20/2022) gabapentin (NEURONTIN) 100 mg capsule Take 200 mg by mouth twice daily. (Patient not taking: Reported on 03/20/2022) HYDROcodone-acetaminophen (NORCO) 5-325 mg per tablet (Patient not taking: Reported on 03/20/2022) lisinopril (ZESTRIL, PRINIVIL) 10 mg tablet Take 10 mg by mouth once daily. (Patient not taking: Reported on 03/20/2022) pregabalin (LYRICA) 50 mg capsule Take 50 mg by mouth twice daily. (Patient not taking: Reported on 03/20/2022) No current facility-administered medications for this visit. ALLERGIES: Aspirin and Penicillin G PERSONAL HISTORY: Social History Tobacco Use Smoking status: Never Smokeless tobacco: Never Vaping Use Vaping Use: Never used Substance Use Topics Alcohol use: Yes Comment: Occasional - wine Drug use: No FAMILY HISTORY: FAMILY HISTORY Problem Relation Age of Onset Cancer Sister ovarian Cancer Brother liver Diabetes Mother Heart Mother Diabetes Brother Heart Father REVIEW OF SYMPTOMS: The review of systems data was entered by the nurse and reviewed by me There are no exam notes on file for this visit. PHYSICAL EXAMINATION: General: The patient is 62 year old female, well nourished, well hydrated in no acute distress. The patient is oriented to time, place, and person. VITALS: Blood pressure 128/85, pulse 102, temperature 36.3 ?C (97.4 ?F), height 167.6 cm (5' 6 ), weight 105.8 kg (233 lb 3.2 oz), SpO2 96 %. Body mass index is 37.64 kg/m?. HEENT: Normal cephalic, ataumatic, pupils are equally round, sclera are anicteric, mucous membranes are moist, oropharynx is clear. Neck has no masses, asymmetry or lymphadenop (more content not included)... [facility] 03-20-2022 Nurse Note REVIEW OF SYSTEMS: General: The patient NOTES fatigue, denies weight loss, denies weight gain, denies feeling hot, and denies feelings of cold. Eyes: The patient denies glaucoma, denies eye injury/surgery, wears glasses or contacts. Ear/Nose/Throat: The patient NOTES allergies, denies hayfever, denies ear infections, and denies bloody noses. Cardiovascular: The patient denies chest pain, denies heart disease, NOTES high blood pressure,denies cardiac stent, denies prior heart attack, denies irregular heart beat, NOTES high cholesterol, denies poor circulation, denies heart failure, other cardiac issues, denies claudication, denies cold feet, denies peripheral arterial stent. Respiratory: The patient denies tuberculosis, denies pneumonia, denies frequent cough, denies pulmonary embolism, denies shortness of breath, and denies coughing up blood. Gastrointestinal: The patient denies difficulty swallowing, denies acid reflux, denies ulcers, denies vomiting, denies jaundice/hepatitis, denies gallbladder problems, denies black or tarry stools, denies hemorrhoids, denies bleeding from rectum, denies diverticulitis, NOTES constipation, NOTES diarrhea, denies loss of stool control, and NOTES hernias. Kidney/Bladder: The patient NOTES kidney stones, denies urine infections, and denies bloody urine. Skin: The patient denies a history of skin cancer, denies bleeding/changing moles, and denies a history of skin rash. Neurologic: The patient denies a history of epilepsy/convulsions, denies headaches, denies head/spinal injuries, and denies stroke/TIA. Psychiatric: The patient denies psychiatric medications, denies depression, and denies voices, denies substance abuse. Endocrine: The patient NOTES thyroid disorders, NOTES diabetes, and denies hormonal problems. Hematologic: The patient NOTES a history of bruising, denies bleeding, and denies anemia, denies blood clots. Infections: The patient denies a history of measles and mumps, denies rheumatic fever, and denies sexually transmitted diseases. Musculoskeletal: The patient NOTES back pain/injury, denies back problems, NOTES sciatica, denies knee/foot trouble, denies arthritis, or denies gout. When was patient's last Mammogram screening? N/A Last Colonoscopy: 02/17/2019 Nancy Gottlieb RN documented in this encounter [facility] 03-20-2022 History of Present illness Narrative HISTORY AND PHYSICAL Anna Martin Gaitan 1960 REFERRING PHYSICIAN: Dr. Oscar Colorado*pre-clinic CHIEF COMPLAINT: Consult (Abnormal thyroid ultrasound) HPI: The patient is a 62 year old female with a complaint of a left thyroid nodule. This thyroid nodule was found on Ultrasound by [facility]. The patient denies pain, denies difficulty swallowing, deniesrapid enlargement of the neck, deniesdysphagia, denies a change in the voice, denies hot or cold intolerence. The patient has not a prior history of neck radiation treatment. Back in 2013 the patient underwent a right-sided thyroid lobectomy by myself. 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 She did not undergo any further treatment at that time. The patient had a ultrasound done at [facility] on 03/02/2022. This showed approximately 3 nodules in the left thyroid gland and an absent right thyroid area. The largest on the left side was 7 mm in diameter. It was given a TR 3 nodule. The patient is being seen by me today at the request of Dr. Moore for my opinion and advice regarding Nontoxic multinodular goiter (primary encounter diagnosis). PAST MEDICAL HISTORY Diagnosis Date Diabetes (HCC) Hypertension Hypothyroid Multinodular goiter 04/28/14 dominant right thyroid nodule Neuropathy PAST SURGICAL HISTORY Procedure Laterality Date APPENDECTOMY 1973 CHG DELIVERY x 2 COLONOSCOPY D&C, DIAG AND/OR THERAPEUTIC 02/09/2022 EGD W/O BRSH SPEC VARICIES INJ PAST SURGICAL HISTORY OF 1990 ORIF left tibia, percutaneous pinning left small finger PAST SURGICAL HISTORY OF laparoscopy for endometriosis TONSILLECTOMY HX 1966 TOTAL THYROID LOBECTOMY UNI W/WO ISTHMUSECTOMY Right 04/28/2014 TUBAL LIGATION HX 1983 Current Outpatient Medications Medication Sig Dispense Refill gabapentin (NEURONTIN) 300 mg capsule Take 300 mg by mouth three times daily. levothyroxine (SYNTHROID) 88 mcg tablet Take 88 mcg by mouth once daily. losartan-hydroCHLOROthiazide (HYZAAR) 50-12.5 mg per tablet Take 1 tablet by mouth once daily. cholecalciferol (VITAMIN D3) 400 unit tab Take by mouth. furosemide (LASIX) 20 mg tablet take 1 tablet by mouth once daily if needed for edema potassium chloride SR (MICRO-K) 10 mEq CR capsule take 1 capsule by mouth once daily if needed WHEN TAKING LASIX pravastatin (PRAVACHOL) 20 mg tablet Take 20 mg by mouth once daily. insulin glargine (LANTUS) 100 unit/mL (3 mL) inpn Inject 72 Units subcutaneously daily at bedtime. 46 units at bedtime insulin aspart U-100 (NOVOLOG) 100 unit/mL (3 mL) Inject 50 Units subcutaneously three times daily with meals. 15 units after each meal and snack TRULICITY 1.5 mg/0.5 mL pen injector inject 0.5 milliliters ( 1 AND 1/2 milligrams ) subcutaneously ev... (REFER TO PRESCRIPTION NOTES). gentamicin (GENTAK) 0.3 % ophthalmic solution APPLY 1 TO 2 DROPS TO AFFECTED EYE THREE TIMES A DAY FOR 7 DAYS (Patient not taking: Reported on 03/20/2022) 0 levothyroxine (SYNTHROID) 75 mcg tablet Take 1 tablet by mouth once daily. (Patient not taking: Reported on 03/20/2022) gabapentin (NEURONTIN) 100 mg capsule Take 200 mg by mouth twice daily. (Patient not taking: Reported on 03/20/2022) HYDROcodone-acetaminophen (NORCO) 5-325 mg per tablet (Patient not taking: Reported on 03/20/2022) lisinopril (ZESTRIL, PRINIVIL) 10 mg tablet Take 10 mg by mouth once daily. (Patient not taking: Reported on 03/20/2022) pregabalin (LYRICA) 50 mg capsule Take 50 mg by mouth twice daily. (Patient not taking: Reported on 03/20/2022) No current facility-administered medications for this visit. ALLERGIES: Aspirin and Penicillin G PERSONAL HISTORY: Social History Tobacco Use Smoking status: Never Smokeless tobacco: Never Vaping Use Vaping Use: Never used Substance Use Topics Alcohol use: Yes Comment: Occasional - wine Drug use: No FAMILY HISTORY: FAMILY HISTORY Problem Relation Age of Onset Cancer Sister ovarian Cancer Brother liver Diabetes Mother Heart Mother Diabetes Brother Heart Father REVIEW OF SYMPTOMS: The review of systems data was entered by the nurse and reviewed by me There are no exam notes on file for this visit. PHYSICAL EXAMINATION: General: The patient is 62 year old female, well nourished, well hydrated in no acute distress. The patient is oriented to time, place, and person. VITALS: Blood pressure 128/85, pulse 102, temperature 36.3 C (97.4 F), height 167.6 cm (5' 6 ), weight 105.8 kg (233 lb 3.2 oz), SpO2 96 %. Body mass index is 37.64 kg/m . HEENT: Normal cephalic, ataumatic, pupils are equally round, sclera are anicteric, mucous membranes are moist, oropharynx is clear. Neck has no masses, asymmetry or lymphadenopathy. Thyroid exam no hard palpable nodules are identified. Respiratory: Clear to auscultation and percussion. Normal respiratory excursion and pattern. Cardiac: Examination is regular rate and rhythm. Abdominal exam: Soft, nontender, with no palpable masses. No hepatosplenomegaly. No palpable hernias. Rectal exam: exam deferred Extremities: no clubbing, cyanosis or edema. No adenopathy. Other: LABORATORY VALUES: As Noted RADIOLOGIC STUDIES: As Noted Assessment IMPRESSION: NODULE - left THYROID PLAN: Given the size of this nodule I do not think that there are any reasons to do an ultrasound-guided fine-needle aspiration at this time. I do believe that she would benefit from having a repeat thyroid ultrasound in 1 year. I would like to see her back at that time. Diagnoses: (E04.2) Nontoxic multinodular goiter (primary encounter diagnosis) A letter was sent to Dr. Leslie Paulino CNP indicating the above finding for this patient. Return to Clinic: The patient is instructed to follow-up with me in 1 year. Joaquin Smith III, MD documented in this encounter [facility] 02-21-2022 Note ORIGINAL EXAMINATION: TWO XRAY VIEWS OF THE CHEST02/21/2022 8:19 am XR Chest two views COMPARISON: None HISTORY: ORDERING SYSTEM PROVIDED HISTORY: Reason for Exam: cough, FINDINGS: No acute infiltrate, consolidation,mass, pneumothorax, pleural fluid, or vascular congestion is seen. Heart size and mediastinal contours are within normal limits for age and projection. No acute skeletal abnormality. Moderate dorsal spondylosis. IMPRESSION: No acute cardiopulmonary process. Interpreted by: Parish Lock MD Preliminary Report By: Parish Lock MD Electronically signed By Parish Lock MD Dictated Date: 02/21/2022 4:02:33 PM Prelim Date: 02/21/2022 4:03:14 PM Sign Date: 02/21/2022 4:03:14 PM Ordering Provider: MANJIT HUANG [facility] 02-21-2022 Note ORIGINAL EXAMINATION: TWO XRAY VIEWS OF THE CHEST02/21/2022 8:19 am XR Chest two views COMPARISON: None HISTORY: ORDERING SYSTEM PROVIDED HISTORY: Reason for Exam: cough, FINDINGS: No acute infiltrate, consolidation,mass, pneumothorax, pleural fluid, or vascular congestion is seen. Heart size and mediastinal contours are within normal limits for age and projection. No acute skeletal abnormality. Moderate dorsal spondylosis. IMPRESSION: No acute cardiopulmonary process. Interpreted by: Parish Lock MD Preliminary Report By: Parish Lock MD Electronically signed By Parish Lock MD Dictated Date: 02/21/2022 4:02:33 PM Prelim Date: 02/21/2022 4:03:14 PM Sign Date: 02/21/2022 4:03:14 PM Ordering Provider: MANJIT HUANG [facility] Evaluation + Plan note No data available for this section [facility] Evaluation + Plan note Future Appointments Appointment Date:03/23/2022 11:00:00 AM Scheduled Provider:MANJIT HUANG MD Location:[facility] Appointment Type:SO OV Post Op [facility] Evaluation + Plan note Future Appointments Appointment Date:05/25/2022 11:00:00 AM Scheduled Provider:MANJIT HUANG MD Location:[facility] Appointment Type:SO OV Post Op Future Scheduled TestsXR Cystography 05/22/22 [facility] Evaluation + Plan note Future Appointments Appointment Date:05/23/2022 10:30:00 AM Scheduled Provider: Location:XRAY Appointment Type:XR Cystography Appointment Date:05/23/2022 11:30:00 AM Scheduled Provider:CONCHA RAZA Location:[facility] Appointment Type:SO OV Appointment Date:05/25/2022 11:00:00 AM Scheduled Provider:MANJIT HUANG MD Location:[facility] Appointment Type:SO OV Post Op Diagnostic Tests PendingUrine Culture 05/17/22 Future Scheduled TestsXR Cystography 05/22/22XR Cystography 05/23/22 [facility] Evaluation + Plan note Future Appointments Appointment Date:07/05/2023 02:30:00 PM Scheduled Provider:NICKI DESAI MD Location:[facility] Appointment 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: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 Diagnostic Tests PendingCalcitriol(1,25 di-OH Vit D) 06/28/23 [facility] Evaluation + Plan note Future Appointments Appointment Date:09/13/2023 11:45:00 AM Scheduled Provider:NICKI DESAI MD Location:[facility] Appointment Type:ENDO OV Future Scheduled TestsC-Peptide 07/12/23Lipid Profile 07/12/23Complete Metabolic Panel 07/12/23US Thyroid 07/12/23 [facility] Diagnosis Poorly controlled type 2 diabetes mellitus (HCC)- Primary Type II or unspecified type diabetes mellitus without mention of complication, not stated as uncontrolled Acquired hypothyroidism Unspecified hypothyroidism Multiple thyroid nodules Nontoxic multinodular goiter [facility] Diagnosis DM (diabetes mellitus), 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 Type II or unspecified type diabetes mellitus with neurological manifestations, not stated as uncontrolled documented in this encounter [facility] Discharge instructions No data available for this section [facility] Note* Devorah Arriola: PERFORM Event Display: Lab - General Scan Authored Date: [id number] [facility] Progress note No data available for this section [facility] Summary Purpose Family History No Family History Records FoundNo Family History Records FoundNo Family History Records Found No data available for this section No data available for this section No data available for this section No data available for this section No Family History Records Found Advance Directives No Advanced Directives Records FoundNo Advanced Directives Records FoundNo Advanced Directives Records FoundNo Advanced Directives Records Found Reason for Referral Specialty Diagnoses / Procedures Referred By Jennifer myers Referred To Contact Muriel Hou MD [address] [place] [address] Referral ID Status Reason Start Date Expiration Date V isits Requested Visits Authorized [id number] Pending Review 1 1 Referral ID Status Reason Start Date Expiration Date V isits Requested Visits Authorized [id number] Pending Review 1 1 Specialty Diagnoses / Procedures Referred By Jennifer t Referred To Contact Diagnoses Poorly controlled type 2 diabetes mellitus (HCC) Procedures CONSULT TO DIABETES EDUCATION DSME/MNT MEDICAL NUTRITION ASSMT&IVNTJ INDIV EACH 15 [place] MEDICAL NUTRITION ASSMT&IVNTJ INDIV EACH 15 [place] MEDICAL NUTRITION ASSMT&IVNTJ INDIV EACH 15 [place] MEDICAL NUTRITION ASSMT&IVNTJ INDIV EACH 15 [place] Muriel Hou MD [address] [place] [address] Referral ID Status Reason Start Date Expiration Date Visits Requested Visits Authorized [id number] Authorized PCP Requested Referral 09/05/2022 09/05/2023 1 1 Additional Source Comments INFORMATION SOURCE (unrecogn ized section and content) DATE CREATED AUTHOR AUTHOR'S ORGANIZ ATION 12/30/2019 [facility] DATE CREATED AUTHOR AUTHOR'S ORGANIZ ATION 09/08/2022 [facility] DATE CREATED AUTHOR AUTHOR'S ORGANIZ ATION 08/13/2023 [facility] ([place]) Care Team (unrecognized sect ion and content) Care Team Personnel Name: JUAN DIEGO APRN-NEHAL Position: AO Advanced Practice Nurse Med Service: Active Provider Member Role: Primary Care Physician Address: Address: [id number] [place] [id number]- Care Team Related Persons Name: SANTA GAITAN Care Team Personnel Name: JUAN DIEGO APRN-SLUNK SKINNER Position: AO Advanced Practice Nurse Med Service: Active Provider Member Role: Primary Care Physician Address: Address: [address] [place] [address]- Care Team Related Persons Name: [place] Care Team Personnel Name: LESLIE PAULINO APRN-SLUNK SKINNER Member Role: Primary Care Physician Address: Address: [address] [place] [phone]- Care Team Related Persons Name: [place] Name: DANITZA EMANUEL Care Team Personnel Name: LESLIE PAULINO APRN-SLUNK SKINNER Member Role: Primary Care Physician Address: Address: [address] [place] [address]- Care Team Related Persons Name: [place] Name: DANITZA EMANUEL Care Team Personnel Name: LESLIE PAULINO APRN-SLUNK SKINNER Member Role: Primary Care Physician Address: Address: [address] [place] [phone]- Care Team Related Persons Name: [place] Name: DANITZA EMANUEL Care Team Personnel Name: LESLIE PAULINO APRN-SLUNK SKINNER Member Role: Primary Care Physician Address: Address: [address] [place] [address]- Name: MANJIT HUANG MD Position: P4 Oncology Provider Member Role: Gynecologic Oncologist Address: Address: [address] [facility] [place] [address]- [place] Care Team Related Persons Name: [place] Name: PANDA EMANUELLOTTE Care Team Personnel Name: LSELIE PAULINO ELECTRIC TRAIN DRIVER-SLUNK SKINNER Member Role: Primary Care Physician Address: Address: [address] [place] [id number]- Name: MAXI RIVERA MD Position: P4 Oncology Provider Member Role: OBGYN Address: Address: [address] [place] [address] Gy[address] On[address] Name: MANJIT HAUNG MD Position: P4 Oncology Provider Member Role: Gynecologic Oncologist Address: Address: [address] [place] [address] Gy[address] On[address] Care Team Related Persons Name: [place] Name: DANITZA EMANUEL Care Team Personnel Name: LESLIE PAULINO Member Role: Primary Care Physician Address: Address: [address] [place] [address] Name: MAXI RIVERA MD Position: P4 Oncology Provider Member Role: OBGYN Address: Address: [address] [place] [address] [address] On[address] Name: MANJIT HUANG MD Position: P4 Oncology Provider Member Role: Gynecologic Oncologist Address: Address: [address] [place] [address] [address] On[address] Name: CONCHA RAZA Position: P4 Oncology Provider Member Role: Gynecologic Oncologist Address: Address: [address] [place] [address] Gynec[address] On[address] Care Team Related Persons Name: [place] Name: DANITZA EMANUEL Care Team Personnel Name: LESLIE PAULINO Member Role: Primary Care Physician Address: Address: [address] [place] [address] Name: MAXI RIVERA MD Position: P4 Oncology Provider Member Role: OBGYN Address: Address: [address] [place] [address] [address] On[address] Name: MANJIT HUANG MD Position: P4 Oncology Provider Member Role: Gynecologic Oncologist Address: Address: [address] [place] [address] [address] On[address] Name: CONCHA RAZA Position: P4 Oncology Provider Member Role: Gynecologic Oncologist Address: Address: [address] [place] [address] [address] On[address] Care Team Related Persons Name: [place] Name: DANITZA EMANUEL Source Comments (unrecognize d section and content) In the event this informatio n is protected by the Federal Confidentiality of Alcohol and Drug Abuse Patient Records regulations: The Federal rules restrict any use of the information to criminally investigate or prosecute any alcohol or drug abuse patient.[facility] the event this information is protected by the Federal Confidentiality of Alcohol and Drug Abuse Patient Records regulations: The Federal rules restrict any use of the information to criminally investigate or prosecute any alcohol or drug abuse patient.[facility] the event this information is protected by the Federal Confidentiality of Alcohol and Drug Abuse Patient Records regulations: The Federal rules restrict any use of the information to criminally investigate or prosecute any alcohol or drug abuse patient.[facility] Reason for Visit (unrecogniz ed section and content) Reason Comments Consult Care Teams (unrecognized sec tion and content) Gear Hobber Relationship Specialty Start Date End Date Leslie Paulino, NEHAL [address] [place] [address] PCP - General Internal Medicine 03/10/22 Carlos A Moore MD [address] [place] [address] Referring Family Medicine 03/10/22 Griselda Cosme NP [address] [place] [address] Referring Family Medicine 08/16/22 Gear Hobber Relationship Specialty Start Date End Date Leslie Paulino, SLUNK SKINNER [address] [place], [place] [id number] PCP - General Internal Medicine 03/10/22 Carlos A Moore MD [address] [place], [place] [address] Referring Family Medicine 03/10/22 Griselda Csome NP [address] [place] [address] Referring [facility] 08/16/22 FOR RECORDS PERTAINING TO PATIENTS WHO ARE OR HAVE BEEN ENROLLED IN A CHEMICAL DEPENDENCY/SUBSTANCEABUSE PROGRAM, SOME INFORMATION MAY BE OMITTED. This clinical summary was aggregated from multiple sources. Caution should be exercised in using it in the provision of clinical care. This summary normalizes information from multiple sources, and as a consequence, information in this document may materially change the coding, format and clinical context of patient data. In addition, data may be omitted in some cases. CLINICAL DECISIONS SHOULD BE BASED ON THE PRIMARY CLINICAL RECORDS. [facility] [employer] [facility]. provides no warranty or guarantee of the accuracy or completeness of information in this document.
--- NOTE | 2023-08-18 07:56 | US_ITS ---
STUDY: THYROID ULTRASOUND REASON FOR EXAM: Female, 63 years old. HYPOTHYROIDISM TECHNIQUE: Ultrasound evaluation of the thyroid was performed with real-time and static tubbs-scale imaging. COMPARISON: 03/02/2022 FINDINGS: RIGHT LOBE: Status post right lobectomy.. LEFT LOBE: The left lobe of the thyroid gland measures 4.0 x 1.5 x 1.6 cm. There is a heterogeneous echotexture. Some tiny (less than 5 mm) hypoechoic and anechoic nodules consistent with adenomas or colloid cyst. Previously described nodule is not clearly visualized and may represent one of these tiny nodules. ISTHMUS: The isthmus measures 3 mm thick. . The regional lymph nodes are normal. US/Thyroid IMPRESSION: Thyroiditis but no dominant nodule. Status post right lobectomy. Electronically Signed: Geoffrey Suarez MD at 18:56 EST ,
== END | disposition home or self-care (01) ==
LOC: US 07:43
PROVIDERS: PCP Nurse Practitioner Family; Referring Provider Internal Medicine Endocrinology, Diabetes & Metabolism; Visit Provider Internal Medicine Endocrinology, Diabetes & Metabolism
DX: E11.9 Type 2 diabetes mellitus without complications (principal); E78.00 Pure hypercholesterolemia, unspecified; E03.9 Hypothyroidism, unspecified; I10 Essential (primary) hypertension; E55.9 Vitamin D deficiency, unspecified
CPT/HCPCS: 76536

== ENCOUNTER → 2024-04-16 | Outpatient (CLI) | payer MEDICARE, SELFPAY ==
[2024-04-16 12:44] LABS: Absolute Lymphocyte Count 2.81 X10^3/uL (0.83-4.51); Absolute Neutrophil Count 3.8 X10^3/uL (2.0-7.7); Basophil# 0.04 X10^3/uL; Basophil% 0.5 % (0-1); Eosinophil# 0.11 X10^3/uL; Eosinophils% 1.5 % (0-5); Hematocrit 42.7 % (37-47); Hemoglobin 13.9 g/dL (12.0-15.0); Lymphocyte # 2.81 X10^3/ul (0.83-4.51); Lymphocyte % 38.6 % (19-41); Mean Corp Hgb Conc 32.6 g/dL (32-36); Mean Corpuscular Hgb 28.5 pg (27.0-32.0); Mean Corpuscular Volume 87.7 fL (81-99); Mean Platelet Vol. 10.4 fl (6.2-12.0); Monocyte# 0.54 X10^3/uL; Monocyte% 7.4 % (0-10); NRBC Flagged by Analyzer 0 % (0-5); Neutrophil # 3.76 X10^3/uL (2.7-7.7); Neutrophil % 51.7 % (47-70); Platelet Count 206 K/mm3 (150-450); RBC Distribution Width CV 13.2 % (11.6-14.6); RBC Distribution Width SD 41.9 fl (35.1-43.9); Red Blood Count 4.87 M/mm3 (4.2-5.4); White Blood Count 7.3 K/mm3 (4.4-11.0)
[2024-04-16 13:11] LABS: ALB/GLOB Ratio 0.9 RATIO (0.9-2.4); AST(SGOT) 13 U/L (15-37); Alanine Aminotransfer ALT/SGPT 25 U/L (13-56); Albumin, Serum 3.3 g/dL (3.2-5.0); Alkaline Phosphatase 96 U/L (45-117); Anion Gap 5 (5-15); BUN 14 mg/dL (7-18); BUN/Creat Ratio 18.6 RATIO (10-20); Calcium,Total 9.9 mg/dL (8.5-10.1); Chloride 103 mmol/L (98-107); Cholesterol 209 mg/dL (200); Creatinine, Serum 0.75 mg/dL (0.55-1.02); EST Glomerular Filtration Rate 82 mL/min (>60); Est Glom Filt Rate - Afr Amer 99 mL/min (>60); Globulin 3.8 g/dL (2.2-4.2); Glucose 261 mg/dL (74-106); High Density Lipoprotein 65 mg/dL; Potassium 4.4 mmol/L (3.5-5.1); Protein, Total 7.1 g/dL (6.4-8.2); Sodium Level 135 mmol/L (136-145); Triglycerides 243 mg/dL; Very Low Density Lipoprotein 49 mg/dL (5-40)
[2024-04-16 13:15] LABS: Microalbumin,Random Urine 30.4 mg/L (NO RANGE EST.)
[2024-04-16 14:46] LABS: Vitamin D,25 Hydroxy 27.6 ng/mL
== END | disposition home or self-care (01) ==
LOC: VSLAB 08:45
PROVIDERS: PCP Nurse Practitioner Family; Visit Provider Nurse Practitioner Family
DX: I10 Essential (primary) hypertension (principal); E11.42 Type 2 diabetes mellitus with diabetic polyneuropathy; E78.5 Hyperlipidemia, unspecified; E55.9 Vitamin D deficiency, unspecified
CPT/HCPCS: 36415; 80053; 80061; 82043; 82306; 84443; 85025

== ENCOUNTER 2024-10-09 13:41 | Outpatient (RCR) | payer MEDICARE, SELFPAY ==
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
== END 2024-10-09 19:00 | disposition home or self-care (01) ==
LOC: OT 13:41
PROVIDERS: PCP Nurse Practitioner Family; Referring Provider Nurse Practitioner Family; Visit Provider Nurse Practitioner Family
DX: L40.50 Arthropathic psoriasis, unspecified (principal)
CPT/HCPCS: 97750

== ENCOUNTER → 2024-11-25 | Outpatient (CLI) | payer MEDICARE, SELFPAY ==
--- OUTSIDE RECORDS SUMMARY | 2024-11-25 10:11 | XMS RPT_ITS | CCD ---
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 [facility] Comment on above: Performed By: #### L 502.0500, L506.1000, L500.4050, L100.0100, L501.9520, L500.4100 #### [facility] [address] [place], [place], [facility] Absolute Neut 3.8 X10 3/uL Normal 2.0-7.7 [facility] Comment on above: Performed By: #### L 502.0500, L506.1000, L500.4050, L100.0100, L501.9520, L500.4100 #### [facility] [address] [place], [address] Basophils/100 WBC (Bld) 0.5 % Normal 0-1 [facility] Comment on above: Performed By: #### L 502.0500, L506.1000, L500.4050, L100.0100, L501.9520, L500.4100 #### [facility] [address] [place], [address] Eosinophils/100 WBC (Bld) 1.5 % Normal 0-5 [facility] Comment on above: Performed By: #### L 502.0500, L506.1000, L500.4050, L100.0100, L501.9520, L500.4100 #### [facility] [address] [place], [address] Erythrocyte distribution width (RBC) [Ratio] 13.2 % Normal 11.6-14.6 [facility] Comment on above: Performed By: #### L 502.0500, L506.1000, L500.4050, L100.0100, L501.9520, L500.4100 #### [facility] [address] [place], [address] Hematocrit (Bld) [Volume fraction] 42.7 % Normal 37-47 [facility] Comment on above: Performed By: #### L 502.0500, L506.1000, L500.4050, L100.0100, L501.9520, L500.4100 #### [facility] [address] [place], [address] Hemoglobin (Bld) [Mass/Vol] 13.9 g/dL Normal 12.0-15.0 [facility] Comment on above: Performed By: #### L 502.0500, L506.1000, L500.4050, L100.0100, L501.9520, L500.4100 #### [facility] [address] [place], [address] IG% 0.300 Normal 0.0-0.9 [facility] Comment on above: Result Comment: IG% - Immature Granulocytes (promyelocytes, myelocytes and metamyelocytes) > 1% indicates that a LEFT SHIFT is Present. Performed By: #### L 502.0500, L506.1000, L500.4050, L100.0100, L501.9520, L500.4100 #### [facility] [address] [place], [address] Lymphocytes/100 WBC (Bld) 38.6 % Normal 19-41 [facility] Comment on above: Performed By: #### L 502.0500, L506.1000, L500.4050, L100.0100, L501.9520, L500.4100 #### [facility] [address] [place], [address] MCH (RBC) [Entitic mass] 28.5 pg Normal 27.0-32.0 [facility] Comment on above: Performed By: #### L 502.0500, L506.1000, L500.4050, L100.0100, L501.9520, L500.4100 #### [facility] [address] [place], [address] MCHC (RBC) [Mass/Vol] 32.6 g/dL Normal 32-36 [facility] Comment on above: Performed By: #### L 502.0500, L506.1000, L500.4050, L100.0100, L501.9520, L500.4100 #### [facility] [address] [place], [address] MCV (RBC) [Entitic vol] 87.7 fL Normal 81-99 [facility] Comment on above: Performed By: #### L 502.0500, L506.1000, L500.4050, L100.0100, L501.9520, L500.4100 #### [facility] [address] [place], [address] Monocytes/100 WBC (Bld) 7.4 % Normal 0-10 [facility] Comment on above: Performed By: #### L 502.0500, L506.1000, L500.4050, L100.0100, L501.9520, L500.4100 #### [facility] [address] [place], [address] Neutrophils/100 WBC (Bld) 51.7 % Normal 47-70 [facility] Comment on above: Performed By: #### L 502.0500, L506.1000, L500.4050, L100.0100, L501.9520, L500.4100 #### [facility] [address] [place], [address] Nucleated RBC (Bld) [#/Vol] 0 10*3/uL Normal 0-5 [facility] Comment on above: Performed By: #### L 502.0500, L506.1000, L500.4050, L100.0100, L501.9520, L500.4100 #### [facility] [address] [place], [address] Platelet mean volume (Bld) [Entitic vol] 10.4 fL Normal 6.2-12.0 [facility] Comment on above: Performed By: #### L 502.0500, L506.1000, L500.4050, L100.0100, L501.9520, L500.4100 #### [facility] [address] [place], [address] Platelets (Bld) [#/Vol] 206 10*3/uL Normal 150-450 [facility] Comment on above: Performed By: #### L 502.0500, L506.1000, L500.4050, L100.0100, L501.9520, L500.4100 #### [facility] [address] [place], [address] RBC (Bld) [#/Vol] 4.87 10*6/uL Normal 4.2-5.4 [facility] Comment on above: Performed By: #### L 502.0500, L506.1000, L500.4050, L100.0100, L501.9520, L500.4100 #### [facility] [address] [place], [address] RDW SD 41.9 fl Normal 35.1-43.9 [facility] Comment on above: Performed By: #### L 502.0500, L506.1000, L500.4050, L100.0100, L501.9520, L500.4100 #### [facility] [address] [place], [address] WBC (Bld) [#/Vol] 7.3 10*3/uL Normal 4.4-11.0 [facility] Comment on above: Performed By: #### L 502.0500, L506.1000, L500.4050, L100.0100, L501.9520, L500.4100 #### [facility] [address] [place], [address] Comprehensive Metabolic Prof ilon 04-16-2024 Albumin [Mass/Vol] 3.3 g/dL Normal 3.2-5.0 [facility] Comment on above: Performed By: #### L 502.0500, L506.1000, L500.4050, L100.0100, L501.9520, L500.4100 #### [facility] [address] [place], [address] Albumin/Globulin [Mass ratio] 0.9 {ratio} Normal 0.9-2.4 [facility] Comment on above: Performed By: #### L 502.0500, L506.1000, L500.4050, L100.0100, L501.9520, L500.4100 #### [facility] [address] [place], [address] ALK P 96 U/L Normal 45-117 [facility] Comment on above: Performed By: #### L 502.0500, L506.1000, L500.4050, L100.0100, L501.9520, L500.4100 #### [facility] [address] [place], [address] ALT [Catalytic activity/Vol] 25 U/L Normal 13-56 [facility] Comment on above: Performed By: #### L 502.0500, L506.1000, L500.4050, L100.0100, L501.9520, L500.4100 #### [facility] [address] [place], [address] AST [Catalytic activity/Vol] 13 U/L Low 15-37 [facility] Comment on above: Performed By: #### L 502.0500, L506.1000, L500.4050, L100.0100, L501.9520, L500.4100 #### [facility] [address] [place], [address] Bilirubin [Mass/Vol] 0.30 mg/dL Normal 0.20-1.00 [facility] Comment on above: Result Comment: For patients on eltrombopag therapy, use of Dimension [place] TBIL is not recommended. Performed By: #### L 502.0500, L506.1000, L500.4050, L100.0100, L501.9520, L500.4100 #### [facility] [address] [place], [address] BUN/CRE 18.6 RATIO Normal 10-20 [facility] Comment on above: Performed By: #### L 502.0500, L506.1000, L500.4050, L100.0100, L501.9520, L500.4100 #### [facility] [address] [place], [address] CA,Total 9.9 mg/dL Normal 8.5-10.1 [facility] Comment on above: Performed By: #### L 502.0500, L506.1000, L500.4050, L100.0100, L501.9520, L500.4100 #### [facility] [address] [place], [address] Chloride [Moles/Vol] 103 mmol/L Normal 98-107 [facility] Comment on above: Performed By: #### L 502.0500, L506.1000, L500.4050, L100.0100, L501.9520, L500.4100 #### [facility] [address] [place], [address] CO2 [Moles/Vol] 27.0 mmol/L Normal 21.0-32.0 [facility] Comment on above: Performed By: #### L 502.0500, L506.1000, L500.4050, L100.0100, L501.9520, L500.4100 #### [facility] [address] [place], [address] Creatinine [Mass/Vol] 0.75 mg/dL Normal 0.55-1.02 [facility] Comment on above: Result Comment: The validity of the calculated GFR GFRAA in patients over 70 years has not been determined. Clinical correlation is essential. Performed By: #### L 502.0500, L506.1000, L500.4050, L100.0100, L501.9520, L500.4100 #### [facility] [address] [place], [address] EST GFR - AA 99 mL/min Normal >60 [facility] Comment on above: Result Comment: Afri can Spanish GFR Calc Performed By: #### L 502.0500, L506.1000, L500.4050, L100.0100, L501.9520, L500.4100 #### [facility] [address] [place], [address] GAP 5 Normal 5-15 [facility] Comment on above: Performed By: #### L 502.0500, L506.1000, L500.4050, L100.0100, L501.9520, L500.4100 #### [facility] [address] [place], [address] GFR/1.73 sq M.predicted among non-blacks MDRD (S/P/Bld) [Vol rate/Area] 82 mL/min/{1.73_m2} Normal >60 [facility] Comment on above: Result Comment: Non- GFR Calc Performed By: #### L 502.0500, L506.1000, L500.4050, L100.0100, L501.9520, L500.4100 #### [facility] [address] [place], [address] Globulin (S) [Mass/Vol] 3.8 g/dL Normal 2.2-4.2 [facility] Comment on above: Performed By: #### L 502.0500, L506.1000, L500.4050, L100.0100, L501.9520, L500.4100 #### [facility] [address] [place], [address] Glucose [Mass/Vol] 261 mg/dL High 74-106 [facility] Comment on above: Result Comment: Gluc ose result greater than or equal to 200 mg/dL suggests DIABETES MELLITUS per A.D.A. criteria. Performed By: #### L 502.0500, L506.1000, L500.4050, L100.0100, L501.9520, L500.4100 #### [facility] [address] [place], [address] Potassium [Moles/Vol] 4.4 mmol/L Normal 3.5-5.1 [facility] Comment on above: Performed By: #### L 502.0500, L506.1000, L500.4050, L100.0100, L501.9520, L500.4100 #### [facility] [address] [place], [address] Sodium [Moles/Vol] 135 mmol/L Low 136-145 [facility] Comment on above: Performed By: #### L 502.0500, L506.1000, L500.4050, L100.0100, L501.9520, L500.4100 #### [facility] [address] [place], [address] T PROT 7.1 g/dL Normal 6.4-8.2 [facility] Comment on above: Performed By: #### L 502.0500, L506.1000, L500.4050, L100.0100, L501.9520, L500.4100 #### [facility] [address] [place], [address] Urea nitrogen [Mass/Vol] 14 mg/dL Normal 7-18 [facility] Comment on above: Performed By: #### L 502.0500, L506.1000, L500.4050, L100.0100, L501.9520, L500.4100 #### [facility] [address] [place], [address] Lipid Profileon 04-16-2024 Cholesterol [Mass/Vol] 209 mg/dL High 200 [facility] Comment on above: Result Comment: <200 mg/dL Desirable 200-240 mg/dL Borderline >240 mg/dL High Risk Performed By: #### L 502.0500, L506.1000, L500.4050, L100.0100, L501.9520, L500.4100 #### [facility] [address] [place], [address] Cholesterol in HDL [Mass/Vol] 65 mg/dL Normal [facility] Comment on above: Result Comment: The drugs N-Acetylcysteine and Metamizole may falsely depress this assay. Reference Range HDL <40 mg/dL Low HDL Cholesterol HDL >or= 60 mg/dL High HDL Cholesterol Performed By: #### L 502.0500, L506.1000, L500.4050, L100.0100, L501.9520, L500.4100 #### [facility] [address] [place], [address] Cholesterol in LDL [Mass/Vol] 95 mg/dL Normal 0-130 [facility] Comment on above: Performed By: #### L 502.0500, L506.1000, L500.4050, L100.0100, L501.9520, L500.4100 #### [facility] [address] [place], [address] Cholesterol in VLDL [Mass/Vol] 49 mg/dL High 5-40 [facility] Comment on above: Performed By: #### L 502.0500, L506.1000, L500.4050, L100.0100, L501.9520, L500.4100 #### [facility] [address] [facility] [place], [address] Triglyceride [Mass/Vol] 243 mg/dL High [facility] Comment on above: Result Comment: The drugs N-Acetylcysteine and Metamizole may falsely depress this assay. Serum Triglycerides Reference Interval Normal <150 mg/dL Borderline high 150 - 199 mg/dL High 200 - 499 mg/dL Very High > or = 500 mg/dL Performed By: #### L 502.0500, L506.1000, L500.4050, L100.0100, L501.9520, L500.4100 #### [facility] [address] [place], [address] Microalbumin,Random Urineon 04-16-2024 MICROALBUMIN,UR 30.4 mg/L Normal NO RANGE EST. [facility] Comment on above: Performed By: #### L 502.0500, L506.1000, L500.4050, L100.0100, L501.9520, L500.4100 #### [facility] [address] [facility] [place], [address] Thyroid Stim Hormone (TSH)on 04-16-2024 TSH 2.220 uIU/mL Normal 0.358-3.740 [facility] Comment on above: Performed By: #### L 502.0500, L506.1000, L500.4050, L100.0100, L501.9520, L500.4100 #### [facility] [address] [place], [address] Vitamin D,25 Hydroxyon 04-16 Vitamin D 25-OH 27.6 ng/mL Normal [facility] Comment on above: Result Comment: Sunni min D 25(OH) Status Range Deficiency <20 ng/mL (50nmol/L) Insufficiency 20 - 30 ng/mL (50 - 75 nmol/L) Sufficiency 30 - 100 ng/mL (75 - 250 nmol/L) Toxicity >100 ng/mL (>250 nmol/L) Performed By: #### L 502.0500, L506.1000, L500.4050, L100.0100, L501.9520, L500.4100 #### [facility] [address] [place], [address] .Auto Diffon 02-20-2024 Basophil, Absolute 0.0 10 3/mcL Normal 0.0-0.2 [facility] Comment on above: Performed By: #### A DIFF, CBC, ANEU, GFR, BMP #### [address] [address] Basophils/100 WBC (Bld) 0.4 % Normal 0.0-2.5 [facility] Comment on above: Performed By: #### A DIFF, CBC, ANEU, GFR, BMP #### [address] [address] Eosinophil, Absolute 0.1 10 3/mcL Normal 0.0-0.4 [facility] Comment on above: Performed By: #### A DIFF, CBC, ANEU, GFR, BMP #### [address] [address] Eosinophils/100 WBC (Bld) 1.2 % Normal 0.0-7.0 [facility] Comment on above: Performed By: #### A DIFF, CBC, ANEU, GFR, BMP #### [address] [address] Lymphocyte, Absolute 3.3 10 3/mcL Normal 0.8-3.9 [facility] Comment on above: Performed By: #### A DIFF, CBC, ANEU, GFR, BMP #### [address] [address] Lymphocytes/100 WBC (Bld) 35.2 % Normal 10.0-50.0 [facility] Comment on above: Performed By: #### A DIFF, CBC, ANEU, GFR, BMP #### [address] [address] Monocyte, Absolute 0.6 10 3/mcL Normal 0.2-1.0 [facility] Comment on above: Performed By: #### A DIFF, CBC, ANEU, GFR, BMP #### [address] [address] Monocytes/100 WBC (Bld) 6.8 % Normal 1.7-13.0 [facility] Comment on above: Performed By: #### A DIFF, CBC, ANEU, GFR, BMP #### [address] [address] Neutrophils/100 WBC (Bld) 56.4 % Normal 37.0-80.0 [facility] Comment on above: Performed By: #### A DIFF, CBC, ANEU, GFR, BMP #### [address] [address] .GFRon 02-20-2024 GFR 82 ml/min/1.73sqm Normal [facility] Comment on above: Result Comment: GFR Population mean for , Non- Americans Ages 20-29 = 116 mL/min/1.73 sq.m. Ages 30-39 = 107 mL/min/1.73 sq.m. Ages 40-49 = 99 mL/min/1.73 sq.m. Ages 50-59 = 93 mL/min/1.73 sq.m. Ages 60-69 = 85 mL/min/1.73 sq.m. Ages 70+ = 75 mL/min/1.73 sq.m. Chronic Kidney Disease: Less than 60 mL/min/1.73 square meters End Stage Renal Disease: Less than 15 mL/min/1.73 square meters Performed By: #### A DIFF, CBC, ANEU, GFR, BMP #### [address] [place], [place] [address] GFR Non- 68 ml/min/1.73sqm Normal [facility] Comment on above: Result Comment: GFR Population mean for , Non- Americans Ages 20-29 = 116 mL/min/1.73 sq.m. Ages 30-39 = 107 mL/min/1.73 sq.m. Ages 40-49 = 99 mL/min/1.73 sq.m. Ages 50-59 = 93 mL/min/1.73 sq.m. Ages 60-69 = 85 mL/min/1.73 sq.m. Ages 70+ = 75 mL/min/1.73 sq.m. Chronic Kidney Disease: Less than 60 mL/min/1.73 square meters End Stage Renal Disease: Less than 15 mL/min/1.73 square meters Performed By: #### A DIFF, CBC, ANEU, GFR, BMP #### [address] [address] .NEUABSon 02-20-2024 Neutrophil, Absolute 5.2 10 3/mcL Normal 2.9-6.2 [facility] Comment on above: Performed By: #### A DIFF, CBC, ANEU, GFR, BMP #### [address] [place], [place] [address] BMPon 02-20-2024 BUN/Creatinine Ratio 29 ratio High 7-27 [facility] Comment on above: Performed By: #### A DIFF, CBC, ANEU, GFR, BMP #### [address] [place], [place] [address] Calcium [Mass/Vol] 9.0 mg/dL Normal 8.4-10.2 [facility] Comment on above: Performed By: #### A DIFF, CBC, ANEU, GFR, BMP #### [address] [place], [place] [address] Chloride [Moles/Vol] 103 mmol/L Normal 98-107 [facility] Comment on above: Performed By: #### A DIFF, CBC, ANEU, GFR, BMP #### [address] [address] CO2 [Moles/Vol] 28 mmol/L Normal 23-31 [facility] Comment on above: Performed By: #### A DIFF, CBC, ANEU, GFR, BMP #### [address] [address] Creatinine [Mass/Vol] 0.84 mg/dL Normal 0.55-1.02 [facility] Comment on above: Result Comment: Test ing performed on Siemens Dimension EXL analyzer using a modified kinetic Delroy technique. Performed By: #### A DIFF, CBC, ANEU, GFR, BMP #### [address] [address] Electrolyte Balance 8.0 mEq/L Normal 4.0-15.0 [facility] Comment on above: Performed By: #### A DIFF, CBC, ANEU, GFR, BMP #### [address] [address] Glucose [Mass/Vol] 157 mg/dL High 80-115 [facility] Comment on above: Performed By: #### A DIFF, CBC, ANEU, GFR, BMP #### [address] [address] Potassium [Moles/Vol] 4.6 mmol/L Normal 3.5-5.1 [facility] Comment on above: Performed By: #### A DIFF, CBC, ANEU, GFR, BMP #### [address] [address] Sodium [Moles/Vol] 139 mmol/L Normal 136-145 [facility] Comment on above: Performed By: #### A DIFF, CBC, ANEU, GFR, BMP #### [address] [address] Urea nitrogen [Mass/Vol] 24 mg/dL High 7-18 [facility] Comment on above: Performed By: #### A DIFF, CBC, ANEU, GFR, BMP #### [address] [address] CBCon 02-20-2024 Erythrocyte distribution width (RBC) [Ratio] 14.5 % Normal 11.5-14.5 [facility] Comment on above: Performed By: #### A DIFF, CBC, ANEU, GFR, BMP #### [address] [id number] Hematocrit (Bld) [Volume fraction] 41.6 % Normal 37.0-47.0 [facility] Comment on above: Performed By: #### A DIFF, CBC, ANEU, GFR, BMP #### [address] [place] [address] Hgb 13.9 G/dL Normal 12.0-16.0 [facility] Comment on above: Performed By: #### A DIFF, CBC, ANEU, GFR, BMP #### [address] MCH (RBC) [Entitic mass] 30.1 pg Normal 27.0-31.2 [facility] Comment on above: Performed By: #### A DIFF, CBC, ANEU, GFR, BMP #### [address] MCHC 33.3 G/dL Normal 33.0-37.0 [facility] Comment on above: Performed By: #### A DIFF, CBC, ANEU, GFR, BMP #### [address] [place] [address] MCV (RBC) [Entitic vol] 90.3 fL Normal 80.0-94.0 [facility] Comment on above: Performed By: #### A DIFF, CBC, ANEU, GFR, BMP #### [address] Platelet 189 10 3/mcL Normal 130-400 [facility] Comment on above: Performed By: #### A DIFF, CBC, ANEU, GFR, BMP #### [place] [address] Platelet mean volume (Bld) [Entitic vol] 8.4 fL Normal 7.4-10.4 [facility] Comment on above: Performed By: #### A DIFF, CBC, ANEU, GFR, BMP #### [address] [address] RBC 4.61 10 6/mcL Normal 4.20-5.40 [facility] Comment on above: Performed By: #### A DIFF, CBC, ANEU, GFR, BMP #### [address] [address] WBC 9.2 10 3/mcL Normal 4.6-10.8 [facility] Comment on above: Performed By: #### A DIFF, CBC, ANEU, GFR, BMP #### [address] [address] MALBRon 02-20-2024 U Creatinine 146.8 mg/dL High 28.0-117.0 [facility] Comment on above: Performed By: #### M ALBR #### [address] [address] U Microalb 4979 mcg/dL Normal [facility] Comment on above: Performed By: #### M ALBR #### [address] [address] U Ratio Alb/Cre 34 mcg/mg High 0-30 [facility] Comment on above: Performed By: #### M ALBR #### [address] [address] VIDDHon 06-30-2023 Vit D 125 di-OH 44.1 pg/mL Normal 24.8-81.5 [facility] ([place]) Comment on above: Result Comment: Perf ormed At: [facility] [address] [id number] Pranay Silva MD Ph:[phone] Performed By: #### L IPID, TSH #### [address] [address] #### T4 #### [address] [address] .Auto Diffon 06-28-2023 Basophil, Absolute 0.1 10 3/mcL Normal 0.0-0.2 [facility] ([place]) Comment on above: Performed By: #### C MP, ADIFF, LIPID, GFR, [id number], ANEU, FT4, TSH, CBC #### [address] [address] Basophils/100 WBC (Bld) 0.7 % Normal 0.0-2.5 [facility] ([place]) Comment on above: Performed By: #### C MP, ADIFF, LIPID, GFR, [id number], ANEU, FT4, TSH, CBC #### [address] [address] Eosinophil, Absolute 0.2 10 3/mcL Normal 0.0-0.4 [facility] ([place]) Comment on above: Performed By: #### C MP, ADIFF, LIPID, GFR, [id number], ANEU, FT4, TSH, CBC #### [address] [address] Eosinophils/100 WBC (Bld) 2.0 % Normal 0.0-7.0 [facility] ([place]) Comment on above: Performed By: #### C MP, ADIFF, LIPID, GFR, [id number], ANEU, FT4, TSH, CBC #### [address] [address] Lymphocyte, Absolute 4.0 10 3/mcL High 0.8-3.9 [facility] ([place]) Comment on above: Performed By: #### C MP, ADIFF, LIPID, GFR, [id number], ANEU, FT4, TSH, CBC #### [address] [address] Lymphocytes/100 WBC (Bld) 35.8 % Normal 10.0-50.0 [facility] ([place] Comment on above: Performed By: #### C MP, ADIFF, LIPID, GFR, [id number], ANEU, FT4, TSH, CBC #### [address] [address] Monocyte, Absolute 0.7 10 3/mcL Normal 0.2-1.0 [facility] ([place]) Comment on above: Performed By: #### C MP, ADIFF, LIPID, GFR, [id number], ANEU, FT4, TSH, CBC #### [address] [address] Monocytes/100 WBC (Bld) 6.6 % Normal 1.7-13.0 [facility] ([place]) Comment on above: Performed By: #### C MP, ADIFF, LIPID, GFR, [id number], ANEU, FT4, TSH, CBC #### [address] [address] Neutrophils/100 WBC (Bld) 54.9 % Normal 37.0-80.0 [facility] ([place]) Comment on above: Performed By: #### C MP, ADIFF, LIPID, GFR, [id number], ANEU, FT4, TSH, CBC #### [address] [address] .GFRon 06-28-2023 GFR 76 ml/min/1.73sqm Normal [facility] ([place]) Comment on above: Result Comment: GFR Population mean for , Non- Americans Ages 20-29 = 116 mL/min/1.73 sq.m. Ages 30-39 = 107 mL/min/1.73 sq.m. Ages 40-49 = 99 mL/min/1.73 sq.m. Ages 50-59 = 93 mL/min/1.73 sq.m. Ages 60-69 = 85 mL/min/1.73 sq.m. Ages 70+ = 75 mL/min/1.73 sq.m. Chronic Kidney Disease: Less than 60 mL/min/1.73 square meters End Stage Renal Disease: Less than 15 mL/min/1.73 square meters Performed By: #### L IPID, TSH #### [address] [address] #### T4 #### [address] [address] GFR Non- 63 ml/min/1.73sqm Normal [facility] ([place] Comment on above: Result Comment: GFR Population mean for , Non- Americans Ages 20-29 = 116 mL/min/1.73 sq.m. Ages 30-39 = 107 mL/min/1.73 sq.m. Ages 40-49 = 99 mL/min/1.73 sq.m. Ages 50-59 = 93 mL/min/1.73 sq.m. Ages 60-69 = 85 mL/min/1.73 sq.m. Ages 70+ = 75 mL/min/1.73 sq.m. Chronic Kidney Disease: Less than 60 mL/min/1.73 square meters End Stage Renal Disease: Less than 15 mL/min/1.73 square meters Performed By: #### L IPID, TSH #### [address] [address] #### T4 #### [address] [address] .NEUABSon 06-28-2023 Neutrophil, Absolute 6.2 10 3/mcL Normal 2.9-6.2 [facility] ([place] Comment on above: Performed By: #### C MP, ADIFF, LIPID, GFR, [id number], ANEU, FT4, TSH, CBC #### [address] [address] CBCon 06-28-2023 Erythrocyte distribution width (RBC) [Ratio] 15.1 % High 11.5-14.5 [facility] ([place] Comment on above: Performed By: #### C MP, ADIFF, LIPID, GFR, [id number], ANEU, FT4, TSH, CBC #### [address] [address] Hematocrit (Bld) [Volume fraction] 44.0 % Normal 37.0-47.0 [facility] [place] Comment on above: Performed By: #### C MP, ADIFF, LIPID, GFR, [id number], ANEU, FT4, TSH, CBC #### [address] [address] Hgb 14.8 G/dL Normal 12.0-16.0 [facility] ([place] Comment on above: Performed By: #### C MP, ADIFF, LIPID, GFR, [id number], ANEU, FT4, TSH, CBC #### [address] [address] MCH (RBC) [Entitic mass] 29.5 pg Normal 27.0-31.2 [facility] [place] Comment on above: Performed By: #### C MP, ADIFF, LIPID, GFR, [id number], ANEU, FT4, TSH, CBC #### [address] [address] MCHC 33.6 G/dL Normal 33.0-37.0 [facility] ([place] Comment on above: Performed By: #### C MP, ADIFF, LIPID, GFR, [id number], ANEU, FT4, TSH, CBC #### [address] [address] MCV (RBC) [Entitic vol] 87.7 fL Normal 80.0-94.0 [facility] [place] Comment on above: Performed By: #### C MP, ADIFF, LIPID, GFR, [id number], ANEU, FT4, TSH, CBC #### [address] [address] Platelet 269 10 3/mcL Normal 130-400 [facility] ([place] Comment on above: Performed By: #### C MP, ADIFF, LIPID, GFR, [id number], ANEU, FT4, TSH, CBC #### [address] [address] Platelet mean volume (Bld) [Entitic vol] 7.9 fL Normal 7.4-10.4 [facility] ([place] Comment on above: Performed By: #### C MP, ADIFF, LIPID, GFR, [id number], ANEU, FT4, TSH, CBC #### [address] [address] RBC 5.01 10 6/mcL Normal 4.20-5.40 [facility] ([place] Comment on above: Performed By: #### C MP, ADIFF, LIPID, GFR, [id number], ANEU, FT4, TSH, CBC #### [address] [address] WBC 11.2 10 3/mcL High 4.6-10.8 [facility] ([place] Comment on above: Performed By: #### C MP, ADIFF, LIPID, GFR, [id number], ANEU, FT4, TSH, CBC #### [address] [address] [facility] Albumin Level 3.6 G/dL Normal 3.4-4.8 [facility] ([place] Comment on above: Performed By: #### L IPID, TSH #### [address] [address] #### T4 #### [address] [address] Albumin/Globulin [Mass ratio] 1.0 {ratio} Low 1.1-2.5 [facility] [place] Comment on above: Performed By: #### L IPID, TSH #### [address] [address] #### T4 #### [address] [address] ALP [Catalytic activity/Vol] 87 U/L Normal 40-135 [facility] ([place] Comment on above: Performed By: #### L IPID, TSH #### [address] [address] #### T4 #### [address] [address] ALT [Catalytic activity/Vol] 44 U/L Normal 14-59 [facility] [place] Comment on above: Performed By: #### L IPID, TSH #### [address] [address] #### T4 #### [address] [address] AST [Catalytic activity/Vol] 20 U/L Normal 10-40 [facility] ([place]) Comment on above: Performed By: #### L IPID, TSH #### [address] [address] #### T4 #### [address] [address] Bili Total 0.3 mg/dL Normal 0.2-1.0 [facility] ([place] Comment on above: Result Comment: Use of this assay is not recommended for patients undergoing treatment with eltrombopag due to the potential for falsely elevated results. Performed By: #### L IPID, TSH #### [place] [address] #### T4 #### [address] [address] BUN/Creatinine Ratio 21 ratio Normal 7-27 [facility] ([place] Comment on above: Performed By: #### L IPID, TSH #### [place] [address] #### T4 #### [address] [address] Calcium [Mass/Vol] 9.4 mg/dL Normal 8.4-10.2 [facility] ([place] Comment on above: Performed By: #### L IPID, TSH #### [place] [address] #### T4 #### [address] [address] Chloride [Moles/Vol] 106 mmol/L Normal 98-107 [facility] [place] Comment on above: Performed By: #### L IPID, TSH #### [address] [address] #### T4 #### [address] [address] CO2 [Moles/Vol] 29 mmol/L Normal 23-31 [facility] ([place] Comment on above: Performed By: #### L IPID, TSH #### [place] [address] #### T4 #### [address] [address] Creatinine [Mass/Vol] 0.90 mg/dL Normal 0.55-1.02 [facility] ([place] Comment on above: Performed By: #### L IPID, TSH #### [address] [address] #### T4 #### [address] [address] Electrolyte Balance 10.0 mEq/L Normal 4.0-15.0 [facility] ([place] Comment on above: Performed By: #### L IPID, TSH #### [address] [address] #### T4 #### [address] [address] Globulin 3.6 G/dL Normal [facility] ([place] Comment on above: Performed By: #### L IPID, TSH #### [address] [address] #### T4 #### [address] [address] Glucose [Mass/Vol] 110 mg/dL Normal 80-115 [facility] ([place] Comment on above: Performed By: #### L IPID, TSH #### [address] [address] #### T4 #### [address] [address] Potassium [Moles/Vol] 4.6 mmol/L Normal 3.5-5.1 [facility] ([place] Comment on above: Performed By: #### L IPID, TSH #### [address] [address] #### T4 #### [address] [address] Sodium [Moles/Vol] 145 mmol/L Normal 136-145 [facility] ([place] Comment on above: Performed By: #### L IPID, TSH #### [address] [address] #### T4 #### [address] [address] Total Protein 7.2 G/dL Normal 6.4-8.2 [facility] ([place] Comment on above: Performed By: #### L IPID, TSH #### [address] [address] #### T4 #### [address] [address] Urea nitrogen [Mass/Vol] 19 mg/dL High 12-26 [facility] [place] Comment on above: Performed By: #### L IPID, TSH #### [place] [address] #### T4 #### [address] [address] FT4on 06-28-2023 Free T4 [Mass/Vol] 1.06 ng/dL Normal 0.76-1.46 [facility] ([place] Comment on above: Performed By: #### C MP, ADIFF, LIPID, GFR, [id number], ANEU, FT4, TSH, CBC #### [address] [address] LIPIDon 06-28-2023 Cholesterol [Mass/Vol] 274 mg/dL High 0-200 [facility] [place] Comment on above: Result Comment: Chol esterol Reference Interval: Less than 200 Desirable 200-239 Borderline high risk 240 and above High risk Performed By: #### L IPID, TSH #### [address] [address] #### T4 #### [address] [address] Cholesterol in HDL [Mass/Vol] 58 mg/dL Normal 40-60 [facility] [place] Comment on above: Performed By: #### L IPID, TSH #### [address] [address] #### T4 #### [address] [address] Cholesterol in LDL [Mass/Vol] 167 mg/dL High 0-130 [facility] [place] Comment on above: Performed By: #### L IPID, TSH #### [address] [address] #### T4 #### [address] [address] Triglyceride [Mass/Vol] 247 mg/dL High 0-150 [facility] [place] Comment on above: Result Comment: Trig lyceride Reference Interval: Less than 150 Normal 150-199 Borderline high risk 200-499 High risk 500 or higher Very high risk Performed By: #### L IPID, TSH #### [address] [address] #### T4 #### [address] [address] MALBRon 06-28-2023 U Creatinine 137.2 mg/dL High 28.0-117.0 [facility] ([place] Comment on above: Performed By: #### M ALBR #### [address] [address] U Microalb 2687 mcg/dL Normal [facility] ([place] Comment on above: Performed By: #### M ALBR #### [address] [address] U Ratio Alb/Cre 20 mcg/mg Normal 0-30 [facility] ([place] Comment on above: Performed By: #### M ALBR #### [address] [address] TSHon 06-28-2023 TSH Qn 1.87 m[IU]/L Normal 0.36-3.74 [facility] ([place] Comment on above: Performed By: #### C MP, ADIFF, LIPID, GFR, [id number], ANEU, FT4, TSH, CBC #### [address] [address] LIPIDon 03-26-2023 Cholesterol [Mass/Vol] 299 mg/dL High 0-200 [facility] [place] Comment on above: Result Comment: Chol esterol Reference Interval: Less than 200 Desirable 200-239 Borderline high risk 240 and above High risk Performed By: #### L IPID, TSH #### [address] [address] #### T4 #### [address] [address] Cholesterol in HDL [Mass/Vol] 61 mg/dL High 40-60 [facility] [place] Comment on above: Performed By: #### L IPID, TSH #### [address] [address] #### T4 #### [address] [address] LDL Cholesterol Not Valid Normal 0-130 [facility] [place] Comment on above: Result Comment: Trig lyceride >400 invalidates the calculated LDL. Performed By: #### L IPID, TSH #### [place] [address] #### T4 #### [place] [address] Triglyceride [Mass/Vol] 401 mg/dL High 0-150 [facility] [place] Comment on above: Result Comment: Trig lyceride Reference Interval: Less than 150 Normal 150-199 Borderline high risk 200-499 High risk 500 or higher Very high risk Performed By: #### L IPID, TSH #### [place] [address] #### T4 #### [address] [address] T4on 03-26-2023 T4 [Mass/Vol] 10.0 ug/dL Normal 4.5-10.9 [facility] ([place] Comment on above: Result Comment: No te - New Reference Range in effect 19 Performed By: #### L IPID, TSH #### [place] [address] #### T4 #### [address] [address] TSHon 03-26-2023 TSH Qn 2.76 m[IU]/L Normal 0.36-3.74 [facility] ([place] Comment on above: Performed By: #### L IPID, TSH #### [place] [address] [place], [place] [address] #### T4 #### [facility] [address] [place] [id number] XR ELBOW MINIMUM 3 VIEWS LEF Ton 02-21-2023 XR ELBOW MINIMUM 3 VIEWS LEFT ORIGINAL EXAMINATION: THREE XRAY VIEWS OF THE [...] Date: 02/21/2023 3:14:04 PM Ordering Provider: KENYETTA Rachel [facility] [place] XR SHOULDER MINIMUM 2 VIEWS LEFTon 02-21-2023 XR SHOULDER MINIMUM 2 VIEWS LEFT ORIGINAL EXAMINATION: TWO XRAY VIEWS OF THE [...] Date: 02/21/2023 3:11:48 PM Ordering Provider: KENYETTA Rachel [facility] [place] HPYLAGon 10-11-2022 H pylori Ag EIA Stool See Below Normal See Comment [facility] ([place] Comment on above: Result Comment: H.PY CHAPARRO EIA RESULT Negative for Helicobacter pylori antigen by EIA SOURCE: STOOL Performed By: [facility] [employer] [address] [place] [address] Banana Loader: Paul Rodriguez III, M.D. CLIA#: [id number] Reference Range: Negative for H. Pylori antigen by EIA Performed By: #### H PYLAG #### [place] [address] .Auto Diffon 10-04-2022 Basophil, Absolute 0.1 10 3/mcL Normal 0.0-0.2 [facility] ([place] Comment on above: Performed By: #### L IPID, TSH #### [place] [address] #### T4 #### [address] [address] Basophils/100 WBC (Bld) 0.8 % Normal 0.0-2.5 [facility] ([place] Comment on above: Performed By: #### L IPID, TSH #### [place] [address] #### T4 #### [address] [address] Eosinophil, Absolute 0.1 10 3/mcL Normal 0.0-0.4 [facility] ([place] Comment on above: Performed By: #### L IPID, TSH #### [place] [address] #### T4 #### [address] [address] Eosinophils/100 WBC (Bld) 0.9 % Normal 0.0-7.0 [facility] ([place] Comment on above: Performed By: #### L IPID, TSH #### [place] [address] #### T4 #### [address] [address] Lymphocyte, Absolute 2.5 10 3/mcL Normal 0.8-3.9 [facility] ([place] Comment on above: Performed By: #### L IPID, TSH #### [address] [address] #### T4 #### [address] [address] Lymphocytes/100 WBC (Bld) 35.1 % Normal 10.0-50.0 [facility] ([place]) Comment on above: Performed By: #### L IPID, TSH #### [address] [address] #### T4 #### [address] [address] Monocyte, Absolute 0.5 10 3/mcL Normal 0.2-1.0 [facility] ([place]) Comment on above: Performed By: #### L IPID, TSH #### [address] [address] #### T4 #### [address] [address] Monocytes/100 WBC (Bld) 7.1 % Normal 1.7-13.0 [facility] ([place] Comment on above: Performed By: #### L IPID, TSH #### [address] [address] #### T4 #### [address] [address] Neutrophils/100 WBC (Bld) 56.1 % Normal 37.0-80.0 [facility] ([place] Comment on above: Performed By: #### L IPID, TSH #### [address] [address] #### T4 #### [address] [address] .GFRon 10-04-2022 GFR 60 ml/min/1.73sqm Normal [facility] ([place] Comment on above: Result Comment: GFR Population mean for , Non- Americans Ages 20-29 = 116 mL/min/1.73 sq.m. Ages 30-39 = 107 mL/min/1.73 sq.m. Ages 40-49 = 99 mL/min/1.73 sq.m. Ages 50-59 = 93 mL/min/1.73 sq.m. Ages 60-69 = 85 mL/min/1.73 sq.m. Ages 70+ = 75 mL/min/1.73 sq.m. Chronic Kidney Disease: Less than 60 mL/min/1.73 square meters End Stage Renal Disease: Less than 15 mL/min/1.73 square meters Performed By: #### L IPID, TSH #### [address] [address] #### T4 #### [address] [address] GFR Non- 49 ml/min/1.73sqm Normal [facility] ([place] Comment on above: Result Comment: GFR Population mean for , Non- Americans Ages 20-29 = 116 mL/min/1.73 sq.m. Ages 30-39 = 107 mL/min/1.73 sq.m. Ages 40-49 = 99 mL/min/1.73 sq.m. Ages 50-59 = 93 mL/min/1.73 sq.m. Ages 60-69 = 85 mL/min/1.73 sq.m. Ages 70+ = 75 mL/min/1.73 sq.m. Chronic Kidney Disease: Less than 60 mL/min/1.73 square meters End Stage Renal Disease: Less than 15 mL/min/1.73 square meters Performed By: #### L IPID, TSH #### [address] [address] #### T4 #### [address] [address] .MDWon 10-04-2022 Monocyte Distribution Width 17.51 Normal 0.00-20.00 [facility] ([place]) Comment on above: Result Comment: For ED adult patients suspected of sepsis, MDW<=20.0 does not rule out sepsis or risk of sepsis Performed By: #### L IPID, TSH #### [address] [address] #### T4 #### [address] [address] .NEUABSon 10-04-2022 Neutrophil, Absolute 4.0 10 3/mcL Normal 2.9-6.2 [facility] [place] Comment on above: Performed By: #### L IPID, TSH #### [place] [address] #### T4 #### [address] [address] ACTONon 10-04-2022 Acetone (s) Negative Normal Negative [facility] ([place] Comment on above: Performed By: #### L IPID, TSH #### [place] [address] #### T4 #### [address] [address] BAICon 10-04-2022 BUN/Creatinine Ratio 18 ratio Normal 7-27 [facility] ([place] Comment on above: Performed By: #### L IPID, TSH #### [address] [address] #### T4 #### [address] [address] Chloride [Moles/Vol] 102 mmol/L Normal 98-107 [facility] [place] Comment on above: Performed By: #### L IPID, TSH #### [address] [address] #### T4 #### [address] [address] CO2 [Moles/Vol] 25 mmol/L Normal 23-31 [facility] [place] Comment on above: Performed By: #### L IPID, TSH #### [address] [address] #### T4 #### [address] [address] Creatinine [Mass/Vol] 1.12 mg/dL High 0.55-1.02 [facility] ([place] Comment on above: Performed By: #### L IPID, TSH #### [address] [address] #### T4 #### [address] [address] Electrolyte Balance 12.0 mEq/L Normal 4.0-15.0 [facility] ([place] Comment on above: Performed By: #### L IPID, TSH #### [address] [address] #### T4 #### [address] [address] Glucose [Mass/Vol] 574 mg/dL Critically abnormal 80-115 [facility] [place] Comment on above: Performed By: #### L IPID, TSH #### [place] [address] #### T4 #### [address] [address] Potassium [Moles/Vol] 4.3 mmol/L Normal 3.5-5.1 [facility] [place] Comment on above: Performed By: #### L IPID, TSH #### [place] [address] #### T4 #### [address] [address] Sodium [Moles/Vol] 139 mmol/L Normal 136-145 [facility] ([place] Comment on above: Performed By: #### L IPID, TSH #### [address] [address] #### T4 #### [address] [address] Urea nitrogen [Mass/Vol] 20 mg/dL High 7-18 [facility] [place] Comment on above: Performed By: #### L IPID, TSH #### [place] [address] #### T4 #### [place] [address] Calcium Ionized 1.16 mmol/L Normal 1.12-1.32 [facility] [place] Comment on above: Performed By: #### L IPID, TSH #### [place] [address] #### T4 #### [place] [address] CBCon 10-04-2022 Erythrocyte distribution width (RBC) [Ratio] 14.4 % Normal 11.5-14.5 [facility] [place] Comment on above: Performed By: #### L IPID, TSH #### [place] [address] #### T4 #### [place] [address] Hematocrit (Bld) [Volume fraction] 42.3 % Normal 37.0-47.0 [facility] [place] Comment on above: Performed By: #### L IPID, TSH #### [place] [address] #### T4 #### [place] [address] Hgb 14.1 G/dL Normal 12.0-16.0 [facility] [place] Comment on above: Performed By: #### L IPID, TSH #### [place] [address] #### T4 #### [place] [address] MCH (RBC) [Entitic mass] 29.1 pg Normal 27.0-31.2 [facility] [place] Comment on above: Performed By: #### L IPID, TSH #### [place] [address] #### T4 #### [place] [address] MCHC 33.3 G/dL Normal 33.0-37.0 [facility] [place] Comment on above: Performed By: #### L IPID, TSH #### [address] [address] #### T4 #### [address] [address] MCV (RBC) [Entitic vol] 87.4 fL Normal 80.0-94.0 [facility] [place] Comment on above: Performed By: #### L IPID, TSH #### [place] [address] #### T4 #### [address] [address] Platelet 181 10 3/mcL Normal 130-400 [facility] ([place] Comment on above: Performed By: #### L IPID, TSH #### [place] [address] #### T4 #### [address] [address] Platelet mean volume (Bld) [Entitic vol] 8.4 fL Normal 7.4-10.4 [facility] [place] Comment on above: Performed By: #### L IPID, TSH #### [place] [address] #### T4 #### [place] [address] RBC 4.83 10 6/mcL Normal 4.20-5.40 [facility] [place] Comment on above: Performed By: #### L IPID, TSH #### [place] [address] #### T4 #### [place] [address] WBC 7.2 10 3/mcL Normal 4.6-10.8 [facility] ([place] Comment on above: Performed By: #### L IPID, TSH #### [place] [address] #### T4 #### [place] [address] PHVon 10-04-2022 pH Venous 7.39 Normal 7.31-7.41 [facility] [place] Comment on above: Performed By: #### L IPID, TSH #### [place] [address] #### T4 #### [address] [address] UAon 10-04-2022 Color (U) Yellow Normal [facility] ([place] Comment on above: Performed By: #### L IPID, TSH #### [place] [address] #### T4 #### [address] [address] Glucose (U) [Mass/Vol] mg/dL Abnormal Negative [facility] [place] Comment on above: Performed By: #### L IPID, TSH #### [place] [address] #### T4 #### [address] [address] Ketones Ql (U) Negative Normal Negative [facility] ([place]) Comment on above: Performed By: #### L IPID, TSH #### [place] [address] #### T4 #### [address] [address] UA Appear Clear Normal Clear [facility] ([place] Comment on above: Performed By: #### L IPID, TSH #### [place] [address] #### T4 #### [facility] [address] [place] [address] UA Blood Trace Abnormal Negative [facility] ([place] Comment on above: Performed By: #### L IPID, TSH #### [place] [address] #### T4 #### [facility] [address] [place] [address] UA Leuk Est Negative Normal Negative [facility] ([place]) Comment on above: Performed By: #### L IPID, TSH #### [address] [address] #### T4 #### [address] [address] UA Nitrite Negative Normal Negative [facility] [place] Comment on above: Performed By: #### L IPID, TSH #### [place] [address] #### T4 #### [place] [address] UA pH 5.5 Normal 5.0 - 8.0 [facility] [place] Comment on above: Performed By: #### L IPID, TSH #### [place] [address] #### T4 #### [place] [address] UA Protein Negative Normal Negative [facility] [place] Comment on above: Performed By: #### L IPID, TSH #### [place] [address] #### T4 #### [place] [address] UA Spec Grav 1.015 Normal 1.015-1.025 [facility] ([place] Comment on above: Performed By: #### L IPID, TSH #### [place] [address] #### T4 #### [place] [address] UA Specimen Type Clean Catch Normal [facility] [place] Comment on above: Performed By: #### L IPID, TSH #### [place] [address] #### T4 #### [place] [address] UA Urobilinogen 0.2 E.U./dL Normal 0.2-1.0 [facility] [place] Comment on above: Performed By: #### L IPID, TSH #### [place] [id number] #### T4 #### [place] [address] [address] [place] [address] Urobilinogen (U) [Mass/Vol] Negative Normal Negative [facility] [place] Comment on above: Performed By: #### L IPID, TSH #### [place] [address] [place], [place] [address] #### T4 #### [address] [address] XR CHEST 1 VIEWon 10-04-2022 XR CHEST 1 VIEW ORIGINAL EXAMINATION: ONE XRAY VIEW OF THE [...] 10/04/2022 4:48:26 PM Ordering Provider: JESUS MANUEL Rachel [facility] [place] Jeanne 09-08-2022 ODALIS Telephone (ENDMED) ANITA BOWERS ([id number]) 1960 F Date Time Provider Department 09/08/22 KATE HELMS During your visit today, we recorded the following information about you: Man Irby Ma 09/08/2022 10:50 AM Signed Received approval for Trulicity from [employer]. Effective 09/08/22 until 09/09/23. CLOSED Allergies As of Date: 09/08/2022 Noted Allergy Reaction ASPIRIN 04/06/2014 14 - Other: See Comments Comments: Excessive bruising PENICILLIN G 04/06/2014 14 - Other: See Comments Comments: Excessive bruising Date Reviewed: 09/05/2022 Reviewed by: Elissa Mills MA - Fully Assessed Reason for Visit: Insurance Authorization [[id number]] Cmt: Trulicity Prescriptions as of 09/08/2022 - insulin regular human, CONCENTRATED 500 UNIT/ML, (HUMULIN R) 500 unit/mL (3 mL) inpn Take 88 units with breakfast, 66 units with lunch, 66 units with dinner - TRULICITY 1.5 mg/0.5 mL pen injector Inject 1.5 mg subcutaneously one time a week. - flash glucose sensor (FREESTYLE SHANDA 2 SENSOR) kit Apply new sensor every fourteen (14) days to upper arm. E11.65. patient on multiple insulin injections - gabapentin (NEURONTIN) 300 mg capsule Take 300 mg by mouth three times daily. - levothyroxine (SYNTHROID) 88 mcg tablet Take 88 mcg by mouth once daily. - losartan-hydroCHLOROt hiazide (HYZAAR) 50-12.5 mg per tablet Take 1 tablet by mouth once daily. - cholecalciferol (VITAMIN D3) 400 unit tab Take by mouth. - furosemide (LASIX) 20 mg tablet take 1 tablet by mouth once daily if needed for edema - potassium chloride SR (MICRO-K) 10 mEq CR capsule take 1 capsule by mouth once daily if needed WHEN TAKING LASIX - gentamicin (GENTAK) 0.3 % ophthalmic solution - pravastatin (PRAVACHOL) 20 mg tablet Take 20 mg by mouth once daily. - pregabalin (LYRICA) 50 mg capsule Take 50 mg by mouth twice daily. Problem List As Of Date 09/08/2022 Noted Resolved Nontoxic multinodular goiter [E04.2] 04/16/2014 Papillary carcinoma (HCC) [C80.1] 05/27/2014 DM (diabetes mellitus), type 2 with neurologica* 5 Postoperative hypothyroidism [E89.0] 08/26/2015 Encounter Status:Closed by MAN IRBY MA on 09/08/22 Normal [facility] CNNURSEon 09-05-2022 CNNURSE Nurse Visit (EDEDME) ANITA BOWERS ([id number]) 1960 F Date Time Provider Department 09/05/22 1:00 PM PEYTON CAMPO During your visit today, we recorded the following information about you: Peyton Campo RN 09/05/2022 12:55 PM Signed DIABETES SELF-MANAGEMENT EDUCATION AND SUPPORT Location: [place] Type of visit: In person individual Types [...] Race/Ethnic Origin: White/ Does your culture or jain require any of the following: No cultural/catholic practices affecting DM Do you have problems with: No difficulty seeing/hearing/readin g/writing/speaking Do you use tobacco? No Do you [...] a week. flash glucose scanning reader (FREESTYLE SHANDA 2 READER) Use to check blood sugar at least four (4) times daily. E11.65. patient on multiple insulin injections flash glucose sensor (FREESTYLE SHANDA 2 SENSOR) kit Apply new sensor every fourteen (14) days to upper arm. E11.65. patient on multiple insulin injections gabapentin (NEURONTIN) 300 mg capsule Take 300 mg by mouth three times daily. levothyroxine (SYNTHROID) 88 mcg tablet Take 88 mcg by mouth once daily. losartan-hydroCHLOROt hiazide (HYZAAR) 50-12.5 mg per tablet Take 1 [...] Technique: Do you take insulin or a (more content not included)... Normal [facility] CNOVon 09-05-2022 CNOV Office Visit (ENDMED ) ANITA BOWERS ([id number]) 1960 F Date Time Provider Department 09/05/22 11:20 AM KATE HELMS During your visit today, we recorded the following information about you: Pulse Blood pressure Weight Height 78/minute 168/99 106.2 kg 1.676 m Kate Helms MD 09/05/2022 12:59 PM Signed ENDOCRINOLOGY CLINIC NOTE Ms. Bowers is a pleasant 62 year old female [...] months ago) Home glucose monitoring: She has iSpecimenstyle shanda The patient's continuous glucose monitoring device was [...] DANDC, DIAG AND/OR THERAPEUTIC 02/09/2022 EGD W/O [facility] SPEC VARICIES INJ 02/17/2019 PAST SURGICAL HISTORY OF 1990 ORIF left tibia, percutaneous pinning left small finger PAST SURGICAL HISTORY OF laparoscopy for endometriosis TONSILLECTOMY HX 1967 TOTAL THYROID LOBECTOMY UNI W/WO ISTHMUSECTOMY Right [...] Take 88 mcg by mouth once daily. losartan-hydroCHLOROt hiazide (HYZAAR) 50-12.5 mg per tablet Take 1 [...] lb 3.2 oz) Height: 167.6 cm (5' 6) General: NAD, alert and cooperative HEENT: EOMI, no proptosis/s (more content not included)... Normal [facility] HEMOGLOBIN A1C (POC)on 09-05 HbA1c (Bld) [Mass fraction] 10.8 % Abnormal 4.2 - 5.6 % [facility] Absolute lymphocyte counton 05-31-2022 Lymphocytes Auto (Unsp spec) [#/Vol] 3.16 10*3/uL 0.83-4.51 [facility] Work Phone: Basophil percentageon 2021 Basophils/100 WBC (Bld) 1.0 % 0-1 [facility] Work Phone: Bilirubin [Mass/Vol] 0.30 mg/dL 0.20-1.00 [facility] Work Phone: Comment on above: For patients on eltr ombopag therapy, use of Dimension [place] TBIL is not recommended. Chloride [Moles/Vol] 99 mmol/L 98-107 [facility] Work Phone: Eosinophils/100 WBC (Bld) 2.8 % 0-5 [facility] Work Phone: Glucose [Mass/Vol] 430 mg/dL 74-106 [facility] Work Phone: Comment on above: Glucose result great er than or equal to 200 mg/dLsuggests DIABETES MELLITUS per A.D.A. criteria. Neutrophils (Bld) [#/Vol] 4.2 10*3/uL 2.0-7.7 [facility] Work Phone: Neutrophils/100 WBC (Bld) 50.6 % 47-70 [facility] Work Phone: Potassium [Moles/Vol] 4.4 mmol/L 3.5-5.1 [facility] Work Phone: Protein [Mass/Vol] 7.3 g/dL 6.4-8.2 [facility] Work Phone: Sodium [Moles/Vol] 132 mmol/L 136-145 [facility] Work Phone: WBC (Bld) [#/Vol] 8.3 10*3/uL 4.4-11.0 [facility] Work Phone: Blood erythrocytes count (nu mber/volume)on 05-31-2022 RBC (Bld) [#/Vol] 4.98 10*6/uL 4.2-5.4 [facility] Work Phone: Blood hemoglobin measurement (mass/volume)on 05-31-2022 Hemoglobin (Bld) [Mass/Vol] 14.4 g/dL 12.0-15.0 [facility] Work Phone: Blood lymphocytes/100 leukoc yteson 05-31-2022 Lymphocytes/100 WBC (Bld) 38.0 % 19-41 [facility] Work Phone: Blood monocytes/100 leukocyt eson 05-31-2022 Monocytes/100 WBC (Bld) 7.2 % 0-10 [facility] Work Phone: Blood platelet mean volumeon 05-31-2022 Platelet mean volume (Bld) [Entitic vol] 10.7 fL 6.2-12.0 [facility] Work Phone: Determination of erythrocyte mean corpuscular volume (MCV)on 05-31-2022 MCV (RBC) [Entitic vol] 89.2 fL 81-99 [facility] Work Phone: Hematocrit Auto (Bld) [Volum e fraction]on 05-31-2022 Hematocrit (Bld) [Volume fraction] 44.4 % 37-47 [facility] Work Phone: Laboratory - Chemistry and C hemistry - challengeon 05-31-2022 ALP [Catalytic activity/Vol] 81 U/L 45-117 [facility] Work Phone: ALT [Catalytic activity/Vol] 28 U/L 13-56 [facility] Work Phone: CO2 [Moles/Vol] 24.0 mmol/L 21.0-32.0 [facility] Work Phone: Globulin (S) [Mass/Vol] 3.9 g/dL 2.2-4.2 [facility] Work Phone: Urea nitrogen/Creatinine [Mass ratio] 25.4 mg/mg 10-20 [facility] Work Phone: Laboratory - Hematology and Cell countson 05-31-2022 Erythrocyte distribution width (RBC) [Entitic vol] 40.9 fL 35.1-43.9 [facility] Work Phone: Erythrocyte distribution width (RBC) [Ratio] 12.5 % 11.6-14.6 [facility] Work Phone: Immature granulocytes/100 WBC (Bld) 0.400 % 0.0-0.9 [facility] Work Phone: Comment on above: IG% - Immature Granu locytes (promyelocytes, myelocytes and metamyelocytes) > 1% indicates that a LEFT SHIFT is Present. MCH (RBC) [Entitic mass] 28.9 pg 27.0-32.0 [facility] Work Phone: Nucleated RBC/100 WBC (Bld) [Ratio] 0 % 0-5 [facility] Work Phone: MCHC Auto (RBC) [Mass/Vol]on 05-31-2022 MCHC (RBC) [Mass/Vol] 32.4 g/dL 32-36 [facility] Work Phone: No Panel Informationon 05-31 Estimated GFR (MDRD) Amer 73 mL/min >60 [facility] Work Phone: Comment on above: GFR Calc Estimated GFR (MDRD) Non-Af Amer 61 mL/min >60 [facility] Work Phone: Comment on above: Non- GFR Calc Platelets bldon 05-31-2022 Platelets (Bld) [#/Vol] 276 10*3/uL 150-450 [facility] Work Phone: Serum or plasma albumin stefan urement (mass/volume)on 05-31-2022 Albumin [Mass/Vol] 3.4 g/dL 3.2-5.0 [facility] Work Phone: Serum or plasma albumin/glob ulin mass ratioon 05-31-2022 Albumin/Globulin [Mass ratio] 0.9 {ratio} 0.9-2.4 [facility] Work Phone: Serum or plasma calcium stefan urement (mass/volume)on 05-31-2022 Calcium [Mass/Vol] 9.9 mg/dL 8.5-10.1 [facility] Work Phone: Serum or plasma creatinine m easurement (mass/volume)on 05-31-2022 Creatinine [Mass/Vol] 0.98 mg/dL 0.55-1.02 [facility] Work Phone: Comment on above: The validity of the calculated GFR & GFRAA in patients over 70 years has not been determined. Clinical correlation is essential. Serum or plasma urea nitroge n measurement (mass/volume)on 05-31-2022 Urea nitrogen [Mass/Vol] 25 mg/dL 7-18 [facility] Work Phone: Thin prep Papanicolaou smear with manual screeningon 05-31-2022 Thin prep Papanicolaou smear with manual screening 8 U/L 15-37 [facility] Work Phone: Thin prep Papanicolaou smear with manual screening 9 5-15 [facility] Work Phone: Basophil percentageon 2021 Bilirubin [Mass/Vol] 0.40 mg/dL 0.20-1.00 [facility] Work Phone: Comment on above: For patients on eltr ombopag therapy, use of Dimension [place] TBIL is not recommended. Chloride [Moles/Vol] 106 mmol/L 98-107 [facility] Work Phone: Glucose [Mass/Vol] 152 mg/dL 74-106 [facility] Work Phone: Comment on above: Fasting Glucose resu lt greater than or equal to 126 mg/dL suggests DIABETES MELLITUS per A.D.A. criteria. Potassium [Moles/Vol] 4.5 mmol/L 3.5-5.1 [facility] Work Phone: Protein [Mass/Vol] 7.7 g/dL 6.4-8.2 [facility] Work Phone: Sodium [Moles/Vol] 140 mmol/L 136-145 [facility] Work Phone: Laboratory - Chemistry and C hemistry - challengeon 03-24-2022 ALP [Catalytic activity/Vol] 76 U/L 45-117 [facility] Work Phone: ALT [Catalytic activity/Vol] 41 U/L 13-56 [facility] Work Phone: CO2 [Moles/Vol] 29.0 mmol/L 21.0-32.0 [facility] Work Phone: Globulin (S) [Mass/Vol] 4.2 g/dL 2.2-4.2 [facility] Work Phone: Urea nitrogen/Creatinine [Mass ratio] 24.8 mg/mg 10- [facility] Work Phone: No Panel Informationon 03-24 Estimated GFR (MDRD) Amer 92 mL/min >60 [facility] Work Phone: Comment on above: GFR Calc Estimated GFR (MDRD) Non-Af Amer 76 mL/min >60 [facility] Work Phone: Comment on above: Non- GFR Calc Serum or plasma albumin stefan urement (mass/volume)on 03-24-2022 Albumin [Mass/Vol] 3.5 g/dL 3.2-5.0 [facility] Work Phone: Serum or plasma albumin/glob ulin mass ratioon 03-24-2022 Albumin/Globulin [Mass ratio] 0.8 {ratio} 0.9-2.4 [facility] Work Phone: Serum or plasma calcium stefan urement (mass/volume)on 03-24-2022 Calcium [Mass/Vol] 9.5 mg/dL 8.5-10.1 [facility] Work Phone: Serum or plasma creatinine m easurement (mass/volume)on 03-24-2022 Creatinine [Mass/Vol] 0.81 mg/dL 0.55-1.02 [facility] Work Phone: Comment on above: The validity of the calculated GFR & GFRAA in patients over 70 years has not been determined. Clinical correlation is essential. Serum or plasma urea nitroge n measurement (mass/volume)on 03-24-2022 Urea nitrogen [Mass/Vol] 20 mg/dL 7-18 [facility] Work Phone: Thin prep Papanicolaou smear with manual screeningon 03-24-2022 Thin prep Papanicolaou smear with manual screening 24 U/L 15-37 [facility] Work Phone: Thin prep Papanicolaou smear with manual screening 5 5-15 [facility] Work Phone: Whole blood hemoglobin A1c/t otal hemoglobin ratio (mass fraction)on 03-24-2022 HbA1c (Bld) [Mass fraction] 8.9 % 3.8-5.6 [facility] Work Phone: Comment on above: Normal < 5.7 % Predi abetic 5.7 - 6.4 % Diabetic >or= 6.5 % Please note range changes. CNOVon 03-20-2022 CNOV Office Visit (GENSWS ) ANITA BOWERS ([id number]) 1960 F Date Time Provider Department 03/20/22 1:30 PM JOAQUIN CABAN During your visit today, we recorded the following information about you: Temperature Pulse Blood pressure Weight 97.4 degrees 102/minute 128/85 105.8 kg Height 1.676 m Joaquin Caban III, MD 03/20/2022 1:48 PM Signed HISTORY AND PHYSICAL Anita Bowers 1960 REFERRING PHYSICIAN: Dr. Oscar Colorado*pre-clinic CHIEF COMPLAINT: Consult (Abnormal thyroid ultrasound) HPI: The patient is a 62 year old female with a complaint of a left thyroid nodule. This thyroid nodule was found on Ultrasound by [facility]. The patient denies pain, denies difficulty [...] The patient had a ultrasound done at [facility] on 03/02/2022. This showed approximately 3 [...] Take 88 mcg by mouth once daily. losartan-hydroCHLOROt hiazide (HYZAAR) 50-12.5 mg per tablet Take 1 [...] daily. (Patient not taking: Reported on 03/20/2022) HYDROcodone-acetamino phen (NORCO) 5-325 mg per tablet (Patient not [...] pressure 128/85, pulse 102, temperature 36.3 ?C (more content not included)... Normal [facility] Glucose Glucometer (BldC) [M ass/Vol]on 02-09-2022 Glucose [Mass/Vol] 155 mg/dL 74-106 [facility] Work Phone: Comment on above: MANAGEMENT OF PATIEN T CARE PER NURSING PROTOCOL Basophil percentageon 2021 WBC (Bld) [#/Vol] 7.9 10*3/uL 4.4-11.0 [facility] Work Phone: Blood erythrocytes count (nu mber/volume)on 02-02-2022 RBC (Bld) [#/Vol] 5.13 10*6/uL 4.2-5.4 [facility] Work Phone: Blood hemoglobin measurement (mass/volume)on 02-02-2022 Hemoglobin (Bld) [Mass/Vol] 15.5 g/dL 12.0-15.0 [facility] Work Phone: Blood platelet mean volumeon 02-02-2022 Platelet mean volume (Bld) [Entitic vol] 10.9 fL 6.2-12.0 [facility] Work Phone: Determination of erythrocyte mean corpuscular volume (MCV)on 02-02-2022 MCV (RBC) [Entitic vol] 89.9 fL 81-99 [facility] Work Phone: Hematocrit Auto (Bld) [Volum e fraction]on 02-02-2022 Hematocrit (Bld) [Volume fraction] 46.1 % 37-47 [facility] Work Phone: Laboratory - Hematology and Cell countson 02-02-2022 Erythrocyte distribution width (RBC) [Entitic vol] 43.2 fL 35.1-43.9 [facility] Work Phone: Erythrocyte distribution width (RBC) [Ratio] 13.1 % 11.6-14.6 [facility] Work Phone: MCH (RBC) [Entitic mass] 30.2 pg 27.0-32.0 [facility] Work Phone: MCHC Auto (RBC) [Mass/Vol]on 02-02-2022 MCHC (RBC) [Mass/Vol] 33.6 g/dL 32-36 [facility] Work Phone: Platelets bldon 02-02-2022 Platelets (Bld) [#/Vol] 246 10*3/uL 150-450 [facility] Work Phone: Cervical or vagninal specime n microscopic examination by cytology stain (reported ason 01-23-2022 Cytology report Cyto stain Doc (Cvx/Vag) Comment . [facility] Work Phone: Comment on above: The Pap smear is a s creening test designed to aid in thedetection of premalignant and malignant conditions of theuterine cervix. It is not a diagnostic procedure andshould not be used as the sole means of detecting cervicalcancer. Both false-positive and false-negative reports dooccur. Detection in cervical specim en of any of human papilloma virus (HPV) 16, 18, 31, 33,on 01-23-2022 HPV 16+18+31+33+35+39+4 5+51+52+56+58+59+66 +68 DNA Probe+sig amp Ql (Cvx) Negative Negative [facility] Work Phone: Comment on above: This nucleic acid am plification test detects fourteen high- risk HPV types (16,18,31,33,35,39,45,51,52,56,58,59,66,68)without differentiation.Performed at: - [facility] [id number] Director: Anita Hopson MD, Phone: [phone] at: = - [facility] [address] [id number] Director: Anita Hopson MD, Phone: [phone] Laboratory - Cytologyon 01-09 Shuttle Inspector Cyto stain Nom (Cvx/Vag) [ID] Comment . [facility] Work Phone: Comment on above: Maria Isabel Presley, [employer] hnologist (ASCP) Laboratory - Miscellaneous t estson 01-23-2022 Service comment (Unsp spec) [Interp] Comment . [facility] Work Phone: Comment on above: This liquid based Th inPrep(R) pap test was screened withthe use of an image guided system. Service comment (Unsp spec) [Interp] . . [facility] Work Phone: No Panel Informationon 01-23 Pathology report final diagnosis Narrative Comment . [facility] Work Phone: Comment on above: NEGATIVE FOR INTRAEP ITHELIAL LESION OR MALIGNANCY. Laboratory - Hematology and Cell countson 12-19-2021 HbA1c (Bld) [Mass fraction] 11.0 % [facility] Work Phone: COVID PCR, SCREENING CONGREG ATEon 12-04-2019 CORONAVIRUS 2019,PCR NOT DETECTED Normal Not Detected [facility] Comment on above: Result Comment: This assay is designed to detect the N, ORF1ab and/or S genes of SARS-CoV-2 via nucleic acid amplification. A Negative (NOT DETECTED) result does not preclude 2019-nCoV infection since the adequacy of sample collection and/or low viral burden may result in presence of viral nucleic acids below the clinical sensitivity of this test method. Negative (NOT DETECTED) result should not be used as the sole basis for treatment or other patient management decisions. Rather negative results should be combined with clinical observations, patient history, and epidemiological information to make patient management decisions. Fact sheet for providers: https://www.fda.gov/media/597221/download Fact sheet for patients: https://www.fda.gov/media/165995/download This test has received FDA Emergency Use Authorization (EUA) and has been verified by [facility] ([facility]). This test is only authorized for the duration of time that circumstances exist to justify the authorization of the emergency use of in vitro diagnostic tests for the detection of SARS-CoV-2 virus and/or diagnosis of COVID-19 infection under section 564(b)(1) of the Act, 21 U.S.C. 360bbb-3(b)(1), unless the authorization is terminated or revoked sooner. [facility] ([facility]) is certified under CLIA-88 as qualified to perform high complexity testing. This tests analytical performance characteristics have been determined by [facility]. Testing is performed at [facility] is located at [address] [place] [address] (CLIA License #[id number], CAP #[id number]). Performed By: #### C VCLA #### [facility] [address] [place] [address] [place] [address] Lab Specimen Source Nasal, Nasopharyngeal Normal [facility] Comment on above: Performed By: #### C VCLA #### [facility] [address] [place], [place] [id number] Hpylori Ag EIA Stoolon 07-03 Hpylori Ag EIA Stool Specimen Desc: STOOL Sp. Request/Comment: FROZEN Test Result NEGHPA Report Status [id number] FINAL Normal [facility] CBC and Differentialon 12-19 Abs Baso 0.05 k/uL Normal <0.11 [facility] Comment on above: Performed By: #### C BCDIF, CMP, LIPB, TSH, FT4, HBA1C, VITD #### [facility] [address] [place] [address] Abs Mcnairy 0.50 k/uL Normal <0.87 [facility] Comment on above: Performed By: #### C BCDIF, CMP, LIPB, TSH, FT4, HBA1C, VITD #### [facility] [address] [place] [address] Abs Neut 3.73 k/uL Normal 1.45-7.50 [facility] Comment on above: Performed By: #### C BCDIF, CMP, LIPB, TSH, FT4, HBA1C, VITD #### [facility] [address] [address] Absolute nRBC <0.01 Normal <0.01 [facility] Comment on above: Performed By: #### C BCDIF, CMP, LIPB, TSH, FT4, HBA1C, VITD #### [facility] [address] [phone] Basophils/100 WBC (Bld) 0.7 % Normal [facility] Comment on above: Performed By: #### C BCDIF, CMP, LIPB, TSH, FT4, HBA1C, VITD #### [facility] [address] [phone] DTYPE ADIFF Normal [facility] Comment on above: Performed By: #### C BCDIF, CMP, LIPB, TSH, FT4, HBA1C, VITD #### [facility] [address] [address] Eosinophils (Bld) [#/Vol] 0.11 10*3/uL Normal <0.46 [facility] Comment on above: Performed By: #### C BCDIF, CMP, LIPB, TSH, FT4, HBA1C, VITD #### [facility] [address] [address] Eosinophils/100 WBC (Bld) 1.5 % Normal [facility] Comment on above: Performed By: #### C BCDIF, CMP, LIPB, TSH, FT4, HBA1C, VITD #### [facility] [address] [place] [phone] Erythrocyte distribution width (RBC) [Ratio] 13.0 % Normal 11.5-15.0 [facility] Comment on above: Performed By: #### C BCDIF, CMP, LIPB, TSH, FT4, HBA1C, VITD #### [facility] [address] [address] Hematocrit (Bld) [Volume fraction] 48.7 % High 36.0-46.0 [facility] Comment on above: Performed By: #### C BCDIF, CMP, LIPB, TSH, FT4, HBA1C, VITD #### [facility] [address] [address] Hemoglobin (Bld) [Mass/Vol] 15.6 g/dL High 11.5-15.5 [facility] Comment on above: Performed By: #### C BCDIF, CMP, LIPB, TSH, FT4, HBA1C, VITD #### [facility] [address] [phone] Lymphocytes (Bld) [#/Vol] 3.04 10*3/uL Normal 1.00-4.00 [facility] Comment on above: Performed By: #### C BCDIF, CMP, LIPB, TSH, FT4, HBA1C, VITD #### [facility] [address] [place], [place] [address] Lymphocytes/100 WBC (Bld) 40.8 % Normal [facility] Comment on above: Performed By: #### C BCDIF, CMP, LIPB, TSH, FT4, HBA1C, VITD #### [facility] [address] [address] MCH (RBC) [Entitic mass] 29.5 pG Normal 26.0-34.0 [facility] Comment on above: Performed By: #### C BCDIF, CMP, LIPB, TSH, FT4, HBA1C, VITD #### [facility] [address] [address] MCHC (RBC) [Mass/Vol] 32.0 g/dL Normal 30.5-36.0 [facility] Comment on above: Performed By: #### C BCDIF, CMP, LIPB, TSH, FT4, HBA1C, VITD #### [facility] [address] [place] [address] MCV (RBC) [Entitic vol] 92.1 fL Normal 80.0-100.0 [facility] Comment on above: Performed By: #### C BCDIF, CMP, LIPB, TSH, FT4, HBA1C, VITD #### [facility] [address] [address] Monocytes/100 WBC (Bld) 6.7 % Normal [facility] Comment on above: Performed By: #### C BCDIF, CMP, LIPB, TSH, FT4, HBA1C, VITD #### [facility] [address] [place], [place] [address] Neutrophils/100 WBC (Bld) 50.3 % Normal [facility] Comment on above: Performed By: #### C BCDIF, CMP, LIPB, TSH, FT4, HBA1C, VITD #### [facility] [address] [place], [place] [address] NRBCs 0.0 /100 WBC Normal 0 [facility] Comment on above: Performed By: #### C BCDIF, CMP, LIPB, TSH, FT4, HBA1C, VITD #### [facility] [address] [address] Platelet mean volume (Bld) [Entitic vol] 12.2 fL Normal 9.0-12.7 [facility] Comment on above: Performed By: #### C BCDIF, CMP, LIPB, TSH, FT4, HBA1C, VITD #### [facility] [address] [address] Platelets (Bld) [#/Vol] 186 10*3/uL Normal 150-400 [facility] Comment on above: Performed By: #### C BCDIF, CMP, LIPB, TSH, FT4, HBA1C, VITD #### [facility] [address] [address] RBC (Bld) [#/Vol] 5.29 10*6/uL High 3.90-5.20 [facility] Comment on above: Performed By: #### C BCDIF, CMP, LIPB, TSH, FT4, HBA1C, VITD #### [facility] [address] [address] WBC (Bld) [#/Vol] 7.45 10*3/uL Normal 3.70-11.00 [facility] Comment on above: Performed By: #### C BCDIF, CMP, LIPB, TSH, FT4, HBA1C, VITD #### [facility] [address] [place], [place] [address] Comp Metabolic Panelon 12-19 Albumin [Mass/Vol] 4.3 g/dL Normal 3.9-4.9 [facility] Comment on above: Performed By: #### C BCDIF, CMP, LIPB, TSH, FT4, HBA1C, VITD #### [facility] [address] [address] ALP [Catalytic activity/Vol] 66 U/L Normal 34-123 [facility] Comment on above: Performed By: #### C BCDIF, CMP, LIPB, TSH, FT4, HBA1C, VITD #### [facility] [address] [place] [address] ALT [Catalytic activity/Vol] 26 U/L Normal 7-38 [facility] Comment on above: Performed By: #### C BCDIF, CMP, LIPB, TSH, FT4, HBA1C, VITD #### [facility] [address] [place] [address] Anion gap [Moles/Vol] 11 mmol/L Normal 9-18 [facility] [facility] Comment on above: Performed By: #### C BCDIF, CMP, LIPB, TSH, FT4, HBA1C, VITD #### [facility] [address] [place] [address] AST [Catalytic activity/Vol] 21 U/L Normal 13-35 [facility] Comment on above: Performed By: #### C BCDIF, CMP, LIPB, TSH, FT4, HBA1C, VITD #### [facility] [address] [address] Bilirubin Ql (U) 0.3 mg/dL Normal 0.2-1.3 [facility] Comment on above: Performed By: #### C BCDIF, CMP, LIPB, TSH, FT4, HBA1C, VITD #### [facility] [address] [address] Calcium [Mass/Vol] 9.6 mg/dL Normal 8.5-10.2 [facility] Comment on above: Performed By: #### C BCDIF, CMP, LIPB, TSH, FT4, HBA1C, VITD #### [facility] [address] [place] [address] Chloride [Moles/Vol] 100 mmol/L Normal 97-105 [facility] Comment on above: Performed By: #### C BCDIF, CMP, LIPB, TSH, FT4, HBA1C, VITD #### [facility] [address] [place] [address] CO2 [Moles/Vol] 25 mmol/L Normal 22-30 [facility] Comment on above: Performed By: #### C BCDIF, CMP, LIPB, TSH, FT4, HBA1C, VITD #### [facility] [address] [place] [address] Creatinine [Mass/Vol] 0.59 mg/dL Normal 0.58-0.96 [facility] Comment on above: Performed By: #### C BCDIF, CMP, LIPB, TSH, FT4, HBA1C, VITD #### [facility] [address] [place] [address] eGFR- Amer. >60 Normal [facility] Comment on above: Performed By: #### C BCDIF, CMP, LIPB, TSH, FT4, HBA1C, VITD #### [facility] [address] [place] [address] GFR/1.73 sq M predicted among non-blacks MDRD (S/P/Bld) [Vol rate/Area] mL/min/{1.73_m2} Normal [facility] Comment on above: Performed By: #### C BCDIF, CMP, LIPB, TSH, FT4, HBA1C, VITD #### [facility] [address] [place], [place] [address] Glucose [Mass/Vol] 276 mg/dL High 74-99 [facility] Comment on above: Performed By: #### C BCDIF, CMP, LIPB, TSH, FT4, HBA1C, VITD #### [facility] [address] [address] Potassium [Moles/Vol] 4.4 mmol/L Normal 3.7-5.1 [facility] Comment on above: Performed By: #### C BCDIF, CMP, LIPB, TSH, FT4, HBA1C, VITD #### [facility] [address] [place] [address] Protein [Mass/Vol] 7.4 g/dL Normal 6.3-8.0 [facility] Comment on above: Performed By: #### C BCDIF, CMP, LIPB, TSH, FT4, HBA1C, VITD #### [facility] [address] [place] [address] Sodium [Moles/Vol] 136 mmol/L Normal 136-144 [facility] Comment on above: Performed By: #### C BCDIF, CMP, LIPB, TSH, FT4, HBA1C, VITD #### [facility] [address] [place], [place] [id number] Urea nitrogen [Mass/Vol] 18 mg/dL Normal 7-21 [facility] Comment on above: Performed By: #### C BCDIF, CMP, LIPB, TSH, FT4, HBA1C, VITD #### [facility] [address] [place], [place] [address] Free T4on 12-19-2018 Free T4 [Mass/Vol] 1.3 ng/dL Normal 0.9-1.7 [facility] Comment on above: Performed By: #### C MP, LIPB, FT4, TSH, CBCDIF, HBA1C, VITD #### [facility] [address] [place], [place] [address] Hemoglobin A1con 12-19-2018 HbA1c (Bld) [Mass fraction] 10.8 % High 4.3-5.6 [facility] Comment on above: Performed By: #### C MP, LIPB, FT4, TSH, CBCDIF, HBA1C, VITD #### [facility] [address] [place], [place] [address] HbA1c (Bld) [Mass fraction] 263 mg/dL Normal [facility] Comment on above: Performed By: #### C MP, LIPB, FT4, TSH, CBCDIF, HBA1C, VITD #### [facility] [address] [place] [address] Lipid Panel, Basicon 019 Cholesterol [Mass/Vol] 314 mg/dL High <200 [facility] Comment on above: Performed By: #### C BCDIF, CMP, LIPB, TSH, FT4, HBA1C, VITD #### [facility] [address] [place], [place] [address] Cholesterol in HDL [Mass/Vol] 62 mg/dL Normal >39 [facility] Comment on above: Performed By: #### C BCDIF, CMP, LIPB, TSH, FT4, HBA1C, VITD #### [facility] [address] [place], [place] [address] Cholesterol in LDL [Mass/Vol] 202 mg/dL High <100 [facility] Comment on above: Performed By: #### C BCDIF, CMP, LIPB, TSH, FT4, HBA1C, VITD #### [facility] [address] [place], [place] [address] Cholesterol in VLDL [Mass/Vol] 50 mg/dL High <30 [facility] Comment on above: Performed By: #### C BCDIF, CMP, LIPB, TSH, FT4, HBA1C, VITD #### [facility] [address] Cholesterol non HDL [Mass/Vol] 252 mg/dL High <130 [facility] Comment on above: Performed By: #### C BCDIF, CMP, LIPB, TSH, FT4, HBA1C, VITD #### [facility] [address] [phone] LDL:HDL Ratio 3.26 High <2.54 [facility] Comment on above: Performed By: #### C BCDIF, CMP, LIPB, TSH, FT4, HBA1C, VITD #### [facility] [address] [place], [place] [id number] TC:HDL Ratio 5.06 Normal <5.10 [facility] Comment on above: Performed By: #### C BCDIF, CMP, LIPB, TSH, FT4, HBA1C, VITD #### [facility] [address] [place], [place] [address] Triglyceride [Mass/Vol] 249 mg/dL High <150 [facility] Comment on above: Performed By: #### C BCDIF, CMP, LIPB, TSH, FT4, HBA1C, VITD #### [facility] [address] [place], [place] [phone] Fasting Time 12 hrs Normal [facility] Comment on above: Performed By: #### C BCDIF, CMP, LIPB, TSH, FT4, HBA1C, VITD #### [facility] [address] [place], [place] [id number] TSHon 12-19-2018 TSH Qn 3.400 uU/mL Normal 0.400-5.500 [facility] Comment on above: Performed By: #### C MP, LIPB, FT4, TSH, CBCDIF, HBA1C, VITD #### [facility] [address] [place] [phone] Vitamin D 25 Hydroxyon 12-19 Vitamin D 25 Hydroxy 29.5 ng/mL Low 31.0-80.0 [facility] Comment on above: Performed By: #### C MP, LIPB, FT4, TSH, CBCDIF, HBA1C, VITD #### [facility] [address] [place] [address] CBC and Differentialon 09-04 Abs Baso 0.06 k/uL Normal <0.11 [facility] Comment on above: Performed By: #### C MP, LIPB, FT4, TSH, CBCDIF, HBA1C, VITD #### [facility] [address] [place] [phone] Abs Mcnairy 0.51 k/uL Normal <0.87 [facility] Comment on above: Performed By: #### C MP, LIPB, FT4, TSH, CBCDIF, HBA1C, VITD #### [facility] [address] [place] [phone] Abs Neut 2.76 k/uL Normal 1.45-7.50 [facility] Comment on above: Performed By: #### C MP, LIPB, FT4, TSH, CBCDIF, HBA1C, VITD #### [facility] [address] [place] [address] Absolute nRBC <0.01 Normal <0.01 [facility] Comment on above: Performed By: #### C MP, LIPB, FT4, TSH, CBCDIF, HBA1C, VITD #### [facility] [address] [place] [phone] Basophils/100 WBC (Bld) 1.0 % Normal [facility] Comment on above: Performed By: #### C MP, LIPB, FT4, TSH, CBCDIF, HBA1C, VITD #### [facility] [address] [place] [phone] DTYPE ADIFF Normal [facility] Comment on above: Performed By: #### C MP, LIPB, FT4, TSH, CBCDIF, HBA1C, VITD #### [facility] [address] [phone] Eosinophils (Bld) [#/Vol] 0.12 10*3/uL Normal <0.46 [facility] Comment on above: Performed By: #### C MP, LIPB, FT4, TSH, CBCDIF, HBA1C, VITD #### [facility] [address] [phone] Eosinophils/100 WBC (Bld) 2.0 % Normal [facility] Comment on above: Performed By: #### C MP, LIPB, FT4, TSH, CBCDIF, HBA1C, VITD #### [facility] [address] [phone] Erythrocyte distribution width (RBC) [Ratio] 12.8 % Normal 11.5-15.0 [facility] Comment on above: Performed By: #### C MP, LIPB, FT4, TSH, CBCDIF, HBA1C, VITD #### [facility] [address] [place] [phone] Hematocrit (Bld) [Volume fraction] 43.4 % Normal 36.0-46.0 [facility] Comment on above: Performed By: #### C MP, LIPB, FT4, TSH, CBCDIF, HBA1C, VITD #### [facility] [address] [phone] Hemoglobin (Bld) [Mass/Vol] 14.1 g/dL Normal 11.5-15.5 [facility] Comment on above: Performed By: #### C MP, LIPB, FT4, TSH, CBCDIF, HBA1C, VITD #### [facility] [address] [phone] Lymphocytes (Bld) [#/Vol] 2.66 10*3/uL Normal 1.00-4.00 [facility] Comment on above: Performed By: #### C MP, LIPB, FT4, TSH, CBCDIF, HBA1C, VITD #### [facility] [address] [place], [place] [address] Lymphocytes/100 WBC (Bld) 43.4 % Normal [facility] Comment on above: Performed By: #### C MP, LIPB, FT4, TSH, CBCDIF, HBA1C, VITD #### [facility] [address] [place] [address] MCH (RBC) [Entitic mass] 29.9 pG Normal 26.0-34.0 [facility] Comment on above: Performed By: #### C MP, LIPB, FT4, TSH, CBCDIF, HBA1C, VITD #### [facility] [address] [address] MCHC (RBC) [Mass/Vol] 32.5 g/dL Normal 30.5-36.0 [facility] Comment on above: Performed By: #### C MP, LIPB, FT4, TSH, CBCDIF, HBA1C, VITD #### [facility] [address] [place] [address] MCV (RBC) [Entitic vol] 91.9 fL Normal 80.0-100.0 [facility] Comment on above: Performed By: #### C MP, LIPB, FT4, TSH, CBCDIF, HBA1C, VITD #### [facility] [address] [address] Monocytes/100 WBC (Bld) 8.3 % Normal [facility] Comment on above: Performed By: #### C MP, LIPB, FT4, TSH, CBCDIF, HBA1C, VITD #### [facility] [address] [place], [place] [address] Neutrophils/100 WBC (Bld) 45.3 % Normal [facility] Comment on above: Performed By: #### C MP, LIPB, FT4, TSH, CBCDIF, HBA1C, VITD #### [facility] [address] [place], [place] [address] NRBCs 0.0 /100 WBC Normal 0 [facility] Comment on above: Performed By: #### C MP, LIPB, FT4, TSH, CBCDIF, HBA1C, VITD #### [facility] [address] [address] Platelet mean volume (Bld) [Entitic vol] 12.2 fL Normal 9.0-12.7 [facility] Comment on above: Performed By: #### C MP, LIPB, FT4, TSH, CBCDIF, HBA1C, VITD #### [facility] [address] [address] Platelets (Bld) [#/Vol] 209 10*3/uL Normal 150-400 [facility] Comment on above: Performed By: #### C MP, LIPB, FT4, TSH, CBCDIF, HBA1C, VITD #### [facility] [address] [place] [address] RBC (Bld) [#/Vol] 4.72 10*6/uL Normal 3.90-5.20 [facility] Comment on above: Performed By: #### C MP, LIPB, FT4, TSH, CBCDIF, HBA1C, VITD #### [facility] [address] [address] WBC (Bld) [#/Vol] 6.13 10*3/uL Normal 3.70-11.00 [facility] Comment on above: Performed By: #### C MP, LIPB, FT4, TSH, CBCDIF, HBA1C, VITD #### [facility] [address] [place], [place] [address] Comp Metabolic Panelon 09-04 Albumin [Mass/Vol] 3.9 g/dL Normal 3.9-4.9 [facility] Comment on above: Performed By: #### C MP, LIPB, FT4, TSH, CBCDIF, HBA1C, VITD #### [facility] [address] [place], [place] [address] ALP [Catalytic activity/Vol] 60 U/L Normal 34-123 [facility] Comment on above: Performed By: #### C MP, LIPB, FT4, TSH, CBCDIF, HBA1C, VITD #### [facility] [address] [place], [place] [address] ALT [Catalytic activity/Vol] 24 U/L Normal 7-38 [facility] Comment on above: Performed By: #### C MP, LIPB, FT4, TSH, CBCDIF, HBA1C, VITD #### [facility] [address] [place], [place] [address] Anion gap [Moles/Vol] 9 mmol/L Normal 9-18 [facility] Comment on above: Performed By: #### C MP, LIPB, FT4, TSH, CBCDIF, HBA1C, VITD #### [facility] [address] [place], [place] [address] AST [Catalytic activity/Vol] 21 U/L Normal 13-35 [facility] Comment on above: Performed By: #### C MP, LIPB, FT4, TSH, CBCDIF, HBA1C, VITD #### [facility] [address] [place], [place] [address] Bilirubin Ql (U) 0.3 mg/dL Normal 0.2-1.3 [facility] Comment on above: Performed By: #### C MP, LIPB, FT4, TSH, CBCDIF, HBA1C, VITD #### [facility] [address] [address] Calcium [Mass/Vol] 9.6 mg/dL Normal 8.5-10.2 [facility] Comment on above: Performed By: #### C MP, LIPB, FT4, TSH, CBCDIF, HBA1C, VITD #### [facility] [address] [place] [address] Chloride [Moles/Vol] 103 mmol/L Normal 97-105 [facility] Comment on above: Performed By: #### C MP, LIPB, FT4, TSH, CBCDIF, HBA1C, VITD #### [facility] [address] [place] [phone] CO2 [Moles/Vol] 27 mmol/L Normal 22-30 [facility] Comment on above: Performed By: #### C MP, LIPB, FT4, TSH, CBCDIF, HBA1C, VITD #### [facility] [address] [place] [phone] Creatinine [Mass/Vol] 0.63 mg/dL Normal 0.58-0.96 [facility] Comment on above: Performed By: #### C MP, LIPB, FT4, TSH, CBCDIF, HBA1C, VITD #### [facility] [address] [place] [address] eGFR- Amer. >60 Normal [facility] Comment on above: Performed By: #### C MP, LIPB, FT4, TSH, CBCDIF, HBA1C, VITD #### [facility] [address] [place] [address] GFR/1.73 sq M predicted among non-blacks MDRD (S/P/Bld) [Vol rate/Area] mL/min/{1.73_m2} Normal [facility] Comment on above: Performed By: #### C MP, LIPB, FT4, TSH, CBCDIF, HBA1C, VITD #### [facility] [address] [place], [place] [address] Glucose [Mass/Vol] 147 mg/dL High 74-99 [facility] Comment on above: Performed By: #### C MP, LIPB, FT4, TSH, CBCDIF, HBA1C, VITD #### [facility] [address] [address] Potassium [Moles/Vol] 4.4 mmol/L Normal 3.7-5.1 [facility] Comment on above: Performed By: #### C MP, LIPB, FT4, TSH, CBCDIF, HBA1C, VITD #### [facility] [address] [place] [address] Protein [Mass/Vol] 6.8 g/dL Normal 6.3-8.0 [facility] Comment on above: Performed By: #### C MP, LIPB, FT4, TSH, CBCDIF, HBA1C, VITD #### [facility] [address] [place] [address] Sodium [Moles/Vol] 139 mmol/L Normal 136-144 [facility] Comment on above: Performed By: #### C MP, LIPB, FT4, TSH, CBCDIF, HBA1C, VITD #### [facility] [address] [place] [address] Urea nitrogen [Mass/Vol] 18 mg/dL Normal 7-21 [facility] Comment on above: Performed By: #### C MP, LIPB, FT4, TSH, CBCDIF, HBA1C, VITD #### [facility] [address] [place] [address] Free T4on 09-04-2018 Free T4 [Mass/Vol] 1.3 ng/dL Normal 0.9-1.7 [facility] Comment on above: Performed By: #### C MP, LIPB, FT4, TSH, CBCDIF, HBA1C, VITD #### [facility] [address] [place], [place] [address] Hemoglobin A1con 09-04-2018 HbA1c (Bld) [Mass fraction] 240 mg/dL Normal [facility] Comment on above: Performed By: #### C MP, LIPB, FT4, TSH, CBCDIF, HBA1C, VITD #### [facility] [address] [place], [place] [address] HbA1c (Bld) [Mass fraction] 10.0 % High 4.3-5.6 [facility] Comment on above: Performed By: #### C MP, LIPB, FT4, TSH, CBCDIF, HBA1C, VITD #### [facility] [address] [place], [place] [address] Lipid Panel, Basicon 019 Cholesterol [Mass/Vol] 234 mg/dL High <200 [facility] Comment on above: Performed By: #### C MP, LIPB, FT4, TSH, CBCDIF, HBA1C, VITD #### [facility] [address] [place], [place] [address] Cholesterol in HDL [Mass/Vol] 62 mg/dL Normal >39 [facility] Comment on above: Performed By: #### C MP, LIPB, FT4, TSH, CBCDIF, HBA1C, VITD #### [facility] [address] [place], [place] [address] Cholesterol in LDL [Mass/Vol] 147 mg/dL High <100 [facility] Comment on above: Performed By: #### C MP, LIPB, FT4, TSH, CBCDIF, HBA1C, VITD #### [facility] [address] [place], [place] [address] Cholesterol in VLDL [Mass/Vol] 25 mg/dL Normal <30 [facility] Comment on above: Performed By: #### C MP, LIPB, FT4, TSH, CBCDIF, HBA1C, VITD #### [facility] [address] [place] [phone] Cholesterol non HDL [Mass/Vol] 172 mg/dL High <130 [facility] Comment on above: Performed By: #### C MP, LIPB, FT4, TSH, CBCDIF, HBA1C, VITD #### [facility] [address] [place] [phone] LDL:HDL Ratio 2.37 Normal <2.54 [facility] Comment on above: Performed By: #### C MP, LIPB, FT4, TSH, CBCDIF, HBA1C, VITD #### [facility] [address] [place] [phone] TC:HDL Ratio 3.77 Normal <5.10 [facility] Comment on above: Performed By: #### C MP, LIPB, FT4, TSH, CBCDIF, HBA1C, VITD #### [facility] [address] [place] [phone] Triglyceride [Mass/Vol] 126 mg/dL Normal <150 [facility] Comment on above: Performed By: #### C MP, LIPB, FT4, TSH, CBCDIF, HBA1C, VITD #### [facility] [address] [place] [phone] TSHon 09-04-2018 TSH Qn 5.010 uU/mL Normal 0.400-5.500 [facility] Comment on above: Performed By: #### C MP, LIPB, FT4, TSH, CBCDIF, HBA1C, VITD #### [facility] [address] [place] [phone] Vitamin D 25 Hydroxyon 09-04 Vitamin D 25 Hydroxy 36.3 ng/mL Normal 31.0-80.0 [facility] Comment on above: Performed By: #### C MP, LIPB, FT4, TSH, CBCDIF, HBA1C, VITD #### [facility] [address] [place], [place] [address] Lipid Panel, Basicon 019 Fasting Time 12 hrs Normal [facility] Comment on above: Performed By: #### C MP, LIPB, FT4, TSH, CBCDIF, HBA1C, VITD #### [facility] [address] [place], [place] [address] Culture, urine Bacteria identified Cx Nom (U) Presumptive Lactobacillus sp. [facility] Work Phone: Vital Signs Date Time Vital Sign Value Performing Clinician Facility 09-05-2022 11:23-0400 Body height 167.6 cm Kate Helms MD Work Phone: [facility] 09-05-2022 11:23-0400 Body weight 106.23 kg Kate Helms MD Work Phone: [facility] 09-05-2022 11:23-0400 Diastolic blood pressure 99 mm[Hg] Kate Helms MD Work Phone: [facility] 09-05-2022 11:23-0400 Heart rate 78 /min Kate Helms MD Work Phone: [facility] 09-05-2022 11:23-0400 SaO2% (BldA) [Mass fraction] 98 % Kate Helms MD Work Phone: [facility] 09-05-2022 11:23-0400 Systolic blood pressure 168 mm[Hg] Kate Helms MD Work Phone: [facility] 03-20-2022 13:29-0400 Body height 167.6 cm Joaquin Caban MD Work Phone: [facility] 03-20-2022 13:29-0400 Body temperature 97.39 [degF] Joaquin Caban MD Work Phone: [facility] 03-20-2022 13:29-0400 Body weight 105.78 kg Joaquin Caban MD Work Phone: [facility] 03-20-2022 13:29-0400 Diastolic blood pressure 85 mm[Hg] Joaquin Caban MD Work Phone: [facility] 03-20-2022 13:29-0400 Heart rate 102 /min Joaquin Caban MD Work Phone: [facility] 03-20-2022 13:29-0400 SaO2% (BldA) [Mass fraction] 96 % Joaquin Caban MD Work Phone: [facility] 03-20-2022 13:29-0400 Systolic blood pressure 128 mm[Hg] Joaquin Caban MD Work Phone: [facility] 02-09-2022 09:10-0400 Diastolic blood pressure 70 mm[Hg] Dr. Miroslava Marshall Work Phone: [facility] Work Phone: 02-09-2022 09:10-0400 Heart rate 85 /min Dr. Miroslava Marshall Work Phone: [facility] Work Phone: 02-09-2022 09:10-0400 Respiratory rate 16 /min Dr. Miroslava Marshall Work Phone: [facility] Work Phone: 02-09-2022 09:10-0400 SaO2% (BldA) [Mass fraction] 98 % Dr. Miroslava Marshall Work Phone: [facility] Work Phone: 02-09-2022 09:10-0400 Systolic blood pressure 158 mm[Hg] Dr. Miroslava Marshall Work Phone: [facility] Work Phone: 02-09-2022 08:31-0400 Body temperature 96.9 [degF] Dr. Miroslava Marshall Work Phone: [facility] Work Phone: 02-09-2022 06:42-0400 Body height 170.[address] Miroslava Marshall Work Phone: [facility] Work Phone: 02-09-2022 06:42-0400 Body mass index (BMI) [Ratio] 36.3 kg/m2 Dr. Miroslava Marshall Work Phone: [facility] Work Phone: 02-09-2022 06:42-0400 Body weight 105.[address] Miroslava Marshall Work Phone: [facility] Work Phone: 01-18-2022 09:52-0400 Body mass index (BMI) [Ratio] 37.5 kg/m2 Dr. Miroslava Marshall Work Phone: [facility] Work Phone: 01-18-2022 09:52-0400 Body temperature 94.7 [degF] Dr. Miroslava Marshall Work Phone: [facility] Work Phone: 01-18-2022 09:52-0400 Body weight 105.[address] Miroslava Marshall Work Phone: [facility] Work Phone: 01-18-2022 09:52-0400 Diastolic blood pressure 84 mm[Hg] Dr. Miroslava Marshall Work Phone: [facility] Work Phone: 01-18-2022 09:52-0400 Heart rate 85 /min Dr. Miroslava Marshall Work Phone: [facility] Work Phone: 01-18-2022 09:52-0400 Respiratory rate 18 /min Dr. Miroslava Marshall Work Phone: [facility] Work Phone: 01-18-2022 09:52-0400 SaO2% (BldA) [Mass fraction] 90 % Dr. Miroslava Marshall Work Phone: [facility] Work Phone: 01-18-2022 09:52-0400 Systolic blood pressure 156 mm[Hg] Dr. Miroslava Marshall Work Phone: [facility] Work Phone: 12-19-2021 09:02-0400 Body mass index (BMI) [Ratio] 36.6 kg/m2 Dr. Miroslava Marshall Work Phone: [facility] Work Phone: 12-19-2021 09:02-0400 Body temperature 96 [degF] Dr. Miroslava Marshall Work Phone: [facility] Work Phone: 12-19-2021 09:02-0400 Body weight 103.[address] Miroslava Marshall Work Phone: [facility] Work Phone: 12-19-2021 09:02-0400 Diastolic blood pressure 80 mm[Hg] Dr. Miroslava Marshall Work Phone: [facility] Work Phone: 12-19-2021 09:02-0400 Heart rate 86 /min Dr. Miroslava Marshall Work Phone: [facility] Work Phone: 12-19-2021 09:02-0400 Respiratory rate 18 /min Dr. Miroslava Marshall Work Phone: [facility] Work Phone: 12-19-2021 09:02-0400 SaO2% (BldA) [Mass fraction] 97 % Dr. Miroslava Marshall Work Phone: [facility] Work Phone: 12-19-2021 09:02-0400 Systolic blood pressure 126 mm[Hg] Dr. Miroslava Marshall Work Phone: [facility] Work Phone: Encounters Encounter Date Encounter Type Care Provider Facility Start: 10-09-2024 End: 10-09-[facility] Start: 04-16-2024 End: [facility] Start: 02-20-2024 End: 02-20-2024 ambulatory JULITO MALIK [employer] Facility:[facility] Start: 11-13-2023 Refill Kate Helms MD Work Phone: Endocrinology Comment on above: Refill Request Start: 10-31-2023 Refill Kate Helms MD Work Phone: Endocrinology Comment on above: Refill Request Start: 08-18-2023 End: 08-18-2023 ambulatory [facility] Work Phone: Start: 08-18-2023 End: 08-18-2023 Patient encounter procedure [facility]-Ultrasound, [facility] Work Phone: Start: 08-07-2023 End: 08-07-2023 Emergency department patient visit JESUS MANUEL STACK MD Facility:B Start: 06-28-2023 End: 06-29-2023 ambulatory [facility] Start: 03-26-2023 End: 03-27-2023 [facility] Start: 02-21-2023 End: 02-21-2023 Emergency department patient visit JESUS MANUEL STACK MD Facility:[facility] Start: 10-10-2022 End: 10-15-2022 ambulatory JULITO MALIK [employer]W [employer]PER[employer] Facility:[facility] Start: 10-04-2022 End: 10-04-2022 Emergency department patient visit JESUS MANUEL STACK MD Facility:[facility] Start: 09-05-2022 End: 09-05-2022 ambulatory KATE HELMS Facility:[facility] Start: 09-05-2022 End: 09-05-2022 Nursing evaluation of patient and report Peyton Campo RN Work Phone: Diabetic Education [place] Comment on above: DM (diabetes mellitu s), 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 Miroslava Marshall Work Phone: [facility] Work Phone: Start: 03-24-2022 End: 03-24-[address] Miroslava Marshall Work Phone: [facility]-Laboratory Start: 03-20-2022 End: 03-20-2022 ambulatory JOAQUIN CABAN Facility:[facility] Start: 03-20-2022 End: 03-20-2022 Patient encounter procedure Joaquin Caban MD Work Phone: General Surgery Comment on above: Nontoxic multinodula r goiter (Primary Dx) Start: 03-02-2022 End: 03-02-[address] Miroslava Marshall Work Phone: [facility] Work Phone: Start: 03-02-2022 End: 03-02-[address] Miroslava Marshall Work Phone: [facility], [facility] Start: 02-09-2022 End: 02-09-2022 Admission to same day surgery center Dr. Miroslava Marshall Work Phone: [facility] Day [facility] Start: 02-09-2022 End: 02-09-[address] Miroslava Marshall Work Phone: [facility] Work Phone: Start: 01-23-2022 End: 01-23-[address] Miroslava Marshall Work Phone: [facility]-Laboratory, Specimen Start: 01-18-2022 End: 01-18-[address] Miroslava Marshall Work Phone: [facility] Endocrinology Start: 12-19-2021 End: 12-19-[address] Miroslava Marshall Work Phone: [facility] Endocrinology Procedures Date Procedure Procedure Detail Performing Clinician Start: 08-18-2023 US scan of thyroid Start: 09-05-2022 Hemoglobin A1c/Hemoglobin.total in Blood Kate Helms MD Work Phone: Start: 03-02-2022 US scan of thyroid Dr. Miroslava Marshall Work Phone: Start: 02-09-[address] Miroslava Marshall Work Phone: Start: 02-17-2019 Colonoscopy Joaquin bose MD Work Phone: Start: 09-17-2014 Mammography Joaquin bose MD Work Phone: Urine culture Plan of Treatment Date Care Activity Detail Author Start: 02-10-2024 Influenza vaccination Influenza Vaccine (Season Ended) [facility] Start: 06-11-2023 Behavioral Health Screening Behavioral Health Screening [facility] Start: 02-09-2023 Covid-19 Vaccine ( season) Covid-19 Vaccine ( season) [facility] Start: 12-06-2022 Hemoglobin A1c measurement HbA1C [facility] Start: 12-06-2022 Hemoglobin A1c/Hemoglobin.total in Blood HBA1C [facility] Start: 06-11-2022 DEPRESSION ASSESSMENT DEPRESSION ASSESSMENT [facility] Start: 02-09-2022 Anes hysteroscopy&/hysterosalp ingography w/bx ANESTH HYSTEROSCOPE/GRAPH [facility] Work Phone: Start: 02-09-2022 Hysteroscopy bx endometrium&/polypc w/wo d&c HYSTEROSCOPY BIOPSY [facility] Work Phone: Start: 02-09-2022 Influenza vaccination INFLUENZA (#1) [facility] Start: 02-09-2022 Ambulation without limitation [facility] Work Phone: Start: 02-09-2022 Medication education [facility] Work Phone: Start: 02-09-2022 Patient discharge [facility] Work Phone: Start: 02-09-2022 Planned voiding [facility] Work Phone: Start: 02-09-2022 Taking patient vital signs [facility] Work Phone: Start: 02-09-2022 Vital signs measurements [facility] Work Phone: Start: 02-09-2022 [facility] Work Phone: Start: 06-11-2021 DEPRESSION ASSESSMENT DEPRESSION ASSESSMENT [facility] Start: 02-18-2020 Colonoscopy COLONOSCOPY [facility] Start: 02-18-2020 COLORECTAL CANCER SCREENING COLORECTAL CANCER SCREENING [facility] Start: 02-18-2020 Screening for malignant neoplasm of colon [facility] Start: 2019 RSV Vaccine (1 - 1-dose 60+ series) RSV Vaccine (1 - 1-dose 60+ series) [facility] Start: 09-18-2015 Mammography MAMMOGRAM [facility] Start: 09-18-2015 Screening for malignant neoplasm of breast Mammogram Screening [facility] Start: 11-26-2014 Hemoglobin A1c/Hemoglobin.total in Blood HBA1C [facility] Start: 2009 SHINGRIX VACCINE (1 of 2) SHINGRIX VACCINE (1 of 2) [facility] Start: 02-01-2004 COLOGUARD (FIT-DNA) COLOGUARD (FIT-DNA) [facility] Start: 02-01-[address] COLONOGRAPHY [facility] Start: 02-01-2004 FECAL OCCULT BLOOD FECAL OCCULT BLOOD [facility] Start: 02-01-2004 Screening for malignant neoplasm of colon [facility] Start: 02-01-2004 SIGMOIDOSCOPY SIGMOIDOSCOPY [facility] Start: 1989 HPV TESTING HPV TESTING [facility] Start: 1989 Screening for malignant neoplasm of cervix HPV Testing [facility] Start: 02-01-1980 PAP TESTING PAP TESTING [facility] Start: 02-01-1980 Screening for malignant neoplasm of cervix Pap Testing [facility] Start: 1978 Urine microalbumin profile [facility] Start: 1977 ANNUAL PCP TEAM CHRONIC DISEASE VISIT ANNUAL PCP TEAM CHRONIC DISEASE VISIT [facility] Start: 1977 Hepatitis B surface antibody level LDL CHOLESTEROL [facility] Start: 1977 HEPATITIS C SCREENING HEPATITIS C SCREENING [facility] Start: 1977 Hepatitis C screening Hepatitis C Screening [facility] Start: 1977 HIV SCREENING HIV SCREENING [facility] Start: 1977 HIV screening HIV Screening [facility] Start: 1969 3 comp foot exam completed DIABETIC FOOT EXAM [facility] Start: 1969 Diabetic foot examination Diabetic Foot Exam [facility] Start: 1969 Glaucoma screening Dilated Retinal Exam [facility] Start: 1969 Hepatitis B screening URINE ALBUMIN:CREATININE RATIO [facility] Start: 1969 Hepatitis C antibody, confirmatory test DILATED RETINAL EXAM [facility] Start: 1965 PNEUMOCOCCAL (1 - PCV) PNEUMOCOCCAL (1 - PCV) [facility] Start: 1965 Pneumococcal vaccination Pneumococcal Vaccine (1 of 2 - PCV) [facility] Patient referral [facility] Work Phone: Immunizations Immunization Date Immunization Notes Care Provider [facility] 03-18-[address] Miroslava Marshall Work Phone: [facility] 03-18-2014 influenza virus vaccine, unspecified formulation Kate Helms MD Work Phone: [facility] Payers Date Payer Category Payer Self-pay [id number] 2024 Medicare [id number] 2023 Unknown [id number] 2022 Private Health Insurance [id number] 2022 Private Health Insurance PEN DING 2022 Unknown [id number] 2014 Unknown [id number] 2014 Unknown [id number] 2014 Unknown [facility] [id number] 1959 Unknown [id number] [id number] [id number] 1959 Unknown [id number] [id number] [id number] 1959 Unknown [id number] [id number] [id number] 1959 Unknown [id number] 2.16.8 [id number] 1959 Unknown [id number] 2.16.8 [id number] 1959 Unknown [id number] 2.16.8 [id number] 1959 Unknown [id number] 2.16.8 [id number] Unknown [id number] [id number] Unknown [id number] [id number] Social History Date Type Detail Facility Start: 02-02-2022 End: 02-02-2022 Tobacco smoking status MEIS Unknown if ever smoked [facility] Start: 02-13-2019 Non-smoker [facility] Start: 1960 Sex Assigned At Female [facility] Start: 03-20-2022 Tobacco smoking status NHIS Never smoked tobacco [facility] Start: 03-20-2022 Tobacco use and exposure Smokeless tobacco non-user [facility] Start: 03-20-2022 End: 09-05-2022 Alcohol intake Current drinker of alcohol (finding) [facility] Start: 03-20-2018 Alcohol Comment Occasional - wine Cl [facility] Start: 1960 Sex Assigned At Not on file [facility] Start: 03-10-2022 End: 03-20-2022 Exposure to SARS-CoV-2 (event) Not sure [facility] Start: 07-08-2022 End: 09-05-2022 History of Social function [facility] Start: 07-08-2022 End: 09-05-2022 Tobacco use panel [facility] National Score (1-100), lower number is lower risk 62 [facility] NEGATED: Highlighted row [facility] Work Phone: Goals Date Patient Goal Desired Activity /State Mental Status Date Assessment Result Facility 02-09-2022 Cognitive function Voice/Name [facility] Work Phone: Clinical Notes 01-23-2022 to 11-13-2023 Telephone Encounter - Mayra Singh - 11/13/2023 4:06 PM EDTTelephone Encounter - Mayra Singh - 11/13/2023 4:06 PM EDTTelephone Encounter - Donna Gonzalez MA - 11/13/2023 3:49 PM EDT Note Date & Type Note Facility 11-13-2023 Telephone encounter Note I called this patient. She stated she is seeing a different Dr and the prescription was supposed to be filled by that , not Dr. Helms. Patient asked us to disregard this request. [facility] 11-13-2023 Miscellaneous Notes I called this patient. She stated she is seeing a different Dr and the prescription was supposed to be filled by that , not Dr. Helms. Patient asked us to disregard this request. Requester: Pharmacy Last Visit in Endocrinology: Provider name: Kate Helms MD , Date 09/05/2022 Next Scheduled Appt in Endo: Visit date not found Last Refill: 09/05/2022 Number of Refills given: 2 PSS NOTE: Patient needs scheduled appointment. Overdue for 4 weeks f/u Requested Prescriptions Pending Prescriptions Disp Refills insulin regular human, CONCENTRATED 500 UNIT/ML, (HUMULIN R U-500, CONC, KWIKPEN) 500 unit/mL (3 mL) inpn [Pharmacy Med Name: HUMULIN R 500 UNIT/ML KWIKPEN] 30 mL 2 Sig: inject 88 units subcutaneously with breakfast 66 units with LUNCH and 66 units with dinner Please review and advise. Donna Gonzalez MA documented in this encounter [facility] 11-13-2023 Telephone encounter Note Requester: Pharmacy Last Visit in Endocrinology: Provider name: Kate Helms MD , Date 09/05/2022 Next Scheduled Appt in Endo: Visit date not found Last Refill: 09/05/2022 Number of Refills given: 2 PSS NOTE: Patient needs scheduled appointment. Overdue for 4 weeks f/u Requested Prescriptions Pending Prescriptions Disp Refills insulin regular human, CONCENTRATED 500 UNIT/ML, (HUMULIN R U-500, CONC, KWIKPEN) 500 unit/mL (3 mL) inpn [Pharmacy Med Name: HUMULIN R 500 UNIT/ML KWIKPEN] 30 mL 2 Sig: inject 88 units subcutaneously with breakfast 66 units with LUNCH and 66 units with dinner Please review and advise. Donna Gonzalez MA [facility] 10-31-2023 Telephone encounter Note Spoke to patient and she stated to cancel the request. She is seeing another provider in [facility]. [facility] 10-31-2023 Miscellaneous Notes Spoke to patient and she stated to cancel the request. She is seeing another provider in [facility]. Requester: Pharmacy Last Visit in Endocrinology: Provider name: Kate Helms MD , Date 09/05/2022 Next Scheduled Appt in Endo: Visit date not found Last Refill: 09/05/22 Number of Refills given: 2 PSS NOTE: Patient needs scheduled appointment PETE. Requested Prescriptions Pending Prescriptions Disp Refills insulin regular human, CONCENTRATED 500 UNIT/ML, (HUMULIN R U-500, CONC, KWIKPEN) 500 unit/mL (3 mL) inpn [Pharmacy Med Name: HUMULIN R 500 UNIT/ML KWIKPEN] 30 mL 2 Sig: inject 88 units subcutaneously with breakfast 66 units with LUNCH and 66 units with dinner Please review and advise. Elissa Mills MA // // documented in this encounter [facility] 10-31-2023 Telephone encounter Note Requester: Pharmacy Last Visit in Endocrinology: Provider name: Kate Helms MD , Date 09/05/2022 Next Scheduled Appt in Endo: Visit date not found Last Refill: 09/05/22 Number of Refills given: 2 PSS NOTE: Patient needs scheduled appointment PETE. Requested Prescriptions Pending Prescriptions Disp Refills insulin regular human, CONCENTRATED 500 UNIT/ML, (HUMULIN R U-500, CONC, KWIKPEN) 500 unit/mL (3 mL) inpn [Pharmacy Med Name: HUMULIN R 500 UNIT/ML KWIKPEN] 30 mL 2 Sig: inject 88 units subcutaneously with breakfast 66 units with LUNCH and 66 units with dinner Please review and advise. Elissa Mills MA // // [facility] 09-05-2022 Note HNO ID: [id number] Author: Peyton Campo RN Service: ? Author Type: Registered Nurse Type: Progress Notes Filed: 09/05/2022 12:55 PM Note Text: DIABETES SELF-MANAGEMENT EDUCATION AND SUPPORT Location: [place] Type of visit: In person individual Types [...] Race/Ethnic Origin: White/ Does your culture or jain require any of the following: No cultural/catholic practices affecting DM Do you have problems with: No difficulty seeing/hearing/reading/writing/s peaking Do you use tobacco? No Do you [...] a week. flash glucose scanning reader (FREESTYLE SHANDA 2 READER) Use to check blood sugar at least four (4) times daily. E11.65. patient on multiple insulin injections flash glucose sensor (FREESTYLE SHANDA 2 SENSOR) kit Apply new sensor every [...] done? Stomach/abdomen W (more content not included)... [facility] 09-05-2022 Note HNO ID: [id number] Author: Kate Helms MD Service: ? Author Type: Physician Type: Progress Notes Filed: 09/05/2022 12:59 PM Note Text: ENDOCRINOLOGY CLINIC NOTE Ms. Bowers is a pleasant 62 year old female [...] months ago) Home glucose monitoring: She has [employer] The patient's continuous glucose monitoring device was [...] Procedure Laterality Date APPENDECTOMY 1973 CHG DELIVERY 1983/1984 x 2 COLONOSCOPY 02/17/2019 DANDC, DIAG AND/OR THERAPEUTIC 02/09/2022 EGD W/O BRSH SPEC VARICIES INJ 02/17/2019 PAST SURGICAL HISTORY OF 1990 ORIF left tibia, percutaneous pinning left small finger PAST SURGICAL HISTORY OF laparoscopy for endometriosis TONSILLECTOMY HX 1967 TOTAL THYROID LOBECTOMY UNI W/WO ISTHMUSECTOMY Right [...] lb 3.2 oz) Height: 167.6 cm (5' 6) General: NAD, alert and cooperative HEENT: EOMI, no proptosis/stare. Neck: supple with full ROM. No thyromegaly or palpable nodules. No loud carotid bruit Cardiovascular: RRR, +S1 and S2, no MRG appreciated Lungs: Clear to auscultation bilaterally Neuro: Alert and oriented Psych: Normal affect Labs: A (more content not included)... [facility] 09-05-2022 History of Presen t illness Narrative DIABETES SELF-MANAGEMENT EDUCATION AND SUPPORT Location: [place] Type of visit: In person individual Types [...] Race/Ethnic Origin: White/ Does your culture or jain require any of the following: No cultural/catholic practices affecting DM Do you have problems with: No difficulty seeing/hearing/reading/writing/s peaking Do you use tobacco? No Do you [...] a week. flash glucose scanning reader (FREESTYLE SHANDA 2 READER) Use to check blood sugar at least four (4) times daily. E11.65. patient on multiple insulin injections flash glucose sensor (FREESTYLE SHANDA 2 SENSOR) kit Apply new sensor every [...] Yes; What kind of meter is it? Shanda Management of Low Blood Sugar: What has [...] via access to shared medical record. SIGNATURE: Peyton Campo RN PATIENT NAME: Anita Bowers DATE: September 05, 2022 TIME: 12:01 PM PAGER: documented in this encounter [facility] 09-05-2022 Instructions Kate Helms MD - 09/05/2022 11:56 AM EDT - Continue Trulicity 1.5 mg once a week - We will switch the lantus and novolog to a concentrated insulin called U500. Take U500 insulin: 88 units with breakfast, 66 units with lunch, 66 units with dinner. (When you start the U500 insulin, STOP lantus and novlog) - I prescribed Freestyle shanda 2 - If you signed up for MyChart, we can do a video visit in a month. If that does not work for you, we will have see my colleague nurse in 2-3 months, and see me in 5-6 months documented in this encounter [facility] 09-05-2022 History of Presen t illness Narrative Images from the original note were not included. ENDOCRINOLOGY CLINIC NOTE Ms. Bowers is a pleasant 62 year old female [...] months ago) Home glucose monitoring: She has [email or web address] shanda The patient's continuous glucose monitoring device was [...] lb 3.2 oz) Height: 167.6 cm (5' 6) General: NAD, alert and cooperative HEENT: EOMI, [...] the left lobe. Assessment and Recommendations: Ms. Bowers is a pleasant 62-year-old woman presented to [...] diarrhea I asked her to scan the [email or web address] shanda at least every 8 hours to avoid [...] which included preparing to see the patient, thgo-sm-iaml patient care, completing clinical documentation, performing a medically appropriate examination, counseling and educating the patient/family/caregiver, and ordering medications, tests, or procedures. This note was created using [employer] dictation software. You may find errors that were missed during proofreading. They are purely unintentional and if there are any concerns regarding this dictation, please do not hesitate to contact the dictating provider for clarification. Kate Helms MD documented in this encounter [facility] 03-20-2022 Note HNO ID: [id number] Author: Joaquin Caban MD Service: ? Author Type: Physician Type: Progress Notes Filed: 03/20/2022 1:48 PM Note Text: HISTORY AND PHYSICAL Anita Martin Bowers 1960 REFERRING PHYSICIAN: Dr. Oscar Colorado*pre-clinic CHIEF COMPLAINT: Consult (Abnormal thyroid ultrasound) HPI: The patient is a 62 year old female with a complaint of a left thyroid nodule. This thyroid nodule was found on Ultrasound by [facility]. The patient denies pain, denies difficulty [...] The patient had a ultrasound done at [facility] on 03/02/2022. This showed approximately 3 [...] ?C (97.4 ?F), height 167.6 cm (5' 6), weight 105.8 kg (233 lb 3.2 oz), SpO2 96 %. Body mass index is 37.64 kg/m?. HEENT: Normal cephalic, ataumatic, pupils are equally round, sclera are anicteric, mucous membranes are moist, oropharynx is clear. Neck has no masses, asymmetry or lymphadenop (more content not included)... [facility] 03-20-2022 Nurse Note REVIEW OF SYSTEMS: [...] Nancy Gottlieb RN documented in this encounter [facility] 03-20-2022 History of Presen t illness Narrative HISTORY AND PHYSICAL Anita Martin Bowers 1960 REFERRING PHYSICIAN: Dr. Oscar Colorado*pre-clinic CHIEF COMPLAINT: Consult (Abnormal thyroid ultrasound) HPI: The patient is a 62 year old female with a complaint of a left thyroid nodule. This thyroid nodule was found on Ultrasound by [facility]. The patient denies pain, denies difficulty [...] The patient had a ultrasound done at [facility] on 03/02/2022. This showed approximately 3 [...] C (97.4 F), height 167.6 cm (5' 6), weight 105.8 kg (233 lb 3.2 oz), [...] diagnosis) A letter was sent to Dr. Chaparro Paulino CNP indicating the above finding for this patient. Return to Clinic: The patient is instructed to follow-up with me in 1 year. Joaquin Caban III, MD documented in this encounter [facility] 01-23-2022 Note [facility] Work Phone: Pap Smear Specimen Adequacy January 23, 2022 1:12pm Comment . Satisfactory for evaluation. Endocervical and/or squamous metaplasticcells (endocervical component) are present. Comment on above: Satisfactory for trinity luation. Endocervical and/or squamous metaplasticcells (endocervical component) are present. 01-23-2022 Note [facility] Work Phone: Pap Smear Specimen Adequacy January 23, 2022 1:12pm Comment . Satisfactory for evaluation. Endocervical and/or squamous metaplasticcells (endocervical component) are present. Comment on above: Satisfactory for trinity luation. Endocervical and/or squamous metaplasticcells (endocervical component) are present. 01-23-2022 Note [facility] Work Phone: Pap Smear Specimen Adequacy January 23, 2022 1:12pm Comment . Satisfactory for evaluation. Endocervical and/or squamous metaplasticcells (endocervical component) are present. Comment on above: Satisfactory for trinity luation. Endocervical and/or squamous metaplasticcells (endocervical component) are present. 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 Mixed hyperlipidemia chronic Obesity chronic Benign essential hypertension chronic Diabetes chronic Obesity chronic [facility] Work Phone: Evaluation note* Diagnosis Nontoxic multinodular goiter- Primary documented in this encounter [facility] noteNo assessment [facility] Work Phone: Evaluation note* Diagnosis Poorly controlled type 2 diabetes mellitus (HCC)- Primary Type II or unspecified type diabetes mellitus without mention of complication, not stated as uncontrolled Acquired hypothyroidism Unspecified hypothyroidism Multiple thyroid nodules Nontoxic multinodular goiter documented in this encounter [facility] note* Diagnosis DM (diabetes mellitus), 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 Type II or unspecified type diabetes mellitus with neurological manifestations, not stated as uncontrolled documented in this encounter [facility] Summary Purpose Family History No Family History Records Found Relationship Condition Age at Onset Recorded Date/T rasheed mother Diabetes mellitus Unknown Cardiac disease Unknown Hypertension Unknown Disorder of thyroid Unknown Advance Directives No Advanced Directives Records Found Advance Directive Response Recorded Date/ Time Advance Directives No April 4:52pm Living Will No February 02 2 8:11am Power of Data Entry Operator No February 02 022 8:11am Advance Directive Response Recorded Date/ Time Advance Directives No April 3:52pm Living Will No February 02 7:11am Power of Data Entry Operator No February 02 022 7:11am Chief Complaint and Reason for Visit Chief Complaint FOLLOW UP 1 M FU HYSTER D&C Reason for Visit Benign essential hyp ertension Diabetes Hypothyroidism due to Ramona's thyroiditis Mixed hyperlipidemia Obesity Benign essential hypertension Diabetes Obesity Chief Complaint FOLLOW UP 1 M FU HYSTER D&C NODULES Reason for Visit Benign essential hyp ertension Diabetes Hypothyroidism due to Ramona's thyroiditis Mixed hyperlipidemia Obesity Benign essential hypertension Diabetes Obesity Chief Complaint NODULES Chief Complaint HYPOTHYROIDISM Reason for Referral Specialty Diagnoses / Procedures Referred By Jennifer myers Referred To Contact Kate Helms MD [address] [phone] Referral ID Status Reason Start Date Expiration Date V isits Requested Visits Authorized [id number] Pending Review 1 1 Referral ID Status Reason Start Date Expiration Date V isits Requested Visits Authorized [id number] Pending Review 1 1 Specialty Diagnoses / Procedures Referred By Jennifer t Referred To Contact Diagnoses Poorly controlled type 2 diabetes mellitus (HCC) Procedures CONSULT TO DIABETES EDUCATION DSME/MNT MEDICAL NUTRITION ASSMT&IVNTJ INDIV EACH 15 NH MEDICAL NUTRITION ASSMT&IVNTJ INDIV EACH 15 NH MEDICAL NUTRITION ASSMT&IVNTJ INDIV EACH 15 [place] MEDICAL NUTRITION ASSMT&IVNTJ INDIV EACH 15 NH Kate Helms MD [address] [phone] Referral ID Status Reason Start Date Expiration Date Visits Requested Visits Authorized [id number] Authorized PCP Requested Referral 09/05/2022 09/05/2023 1 1 Additional Source Comments INFORMATION SOURCE (unrecogn ized section and content) DATE CREATED AUTHOR 07/03/2019 [facility] DATE CREATED AUTHOR AUTHOR'S ORGANIZ ATION 12/30/2019 [facility] [place] DATE CREATED AUTHOR AUTHOR'S ORGANIZ ATION 09/08/2022 [facility] DATE CREATED AUTHOR AUTHOR'S ORGANIZ ATION 08/13/2023 [facility] ([place] DATE CREATED AUTHOR AUTHOR'S ORGANIZ ATION 04/18/2024 [place] DATE CREATED AUTHOR AUTHOR'S ORGANIZ ATION 10/14/2024 [facility] Source Comments (unrecognize d section and content) In the event this informatio n is protected by the Federal Confidentiality of Alcohol and Drug Abuse Patient Records regulations: The Federal rules restrict any use of the information to criminally investigate or prosecute any alcohol or drug abuse patient.[facility] the event this information is protected by the Federal Confidentiality of Alcohol and Drug Abuse Patient Records regulations: The Federal rules restrict any use of the information to criminally investigate or prosecute any alcohol or drug abuse patient.[facility] the event this information is protected by the Federal Confidentiality of Alcohol and Drug Abuse Patient Records regulations: The Federal rules restrict any use of the information to criminally investigate or prosecute any alcohol or drug abuse patient.[facility] the event this information is protected by the Federal Confidentiality of Alcohol and Drug Abuse Patient Records regulations: The Federal rules restrict any use of the information to criminally investigate or prosecute any alcohol or drug abuse patient.[facility] the event this information is protected by the Federal Confidentiality of Alcohol and Drug Abuse Patient Records regulations: The Federal rules restrict any use of the information to criminally investigate or prosecute any alcohol or drug abuse patient.[facility] Reason for Visit (unrecogniz ed section and content) Reason Comments Consult Abnormal thyroid ult rasound Reason Comments Consult Reason Comments Refill Request Care Teams (unrecognized sec tion and content) Wellness Instructor Relationship Specialty Start Date End Date Chaparro Paulino CNP [address] [place] [address] PCP - General Internal Medicine 03/10/22 Carlos A Moore MD [address] [place] [address] Referring Family Medicine 03/10/22 Wellness Instructor Relationship Specialty Start Date End Date Chaparro Paulino CNP [address] [place] [address] PCP - General Internal Medicine 03/10/22 Carlos A Moore MD [address] [place] [address] Referring Family Medicine 03/10/22 Julito Gan, NESTOR [address] [place] [address] Referring Family Medicine 08/16/22 Wellness Instructor Relationship Specialty Start Date End Date Chaparro Paulino CNP [address] [place] [address] PCP - General Internal Medicine 03/10/22 Carlos A Moore MD [address] [place] [address] Referring Family Medicine 03/10/22 Julito Gan NP [address] [facility] [place] [address] Referring Family Medicine 08/16/22 Team Status: Active Member Role Status Dates [facility] Family Provider Active Julito Gan RUCHING MACHINE OPERATOR, RUCHING MACHINE OPERATOR-C Primary Care Provider Active Team Status: Inactive Member Role Status Dates Julito Gan RUCHING MACHINE OPERATOR, RUCHING MACHINE OPERATOR-C Primary Care Provider Active Dr. Evelina Monterroso MD Attending Provider, Re sunitha Provider Active Wellness Instructor Relationship Specialty Start Date End Date Chaparro Paulino MOLD MOVER [address] [facility] [place] [address] PCP - General Internal Medicine 03/10/22 Carlos A Moore MD [address] [place] [address] Referring Family Medicine 03/10/22 Julito Gan NP [address] [place] [address] Referring Family Medicine 08/16/22 Julito Gan NP [address] [place] [address] Referring Family Medicine 10/07/22 Goals (unrecognized section and content) Goals may be documented in a n alternate sectionGoals may be documented in an alternate sectionGoals may be documented in an alternate section FOR RECORDS PERTAINING TO PATIENTS WHO ARE [...] BE BASED ON THE PRIMARY CLINICAL RECORDS. [email or web address] [facility]. provides no warranty or guarantee of the accuracy or completeness of information in this document.
[2024-11-25 12:32] LABS: Absolute Lymphocyte Count 3.15 X10^3/uL (0.83-4.51); Absolute Neutrophil Count 4.5 X10^3/uL (2.0-7.7); Basophil# 0.04 X10^3/uL; Basophil% 0.5 % (0-1); Eosinophil# 0.11 X10^3/uL; Eosinophils% 1.3 % (0-5); Hematocrit 42.9 % (37-47); Hemoglobin 14.5 g/dL (12.0-15.0); Lymphocyte # 3.15 X10^3/ul (0.83-4.51); Lymphocyte % 36.9 % (19-41); Mean Corp Hgb Conc 33.8 g/dL (32-36); Mean Corpuscular Volume 88.8 fL (81-99); Mean Platelet Vol. 11.2 fl (6.2-12.0); Monocyte# 0.74 X10^3/uL; Monocyte% 8.7 % (0-10); NRBC Flagged by Analyzer 0 % (0-5); Neutrophil # 4.47 X10^3/uL (2.7-7.7); Neutrophil % 52.2 % (47-70); Platelet Count 222 K/mm3 (150-450); RBC Distribution Width CV 13.5 % (11.6-14.6); Red Blood Count 4.83 M/mm3 (4.2-5.4); White Blood Count 8.5 K/mm3 (4.4-11.0)
[2024-11-25 14:36] LABS: ALB/GLOB Ratio 1.5 RATIO (0.9-2.4); AST(SGOT) 25 U/L (<=31); Alanine Aminotransfer ALT/SGPT 27 U/L (<=34); Alkaline Phosphatase 69 U/L (35-104); Anion Gap 11 (5-15); BUN 17 mg/dL (4-19); BUN/Creat Ratio 22.8 RATIO (10-20); Calcium,Total 9.4 mg/dL (7.6-11.0); Carbon Dioxide 21.5 mmol/L (21.0-32.0); Chloride 106 mmol/L (98-108); Cholesterol 242 mg/dL (<=200); Creatinine, Serum 0.73 mg/dL (0.70-1.20); EST Glomerular Filtration Rate 91 (>60); Globulin 2.7 g/dL (2.2-4.2); Glucose 125 mg/dL (70-99); High Density Lipoprotein 59 mg/dL; Low Density Lipoprotein Calc. 152 mg/dL; Potassium 4.6 mmol/L (3.3-5.1); Protein, Total 6.7 g/dL (5.9-8.4); Sodium Level 139 mmol/L (133-145); Total Bilirubin 0.26 mg/dL (0.00-1.30); Triglycerides 151 mg/dL; Very Low Density Lipoprotein 30 mg/dL (5-40); Vitamin D,25 Hydroxy 30.7 ng/mL (30-100); cholesterol:hdl ratio screen 4.07
== END | disposition home or self-care (01) ==
LOC: VSLAB 08:32
PROVIDERS: PCP Nurse Practitioner Family; Visit Provider Nurse Practitioner Family
DX: E11.42 Type 2 diabetes mellitus with diabetic polyneuropathy (principal); E55.9 Vitamin D deficiency, unspecified; E03.9 Hypothyroidism, unspecified; E78.5 Hyperlipidemia, unspecified
CPT/HCPCS: 36415; 80053; 80061; 82043; 82306; 84439; 84443; 85025